=== PATIENT | male | born 1990 | race Caucasian/White ===

== ENCOUNTER → 2017-09-25 09:17 | Outpatient (CLI) | payer OTHER, SELFPAY ==
[2017-09-25 10:00] LABS: Absolute Lymphocyte Count 1.89 X10^3/ul (0.83-4.51); Absolute Neutrophil Count 6.2 X10^3/uL (2.0-7.7); Basophil# 0.03 X10^3/uL; Basophil% 0.3 % (0-1); Eosinophil# 0.09 X10^3/uL; Hematocrit 48.7 % (40-54); Hemoglobin 16.5 g/dl (13.0-16.5); Lymphocyte # 1.89 X10^3/ul (4.0); Lymphocyte % 20.8 % (19-41); Mean Corp Hgb Conc 33.9 g/gl (32-36); Mean Corpuscular Hgb 30.2 pg (27.0-32.0); Mean Corpuscular Volume 89.2 fL (80-94); Mean Platelet Vol. 10.7 fl (6.2-12.0); Monocyte# 0.81 X10^3/uL; Monocyte% 8.9 % (0-10); Neutrophil # 6.24 X10^3/uL (2.7-7.7); Neutrophil % 68.7 % (47-70); POSITIVE COUNT NO; POSITIVE DIFFERENTIAL NO; POSITIVE MORPHOLOGY NO; Platelet Count 277 K/mm3 (150-450); RBC Distribution Width CV 13.6 % (11.6-14.6); RBC Distribution Width SD 44.1 fl (35.1-43.9); Red Blood Count 5.46 M/mm3 (4.6-6.2); White Blood Count 9.1 K/mm3 (4.4-11.0)
[2017-09-25 10:28] LABS: PSA,Total- Diagnostic 1.64 ng/mL (0.0-4.0)
== END ==
PROVIDERS: Family Provider Nurse Practitioner; PCP Nurse Practitioner; Visit Provider Nurse Practitioner
DX: E29.1 Testicular hypofunction (principal)
CPT/HCPCS: 36415; 84153; 84403; 85025

== ENCOUNTER 2017-10-23 08:35 | Outpatient (RCR) | payer OTHER, SELFPAY ==
[2017-10-23 09:22] LABS: Absolute Lymphocyte Count 2.08 X10^3/ul (0.83-4.51); Basophil# 0.04 X10^3/uL; Basophil% 0.5 % (0-1); Eosinophil# 0.12 X10^3/uL; Eosinophils% 1.5 % (0-5); Hemoglobin 16.3 g/dl (13.0-16.5); Lymphocyte # 2.08 X10^3/ul (4.0); Lymphocyte % 25.4 % (19-41); Mean Corpuscular Hgb 30.3 pg (27.0-32.0); Mean Corpuscular Volume 89.2 fL (80-94); Mean Platelet Vol. 10.7 fl (6.2-12.0); Monocyte# 0.88 X10^3/uL; Monocyte% 10.7 % (0-10); Neutrophil # 5.03 X10^3/uL (2.7-7.7); Neutrophil % 61.3 % (47-70); Platelet Count 314 K/mm3 (150-450); RBC Distribution Width CV 13.3 % (11.6-14.6); Red Blood Count 5.38 M/mm3 (4.6-6.2); White Blood Count 8.2 K/mm3 (4.4-11.0)
[2017-10-23 09:23] LABS: POSITIVE COUNT NO; POSITIVE DIFFERENTIAL NO; POSITIVE MORPHOLOGY NO
[2017-10-23 09:55] LABS: PSA,Total- Diagnostic 1.69 ng/mL (0.0-4.0)
== END 2017-10-23 09:00 | disposition home or self-care (01) ==
LOC: LAB 08:35
PROVIDERS: Family Provider Nurse Practitioner; PCP Nurse Practitioner; Visit Provider Nurse Practitioner
DX: E29.1 Testicular hypofunction (principal)
CPT/HCPCS: 36415; 84153; 84403; 85025

== ENCOUNTER 2019-03-26 11:33 | Emergency (ER) | payer OTHER, SELFPAY ==
[2019-03-26 11:34] VITALS: BP 144/81; PULSE 98; RESP 24; TEMP 36.9; O2SAT 97; BMI 31.7
--- NOTE | 2019-03-26 11:36 | NURSING ---
NO OLD EKGS
[2019-03-26 11:40] VITALS: BP 144/81; PULSE 93; RESP 17; O2SAT 97
--- NOTE | 2019-03-26 11:41 | RAD_ITS ---
STUDY: X-RAY CHEST REASON FOR EXAM: Male, 28 years old. Chest pain for several days TECHNIQUE: Single view of the chest was obtained COMPARISON: None. FINDINGS: No lung consolidation, pleural effusion or pneumothorax. Cardiac size is within normal limits. Osseous structures demonstrate no acute abnormalities. Small calcified granuloma in the left upper lobe IMPRESSION: No acute cardiopulmonary pathology seen. Electronically Signed: Jasen Forrest, at 12:23 EDT Tel , Service support , RAD/Chest 1 View (Portable)
--- NOTE | 2019-03-26 11:41 | EKG12_ITS ---
Test Reason : CHEST PAIN Blood Pressure : / mmHG Vent. Rate : 097 BPM Atrial Rate : 097 BPM P-R Int : 138 ms QRS Dur : 080 ms QT Int : 334 ms P-R-T Axes : 054 037 024 degrees QTc Int : 424 ms Normal sinus rhythm Normal ECG Confirmed by NARESH RAMOS, VINCENT ([id number]), publications editor JERRY LEVINE ([id number]) on 03/29/2019 10:15:53 AM Referred By: Confirmed By:VINCENT INFANTE MD
--- NOTE | 2019-03-26 11:44 | ED.DCSUM_ITS ---
History of Present Illness Informant: Patient Narrative: Patient seen with Dr. Villeda. 28-year-old male with past medical history of hypertension presents with concern for chest pain. Patient states he has had intermittent chest pain for the past 1 year. States he follows with a [facility] and had a negative stress test 8 months ago for this issue. States that today he was at the gym and did a full weight-based workout when he got on the treadmill he can only last 1 minute before he became short of breath and had chest pain. Describes it as left-sided sharp and radiating into his left arm. States is currently present but has lessened since its onset. Denies any history of DVT or pulmonary embolism. Does admit to a recent long trip 1 week ago he drove to [place]. This is by car. Patient also admits to family history of heart disease. Father had ME at 39. Denies any smoking, drugs, alcohol. <Jorge Baker - Last Filed: 03/26/19 12:46> <Nicholas Villeda - Last Filed: 03/26/19 13:09> Chief Complaint: Chest Pain Past Medical History Past Medical History: - - Hypertension Smoking Status: Never smoker <Jorge Baker - Last Filed: 03/26/19 12:46> <Nicholas Villeda - Last Filed: 03/26/19 13:09> - Allergies and Home Meds Allergies/Adverse Reactions: Allergies No Known Allergies Allergy (Verified 03/26/19 12:49) Primary Care Physician: Anny Rodriguez, LANG-C [Nurse Practitioner] - Review of Systems General: Denies: Chills, Fever, Sweats Eyes: Denies: Visual changes - bilaterally, Diplopia ENT: Denies: Rhinorrhea, Sore throat Cardiovascular: Reports: Chest pain. Denies: Palpitations Respiratory: Reports: Dyspnea. Denies: Cough, Dyspnea on exertion Gastrointestinal: Denies: Abdominal pain, Nausea, Vomiting, Diarrhea, Melena, Hematochezia Genitourinary: Denies: Dysuria, Hematuria, Frequency Musculoskeletal: Denies: Back pain, Extremity Pain Skin: Denies: Rash, Wounds Neurological: Denies: Headache, Weakness, Numbness <Jorge Baker - Last Filed: 03/26/19 12:46> Physical Exam Vital Signs/Narrative: Vital Signs Temp Pulse Resp BP Pulse Ox 03/26/19 11:40 93 17 144/81 H 97 03/26/19 11:34 98.4 F 98 24 H 144/81 H 97 General: Well nourished, Well developed, No Acute Distress Head: Normocephalic, Atraumatic Eyes: Perrl, EOMI ENT: Moist mucous membranes, No rhinorrhea Neck: Supple, Nontender Cardiovascular: Regular rate, Regular rhythm, No murmurs Respiratory: No distress, CTA bilaterally, Chest nontender Abdomen: Soft, Nontender, Nondistended, Normal bowel sounds Back: Nontender, Normal Inspection Extremities: Nontender, No edema Skin: Normal color, No rash Neurological: Alert, Oriented x3, Cranial nerves II-XII grossly intact, Normal Strength, Normal Sensation Psychological: Normal affect, Normal Mood <Jorge Baker - Last Filed: 03/26/19 12:46> Vital Signs/Narrative: Vital Signs Temp Pulse Resp BP Pulse Ox 03/26/19 11:40 93 17 144/81 H 97 03/26/19 11:34 98.4 F 98 24 H 144/81 H 97 <Nicholas Villeda - Last Filed: 03/26/19 13:09> Diagnostic/Tx/Re-eval Chest X-Ray - ED: 1 View, Normal - Rhythm Strip Rhythm Strip: Sinus Rhythm Rate: 97 Ectopy: None - EKG Initial EKG Interpretation: Sinus Rhythm, - - Normal sinus rhythm at 97 bpm. MS interval 138 ms. QTc 424 ms. No evidence of ST elevation or depression. - Medical Decision Making Patient appears well nontoxic. Vital signs within normal limits. EKG appears nonischemic. Negative troponin and d-dimer. Patient's symptoms are somewhat concerning given they are worse on exertion. That along with family history of cardiac disease. Offered admission with further cardiac observation which she declined at this time. Stated that he would follow-up with his primary care physician and keep his appointment with the [facility] for further cardiac testing. Advised to take a baby aspirin a day. Asked to return for any new or worsening symptoms. Patient is agreeable to this plan was discharged home in stable condition. Stable Home. Impression: Chest pain <Jorge Baker - Last Filed: 03/26/19 12:46> - Medical Decision Making The patient was seen with Dr. Bergeron agree with history and physical as above patient complains of this non-specific chest pain to the left chest that he has had before scheduled to have nuclear stress test by [facility] his lungs clear heart tones normal abdomen soft nontender awake alert moving all 4 discussed management with him discussed inpatient versus outpatient management h e prefers discharge to outpatient management return for change in symptoms <Nicholas Villeda - Last Filed: 03/26/19 13:09> ED Disposition <Jorge Baker - Last Filed: 03/26/19 12:46> <Nicholas Villeda - Last Filed: 03/26/19 13:09> - Plan for ED Patient: Disposition: Home or Assisted Living Diagnosis: Chest pain Instructions: CHEST PAIN, Uncertain Cause Referrals: Anny Rodriguez NP-C [Nurse Practitioner] -
[2019-03-26 11:49] LABS: Absolute Neutrophil Count 4.7 X10^3/uL (2.0-7.7); Basophil# 0.04 X10^3/uL; Basophil% 0.5 % (0-1); Eosinophils% 1.3 % (0-5); Hematocrit 43.3 % (40-54); Hemoglobin 15.2 g/dL (13.0-16.5); Lymphocyte % 28.8 % (19-41); Mean Corp Hgb Conc 35.1 g/dL (32-36); Mean Corpuscular Hgb 30.9 pg (27.0-32.0); Mean Platelet Vol. 10.6 fl (6.2-12.0); NRBC Flagged by Analyzer 0 % (0-5); Neutrophil # 4.69 X10^3/uL (2.7-7.7); Neutrophil % 58.8 % (47-70); Platelet Count 263 K/mm3 (150-450); RBC Distribution Width SD 38.7 fl (35.1-43.9); Red Blood Count 4.92 M/mm3 (4.6-6.2)
[2019-03-26] MEDS: Aspirin 81 MG TAB.CHEW 324 MG PO (11:49)
[2019-03-26 12:05] LABS: D-Dimer Quantitative (DVT/PE) < 0.27 FEU/ug/m (0.27-0.49)
[2019-03-26 12:06] LABS: Anion Gap 5 (5-15); BUN 19 mg/dL (7-18); BUN/Creat Ratio 15.8 RATIO (10-20); Chloride 106 mmol/L (98-107); EST Glomerular Filtration Rate 75 mL/min (>60); Est Glom Filt Rate - Afr Amer 91 mL/min (>60); Estimated Creatinine Clearance 90.01 ml/min; Glucose 94 mg/dL (74-106); Potassium 4.1 mmol/L (3.5-5.1); Sodium Level 138 mmol/L (136-145)
[2019-03-26 14:03] VITALS: BP 123/73; PULSE 66; RESP 17; O2SAT 98
== END 2019-03-26 14:04 | disposition home or self-care (01) ==
PROVIDERS: Emergency Medicine; Emergency Provider Emergency Medicine; Family Provider Family Medicine; PCP Family Medicine
DX: R07.9 Chest pain, unspecified (principal); R06.00 Dyspnea, unspecified; I10 Essential (primary) hypertension; Z82.49 Family history of ischemic heart disease and other diseases of the circulatory system; Z79.899 Other long term (current) drug therapy
CPT/HCPCS: 71045; 80048; 84484; 85025; 85379; 93005; 99284; A4216

== ENCOUNTER → 2019-04-14 | Outpatient (CLI) | payer OTHER, SELFPAY ==
[2019-03-26 11:34] VITALS: BMI 31.7
--- NOTE | 2019-04-14 08:56 | STRESSREP ---
Stress Test Report Exercise myocardial perfusion stress test. 28-year-old male with a history of chest pain. Stress protocol: Resting EKG demonstrates normal sinus rhythm with a rate of 74 bpm normal intervals are noted resting blood pressure 736 over 90 mmHg. The patient exercised according to regular Rene protocol for total duration of 11 minutes completing 2 minutes into stage IV of the Rene protocol the maximum heart rate attained was 171 bpm which was 90% of maximum predicted heart rate and maximum workload was 13.4 metabolic equivalents. At rest there were no ST or T wave changes noted suggest ischemia at peak exercise upsloping ST changes only were noted with no meet the criteria for ischemia. No clinical angina was noted. Test was terminated due to leg fatigue. The resting blood pressure was noted to be 136/90 minute meters of mercury with a peak blood pressure of 200/68 mmHg. Myocardial perfusion protocol. 11.8 mCi of technetium 99m sestamibi was injected at rest. The patient exercised according to regular Rene protocol at peak exercise 33.1 mCi of technetium 99m sestamibi was injected stress images were obtained stress and rest images were reconstructed and compared in the short axis vertical long horizontal long axis. Gated images were also obtained Perfusion SPECT analysis: Review of the stress images demonstrate normal uptake of tracer noted in all areas of myocardium. The resting images similarly demonstrate normal uptake of tracer noted in all areas of the myocardium. No areas of reversibility are noted suggest ischemia. Gated SPECT analysis: The gated ejection fraction is noted to be 59%. Conclusion: Normal exercise myocardial perfusion stress test with no evidence of ischemia at a high workload. Excellent functional capacity. Preserved ejection fraction.
== END | disposition home or self-care (01) ==
LOC: CVS 06:34
PROVIDERS: Family Provider Family Medicine; PCP Family Medicine; Referring Provider Family Medicine; Visit Provider Family Medicine
DX: R07.89 Other chest pain (principal); Z82.49 Family history of ischemic heart disease and other diseases of the circulatory system
CPT/HCPCS: 78452; 93017; A9500; A4216

== ENCOUNTER 2023-05-31 10:33 | Emergency (ER) | payer BC, SELFPAY ==
[2023-05-31 10:34] VITALS: BP 148/103; PULSE 100; RESP 16; TEMP 37.3; O2SAT 98; BMI 34.2
--- NOTE | 2023-05-31 11:14 | ED.RN ---
Assumed care of patient
--- NOTE | 2023-05-31 11:16 | EDS_ITS ---
HPI HPI - GI History of Present Illness Chief Complaint: Abd Pain Informant: patient Narrative Narrative: Patient has history of chronic abdominal pain for the last year. He states it seems to move around, but today the pain is worse than usual upon waking up today, and radiating straight through to his back. Occasionally has red wine last time he had some was 2 or 3 days ago. He states he has pain every day. This is similar to some of it, but way worse in severity. He states ordinarily he would not have gone to work because of how much pain he has been in, but he did anyway because he does not have any more days to take off. He left work to come here when his hands and feet started tingling and feeling cold. He has been vomiting. No hematemesis or coffee-ground emesis. He states he chronically has diarrhea for the past year and is being worked up for Crohn's. He has small amount of blood and mucus every day, when he eats he has more diarrhea, and when he does not eat it is better but at best he has 5-10 bowel movements per day and basically over the last year has lost 25 pounds because of all of this. He saw GI at [facility], he also had a colonoscopy all of this was last year but then the GI doctor left and he is stuck trying to follow-up with a new GI specialist, he has an appointment with them coming up in [place]. [facility] Medical History no medical history Home Medications levothyroxine 88 mcg tablet 50 mcg PO DAILY 04/17/15 [History Last Taken Unknown] metoprolol tartrate 50 mg tablet 50 mg PO DAILY 04/17/15 [History Last Taken Unknown] omeprazole 20 mg capsule,delayed release 20 mg PO DAILY 04/17/15 [History Last Taken Unknown] hydrocodone-acetaminophen 5-325mg 5mg-325mg 1 tab PO Q6H PRN PRN Pain 3 days #10 TABLETS 05/31/23 [Rx Last Taken Unknown] ondansetron 4 mg disintegrating tablet 8 mg (2 x 4 mg) PO Q8H PRN PRN Nausea #20 tabs 05/31/23 [Rx Last Taken Unknown] prednisone 20 mg tablet 40 mg (2 x 20 mg) PO DAILY #10 TABLETS 05/31/23 [Rx Last Taken Unknown] Allergy/AdvReac Type Severity Reaction Status Date / Time No Known Allergies Allergy Verified 05/31/23 10:33 Social History Smoking Status: Never smoker ROS ROS ED Constitutional Constitutional ED: Denies chills or fever(s) Eyes Eyes: Denies change in vision or diplopia ENT ENT ED: Denies rhinorrhea or sore throat Cardiovascular Cardiovascular: Denies chest pain or palpitations Respiratory/Chest Respiratory/Chest: Denies cough or dyspnea Gastrointestinal Gastrointestinal: Reports as per HPI, abdominal pain, diarrhea, hematochezia, nausea and vomiting; Denies hematemesis or melena Genitourinary Genitourinary ED: Denies dysuria or hematuria Musculoskeletal Musculoskeletal: Reports back pain; Denies neck pain Integumentary Denies abscess or rash Neurologic Neurologic: Reports paresthesias RUE, RLE, LUE and LLE; Denies headache(s) or weakness Psychiatric Psychiatric: Denies anxiety or suicidal thoughts EXAM Physical Exam Const Vital Signs: 05/31/23 10:34 Temperature 99.1 F Temperature Source Temporal Pulse Rate 100 Respiratory Rate 16 Blood Pressure 148/103 H Blood Pressure Mean 118 Pulse Ox 98 Oxygen Delivery Method Room Air Positive well nourished and well developed General Appearance ED: well developed and NAD HEENT Reports moist mucous membranes normocephalic and atraumatic Eyes PERRL and EOMs intact bilaterally Neck full ROM and supple Resp normal respiratory effort and clear to auscultation bilaterally Cardio regular rate, regular rhythm and no murmurs Cardio Narrative: Intact distal pulses x4 GI non-distended GI Narrative: Diffuse abdominal tenderness worse in the epigastrium, no guarding or rebound Auscultation: hyperactive bowel sounds Palpation: soft Back/Spine no CVA tenderness General Back: other FROM Extremity normal to inspection General Extremety ED: Negative for edema, pulses abnormal or tenderness General Extremity: Negative for edema or pulses abnormal Neuro oriented x3, CN's II-XII intact bilaterally and no sensory deficits noted Sensorium / Orientation: awake and alert Motor Exam: strength 5/5 throughout Psych thought process normal Mood & Affect: tearful Skin no rashes or lesions noted and no wounds MDM MDM MDM Narrative Medical decision making narrative: Differential is wide here including an exacerbation of inflammatory bowel disease, and complications of Crohn's. He is on no maintenance medications since he has not been officially diagnosed according to him. Differential also includes pancreatitis, gallbladder-related etiologies. While being worked up he was given IV fluids, Zofran, morphine. He felt much better on reevaluation. Has a significant leukocytosis, CT with IV contrast was obtained, I reviewed the images and the results which I agree with, basically negative for any acute including intra-abdominal abscess, small bowel obstruction, obvious signs of colitis. Patient's lipase was within normal limits ruling out acute pancreatitis as etiology for this pain. Differential does include exacerbation of inflammatory bowel disease in addition to other intraluminal etiologies such as but not exclusively celiac, leaky gut syndrome, peptic ulcer disease. Patient has an appointment with GI within the next week. Patient is already on a daily PPI. I am going to treat him with short course of steroids to see if that helps in addition to prescriptions for Zofran and analgesics to use as needed he is comfortable with that plan and is tolerating ice chips and oral fluids here, and is comfortable going home at this time. His vital signs are normal, he appears hydrated, and I do not think he needs to be admitted at this time. We discussed reasons to return. We did order diarrhea to be sent for C. difficile on the patient was here, however he was not able to provide specimen for us and preferred to leave without the test. Lab Data Attestation: I reviewed the patient's lab results. Labs: Laboratory Results - last 24 hr 05/31/23 10:40 WBC 18.7 H RBC 5.08 Hgb 15.0 Hct 46.0 MCV 90.6 MCH 29.5 MCHC 32.6 RDW Std Deviation 41.9 RDW Coeff of Kj 12.7 Plt Count 307 MPV 11.1 Immature Gran % (Auto) 0.500 Neut % (Auto) 84.3 H Lymph % (Auto) 7.3 L Ing[place] % (Auto) 7.5 Eos % (Auto) 0.1 Baso % (Auto) 0.3 Absolute Neuts (auto) 15.7 H Absolute Lymphs (auto) 1.37 Nucleated RBC % 0 Sodium 134 L Potassium 4.3 Chloride 100 Carbon Dioxide 27.0 Anion Gap 7 BUN 12 Creatinine 1.19 Estim Creat Clear Calc 87.47 Est GFR (MDRD) Af Amer 90 Est GFR (MDRD) Non-Af 74 BUN/Creatinine Ratio 10.1 Glucose 98 Calcium 9.1 Total Bilirubin 0.50 AST 11 L ALT 25 Alkaline Phosphatase 33 L Total Protein 7.8 Albumin 4.1 Globulin 3.7 Albumin/Globulin Ratio 1.1 Lipase 31 Radiography Diagnostic Testing: Clinical Impression(s) from Imaging Studies Abdomen/Pelvis CT 05/31/23 13:14 IMPRESSION: No acute abnormality identified. Electronically Signed: Zoila Knapp MD at 14:21 EDT Reading Location ID and State: [facility] / [place] Tel , Service support , Discharge Plan Triage Chief Complaint: Abd Pain ED Provider: Ulisses Rodríguez Dx/Rx/DC Orders Clinical Impression: Diffuse abdominal pain, Leukocytosis, Chronic abdominal pain Instructions: Crohns Disease Dc Prescriptions: New hydrocodone-acetaminophen [hydrocodone-acetaminophen] 5-325 mg tablet 1 tab PO Q6H PRN PRN (Reason: Pain) 3 Days Qty: 10 0RF prednisone 20 mg tablet 40 mg PO DAILY Qty: 10 0RF ondansetron [ondansetron] 4 mg tablet,disintegrating 8 mg PO Q8H PRN PRN (Reason: Nausea) Qty: 20 0RF No Action levothyroxine 88 MCG tablet 50 mcg PO DAILY metoprolol tartrate 50 MG tablet 50 mg PO DAILY omeprazole 20 MG capsule 20 mg PO DAILY Primary Care Provider: Vern Stewart Referrals: Vern Stewart MD [Primary Care Provider] - Keep [place] appointment (and/or GI doctor) Activity Restrictions/Additional Instructions: Your ER work-up today does not rule in or rule out Crohn's disease. It is in the realm of possibility, and we are treating you as if you have a Crohn's exacerbation to try to help your symptoms and make you more likely to absorb which you eat and drink. Disposition Disposition: Home, Self Care
[2023-05-31] MEDS: Ondansetron 4 MG/2 ML Vial IV (11:28)
[2023-05-31] MEDS: Morphine 4 MG/ML Syringe IV (11:28)
[2023-05-31] MEDS: 0.9% Normal Saline (1000mL) 1,000 ML 1000 ML IV (11:28)
[2023-05-31 11:33] LABS: Absolute Lymphocyte Count 1.37 X10^3/uL (0.83-4.51); Absolute Neutrophil Count 15.7 X10^3/uL (2.0-7.7); Basophil# 0.06 X10^3/uL; Basophil% 0.3 % (0-1); Eosinophil# 0.01 X10^3/uL; Eosinophils% 0.1 % (0-5); Lymphocyte # 1.37 X10^3/ul (0.83-4.51); Lymphocyte % 7.3 % (19-41); Mean Corp Hgb Conc 32.6 g/dL (32-36); Mean Corpuscular Hgb 29.5 pg (27.0-32.0); Mean Corpuscular Volume 90.6 fL (80-94); Mean Platelet Vol. 11.1 fl (6.2-12.0); Monocyte% 7.5 % (0-10); NRBC Flagged by Analyzer 0 % (0-5); Neutrophil # 15.73 X10^3/uL (2.7-7.7); Neutrophil % 84.3 % (47-70); Platelet Count 307 K/mm3 (150-450); RBC Distribution Width CV 12.7 % (11.6-14.6); RBC Distribution Width SD 41.9 fl (35.1-43.9); Red Blood Count 5.08 M/mm3 (4.6-6.2); White Blood Count 18.7 K/mm3 (4.4-11.0)
[2023-05-31 12:00] LABS: ALB/GLOB Ratio 1.1 RATIO (0.9-2.4); AST(SGOT) 11 U/L (15-37); Alanine Aminotransfer ALT/SGPT 25 U/L (16-61); Albumin, Serum 4.1 g/dL (3.2-5.0); Alkaline Phosphatase 33 U/L (45-117); Anion Gap 7 (5-15); BUN 12 mg/dL (7-18); BUN/Creat Ratio 10.1 RATIO (10-20); Calcium,Total 9.1 mg/dL (8.5-10.1); Chloride 100 mmol/L (98-107); Creatinine, Serum 1.19 mg/dL (0.70-1.30); EST Glomerular Filtration Rate 74 mL/min (>60); Est Glom Filt Rate - Afr Amer 90 mL/min (>60); Estimated Creatinine Clearance 87.47 ml/min; Globulin 3.7 g/dL (2.2-4.2); Glucose 98 mg/dL (74-106); Lipase 31 U/L (13-75); Potassium 4.3 mmol/L (3.5-5.1); Protein, Total 7.8 g/dL (6.4-8.2); Sodium Level 134 mmol/L (136-145)
--- NOTE | 2023-05-31 13:14 | CT_ITS ---
HISTORY: Diffuse abdominal pain. TECHNIQUE: Helically acquired images were obtained of the abdomen and pelvis after the intravenous administration of 100mL Isovue-300. A radiation dose optimization technique was used for this scan. 421 images. COMPARISON: 12/07/2016. FINDINGS: LOWER CHEST: Lung bases clear. BOWEL: Bowel including appendix nondilated. No focal inflammatory change observed. PERITONEUM: No significant ascites. LIVER: No enhancing mass. GALLBLADDER/BILIARY TREE: Gallbladder present. SPLEEN/PANCREAS: Homogeneous and nonenlarged. KIDNEYS/ADRENAL GLANDS: Unremarkable. VESSELS: Normal caliber and contour of the abdominal aorta. PELVIC ORGANS: Unremarkable. BONES: Intact. CT/Abdomen/Pelvis W IV Cont ONLY IMPRESSION: No acute abnormality identified. Electronically Signed: Zoila Knapp MD at 14:21 EDT ,
[2023-05-31 14:49] VITALS: BP 143/90; PULSE 78; RESP 16; O2SAT 98
[2023-05-31] MEDS: MethylPREDNISolone 125 MG/2 ML Vial IV (14:55)
== END 2023-05-31 15:03 | disposition home or self-care (01) ==
PROVIDERS: Emergency Provider Emergency Medicine; PCP Family Medicine; Visit Provider Emergency Medicine
DX: R10.84 Generalized abdominal pain (principal); D72.829 Elevated white blood cell count, unspecified
CPT/HCPCS: 74177; 80053; 83690; 85025; 96361; 96374; 96375; 99282; J7030; Q9967; A4216; J2405

== ENCOUNTER 2025-02-01 21:37 | Emergency (ER) | payer BC, SELFPAY ==
[2025-02-01 21:38] VITALS: BP 155/108; PULSE 85; RESP 18; TEMP 35.9; O2SAT 98
[2025-02-01 21:41] VITALS: BMI 37.9
--- NOTE | 2025-02-01 21:41 | RAD_ITS ---
PROCEDURE: ANKLE MIN 3 VIEWS 02/01/2025 REASON FOR EXAM: PAIN, UNABLE TO BEAR WEIGHT TECHNIQUE: 3 views of the left ankle COMPARISON: None. FINDINGS: No evidence of acute fracture or dislocation. Ankle joint effusion is present. Soft tissue swelling overlying the lateral malleolus. RAD/Ankle min 3 Views IMPRESSION: No acute osseous abnormalities. Ankle swelling. Ankle joint effusion. Reading Location: [place] [id number]
--- NOTE | 2025-02-01 21:55 | EX.ED.DYSGE1 ---
HPI History of Present Illness Chief Complaint: Lower Extremity Injury Detail of Chief Complaint: Injury to left ankle, plantar inversion mechanism injury Informant: patient Onset/Context/Timing Onset: Hours Context: Sudden Onset Timing: Continuous Quality: Pain Location: Lateral side of left ankle Current Severity: Mild Maximum Severity: Severe Worsened by: Weightbearing and palpation Relieved by: Nothing Associated Symptoms Associated Symptoms: None Narrative Narrative: Patient is a 34-year-old male. He was playing with his daughter. His foot went into a hole. He twisted his ankle. He denies prior injury. He has history of colitis. He has been told that he should not take NSAIDs. He denies paresthesia, anesthesia or motor weakness. He denies knee pain, toe pain or foot pain. Prior similar symptoms: No Recent Illness/Hospitalization: No PFSH PFSH Medical History no medical history Home Medications ?Medication ?Instructions ?Recorded ?Last Taken ?Type levothyroxine 88 mcg tablet 50 mcg PO DAILY 04/17/15 Unknown History metoprolol tartrate 50 mg tablet 50 mg PO DAILY 04/17/15 Unknown History omeprazole 20 mg capsule,delayed 20 mg PO DAILY 04/17/15 Unknown History release hydrocodone-acetaminophen 5-325mg 1 tab PO Q6H PRN PRN Pain 3 days 05/31/23 Unknown Rx 5mg-325mg #10 TABLETS ondansetron 4 mg disintegrating 8 mg (2 x 4 mg) PO Q8H PRN PRN 05/31/23 Unknown Rx tablet Nausea #20 tabs prednisone 20 mg tablet 40 mg (2 x 20 mg) PO DAILY #10 05/31/23 Unknown Rx TABLETS hydrocodone-acetaminophen 5-325mg 1 tab PO Q6H PRN PRN Pain 3 days 02/01/25 Unknown Rx 5mg-325mg #10 TABLETS Allergy/AdvReac Type Severity Reaction Status Date / Time No Known Allergies Allergy Verified 02/01/25 21:38 Social History (Updated 02/01/25 @ 22:[address] Jed Edwards MD) household members: spouse and children Smoking Status: Never smoker ROS ROS ED Musculoskeletal Musculoskeletal: Reports other Details: Ankle swelling and pain due to trauma ; Denies arthralgias, back pain, myalgias or neck pain Integumentary Denies Abrasions or rash Neurologic Neurologic: Denies paresthesias EXAM Physical Exam Const Vital Signs: 02/01/25 21:38 Temperature 96.7 F L Temperature Source Temporal Pulse Rate 85 Respiratory Rate 18 Blood Pressure 155/108 H Blood Pressure Mean 123 Pulse Ox 98 Oxygen Delivery Method Room Air Positive well nourished and well developed Constitutional Narrative: BMI is 37.9. Blood pressure slightly elevated. This is probably due to the fact that he has pain. General Appearance ED: well developed; Negative for pallor HEENT Reports moist mucous membranes HEENT Narrative: Head is atraumatic normocephalic. Teeth are normal. Ears are normal. Eyes PERRL and EOMs intact bilaterally General Eye ED: Yes scleral icterus Resp normal respiratory effort Cardio regular rate and regular rhythm Extremity Negative for normal to inspection Extremity Narrative: There is significant swelling over the lateral malleolus. There is pain palpation over the anterior talofibular and calcaneofibular ligament on the left. There is pain palpation posteriorly as well. There is no pain palpation over the medial malleolus or deltoid ligament. There is no laxity with drawer testing. There is no pain to palpation base of the fifth metatarsal. DP pulses palpable. Neuro oriented x3, CN's II-XII intact bilaterally and no sensory deficits noted Sensorium / Orientation: alert Psych mental status grossly normal Skin no rashes or lesions noted, no wounds and skin turgor normal General Skin Exam: elasticity normal; Negative for jaundice or pallor MDM MDM MDM Narrative Medical decision making narrative: Based on the [place] ankle rule patient will need imaging. Three-view x-ray was ordered per nurse protocol. X-ray was reviewed by me. Radiography Chest X-Ray - ED: Read by ED Physician (Three-view x-ray of the ankle was obtained. There is no fracture, subluxation dislocation. There is no widening of the mortise. There is no evidence of fracture at the base of the fifth metatarsal. There is soft tissue swelling noted laterally. This is entirely reviewed interpreted by me at 215) Discharge Plan Triage Chief Complaint: Lower Extremity Injury ED Provider: Jed Edwards Dx/Rx/DC Orders Clinical Impression: Sprain of anterior talofibular ligament of left ankle, Sprain of calcaneofibular ligament of left ankle, Elevated blood-pressure reading without diagnosis of hypertension, Adult BMI 37.0-37.9 kg/sq m Instructions: ED Ankle Sprain (Adult) Prescriptions: New hydrocodone-acetaminophen 5-325 mg tablet 1 tab PO Q6H PRN PRN (Reason: Pain) 3 Days Qty: 10 0RF No Action levothyroxine 88 MCG tablet 50 mcg PO DAILY metoprolol tartrate 50 MG tablet 50 mg PO DAILY omeprazole 20 MG capsule 20 mg PO DAILY hydrocodone-acetaminophen [hydrocodone-acetaminophen] 5-325 mg tablet 1 tab PO Q6H PRN PRN (Reason: Pain) 3 Days Qty: 10 0RF prednisone 20 mg tablet 40 mg PO DAILY Qty: 10 0RF ondansetron [ondansetron] 4 mg tablet,disintegrating 8 mg PO Q8H PRN PRN (Reason: Nausea) Qty: 20 0RF Primary Care Provider: Vern Stewart Referrals: Vern Stewart MD [Primary Care Provider] - Print Language: Chinese Disposition Disposition: Home, Self Care
--- OUTSIDE RECORDS SUMMARY | 2025-02-01 22:12 | XMS RPT_ITS | CCD ---
Author Organization [facility] Care Team Providers Care Outreach Team Member Name Role Phone Vern Rodarte MD Primary Care Provider [phone] Vern Rodarte MD Primary Care Provider Clara MANAGER FINE DINING.Rohit FAYE Unavailable Lise Lundberg PA-C Unavailable VERN RODARTE Primary Care Unavailable KIZZY FIGUEROA Referring Unavailable VERN RODARTE Primary Care Unavailable KIZZY FIGUEROA Referring Unavailable VERN RODARTE Primary Care Unavailable ROHIT JAY Attending Unavailable VERN RODARTE Primary Care Unavailable VERN RODARTE Referring Unavailable VERN RODARTE Primary Care Unavailable VERN RODARTE Attending Unavailable VERN RODARTE Primary Care Unavailable KIZZY FIGUEROA Attending Unavailable VERN RODARTE Primary Care Unavailable ROHIT JAY Referring Unavailable Clara MANAGER FINE DINING.Rohit FAYE Unavailable Lise Lundberg PA-C Unavailable Medications Current Medications Medication Drug Class(es) Dates Sig (Normalized) Sig (Original) amoxicillin 875 mg oral tablet (1 source) Penicillin-class Antibacterial Start: 08-10-2022 End: 08-20-2022 take 1 tablet by mouth twice daily amoxicillin (AMOXIL) 875 mg tablet Take 1 tablet by mouth twice daily for 10 days. 20 tablet 0 08/10/2022 08/20/2022 Active Comment on above: Take 1 tablet by benson twice daily for 10 days. budesonide 3 mg delayed release oral capsule (2 sources) Corticosteroid Start: 04-08-2022 End: 07-07-2022 take 3 capsules by mouth once daily, then take 2 capsules by mouth once daily, then take 1 capsule by mouth once daily budesonide, enteric coated (ENTOCORT EC) 3 mg 24 hr capsule Take 3 capsules by mouth once daily for 30 days, THEN 2 capsules once daily for 30 days, THEN 1 capsule once daily. 180 capsule 0 04/08/2022 07/07/2022 Active Comment on above: Take 3 capsules by m outh once daily for 30 days, THEN 2 capsules once daily for 30 days, THEN 1 capsule once daily. enteric contrast (will be provided with radiology test) (2 sources) Start: 08-29-2024 End: 08-30-2024 enteric contrast (will be provided with radiology test) Indications: Generalized abdominal pain , Diarrhea, unspecified type , Elevated fecal calprotectin For CT ENTEROGRAPHY W IVCON order Administer, As Directed One Time Only, via Oral, Rectal, both Oral and Rectal, Enteric Tube, Stoma or Indwelling Catheter, Enteric Contrast as designated per enteric contrast guidelines. 1 Each 08/29/2024 08/30/2024 Active Start: 04-08-2022 End: 04-09-2022 enteric contrast (will be pr ovided with radiology test) For MRI ENTEROGRAPHY WO/W Administer, As Directed One Time Only, via Oral, Rectal, both Oral and Rectal, Enteric Tube, Stoma or Indwelling Catheter, Enteric Contrast as designated per enteric contrast guidelines 1 Each 0 04/08/2022 04/09/2022 Comment on above: For MRI ENTEROGRAPHY WO/W Administer, As Directed One Time Only, via Oral, Rectal, both Oral and Rectal, Enteric Tube, Stoma or Indwelling Catheter, Enteric Contrast as designated per enteric contrast guidelines hyoscyamine sulfate 0.125 mg sublingual tablet (6 sources) Start: 08-29-19 take 1 tablet under the tongue every four hours as needed hyoscyamine sublingual (LEVSIN/SL) 0.125 mg Indications: Generalized abdominal pain , Diarrhea, unspecified type , Elevated fecal calprotectin Dissolve 1 tablet under the tongue every 4 hours as needed. 90 tablet 1 08/29/2024 Active iv contrast (will be provided with radiology test) (2 sources) Start: 08-29-19 End: 08-30-19 iv contrast (will be provided with radiology test) Indications: Generalized abdominal pain , Diarrhea, unspecified type , Elevated fecal calprotectin CT Enterography W Inject, intravenously, once for 1 dose.No IV access, insert saline lock prior to the beginning of sedation, infusion, injection of imaging exam. Discontinue saline lock post exam. If Pt. has a central line or IVAD, may access for administration according to line specific nursing protocol. Once exam is complete flush line and de-access according to line specific nursing protocol in the CT contrast administration guidelines link. 1 Each 08/29/2024 08/30/2024 Active Start: 04-08-2022 End: 04-09-2022 iv contrast (will be provide d with radiology test) MRI Enterography Inject, intravenously, once for 1 dose. No IV access, insert saline lock prior to the beginning of sedation, infusion, injection of imaging exam. Discontinue saline lock post exam. If Pt. has a central line or IVAD, may access for administration according to line specific nursing protocol. Once exam is complete flush line and de-access according to line specific nursing protocol in the MR contrast administration guidelines link. 1 Each 0 04/08/2022 04/09/2022 Comment on above: MRI Enterography Inj ect, intravenously, once for 1 dose. No IV access, insert saline lock prior to the beginning of sedation, infusion, injection of imaging exam. Discontinue saline lock post exam. If Pt. has a central line or IVAD, may access for administration according to line specific nursing protocol. Once exam is complete flush line and de-access according to line specific nursing protocol in the MR contrast administration guidelines link. levothyroxine sodium 0.05 mg oral tablet (20 sources) l-Thyroxine Start: 023 End: 025 take 1 tablet by mouth once daily before breakfast levothyroxine (SYNTHROID) 50 mcg tablet Indications: Hypothyroidism, acquired Take 1 tablet by mouth daily before breakfast. 90 tablet 2 01/02/2025 Active Start: 12-22-2021 End: 09-14-2022 take 1 tablet by mouth once daily before breakfast levothyroxine (SYNTHROID) 50 mcg tablet Indications: Hypothyroidism, acquired Take 1 tablet by mouth daily before breakfast. 90 tablet 0 09/14/2022 Active Start: 07-07-2021 take 1 tablet by benson once daily before breakfast levothyroxine (SYNTHROID) 50 mcg tablet Indications: Hypothyroidism, acquired Take 1 tablet by mouth daily before breakfast. 90 tablet 1 07/07/2021 Active Comment on above: Take 1 tablet by benson th daily before breakfast. lisinopril 10 mg oral tablet (20 sources) Angiotensin Converting Enzyme Inhibitor Start: 09-28-2024 take 1 tablet by mouth once daily lisinopril (ZESTRIL) 10 mg tablet Indications: Hypertension, essential Take 1 tablet by mouth once daily. 90 tablet 1 09/28/2024 Active Start: 12-15-2022 End: 09-28-2024 take 1 tablet by mouth once daily lisinopril (ZESTRIL) 5 mg tablet Indications: Hypertension, essential Take 1 tablet by mouth once daily. 90 tablet 06/29/2024 09/28/2024 Discontinued Start: 12-22-2021 End: 09-14-2022 take 1 tablet by mouth once daily lisinopril (ZESTRIL, PRINIVIL) 5 mg tablet Indications: Hypertension, essential Take 1 tablet by mouth once daily. 90 tablet 0 09/14/2022 Active Start: 10-02-2021 take 1 tablet by benson th once daily lisinopril (ZESTRIL, PRINIVIL) 5 mg tablet Indications: Hypertension, essential Take 1 tablet by mouth once daily. 90 tablet 0 10/02/2021 Active Comment on above: Take 1 tablet by benson th once daily. omeprazole 40 mg delayed release oral capsule (20 sources) Proton Pump Inhibitor Start: 01-24-2025 take 1 capsule by mouth once daily omeprazole (PRILOSEC) 40 mg capsule Take 1 capsule by mouth once daily. On empty stomach at least 30 minutes before eating. 90 capsule 1 01/24/2025 Active Start: 09-09-2023 End: 01-24-2025 omeprazole (PRILOSEC) 20 mg capsule TAKE 2 CAPSULES ONCE DAILY 180 capsule 1 09/09/2023 01/24/2025 Discontinued Start: 11-13-2022 End: 04-08-2023 omeprazole (PRILOSEC) 20 mg capsule TAKE 2 CAPSULES ONCE DAILY 180 capsule 1 04/08/2023 Active Start: 03-09-2022 take 2 capsules by m outh once daily omeprazole (PRILOSEC) 20 mg capsule Take 2 capsules by mouth once daily. 180 capsule 2 03/09/2022 Active Start: 03-02-2022 End: 03-06-2022 take 2 capsules by mouth once daily omeprazole (PRILOSEC) 20 mg capsule Take 2 capsules by mouth once daily. 90 capsule 2 03/02/2022 03/06/2022 Discontinued Start: 12-22-2021 End: 03-02-2022 take 1 capsule by mouth once daily omeprazole (PRILOSEC) 20 mg capsule Take 1 capsule by mouth once daily. 90 capsule 1 12/22/2021 03/02/2022 Discontinued Start: 09-09-2021 End: 11-21-2021 take 1 capsule by mouth once daily omeprazole (PRILOSEC) 20 mg capsule Take 1 capsule by mouth once daily. 90 capsule 0 11/21/2021 Active Comment on above: Take 1 capsule by mo uth once daily. Take 2 capsules by m outh once daily. TAKE 2 CAPSULES ONCE DAILY Completed/Discontinued Medications Medication Drug Class(es) Dates Sig (Normalized) Sig (Original) [id number] 200 actuat albuterol 0.09 mg/actuat metered dose inhaler (10 sources) beta2-Adrenergic Agonist Start: 08-12-2023 End: 08-29-2024 take 2 puff(s) by inhalation every four hours as needed for wheezing albuterol HFA (PROVENTIL HFA) 90 mcg/actuation inhaler Indications: Acute rhinosinusitis Inhale 2 Puffs as instructed every 4 hours as needed for wheezing/shortness of breath. 8 g 08/12/2023 08/29/2024 Discontinued benzonatate 100 mg oral capsule (15 sources) Non-narcotic Antitussive Start: 08-12-2023 End: 08-29-2024 take 1-2 capsules by mouth three times daily as needed benzonatate (TESSALON PERLES) 100 mg capsule Indications: Acute rhinosinusitis Take 1-2 capsules by mouth three times a day as needed. 40 capsule 08/12/2023 08/29/2024 Discontinued Start: 11-11-2022 End: 06-09-2023 take 1-2 capsules by mouth three times daily as needed for cough benzonatate (TESSALON PERLES) 100 mg capsule Indications: Viral URI with cough Take 1-2 capsules by mouth three times daily as needed for cough. 30 capsule 0 11/11/2022 06/09/2023 Discontinued (Discontinued by Patient) Comment on above: Take 1-2 capsules by mouth three times daily as needed for cough. 5 ml bupivacaine hydrochloride 5 mg/ml injection (1 source) Amide Local Anesthetic Start: 08-26-19 End: 08-26-19 bupivacaine (PF) 0.5 % (5 mg/mL) 2.5 mg injection cyclobenzaprine hydrochloride 10 mg oral tablet (20 sources) Muscle Relaxant Start: 09-21-19 End: 08-29-19 take 1 tablet by mouth every eight hours as needed cyclobenzaprine (FLEXERIL) 10 mg tablet Take 1 tablet by mouth three times daily as needed for muscle spasm. 30 tablet 04/05/2023 08/29/2024 Discontinued Start: 04-18-2021 End: 09-19-2022 take 1 tablet by mouth every eight hours as needed cyclobenzaprine (FLEXERIL) 10 mg tablet Take 1 tablet by mouth three times daily as needed for muscle spasm. 30 tablet 2 04/18/2021 09/19/2022 Discontinued Comment on above: Take 1 tablet by benson three times daily as needed for muscle spasm. 1 ml dexamethasone phosphate 4 mg/ml injection (1 source) Corticosteroid Start: 2022 End: 2022 dexAMETHasone sodium phosphate 2 mg injection (DECADRON) dicyclomine hydrochloride 10 mg oral capsule (15 sources) Anticholinergic Start: 2022 End: 2024 take 1 capsule by mouth three times daily as needed for pain dicyclomine (BENTYL) 10 mg capsule Indications: Focal active colitis Take 1 capsule by mouth three times a day as needed (for abdominal pain/loose stools). 60 capsule 2 06/09/2023 08/29/2024 Discontinued Comment on above: Take 1 capsule by mo [facility] three times a day as needed (for abdominal pain/loose stools). glucagon (rdna) 1 mg injection (12 sources) Antihypoglycemic Agent Start: 2021 End: 2022 inject 1 mg intravenously once glucagon (GLUCAGEN) 1 mg/mL injection Inject 1 mg intravenously one time only for 1 dose. For MRI Enterography, Inject 1 mg intravenously, as directed. Slow push at the appropriate time during MRI Scan 1 Each 0 04/08/2022 06/09/2023 Discontinued (Auto ) Comment on above: Inject 1 mg intraven ously one time only for 1 dose. For MRI Enterography, Inject 1 mg intravenously, as directed. Slow push at the appropriate time during MRI Scan ipratropium bromide 0.042 mg/actuat metered dose nasal spray (7 sources) Anticholinergic Start: 2022 End: 2022 ipratropium bromide (ATROVENT) 42 mcg (0.06 %) nasal spray Indications: Viral URI with cough Use 2 Sprays in the nose three times daily. 15 mL 0 11/11/2022 07/05/2023 Discontinued (Other) Comment on above: Use 2 Sprays in the nose three times daily. meloxicam 15 mg oral tablet (4 sources) Nonsteroidal Anti-inflammatory Drug Start: 2022 End: 2022 take 1 tablet by mouth once daily meloxicam (MOBIC) 15 mg tablet Take 1 tablet by mouth once daily. 30 tablet 1 08/26/2022 09/25/2022 Comment on above: Take 1 tablet by [facility] once daily. ondansetron 8 mg disintegrating oral tablet (14 sources) Serotonin-3 Receptor Antagonist Start: 2022 End: 2024 ondansetron orally disintegrating (ZOFRAN ODT) 8 mg disintegrating tablet 05/31/2023 08/29/2024 Discontinued polyethylene glycol 3350 181274 mg / potassium chloride 2970 mg / sodium bicarbonate 6740 mg / sodium chloride 5860 mg / sodium sulfate 27413 mg powder for oral solution (17 sources) Osmotic Laxative Start: 2021 End: 2022 peg 3350-Electrolytes (GOLYTELY) 236-22.74-6.74 -5.86 gram suspension Refer to printed prep instructions from your provider. 4000 mL 0 03/13/2022 06/09/2023 Discontinued (Course of therapy completed) Comment on above: Refer to printed pre p instructions from your provider. triamcinolone acetonide 10 mg/ml injectable suspension (1 source) Corticosteroid Start: 2022 End: 2022 triamcinolone acetonide 5 mg injection (KeNALog 10) Problems Active Problems Problem Classification Problem Date Documented Da te Episodic/Chronic Abdominal hernia (1 source) Gastroesophageal reflux disease with hiatal hernia; Translations: [Diaphragmatic hernia without obstruction or gangrene] 06-09-2023 Episodic Abdominal pain (3 sources) Generalized abdominal pain; Translations: [Generalized abdominal pain] Onset: 5 Episodic Diseases of white blood cells (1 source) Leukocytosis; Translations: [Elevated white blood cell count, unspecified] 10-09-2024 Chronic Disorders of lipid metabolism (1 source) Mixed hyperlipidemia; Translations: [Mixed hyperlipidemia] 07-05-2023 Chronic Esophageal disorders (20 sources) Gastroesophageal reflux disease without esophagitis; Translations: [Gastro-esophageal reflux disease without esophagitis] Onset: 8 12-15-2017 Chronic Essential hypertension (20 sources) Essential hypertension; Translations: [Essential (primary) hypertension] Onset: 8 12-15-2017 Chronic Nausea and vomiting (2 sources) Nausea and vomiting; Translations: [Nausea with vomiting, unspecified] Episodic Noninfectious gastroenteritis (4 sources) Chronic diarrhea; Translations: [Noninfective gastroenteritis and colitis, unspecified] Episodic Other aftercare (1 source) 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 control representative (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) drug therapy; Translations: [Medication management] Onset: 5 Episodic Other connective tissue disease (2 sources) Bilateral heel pain; Translations: [Pain in right foot] Episodic Other gastrointestinal disorders (3 sources) Heartburn; Translations: [Heartburn] Episodic Other gastrointestinal disorders (3 sources) Diarrhea; Translations: [Diarrhea, unspecified] Episodic Other gastrointestinal disorders (11 sources) Stool finding; Translations: [Other fecal abnormalities] Onset: 4 09-03-2023 Episodic Other gastrointestinal disorders (1 source) Diarrhea, unspecified; Translations: [Diarrhea, unspecified type] Onset: 5 Episodic Other injuries and conditions due to external causes (2 sources) Injury of right shoulder; Translations: [Unspecified injury of right shoulder and upper arm, initial encounter] 03-20-2024 Episodic Other upper respiratory infections (1 source) Viral upper respiratory tract infection; Translations: [Acute upper respiratory infection, unspecified] Episodic Otitis media and related conditions (1 source) Otitis media; Translations: [Unspecified nonsuppurative otitis media, bilateral] Episodic Thyroid disorders (20 sources) Acquired hypothyroidism; Translations: [Hypothyroidism, unspecified] Onset: 12-15-2017 Chronic Past or Other Problems Problem Classification Problem Date Documented Da te Episodic/Chronic Other and unspecified benign neoplasm (20 sources) Lipoma (clinical); Translations: [Benign lipomatous neoplasm, unspecified] Onset: 03-02-2014 12-15-2017 Episodic Other connective tissue disease (20 sources) Pain in left foot; Translations: [Pain in left foot] Onset: 06-15-2018 06-15-2018 Episodic Other connective tissue disease (20 sources) Plantar fasciitis of left foot; Translations: [Plantar fascial fibromatosis] Onset: 09-09-2022 Episodic Other connective tissue disease (20 sources) Disorder of Achilles tendon; Translations: [Other specified disorders of synovium and tendon, other site] Onset: 09-09-2022 Episodic Other gastrointestinal disorders (1 source) Other fecal abnormalities; Translations: [Elevated fecal calprotectin] Onset: 09-03-2023 Episodic Other injuries and conditions due to external causes (1 source) Unspecified injury of right shoulder and upper arm, initial encounter; Translations: [Injury of right shoulder, initial encounter] Onset: 03-20-2024 Episodic Other non-traumatic joint disorders (3 sources) Pain in right shoulder; Translations: [Pain in joint, shoulder region] Onset: 03-20-2024 03-20-2024 Episodic Other screening for suspected conditions (not mental disorders or infectious disease) (20 sources) Patient encounter status; Translations: [Encounter for screening for diabetes mellitus] Onset: 12-15-2017 12-15-2017 Episodic Other skin disorders (20 sources) Epidermoid cyst; Translations: [Epidermal cyst] Onset: 01-12-2018 01-12-2018 Episodic Residual codes; unclassified (20 sources) FH: premature coronary heart disease; Translations: [Family history of ischemic heart disease and other diseases of the circulatory system] Onset: 06-15-2018 06-15-2018 Episodic Residual codes; unclassified (20 sources) FH: Myocardial infarction; Translations: [Family history of ischemic heart disease and other diseases of the circulatory system] Onset: 06-15-2018 06-15-2018 Episodic Results Test Name Value Interpretation Reference Range Facility CBC W Auto Differential pane l (Bld)on 09-28-2024 Basophils (Bld) [#/Vol] 0.07 10*3/uL [facility] Basophils/100 WBC (Bld) 0.6 % [facility] Differential cell count method Nom (Bld) Auto [facility] Eosinophils (Bld) [#/Vol] 0.16 10*3/uL [facility] Eosinophils/100 WBC (Bld) 1.4 % [facility] Erythrocyte distribution width (RBC) [Ratio] 13.1 % 11.5 - 15.0 % [facility] Hematocrit (Bld) [Volume fraction] 47.2 % 39.0 - 51.0 % [facility] Hemoglobin (Bld) [Mass/Vol] 15.8 g/dL 13.0 - 17.0 g/dL [facility] Immature granulocytes (Bld) [#/Vol] 0.04 10*3/uL [facility] Immature granulocytes/100 WBC (Bld) 0.3 % [facility] Interpretation and review of laboratory results Abnormal [facility] Lymphocytes (Bld) [#/Vol] 3.78 10*3/uL [facility] Lymphocytes/100 WBC (Bld) 32.7 % [facility] MCH (RBC) [Entitic mass] 28.9 pg 26.0 - 34.0 pg [facility] MCHC (RBC) [Mass/Vol] 33.5 g/dL 30.5 - 36.0 g/dL [facility] MCV (RBC) [Entitic vol] 86.4 fL 80.0 - 100.0 fL [facility] Monocytes (Bld) [#/Vol] 1.08 10*3/uL High [facility] Monocytes/100 WBC (Bld) 9.4 % [facility] Neutrophils (Bld) [#/Vol] 6.42 10*3/uL [facility] Neutrophils/100 WBC (Bld) 55.6 % [facility] Nucleated RBC (Bld) [#/Vol] [facility] Nucleated RBC/100 WBC (Bld) [Ratio] 0.0 % /100 WBC [facility] Platelet mean volume (Bld) [Entitic vol] 11.6 fL 9.0 - 12.7 fL [facility] Platelets (Bld) [#/Vol] 278 10*3/uL [facility] RBC (Bld) [#/Vol] 5.46 10*6/uL 4.20 - 6.0 0 m/uL [facility] WBC (Bld) [#/Vol] 11.55 10*3/uL High [facility] Basophils (Bld) [#/Vol] 0.07 10*3/uL Normal <0.11 [facility] Comment on above: Order Comment: Speci men Type: BLOOD SPECIMEN Ordering Facility: [facility] Address: [address] [place] [address] Performed By: #### 3 016-3, 91749-8, LIPNF, #### [facility] CLIA [id number] [address] [place] [address] [place] Basophils/100 WBC (Bld) 0.6 % Normal [facility] Comment on above: Order Comment: Speci men Type: BLOOD SPECIMEN Ordering Facility: [facility] Address: [address] [place] [address] Performed By: #### 3 016-3, 54237-7, LIPNF, #### [facility] CLIA [id number] [address] [place] [address] [place] Differential cell count method Nom (Bld) Auto Normal [facility] Comment on above: Order Comment: Speci men Type: BLOOD SPECIMEN Ordering Facility: [facility] Address: [address] [place] [address] Performed By: #### 3 016-3, 52792-6, LIPNF, 10136-0 #### [facility] CLIA [id number] [address] [place] [address] [place] Eosinophils (Bld) [#/Vol] 0.16 10*3/uL Normal <0.46 [facility] Comment on above: Order Comment: Speci men Type: BLOOD SPECIMEN Ordering Facility: [facility] Address: [address] [place] [address] Performed By: #### 3 016-3, 88769-9, LIPNF, 62644-2 #### [facility] CLIA [id number] [address] [place] [address] [place] Eosinophils/100 WBC (Bld) 1.4 % Normal [facility] Comment on above: Order Comment: Speci men Type: BLOOD SPECIMEN Ordering Facility: [facility] Address: [address] [place] [address] Performed By: #### 3 016-3, 71243-6, LIPNF, 28158-8 #### [facility] CLIA [id number] [address] [place] [address] [place] Erythrocyte distribution width (RBC) [Ratio] 13.1 % Normal 11.5-15.0 [facility] Comment on above: Order Comment: Speci men Type: BLOOD SPECIMEN Ordering Facility: [facility] Address: [address] [place] [address] Performed By: #### 3 016-3, 54468-3, LIPNF, 75690-8 #### [facility] CLIA [id number] [address] [place] [address] [place] Hematocrit (Bld) [Volume fraction] 47.2 % Normal 39.0-51.0 [facility] Comment on above: Order Comment: Speci men Type: BLOOD SPECIMEN Ordering Facility: [facility] Address: [address] [place] [address] Performed By: #### 3 016-3, 15033-7, LIPNF, 68037-2 #### [facility] CLIA [id number] [address] [place] [address] [place] Hemoglobin (Bld) [Mass/Vol] 15.8 g/dL Normal 13.0-17.0 [facility] Comment on above: Order Comment: Speci men Type: BLOOD SPECIMEN Ordering Facility: [facility] Address: [address] [place] [address] Performed By: #### 3 016-3, 08814-1, LIPNF, 94721-8 #### [facility] CLIA [id number] [address] [place] [address] [place] Immature granulocytes (Bld) [#/Vol] 0.04 10*3/uL Normal <0.10 [facility] Comment on above: Order Comment: Speci men Type: BLOOD SPECIMEN Ordering Facility: [facility] Address: [address] [place] [address] Performed By: #### 3 016-3, 64533-0, LIPNF, 68341-4 #### [facility] CLIA [id number] [address] [place] [address] [place] Immature granulocytes/100 WBC (Bld) 0.3 % Normal [facility] Comment on above: Order Comment: Speci men Type: BLOOD SPECIMEN Ordering Facility: [facility] Address: [address] [place] [address] Performed By: #### 3 016-3, 48640-0, LIPNF, 99287-4 #### [facility] CLIA [id number] [address] [place] [address] [place] [place] Lymphocytes (Bld) [#/Vol] 3.78 10*3/uL Normal 1.00-4.00 [facility] Comment on above: Order Comment: Speci men Type: BLOOD SPECIMEN Ordering Facility: [facility] Address: [address] [place] [address] Performed By: #### 3 016-3, , LIPNF, 58387-8 #### [facility] CLIA [id number] [address] [place] [address] [place] Lymphocytes/100 WBC (Bld) 32.7 % Normal [facility] Comment on above: Order Comment: Speci men Type: BLOOD SPECIMEN Ordering Facility: [facility] Address: [address] [place] [address] Performed By: #### 3 016-3, 85751-5, LIPNF, 62008-9 #### [facility] CLIA [id number] [address] [place] [address] [place] MCH (RBC) [Entitic mass] 28.9 pg Normal 26.0-34.0 [facility] Comment on above: Order Comment: Speci men Type: BLOOD SPECIMEN Ordering Facility: [facility] Address: [address] [place] [address] Performed By: #### 3 016-3, 77522-4, LIPNF, 99361-6 #### [facility] CLIA [id number] [address] [place] [address] [place] MCHC (RBC) [Mass/Vol] 33.5 g/dL Normal 30.5-36.0 [facility] Comment on above: Order Comment: Speci men Type: BLOOD SPECIMEN Ordering Facility: [facility] Address: [address] [place] [address] Performed By: #### 3 016-3, 85654-7, LIPNF, 41606-0 #### [facility] CLIA [id number] [address] [place] [address] [place] MCV (RBC) [Entitic vol] 86.4 fL Normal 80.0-100.0 [facility] Comment on above: Order Comment: Speci men Type: BLOOD SPECIMEN Ordering Facility: [facility] Address: [address] [place] [address] Performed By: #### 3 016-3, 78422-6, LIPNF, 52959-8 #### [facility] CLIA [id number] [address] [place] [address] [place] Monocytes (Bld) [#/Vol] 1.08 10*3/uL High <0.87 [facility] Comment on above: Order Comment: Speci men Type: BLOOD SPECIMEN Ordering Facility: [facility] Address: [address] [place] [address] Performed By: #### 3 016-3, 33779-0, LIPNF, 94930-3 #### [facility] CLIA [id number] [address] [place] [address] [place] Monocytes/100 WBC (Bld) 9.4 % Normal [facility] Comment on above: Order Comment: Speci men Type: BLOOD SPECIMEN Ordering Facility: [facility] Address: [address] [place] [address] Performed By: #### 3 016-3, 19683-1, LIPNF, 51525-0 #### [facility] CLIA [id number] [address] [place] [address] [place] Neutrophils (Bld) [#/Vol] 6.42 10*3/uL Normal 1.45-7.50 [facility] Comment on above: Order Comment: Speci men Type: BLOOD SPECIMEN Ordering Facility: [facility] Address: [address] [place] [address] Performed By: #### 3 016-3, 46687-5, LIPNF, 36743-9 #### [facility] CLIA [id number] [address] [place] [address] [place] Neutrophils/100 WBC (Bld) 55.6 % Normal [facility] Comment on above: Order Comment: Speci men Type: BLOOD SPECIMEN Ordering Facility: [facility] Address: [address] [place] [address] Performed By: #### 3 016-3, 90412-7, LIPNF, 86658-6 #### [facility] CLIA [id number] [address] [place] [address] [place] Nucleated RBC (Bld) [#/Vol] 10*3/uL Normal <0.01 [facility] Comment on above: Order Comment: Speci men Type: BLOOD SPECIMEN Ordering Facility: [facility] Address: [address] [place] [address] Performed By: #### 3 016-3, 18164-6, LIPNF, 80143-1 #### [facility] CLIA [id number] [address] [place] [address] [place] Nucleated RBC/100 WBC (Bld) [Ratio] 0.0 /100 WBC Normal [facility] Comment on above: Order Comment: Speci men Type: BLOOD SPECIMEN Ordering Facility: [facility] Address: [address] [place] [address] Performed By: #### 3 016-3, 32487-4, LIPNF, #### [facility] CLIA [id number] [address] [place] [address] [place] Platelet mean volume (Bld) [Entitic vol] 11.6 fL Normal 9.0-12.7 [facility] Comment on above: Order Comment: Speci men Type: BLOOD SPECIMEN Ordering Facility: [facility] Address: [address] [place] [address] Performed By: #### 3 016-3, , LIPNF, #### [facility] CLIA [id number] [address] [place] [address] [place] Platelets (Bld) [#/Vol] 278 10*3/uL Normal 150-400 [facility] Comment on above: Order Comment: Speci men Type: BLOOD SPECIMEN Ordering Facility: [facility] Address: [address] [place] [address] Performed By: #### 3 016-3, 90983-6, LIPNF, #### [facility] CLIA [id number] [address] [place] [address] [place] RBC (Bld) [#/Vol] 5.46 10*6/uL Normal 4.20-6.00 [facility] Comment on above: Order Comment: Speci men Type: BLOOD SPECIMEN Ordering Facility: [facility] Address: [address] [place] [address] Performed By: #### 3 016-3, 20471-8, LIPNF, 55851-9 #### [facility] CLIA [id number] [address] [place] [address] [place] WBC (Bld) [#/Vol] 11.55 10*3/uL High 3.70-11.00 [facility] Comment on above: Order Comment: Speci men Type: BLOOD SPECIMEN Ordering Facility: [facility] Address: [address] [place] [address] Performed By: #### 3 016-3, 67383-0, LIPNF, 12004-2 #### [facility] CLIA [id number] [address] [place] [address] [place] CNOVon 09-28-2024 CNOV Office Visit (FAMPWS ) JESUSLENORE Pricilla ([id number]) 1990 M Date Time Provider Department 09/28/24 4:00 PM VERN RODARTEMALLORY During your visit today, we recorded the following information about you: Pulse Blood pressure Weight Height 70/minute 134/82 107.5 kg 1.753 m Vern Rodarte MD 09/28/2024 8:07 PM Signed Chief Complaint Patient presents with: Physical HPI Lenore A Jesus is a 34 year old male who presents here today for Above Complaints. and Chronic Medical Conditions.. Patient with hx of HTN, hyperlipidemia, GERD and those as reviewed below. Patient has been doing ok. Seeing gastro for some stomach issues. They suspect possible IBS. Has been placed on levsin. Past medical history, appointments, medications, allergies reviewed. Previous Medical History PAST MEDICAL HISTORY Diagnosis Date Epidermal inclusion cyst 01/12/2018 Right neck below ear lobe, removed 12/2017 Family history of MN (myocardial infarction) 06/15/2018 GERD without esophagitis 12/15/2017 Hypertension, essential 12/15/2017 Hypothyroidism, acquired 12/15/2017 Lipoma of unspecified site 03/02/2014 Previous Surgical History PAST SURGICAL HISTORY Procedure Laterality Date COLONOSCOPY 03/27/2022 COLONOSCOPY 09/03/2023 EGD W/O BRSH SPEC VARICIES INJ 03/27/2022 LEXISCAN STRESS TEST 04/14/2019 negative MYRINGOTOMY HX TONSILLECTOMY HX Family History FAMILY HISTORY Problem Relation Age of Onset Hypertension Mother other (migraine) Mother other (migraine) Brother other (migraine) Brother Stroke Maternal Grandmother Breast Cancer Maternal Grandmother Cancer Maternal Grandmother lung Coronary Artery Disease Father is 50 yo and had 8 MN's prior to this Patient Allergies ALLERGIES No Known Allergies Current Medications Current Outpatient Medications on File Prior to Visit Medication Sig hyoscyamine sublingual (LEVSIN/SL) 0.125 mg Dissolve 1 tablet under the tongue every 4 hours as needed. levothyroxine (SYNTHROID) 50 mcg tablet Take 1 tablet by mouth daily before breakfast. lisinopril (ZESTRIL) 5 mg tablet Take 1 tablet by mouth once daily. omeprazole (PRILOSEC) 20 mg capsule TAKE 2 CAPSULES ONCE DAILY No current facility-administered medications on file prior to visit. Social History Social History Tobacco Use Smoking status: Never Smokeless tobacco: Never Vaping Use Vaping status: Never Used Substance Use Topics Alcohol use: Yes Alcohol/week: 1.0 standard drink of alcohol Types: 1 Standard drinks or equivalent per week Comment: 1x per week one drink Drug use: No Review of Symptoms REVIEW OF SYSTEMS GENERAL: No unintentional weight loss, malaise or fevers HEENT: Negative for frequent or significant headaches, No changes in hearing or vision, no nose bleeds or other nasal problems NECK: Negative for lumps, goiter, pain and significant neck swelling RESPIRATORY: Negative for cough, hemoptysis, wheezing, COPD, dyspnea or shortness of breath CARDIOVASCULAR: Negative for chest pain, leg swelling, hypertension, CHF or palpitations GI: No nausea, vomiting, and No heartburn or reflux symptoms. Still with the diarrhea issues he is seeing gastro for. : No history of dysuria, frequency or incontinence MUSCULOSKELETAL: Negative for joint pain or swelling, back pain or muscle pain SKIN: Negative for lesions, rash, and itching PSYCH: Negative for sleep disturbance, mood disorder and recent psychosocial stressors HEMATOLOGY/LYMPHOLOGY: Negative for prolonged bleeding, bruising easily or swollen nodes ENDOCRINE: Negative for cold or heat intolerance, polyuria, polydipsia and goiter NEURO: No history of headaches, syncope, paralysis, seizures or tremors EXAM: BP 136/82 Pulse 70 Ht 175.3 cm (5' 9) Wt 107.5 kg (237 lb) SpO2 98% BMI 35.00 kg/m? BP 134/82 Pulse 70 Ht 175.3 cm (5' 9) Wt 107.5 kg (237 lb) SpO2 98% BMI 35.00 kg/m? Last 6 Encounter Wt Readings: Date: Wt: 09/28/2024 107.5 kg (237 lb) 08/29/2024 111.9 kg (246 lb 9.6 oz) 03/20/2024 116.1 kg (256 lb) 09/03/2023 111.1 kg (244 lb 14.9 oz) 07/05/2023 111.1 kg (245 lb) 06/09/2023 108.9 kg (240 lb) General Appearance: Well appearing, alert, in no acute distress, well-hydrated, well nourished. and Obese. Skin: Skin color, texture, turgor normal, no suspicious rashes or lesions. Head: Normocephalic, no masses, lesions, tenderness or abnormalities. Eyes: Anicteric sclera. Pupils are equally round and reactive to light. Extraocular movements are intact. . Ears: External ears normal, canals clear. Nose/Sinuses: Nares normal, septum midline, mucosa normal, no drainage or sinus tenderness. Oropharynx: Lips, mucosa, and tongue normal, teeth and gums normal, oropharynx normal. Lungs: Lungs clear to auscultation. No wheezing, rhonchi, rales.. Heart: RRR without murmur, gall (more content not included)... Normal [facility] Comprehensive metabolic 2000 panelon 09-28-2024 Albumin [Mass/Vol] 4.6 g/dL Normal 3.9-4.9 [facility] Comment on above: Order Comment: Speci men Type: BLOOD SPECIMEN Ordering Facility: [facility] Address: [address] [place] [address] Performed By: #### 3 016-3, 52141-4, LIPNF, #### [facility] CLIA [id number] [address] [place] [address] [place] ALP [Catalytic activity/Vol] 25 U/L Low 38-113 [facility] Comment on above: Order Comment: Speci men Type: BLOOD SPECIMEN Ordering Facility: [facility] Address: [address] [place] [address] Performed By: #### 3 016-3, 05617-3, LIPNF, #### [facility] CLIA [id number] [address] [place] [address] [place] ALT [Catalytic activity/Vol] 23 U/L Normal 10-54 [facility] Comment on above: Order Comment: Speci men Type: BLOOD SPECIMEN Ordering Facility: [facility] Address: [address] [place] [address] Performed By: #### 3 016-3, , LIPNF, #### [facility] CLIA [id number] [address] [place] [address] [place] Anion gap [Moles/Vol] 11 mmol/L Normal 8-15 [facility] Comment on above: Order Comment: Speci men Type: BLOOD SPECIMEN Ordering Facility: [facility] Address: [address] [place] [address] Performed By: #### 3 016-3, 39341-6, LIPNF, #### [facility] CLIA [id number] [address] [place] [address] [place] AST [Catalytic activity/Vol] 20 U/L Normal 14-40 [facility] Comment on above: Order Comment: Speci men Type: BLOOD SPECIMEN Ordering Facility: [facility] Address: [address] [place] [address] Performed By: #### 3 016-3, 29943-6, LIPNF, #### [facility] CLIA [id number] [address] [place] [address] [place] Bilirubin [Mass/Vol] 0.2 mg/dL Normal 0.2-1.3 [facility] Comment on above: Order Comment: Speci men Type: BLOOD SPECIMEN Ordering Facility: [facility] Address: [address] [place] [address] Performed By: #### 3 016-3, 07406-2, LIPNF, 65746-7 #### [facility] CLIA [id number] [address] [place] [address] [place] Calcium [Mass/Vol] 9.5 mg/dL Normal 8.5-10.2 [facility] Comment on above: Order Comment: Speci men Type: BLOOD SPECIMEN Ordering Facility: [facility] Address: [address] [place] [address] Performed By: #### 3 016-3, 83087-2, LIPNF, 34475-8 #### [facility] CLIA [id number] [address] [place] [address] [place] Chloride [Moles/Vol] 100 mmol/L Normal 98-107 [facility] Comment on above: Order Comment: Speci men Type: BLOOD SPECIMEN Ordering Facility: [facility] Address: [address] [place] [address] Performed By: #### 3 016-3, 78935-8, LIPNF, 04671-3 #### [facility] CLIA [id number] [address] [place] [address] [place] CO2 [Moles/Vol] 26 mmol/L Normal 22-30 [facility] Comment on above: Order Comment: Speci men Type: BLOOD SPECIMEN Ordering Facility: [facility] Address: [address] [place] [address] Performed By: #### 3 016-3, 95073-4, LIPNF, 51566-4 #### [facility] CLIA [id number] [address] [place] [address] [place] Creatinine [Mass/Vol] 1.16 mg/dL Normal 0.73-1.22 [facility] Comment on above: Order Comment: Srinath rojas Type: BLOOD SPECIMEN Ordering Facility: [facility] Address: [address] [place] [address] Performed By: #### 3 016-3, 50340-5, KARYN, #### [facility] CLIA [id number] [address] [place] [address] [place] Creatinine and Glomerular filtration rate.predicted panel (S/P/Bld) 84 mL/min/1.73m??? Normal >=60 [facility] Comment on above: Order Comment: Srinath rojas Type: BLOOD SPECIMEN Ordering Facility: [facility] Address: [address] [place] [address] Result Comment: Yvette mated Glomerular Filtration Rate (eGFR) is calculated using the 2020 CKD-EPI creatinine equation. This equation utilizes serum creatinine, sex, and age as parameters. The creatinine assay has traceable calibration to isotope dilution-mass spectrometry. Refer to KDIGO guidelines for clinical interpretation. In patients with unstable renal function, e.g. those with acute kidney injury, the eGFR may not accurately reflect actual GFR. Performed By: #### 3 016-3, 35084-3, KARYN, 33935-5 #### [facility] CLIA [id number] [address] [place] [address] [place] Glucose [Mass/Vol] 87 mg/dL Normal 74-99 [facility] Comment on above: Order Comment: Srinath rojas Type: BLOOD SPECIMEN Ordering Facility: [facility] Address: [address] [place] [address] Result Comment: The [place] Diabetes Association (ADA) provides guidance for cutoff values for fasting glucose and random glucose. The ADA defines fasting as no caloric intake for at least 8 hours. Fasting plasma glucose results between 100 to 125 mg/dL indicate increased risk for diabetes (prediabetes). Fasting plasma glucose results greater than or equal to 126 mg/dL meet the criteria for diagnosis of diabetes. In the absence of unequivocal hyperglycemia, results should be confirmed by repeat testing. In a patient with classic symptoms of hyperglycemia or hyperglycemic crisis, random plasma glucose results greater than or equal to 200 mg/dL meet the criteria for diagnosis of diabetes. Reference: Standards of Medical Care in Diabetes 2016, [place] Diabetes Association. Diabetes Care. 2016.39(Suppl 1). Performed By: #### 3 016-3, 64008-0, LIPNF, #### [facility] CLIA [id number] [address] [place] [address] [place] Potassium [Moles/Vol] 4.3 mmol/L Normal 3.7-5.1 [facility] Comment on above: Order Comment: Speci men Type: BLOOD SPECIMEN Ordering Facility: [facility] Address: [address] [place] [address] Performed By: #### 3 016-3, 22526-1, LIPNF, #### [facility] CLIA [id number] [address] [place] [address] [place] Protein [Mass/Vol] 7.3 g/dL Normal 6.3-8.0 [facility] Comment on above: Order Comment: Violettai crystal Type: BLOOD SPECIMEN Ordering Facility: [facility] Address: [address] [place] [address] Performed By: #### 3 016-3, 17946-3, LIPNF, #### [facility] CLIA [id number] [address] [place] [address] [place] Sodium [Moles/Vol] 137 mmol/L Normal 136-144 [facility] Comment on above: Order Comment: Speci men Type: BLOOD SPECIMEN Ordering Facility: [facility] Address: [address] [place] [address] Performed By: #### 3 016-3, 58773-4, LIPNF, 67198-3 #### [facility] CLIA [id number] [address] [place] [address] [place] Urea nitrogen [Mass/Vol] 14 mg/dL Normal 9-24 [facility] Comment on above: Order Comment: Srinath rojas Type: BLOOD SPECIMEN Ordering Facility: [facility] Address: [address] [place] [address] Performed By: #### 3 016-3, 88343-8, LIPNF, 32918-0 #### [facility] CLIA [id number] [address] [place] [address] [place] HbA1c (Bld)on 09-28-2024 Average glucose Estimated from glycated hemoglobin (Bld) [Mass/Vol] 111 mg/dL Normal [facility] Comment on above: Order Comment: Srinath rojas Type: BLOOD SPECIMEN Ordering Facility: [facility] Address: [address] [place] [address] Result Comment: eAG: (Estimated average glucose) is a calculated value from HgbA1c and is cash application representative of the average blood glucose level in the last 2-3 month period. Performed By: #### 5 5454-3 #### [facility] CLIA [id number] [address] [place] [address] [place] HbA1c (Bld) [Mass fraction] 5.5 % Normal 4.3-5.6 [facility] Comment on above: Order Comment: Srinath rojas Type: BLOOD SPECIMEN Ordering Facility: [facility] Address: [address] [place] [address] Result Comment: [place] Diabetes Association guidelines indicate that patients with HgbA1c in the range 5.7-6.4% are at increased risk for development of diabetes, and intervention by lifestyle modification may be beneficial. HgbA1c greater or equal to 6.5% is considered diagnostic of diabetes. Performed By: #### 5 5454-3 #### [facility] CLIA [id number] [address] [place] [address] [place] LIPID PANEL, NONFASTINGon Cholesterol [Mass/Vol] 150 mg/dL Normal <200 [facility] Comment on above: Order Comment: Speci men Type: BLOOD SPECIMEN Ordering Facility: [facility] Address: [address] [place] [address] Result Comment: <200 mg/dL, Desirable 200-239 mg/dL, Borderline high >239 mg/dL, High Performed By: #### 3 016-3, 76509-8, LIPNF, 51142-4 #### [facility] CLIA [id number] [address] [place] [address] [place] HDL CHOLESTEROL, NF 34 mg/dL Low >39 [facility] Comment on above: Order Comment: Speci men Type: BLOOD SPECIMEN Ordering Facility: [facility] Address: [address] [place] [address] Result Comment: 40-5 9 mg/dL, Acceptable >59 mg/dL, High: Negative risk factor for coronary heart disease <40 mg/dL, Low: Positive risk factor for coronary heart disease Performed By: #### 3 016-3, 05127-4, LIPNF, 42730-9 #### [facility] CLIA [id number] [address] [place] [address] [place] LDL CHOLESTEROL, NF 97 mg/dL Normal <100 [facility] Comment on above: Order Comment: Speci men Type: BLOOD SPECIMEN Ordering Facility: [facility] Address: [address] [place] [address] Result Comment: <100 mg/dL, Optimal 100-129 mg/dL, Near optimal/above optimal 130-159 mg/dL, Borderline high 160-189 mg/dL, High >189 mg/dL, Very high Secondary prevention optimal LDL Cholesterol levels are recommended to be < 70 mg/dL Performed By: #### 3 016-3, 22179-4, LIPNF, 79504-2 #### [facility] CLIA [id number] [address] [place] [address] [place] LDL/HDL RATIO, NF 2.85 mg/dL High <2.54 [facility] Comment on above: Order Comment: Speci men Type: BLOOD SPECIMEN Ordering Facility: [facility] Address: [address] [place] [address] Result Comment: Dirk blair: 1. National Cholesterol Education Program ATP III Guideline At-A-Glance Quick Desk Reference: National Heart, Lung, and Blood [place]. National Institutes of Health. 2001: NIH Publication No. 01-3305. 2. An International Atherosclerosis Society position paper: global recommendations for the management of dyslipidemia: executive summary, Atherosclerosis. 2014: 232(2):410-413. Performed By: #### 3 016-3, 84805-5, LIPNF, #### [facility] CLIA [id number] [address] [place] [address] [place] NON HDL CHOL, NF 116 mg/dL Normal <130 [facility] Comment on above: Order Comment: Speci men Type: BLOOD SPECIMEN Ordering Facility: [facility] Address: [address] [place] [address] Result Comment: <130 mg/dL, Optimal 130-159 mg/dL, Near optimal/above optimal 160-189 mg/dL, Borderline high 190-219 mg/dL, High >219 mg/dL, Very high Secondary prevention optimal non HDL Cholesterol levels are recommended to be <100 mg/dL Performed By: #### 3 016-3, 70555-5, LIPNF, #### [facility] CLIA [id number] [address] [place] [address] [place] T CHOL/HDL RATIO NF 4.41 mg/dL Normal <5.10 [facility] Comment on above: Order Comment: Speci men Type: BLOOD SPECIMEN Ordering Facility: [facility] Address: [address] [place] [address] Performed By: #### 3 016-3, 84449-9, LIPNF, #### [facility] CLIA [id number] [address] [place] [address] [place] TRIGLYCERIDES, NF 96 mg/dL Normal <150 [facility] Comment on above: Order Comment: Speci men Type: BLOOD SPECIMEN [facility] [facility] Address: [address] [place] [address] Result Comment: <150 mg/dL, Normal 150-199 mg/dL, Borderline high 200-499 mg/dL, High >499 mg/dL, Very high Performed By: #### 3 016-3, , LIPNF, #### [facility] CLIA [id number] [address] [place] [address] [place] VLDL CHOLESTEROL, NF 19 mg/dL Normal <30 [facility] Comment on above: Order Comment: Speci men Type: BLOOD SPECIMEN Ordering Facility: [facility] Address: [address] [place] [address] Performed By: #### 3 016-3, , LIPNF, #### [facility] CLIA [id number] [address] [place] [address] [place] Magnesium SerPl-mCncon 09-28 Magnesium [Mass/Vol] 2.1 mg/dL Normal 1.7-2.3 [facility] Comment on above: Order Comment: Speci men Type: BLOOD SPECIMEN Ordering Facility: [facility] Address: [address] [place] [address] Performed By: #### 3 016-3, , LIPNF, #### [facility] CLIA [id number] [address] [place] [address] [place] TSH SerPl-aCncon 09-28-2024 TSH Qn 1.370 m[IU]/L Normal 0.270-4.200 [facility] Comment on above: Order Comment: Speci men Type: BLOOD SPECIMEN Ordering Facility: [facility] Address: [address] [place] [address] Performed By: #### 3 016-3, , LIPNF, #### [facility] CLIA [id number] [address] [id number] [address] [place] Urinalysis complete panel (U )on 09-28-2024 Bacteria LM.HPF (Urine sed) [#/Area] Negative Negative /HPF [facility] Bilirubin Ql (U) Negative Negative [facility] Clarity (Unsp spec) Clear Clear [facility] Color (U) Yellow Yellow [facility] Epithelial cells LM.HPF (Urine sed) [#/Area] None Seen /HPF [facility] Glucose Test strip (U) [Mass/Vol] Negative Negative [facility] Hemoglobin Ql (U) Negative Negative [facility] Hyaline casts (Urine sed) [#/Area] 0 /[LPF] 0 /LPF [facility] Interpretation and review of laboratory results Abnormal [facility] Ketones Ql (U) Trace Abnormal Negative [facility] Leukocyte esterase Test strip Ql (U) Negative Negative [facility] Nitrite Ql (U) Negative Negative [facility] pH (U) 6.0 [pH] NINF - 8.5 [facility] Protein (U) [Mass/Vol] Negative Negative [facility] RBC LM.HPF (Urine sed) [#/Area] 0-2 /HPF 0-2 /HPF [facility] Specific gravity (U) [Rel density] 1.027 1.005 - 1.030 [facility] Urobilinogen Ql (U) 0.2 EU/dL 0.2-1.0 EU/dL [facility] WBC LM.HPF (Urine sed) [#/Area] 0-5 /HPF 0-5 /HPF [facility] This test was developed and its performance characteristics determined by [facility]'s [facility] [place] ([facility]). It has not been cleared or approved by the FDA. -[facility] is regulated under CLIA as qualified to perform high-complexity testing. This test is used for clinical purposes. It should not be regarded as investigational or for research. [facility] Bacteria LM.HPF (Urine sed) [#/Area] Negative Normal Negative [facility] Comment on above: Order Comment: Speci men Type: BLOOD SPECIMEN Ordering Facility: [facility] Address: [facility] [place] [address] Performed By: #### 3 016-3, 15249-9, WALLACE, 73055-5 #### [facility] CLIA [id number] [address] [place] [address] [place] Bilirubin Ql (U) Negative Normal Negative [facility] Comment on above: Order Comment: Speci men Type: BLOOD SPECIMEN Ordering Facility: [facility] Address: [address] [place] [address] Performed By: #### 3 016-3, , LIPNF, #### [facility] CLIA [id number] [address] [place] [address] [place] Clarity (Unsp spec) Clear Normal Clear [facility] Comment on above: Order Comment: Speci men Type: BLOOD SPECIMEN Ordering Facility: [facility] Address: [address] [place] [address] Performed By: #### 3 016-3, , LIPNF, #### [facility] CLIA [id number] [address] [place] [address] [place] Color (U) Yellow Normal Yellow [facility] Comment on above: Order Comment: Speci men Type: BLOOD SPECIMEN Ordering Facility: [facility] Address: [address] [place] [address] Performed By: #### 3 016-3, , LIPNF, #### [facility] CLIA [id number] [address] [place] [address] [place] Epithelial cells LM.HPF (Urine sed) [#/Area] None Seen Normal [facility] Comment on above: Order Comment: Speci men Type: BLOOD SPECIMEN Ordering Facility: [facility] Address: [address] [place] [address] Performed By: #### 3 016-3, 11630-9, LIPNF, 59171-5 #### [facility] CLIA [id number] [address] [place] [address] [place] Glucose Test strip (U) [Mass/Vol] Negative Normal Negative [facility] Comment on above: Order Comment: Speci men Type: BLOOD SPECIMEN Order[facility]: [facility] Address: [address] [place] [address] Performed By: #### 3 016-3, , LIPNF, #### [facility] CLIA [id number] [address] [place] [address] [place] Hemoglobin Ql (U) Negative Normal Negative [facility] Comment on above: Order Comment: Speci men Type: BLOOD SPECIMEN Ordering Facility: [facility] Address: [address] [place] [address] Performed By: #### 3 016-3, , LIPNF, #### [facility] CLIA [id number] [address] [place] [address] [place] Hyaline casts (Urine sed) [#/Area] 0 /[LPF] Normal 0 /LPF [facility] Comment on above: Order Comment: Speci men Type: BLOOD SPECIMEN Ordering [facility] Address: [address] [place] [address] Performed By: #### 3 016-3, , LIPNF, #### [facility] CLIA [id number] [address] [place] [address] [place] Ketones Ql (U) Trace Abnormal Negative [facility] Comment on above: Order Comment: Speci men Type: BLOOD SPECIMEN Ordering [facility] Address: [address] [place] [address] Performed By: #### 3 016-3, , LIPNF, #### [facility] CLIA [id number] [address] [place] [address] [place] Leukocyte esterase Test strip Ql (U) Negative Normal Negative [facility] Comment on above: Order Comment: Speci men Type: BLOOD SPECIMEN Order[facility] Address: [address] [place] [address] Performed By: #### 3 016-3, 94725-9, LIPNF, #### [facility] CLIA [id number] [address] [place] [address] [place] Nitrite Ql (U) Negative Normal Negative [facility] Comment on above: Order Comment: Speci men Type: BLOOD SPECIMEN Ordering [facility] Address: [address] [place] [address] Performed By: #### 3 016-3, 59410-3, LIPNF, #### [facility] CLIA [id number] [address] [place] [address] [place] pH (U) 6.0 [pH] Normal <8.5 [facility] Comment on above: Order Comment: Speci men Type: BLOOD SPECIMEN Order[facility] Address: [address] [place] [address] Performed By: #### 3 016-3, 01229-6, LIPNF, #### [facility] CLIA [id number] [address] [place] [address] [place] Protein (U) [Mass/Vol] Negative Normal Negative [facility] Comment on above: Order Comment: Speci men Type: BLOOD SPECIMEN Order[facility] Address: [address] [place] [address] Performed By: #### 3 016-3, 60109-6, LIPNF, 40258-3 #### [facility] CLIA [id number] [address] [place] [address] [place] RBC LM.HPF (Urine sed) [#/Area] 0-2 /HPF Normal 0-2 /HPF [facility] Comment on above: Order Comment: Speci men Type: BLOOD SPECIMEN Order[facility] Address: [address] [place] [address] Performed By: #### 3 016-3, 64591-2, LIPNF, 97191-7 #### [facility] CLIA [id number] [address] [place] [address] [place] Specific gravity (U) [Rel density] 1.027 Normal 1.005-1.030 [facility] Comment on above: Order Comment: Speci men Type: BLOOD SPECIMEN Ordering [facility]: [facility] Address: [address] [place] [address] Performed By: #### 3 016-3, 66455-5, LIPNF, 96259-7 #### [facility] CLIA [id number] [address] [place] [address] [place] Urobilinogen Ql (U) 0.2 EU/dL Normal 0.2-1.0 EU/dL [facility] Comment on above: Order Comment: Speci men Type: BLOOD SPECIMEN Order[facility] Address: [address] [place] [address] Performed By: #### 3 016-3, 48228-2, LIPNF, 35004-7 #### [facility] CLIA [id number] [address] [place] [address] [place] WBC LM.HPF (Urine sed) [#/Area] 0-5 /HPF Normal 0-5 /HPF [facility] Comment on above: Order Comment: Speci men Type: BLOOD SPECIMEN Order[facility] Address: [address] [place] [address] Performed By: #### 3 016-3, 86154-8, LIPNF, 95197-1 #### [facility] CLIA [id number] [address] [place] [address] [place] Vit B12 SerPl-mCncon 025 Cobalamin (Vitamin B12) [Mass/Vol] 494 pg/mL Normal 232-1245 [facility] Comment on above: Order Comment: Speci men Type: BLOOD SPECIMEN Order[facility] Address: [address] [place] [address] Performed By: #### 3 016-3, 14240-7, LIPSRIDEVI, 49528-8 #### [facility] CLIA [id number] [address] [place] [address] [place] Calprotectin (Stl) [Mass/Mas s]on 09-27-2024 CALPROTECTIN, FECAL QUANTITATIVE 91.5 ug/g High <50 [facility] Comment on above: Order Comment: Speci men Type: BLOOD SPECIMEN Order[facility] Address: [address] [place] [address] Performed By: #### 3 016-3, 18636-3, LIPSRIDEVI, 56274-6 #### [facility] CLIA [id number] [address] [place] [address] [place] [address] ENTEROGRAPHY W IVCONon CT ENTEROGRAPHY W IVCON * * *Final Report* * * DATE OF EXAM: Sep 15 2024 4:23PM [facility] - CT ENTEROGRAPHY W IVCON / PROCEDURE REASON: multiple diagnoses * * * * Physician Interpretation * * * * EXAMINATION: CT ABDOMEN AND PELVIS WITH INTRAVENOUS CONTRAST AND NEUTRAL ORAL CONTRAST(CT ENTEROGRAPHY) HISTORY: Generalized abdominal pain. Diarrhea. History of focal active colitis. TECHNIQUE: CT of the abdomen and pelvis using single phase Enterography technique CONTRAST: IV: 100 ml of Omnipaque 350 Oral: [address] Radiation dose: Integrated dose-length product (DLP) for this visit = 312 mGy*cm. CT Dose Reduction Employed: Automated exposure control(AEC) and iterative recon COMPARISON: None RESULT: ... GI Tract: Small bowel: No mural hyperenhancement or wall thickening. Colon and Rectum: No mural hyperenhancement or wall thickening. Strictures: None Fistulae/Sinus tracts: None Abscess: None Abdomen: Liver: No mass. Biliary: No bile duct dilation. Gallbladder is unremarkable. Spleen: No mass. No splenomegaly. Pancreas: No mass or duct dilation. Adrenals: No mass. Kidneys: No mass, calculus or hydronephrosis. Lymph nodes: No abdominal or pelvic lymphadenopathy. Mesentery/Peritoneum: No ascites or mass. Vasculature: The celiac axis and SMA are patent. The portal vein and branches, splenic vein, SMV, and hepatic veins are patent. No aortic or iliac artery aneurysm. Pelvis: No mass, ascites or fluid collection. Bones/Soft Tissues: Thick linear calcification associated with the right rectus femoris musculotendinous junction, likely from remote trauma. Osseous structures are unremarkable. No acute abnormality. Lung Bases: Unremarkable. IMPRESSION: No acute abnormality. No evidence for inflammatory bowel disease Coding Assistant: PSCB Transcribe Date/Time: Sep 18 2024 7:41A Dictated by : ANJALI DELUCA MD This examination was interpreted and the report reviewed and electronically signed by: ANJALI DELUCA MD on Sep 18 2024 7:49AM EST [id number] [facility] NURSING PROGon 09-15-2024 NURSING PROG HNO ID: [id number] Author: BISHNU SANCHEZ RN Service: Nursing Author Type: Registered Nurse Type: Nursing Progress Note Filed: 09/15/2024 15:56 Note Text: Radiology Service Progress Note DATE OF SERVICE: September 15, 2024 TIME: 3:56 PM PATIENT WEIGHT: 246 LBS PATIENT IDENTITY VERIFICATION COMPLETED USING TWO (2) STANDARD IDENTIFIERS: Name and Date of confirmed by patient verbally. FALL SCREENING: Has the patient had 2 falls in the last year or 1 fall with injury or currently using an Ambulatory Assistive Device (Walker, Cane, Wheelchair, Crutches, etc.)? No PATIENT GENDER DATA: Assigned male at ALLERGIES: Reviewed and unchanged CONTRAST ALLERGY: No EXAM: CT -CONTRAST INDUCED NEPHROPATHY RISK FACTORS: Not applicable CREATININE: Creatinine Date Value Ref Range Status 07/31/2023 1.09 0.73 - 1.22 mg/dL Final 07/22/2022 1.10 0.73 - 1.22 mg/dL Final 12/23/2021 1.04 0.73 - 1.22 mg/dL Final Estimated Glomerular Filtration Rate Date Value Ref Range Status 07/31/2023 91 >=60 mL/min/1.73m? Final Comment: Estimated Glomerular Filtration Rate (eGFR) is calculated using the 2020 CKD-EPI creatinine equation. This equation utilizes serum creatinine, sex, and age as parameters. The creatinine assay has traceable calibration to isotope dilution-mass spectrometry. Refer to KDIGO guidelines for clinical interpretation. In patients with unstable renal function, e.g. those with acute kidney injury, the eGFR may not accurately reflect actual GFR. eGFR- Date Value Ref Range Status 01/27/2021 >60 Final P.O.C.T. RESULTS: POC done: Yes, See Lab Tab September 15, 2024 TREATMENT: N/A IV SITE: Ambulatory: A peripheral IV was started in the Right antecubital site with a Angio cath: 22 gauge. IV SITE APPEARANCE: Clean,Dry and Intact SIGNATURE: BEATRIZ Faith PATIENT NAME: Lenore Lee DATE: September 15, 2024 TIME: 3:56 PM [facility] 08-29-2024 [facility] Office Visit (GSTNOR ) LENORE LEE Pricilla ([id number]) 1990 M Date Time Provider Department 08/29/24 1:00 PM KIZZY FIGUEROA During your visit today, we recorded the following information about you: Pulse Blood pressure Weight Height 66/minute 182/112 111.9 kg 1.765 m Kizzy Figueroa PA-C 08/29/2024 1:20 PM Signed CHIEF COMPLAINT: Patient presents with: Recheck: Colitis flare up- wants to know what he can eat and asking if he can get FMLA HPI Lenore Lee is a 34 year old male here today for Recheck (Colitis flare up- wants to know what he can eat and asking if he can get FMLA ) Patient tells me that he is dealing with a flare in his symptoms in the last three days. Having generalized abdominal pains and in his back. Notes that he had a piece of pizza that triggered symptoms. Feels a twisting in his epigastric region then will have diarrhea and then will vomit. Feels better when he vomits. Notes that he is moving his bowels about 8x per day. Loose/diarrhea. Rarely has form to his stool. Will occasionally see blood in the stool but thinks it his hemorrhoids. Last OV with me 06/09/2023: Assessment/Plan (K52.9) Focal active colitis (primary encounter diagnosis) (R93.3) Abnormal endoscopy of upper gastrointestinal tract (K44.9, K21.00) Hiatal hernia with GERD and esophagitis Focal active colitis - CALPROTECTIN,FECAL - C. DIFFICILE PCR - STOOL GASTROINTESTINAL PANEL - dicyclomine (BENTYL) 10 mg capsule; Take 1 capsule by mouth three times a day as needed (for abdominal pain/loose stools). Dispense: 30 capsule; Refill: 2 - H/O focal active colitis on last colon 2021. Will recheck stool studies to r/o ID - Start Bentyl PRN - Pt notes fiber worsens sx - EGD showed findings suggestive of possible Celiac, will order comprehensive panel to further assess - May need repeat colon if calprotectin persistently elevated, and Celiac negative 2. Abnormal endoscopy of upper gastrointestinal tract - CELIAC COMPREHENSIVE PANEL; Future 3. Hiatal hernia with GERD and esophagitis - Taking Prilosec 20 mg BID with relief in reflux - Follow anti-reflux precautions - Continue to avoid NSAIDs Current Outpatient Medications Medication Sig levothyroxine (SYNTHROID) 50 mcg tablet Take 1 tablet by mouth daily before breakfast. lisinopril (ZESTRIL) 5 mg tablet Take 1 tablet by mouth once daily. omeprazole (PRILOSEC) 20 mg capsule TAKE 2 CAPSULES ONCE DAILY albuterol HFA (PROVENTIL HFA) 90 mcg/actuation inhaler Inhale 2 Puffs as instructed every 4 hours as needed for wheezing/shortness of breath. (Patient not taking: Reported on 08/29/2024) ondansetron orally disintegrating (ZOFRAN ODT) 8 mg disintegrating tablet (Patient not taking: Reported on 08/29/2024) dicyclomine (BENTYL) 10 mg capsule Take 1 capsule by mouth three times a day as needed (for abdominal pain/loose stools). (Patient not taking: Reported on 08/29/2024) cyclobenzaprine (FLEXERIL) 10 mg tablet Take 1 tablet by mouth three times daily as needed for muscle spasm. (Patient not taking: Reported on 08/29/2024) No current facility-administered medications for this visit. ALLERGIES No Known Allergies Social History Tobacco Use Smoking status: Never Smokeless tobacco: Never Vaping Use Vaping status: Never Used Substance Use Topics Alcohol use: Yes Alcohol/week: 1.0 standard drink of alcohol Types: 1 Standard drinks or equivalent per week Comment: 1x per week one drink Drug use: No PAST MEDICAL HISTORY Diagnosis Date Epidermal inclusion cyst 01/12/2018 Right neck below ear lobe, removed 12/2017 Family history of MN (myocardial infarction) 06/15/2018 GERD without esophagitis 12/15/2017 Hypertension, essential 12/15/2017 Hypothyroidism, acquired 12/15/2017 Lipoma of unspecified site 03/02/2014 PAST SURGICAL HISTORY Procedure Laterality Date COLONOSCOPY 03/27/2022 COLONOSCOPY 09/03/2023 EGD W/O BRSH SPEC VARICIES INJ 03/27/2022 LEXISCAN STRESS TEST 04/14/2019 negative MYRINGOTOMY HX TONSILLECTOMY HX FAMILY HISTORY Problem Relation Age of Onset Hypertension Mother other (migraine) Mother other (migraine) Brother other (migraine) Brother Stroke Maternal Grandmother Breast Cancer Maternal Grandmother Cancer Maternal Grandmother lung Coronary Artery Disease Father is 50 yo and had 8 MN's prior to this REVIEW OF SYSTEMS Review of Systems Constitutional: Positive for appetite change and chills. Gastrointestinal: Positive for diarrhea and nausea. Change in Bowel Habits, Heartburn All other systems reviewed and are negative. PHYSICAL EXAM BP 182/112 Pulse 66 Ht 5' 9.5 (1.77m) Wt 246 lb 9.6 oz (111.9kg) BMI 35.91 kg/(m2). Physical Exam Constitutional: Appearance: Normal appearance. He is obese. HENT: Head: Normocephalic and atraumatic. Eyes: General: No scleral icter (more content not included)... Normal [facility] 08-09-2024 [facility] Telephone (FAMPWS) JESUSLENORE Hernandez ([id number]) 1990 M Date Time Provider Department 08/09/24 KACIE CHO During your visit today, we recorded the following information about you: Ricardo Bowers LPN 08/09/2024 3:15 PM Signed Pt self scheduled [facility] appt with Rajeev Cho for medication follow up. Pt has not been seen by PCP (Dr. Rodarte) since 2018. Please assist pt with scheduling appt with PCP. CECIL Mueller Sherrie 08/14/2024 2:59 PM Signed Waiting review by leadership. Allergies As of Date: 08/09/2024 (No Known Allergies) Date Reviewed: 09/03/2023 Reviewed by: Briseida Win RN - Fully Assessed Reason for Visit: Appointment [186] Prescriptions as of 08/14/2024 - levothyroxine (SYNTHROID) 50 mcg tablet Take 1 tablet by mouth daily before breakfast. - lisinopril (ZESTRIL) 5 mg tablet Take 1 tablet by mouth once daily. - omeprazole (PRILOSEC) 20 mg capsule TAKE 2 CAPSULES ONCE DAILY - benzonatate (TESSALON PERLES) 100 mg capsule Take 1-2 capsules by mouth three times a day as needed. - albuterol HFA (PROVENTIL HFA) 90 mcg/actuation inhaler Inhale 2 Puffs as instructed every 4 hours as needed for wheezing/shortness of breath. - ondansetron orally disintegrating (ZOFRAN ODT) 8 mg disintegrating tablet - dicyclomine (BENTYL) 10 mg capsule Take 1 capsule by mouth three times a day as needed (for abdominal pain/loose stools). - cyclobenzaprine (FLEXERIL) 10 mg tablet Take 1 tablet by mouth three times daily as needed for muscle spasm. Problem List As Of Date 08/09/2024 Noted Resolved Lipoma of unspecified site [D17.9] 03/02/2014 GERD without esophagitis [K21.9] 12/15/2017 Hypothyroidism, acquired [E03.9] 12/15/2017 Hypertension, essential [I10] 12/15/2017 Encounter for screening for diabetes mellitus [*12/15/2017 Epidermal inclusion cyst [L72.0] 01/12/2018 Family history of early CAD [Z82.49] 06/15/2018 Family history of MN (myocardial infarction) [Z*06/15/2018 Well adult exam [Z00.00] 06/15/2018 Foot pain, left [M79.672] 06/15/2018 Plantar fasciitis of left foot [M72.2] 09/09/2022 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] 09/09/2022 Elevated fecal calprotectin [R19.5] 09/03/2023 Encounter Status:Closed by YOLANDA PURVIS on 08/14/24 [facility] 07-13-2024 CNPN Telephone (FAMWS) LENORE LEE ([id number]) 1990 M Date Time Provider Department 07/13/24 [facility] During your visit today, we recorded the following information about you: Chris Shabazz RN 07/13/2024 9:38 AM Signed Patient reports he never received the Rx's for lisinopril or levothyroxine from [facility] and has been out of medication for 1 week, and is starting not to feel well: tense, and BP is elevated. Reports [facility], shipped the order to his old address, which is not near his current address, and not in the same city (although they have his current address), and is lost in the mail. This nurse spoke to [facility], who was able to get this corrected. States [facility] states they will release the order today, it will ship tomorrow, and patient will receive it no later than Wednesday- patient will have no charge for this. [facility] recommends pcp send a 5 day supply of each medication to local [facility] pharmacy- patient may have a co-pay fee for this one, or may have to pay out of pocket for the 5 day supply. Spoke with patient and informed him of this. Pt states he does not want a short supply at this time, he will just wait for the Rx's to come on Wednesday. Pt states if he changes his mind, will call back to pcp office. Vern Rodarte MD 07/13/2024 9:42 AM Signed Noted. Allergies As of Date: 07/13/2024 (No Known Allergies) Date Reviewed: 09/03/2023 Reviewed by: Briseida Win, BEATRIZ - Fully Assessed Prescriptions as of 07/13/2024 - levothyroxine (SYNTHROID) 50 mcg tablet Take 1 tablet by mouth daily before breakfast. - lisinopril (ZESTRIL) 5 mg tablet Take 1 tablet by mouth once daily. - omeprazole (PRILOSEC) 20 mg capsule TAKE 2 CAPSULES ONCE DAILY - benzonatate (TESSALON PERLES) 100 mg capsule Take 1-2 capsules by mouth three times a day as needed. - albuterol HFA (PROVENTIL HFA) 90 mcg/actuation inhaler Inhale 2 Puffs as instructed every 4 hours as needed for wheezing/shortness of breath. - ondansetron orally disintegrating (ZOFRAN ODT) 8 mg disintegrating tablet - dicyclomine (BENTYL) 10 mg capsule Take 1 capsule by mouth three times a day as needed (for abdominal pain/loose stools). - cyclobenzaprine (FLEXERIL) 10 mg tablet Take 1 tablet by mouth three times daily as needed for muscle spasm. Problem List As Of Date 07/13/2024 Noted Resolved Lipoma of unspecified site [D17.9] 03/02/2014 GERD without esophagitis [K21.9] 12/15/2017 Hypothyroidism, acquired [E03.9] 12/15/2017 Hypertension, essential [I10] 12/15/2017 Encounter for screening for diabetes mellitus [*12/15/2017 Epidermal inclusion cyst [L72.0] 01/12/2018 Family history of early CAD [Z82.49] 06/15/2018 Family history of MN (myocardial infarction) [Z*06/15/2018 Well adult exam [Z00.00] 06/15/2018 Foot pain, left [M79.672] 06/15/2018 Plantar fasciitis of left foot [M72.2] 09/09/2022 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] 09/09/2022 Elevated fecal calprotectin [R19.5] 09/03/2023 Encounter Status:Closed by Chris SHABAZZ on 07[facility]13/24 [facility] LENORE LEE ([id number]) 1990 M Date Time Provider Department [facility] your visit today, we recorded the following information about you: Rohit Jay APRN.[employer] 03/23/2024 8:18 AM Signed Please let patient know his shoulder xray shows mild degeneration but is otherwise negative. Does he have follow up with [facility]? Joanne Narvaez MA 03/23/2024 8:22 AM Signed Left message for return call. SWAPNA Hdz Lori, LPN 03/23/2024 8:36 AM Signed Pt was notified of results, pt states he does not have a FU with [facility] but will call to schedule one. CECIL Kong Danielle, APRN.[facility] 03/23/2024 9:30 AM Signed Noted. Allergies As of Date: 03/23/2024 (No Known Allergies) Date Reviewed: 09/03/2023 Reviewed by: Briseida Win, BEATRIZ - Fully Assessed Reason for Visit: Results [95] Prescriptions as of 03/23/2024 - omeprazole (PRILOSEC) 20 mg capsule TAKE 2 CAPSULES ONCE DAILY - benzonatate (TESSALON PERLES) 100 mg capsule Take 1-2 capsules by mouth three times a day as needed. - albuterol HFA (PROVENTIL HFA) 90 mcg/actuation inhaler Inhale 2 Puffs as instructed every 4 hours as needed for wheezing/shortness of breath. - levothyroxine (SYNTHROID) 50 mcg tablet Take 1 tablet by mouth daily before breakfast. - lisinopril (ZESTRIL) 5 mg tablet Take 1 tablet by mouth once daily. - ondansetron orally disintegrating (ZOFRAN ODT) 8 mg disintegrating tablet - dicyclomine (BENTYL) 10 mg capsule Take 1 capsule by mouth three times a day as needed (for abdominal pain/loose stools). - cyclobenzaprine (FLEXERIL) 10 mg tablet Take 1 tablet by mouth three times daily as needed for muscle spasm. Problem List As Of Date 03/23/2024 Noted Resolved Lipoma of unspecified site [D17.9] 03/02/2014 GERD without esophagitis [K21.9] 12/15/2017 Hypothyroidism, acquired [E03.9] 12/15/2017 Hypertension, essential [I10] 12/15/2017 Encounter for screening for diabetes mellitus [*12/15/2017 Epidermal inclusion cyst [L72.0] 01/12/2018 Family history of early CAD [Z82.49] 06/15/2018 Family history of MN (myocardial infarction) [Z*06/15/2018 Well adult exam [Z00.00] 06/15/2018 Foot pain, left [M79.672] 06/15/2018 Plantar fasciitis of left foot [M72.2] 09/09/2022 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] 09/09/2022 Elevated fecal calprotectin [R19.5] 09/03/2023 Encounter Status:Closed by ROHIT JAY on 03/23/24 Normal [facility] XR Shoulder - right 3 Viewso n 03-22-2024 IMPRESSION: No acute osseous abnormality. Mild degenerative change. Coding Assistant: PSCB Transcribe Date/Time: Mar 22 2024 9:46P Dictated by : RUI LOO DO This examination was interpreted and the report reviewed and electronically signed by: RUI LOO DO on Mar 22 2024 9:48PM [facility] DIVISION OF RADIOLOGY * * *Final Report* * * DATE OF EXAM: Mar 20 2024 4:56PM WOX [id number] - XR SHLDR >/=3V AP/ALIZA AP/OTHR RT / PROCEDURE REASON: multiple diagnoses * * * * Physician Interpretation * * * * EXAMINATION: XR SHLDR >/=3V AP/ALIZA AP/OTHR RT PATIENT/TECHNOLOGIST PROVIDED HISTORY: lifting weights Wednesday and heard a pop in right shoulder, pain anterior and under the arm CLINICAL INFORMATION: 33 years old Male with Acute pain of right shoulder. Injury of right shoulder, initial encounter tarthTECHNIQUE: XR SHLDR >/=3V AP/ALIZA AP/OTHR RT Laterality: RIGHT Number of different views (projections): 3 COMPARISON: None RESULT: No fracture. Mild degenerative change glenohumeral and acromioclavicular joints. Acromiohumeral interval is maintained. DIVISION OF RADIOLOGY Provider, [facility] - 03/22/2024 * * *Final Report* * * DATE OF EXAM: Mar 20 2024 4:56PM WOX 5253 - XR SHLDR >/=3V AP/ALIZA AP/OTHR RT / PROCEDURE REASON: multiple diagnoses * * * * Physician Interpretation * * * * EXAMINATION: XR SHLDR >/=3V AP/ALIZA AP/OTHR RT PATIENT/TECHNOLOGIST PROVIDED HISTORY: lifting weights Wednesday and heard a pop in right shoulder, pain anterior and under the arm CLINICAL INFORMATION: 33 years old Male with Acute pain of right shoulder. Injury of right shoulder, initial encounter tarthTECHNIQUE: XR SHLDR >/=3V AP/ALIZA AP/OTHR RT Laterality: RIGHT Number of different views (projections): 3 COMPARISON: None RESULT: No fracture. Mild degenerative change glenohumeral and acromioclavicular joints. Acromiohumeral interval is maintained. IMPRESSION IMPRESSION: No acute osseous abnormality. Mild degenerative change. Coding Assistant: KHALIDA Transcribe Date/Time: Mar 22 2024 9:46P Dictated by : RUI LOO DO This examination was interpreted and the report reviewed and electronically signed by: RUI LOO DO on Mar 22 2024 9:48PM [facility] XR Shoulder - right 3 ViewsO rdered By: [facility]cf Provider on 03-22-2024 [facility] CNOVon 03-20-2024 CNOV Office Visit (FAMPWS ) LENORE LEE ([id number]) 1990 M Date Time Provider Department 03/20/24 4:20 PM ROHIT JAY During your visit today, we recorded the following information about you: Pulse Respiration Blood pressure Weight 78/minute 14/minute 145/79 116.1 kg Rohit Jay APRN.[facility] 03/20/2024 4:41 PM Signed Chief Complaint Patient presents with: Shoulder Injury: X 3 days HPI Lenore Lee is a 33 year old male who presents here today for Above Complaints.. Patient presents for right pec/shoulder pain. Patient was bench pressing 285 pounds and was at the top of his lift when her felt something pop in his right pec/shoulder. Patient reports he is unable to raise his right arm without pain. Patient reports he is unable to lie on right side or lift anything with right arm. Past medical history, appointments, medications, allergies reviewed. Previous Medical History PAST MEDICAL HISTORY Diagnosis Date Epidermal inclusion cyst 01/12/2018 Right neck below ear lobe, removed 12/2017 Family history of MN (myocardial infarction) 06/15/2018 GERD without esophagitis 12/15/2017 Hypertension, essential 12/15/2017 Hypothyroidism, acquired 12/15/2017 Lipoma of unspecified site 03/02/2014 Previous Surgical History PAST SURGICAL HISTORY Procedure Laterality Date COLONOSCOPY 03/27/2022 EGD W/O BRSH SPEC VARICIES INJ 03/27/2022 LEXISCAN STRESS TEST 04/14/2019 negative MYRINGOTOMY HX TONSILLECTOMY HX Family History FAMILY HISTORY Problem Relation Age of Onset Hypertension Mother other (migraine) Mother other (migraine) Brother other (migraine) Brother Stroke Maternal Grandmother Breast Cancer Maternal Grandmother Cancer Maternal Grandmother lung Coronary Artery Disease Father is 50 yo and had 8 MN's prior to this Patient Allergies ALLERGIES No Known Allergies Current Medications Current Outpatient Medications on File Prior to Visit Medication Sig omeprazole (PRILOSEC) 20 mg capsule TAKE 2 CAPSULES ONCE DAILY benzonatate (TESSALON PERLES) 100 mg capsule Take 1-2 capsules by mouth three times a day as needed. albuterol HFA (PROVENTIL HFA) 90 mcg/actuation inhaler Inhale 2 Puffs as instructed every 4 hours as needed for wheezing/shortness of breath. levothyroxine (SYNTHROID) 50 mcg tablet Take 1 tablet by mouth daily before breakfast. lisinopril (ZESTRIL) 5 mg tablet Take 1 tablet by mouth once daily. ondansetron orally disintegrating (ZOFRAN ODT) 8 mg disintegrating tablet dicyclomine (BENTYL) 10 mg capsule Take 1 capsule by mouth three times a day as needed (for abdominal pain/loose stools). cyclobenzaprine (FLEXERIL) 10 mg tablet Take 1 tablet by mouth three times daily as needed for muscle spasm. No current facility-administered medications on file prior to visit. Social History Social History Tobacco Use Smoking status: Never Smokeless tobacco: Never Vaping Use Vaping Use: Never used Substance Use Topics Alcohol use: Yes Alcohol/week: 1.0 standard drink of alcohol Types: 1 Standard drinks or equivalent per week Comment: 2x -3x per week one drink Drug use: No Review of Symptoms REVIEW OF SYSTEMS SEE HPI EXAM: BP 145/79 Pulse 78 Resp 14 Wt 116.1 kg (256 lb) BMI 37.28 kg/m? General Appearance: Well appearing, alert, in no acute distress, well-hydrated, well nourished.. Chest: Positive findings: Swelling and pain with palpation to right lateral chest wall extending into the axilla. Extremities: Positive findings: joint location: on right shoulder pain, swelling, painful movement, loss of ROM, and injury. Patient able to front raise arm but reports pain and pulling. Limited ROM laterally less than 90degrees. Unable to extend posteriorly without increased pain. Health Maintenance List Depression Screening Never done Anxiety Screening Never done Hepatitis C Screening Never done HIV Screening Never done BP Controlled (<130/80) Never done Covid-19 Vaccine(2022- season) due on 07/05/2024 Influenza Vaccine(1) due on 04/23/2024 Annual PCP Team Chronic Disease Visit due on 07/05/2024 Lipid Screening due on 07/31/2028 DTaP,Tdap,Td Vaccine(2 - Td or Tdap) due on 04/18/2031 HPV Vaccine Aged Out Hepatitis B Vaccine Discontinued ASSESSMENT/PLAN: 1. Acute pain of right shoulder - ICD9: 719.41, ICD10: M25.511 (primary diagnosis) - XR SHOULDER GENERAL 3V OR MORE AP/TRUE AP/OTHER RIGHT - CONSULT TO ORTHOPAEDICS 2. Injury of right shoulder, initial encounter - ICD9: 959.2, ICD10: S49.91XA - XR SHOULDER GENERAL 3V OR MORE AP/TRUE AP/OTHER RIGHT - CONSULT TO ORTHOPAEDICS Patient requesting to see orthopedics prior to CT/MRI due to cost. Referred to [facility]. Rohit Jay APRN.[employer] Allergies As of Date: 03/20/2024 (No Known Allergies) Date Reviewed: 09/03/2023 Reviewed by: Shahzad Win (more content not included)... Normal [facility] XR SHLDR >/=3V AP/ALIZA AP/OTH R RTon 03-20-2024 XR SHLDR >/=3V AP/ALIZA AP/OTHR RT * * *Final Report* * * DATE OF EXAM: Mar 20 2024 4:56PM WOX 5253 - XR SHLDR >/=3V AP/ALIZA AP/OTHR RT / PROCEDURE REASON: multiple diagnoses * * * * Physician Interpretation * * * * EXAMINATION: XR SHLDR >/=3V AP/ALIZA AP/OTHR RT PATIENT/TECHNOLOGIST PROVIDED HISTORY: lifting weights Wednesday and heard a pop in right shoulder, pain anterior and under the arm CLINICAL INFORMATION: 33 years old Male with Acute pain of right shoulder. Injury of right shoulder, initial encounter tarthTECHNIQUE: XR SHLDR >/=3V AP/ALIZA AP/OTHR RT Laterality: RIGHT Number of different views (projections): 3 COMPARISON: None RESULT: No fracture. Mild degenerative change glenohumeral and acromioclavicular joints. Acromiohumeral interval is maintained. IMPRESSION: No acute osseous abnormality. Mild degenerative change. Coding Assistant: KHALIDA Transcribe Date/Time: Mar 22 2024 9:46P Dictated by : RUI LOO DO This examination was interpreted and the report reviewed and electronically signed by: RUI LOO DO on Mar 22 2024 9:48PM EST [id number] Normal [facility] XR Shoulder - right 3 Viewso n 03-20-2024 Radiology Study observation (narrative) [facility] XR FOOT GENERAL 3V AP/LAT/OB L BILATERALon 07-22-2022 [facility] XR Foot - bilateral AP and L ateral and obliqueon 07-22-2022 IMPRESSION: NO ACUTE FRACTURE Coding Assistant: KHALIDA Transcribe Date/Time: Jul 22 2022 3:45P Dictated by : CHARITY WASSERMAN MD This examination was interpreted and the report reviewed and electronically signed by: CHARITY WASSERMAN MD on Jul 22 2022 3:49PM EST DIVISION OF RADIOLOGY * * *Final Report* * * DATE OF EXAM: Jul 22 2022 1:14PM WOX [id number] - XR FOOT 3V AP/LAT/OBL EUGENIO / PROCEDURE REASON: multiple diagnoses * * * * Physician Interpretation * * * * Examination: XR FOOT 3V AP/LAT/OBL EUGENIO History: Heel pain, bilateral Heel pain, bilateral Technique: XR FOOT 3V AP/LAT/OBL EUGENIO Comparison: Left foot of 03/17/2018 RESULT: 3 views of each foot reveal normal mineralization and alignment. No fracture or focal bony abnormality. Joint spaces are maintained. Small plantar calcaneal enthesophyte on both sides. Possible tiny focus of plantar fascial calcification on the left DIVISION OF RADIOLOGY [facility] * * *Final Report* * * DATE OF EXAM: Jul 22 2022 1:14PM WOX 5555 - XR FOOT 3V AP/LAT/OBL EUGENIO / PROCEDURE REASON: multiple diagnoses * * * * Physician Interpretation * * * * Examination: XR FOOT 3V AP/LAT/OBL EUGENIO History: Heel pain, bilateral Heel pain, bilateral Technique: XR FOOT 3V AP/LAT/OBL EUGENIO Comparison: Left foot of 03/17/2018 RESULT: 3 views of each foot reveal normal mineralization and alignment. No fracture or focal bony abnormality. Joint spaces are maintained. Small plantar calcaneal enthesophyte on both sides. Possible tiny focus of plantar fascial calcification on the left IMPRESSION IMPRESSION: NO ACUTE FRACTURE Coding Assistant: KHALIDA Transcribe Date/Time: Jul 22 2022 3:45P Dictated by : CHARITY WASSERMAN MD This examination was interpreted and the report reviewed and electronically signed by: CHARITY WASSERMAN MD on Jul 22 2022 3:49PM EST [facility] Radiology Study observation (narrative) [facility] XR Foot - bilateral AP and L ateral and obliqueOrdered By: Ccf Provider on 07-22-2022 [facility] COLONOSCOPY DIAGNOSTICon [facility] EGD DIAGNOSTICon 03-27-2022 [facility] CALPROTECTIN,FECALon 022 Calprotectin (Stl) [Mass/Mass] 170.1 mg/kg High 0 - 50 mg/kg [facility] FECAL LACTOFERRIN/LEUKOCYTES on 03-10-2022 Lactoferrin IA Ql (Stl) Positive for lactoferrin, which may indicate presence of fecal white blood cells Abnormal Negative [facility] FECAL OCCULT BLOOD TESTon Lower GI hemoglobin IA Ql (Stl) Positive Abnormal Negative [facility] Gastrointestinal pathogens i dentified GHADA+probe Nom (Stl)on 03-10-2022 Campylobacter sp DNA GHADA+probe Nom (Unsp spec) Not detected Not Detected [facility] Salmonella sp DNA GHADA+probe Ql (Unsp spec) Not detected Not Detected [facility] Shiga toxin stx gene GHADA+probe Nom (Unsp spec) Not detected Not Detected [facility] Shigella sp DNA GHADA+probe Ql (Unsp spec) Not detected Not Detected [facility] Vital Signs Date Time Vital Sign Value Performing Clinician Faci lity 09-28-2024 15:54-0500 Diastolic blood pressure 82 mm[Hg] Vern Rodarte MD Work Phone: [facility] 09-28-2024 15:54-0500 Systolic blood pressure 134 mm[Hg] Vern Rodarte MD Work Phone: [facility] 09-28-2024 15:37-0500 Body height 175.3 cm Vern Rodarte MD Work Phone: [facility] 09-28-2024 15:37-0500 Body mass index (BMI) [Ratio] 35 kg/m2 Vern Rodarte MD Work Phone: [facility] 09-28-2024 15:37-0500 Body weight 107.5 kg Vern Rodarte MD Work Phone: [facility] 09-28-2024 15:37-0500 Heart rate 70 /min Vern Rodarte MD Work Phone: [facility] 09-28-2024 15:37-0500 SaO2% (BldA) [Mass fraction] 98 % Vern Rodarte MD Work Phone: [facility] 08-29-2024 12:50-0500 Body height 176.5 cm Kizzy Figueroa PA-C Work Phone: [facility] 08-29-2024 12:50-0500 Body mass index (BMI) [Ratio] 35.89 kg/m2 Kizzy Figueroa PA-C Work Phone: [facility] 08-29-2024 12:50-0500 Body weight 111.86 kg Kizzy Figueroa PA-C Work Phone: [facility] 08-29-2024 12:50-0500 Diastolic blood pressure 112 mm[Hg] Kizzy Figueroa PA-C Work Phone: [facility] 08-29-2024 12:50-0500 Heart rate 66 /min Kizzy Figueroa PA-C Work Phone: [facility] 08-29-2024 12:50-0500 Systolic blood pressure 182 mm[Hg] Kizzy Figueroa PA-C Work Phone: [facility] 03-20-2024 16:02-0400 Body mass index (BMI) [Ratio] 37.28 kg/m2 Rohit Jay APRN.[employer] Work Phone: [facility] 03-20-2024 16:02-0400 Body weight 116.12 kg Rohit Jay APRN.[employer] Work Phone: [facility] 03-20-2024 16:02-0400 Diastolic blood pressure 79 mm[Hg] Rohit Jay MANAGER FINE DINING.[employer] Work Phone: [facility] 03-20-2024 16:02-0400 Heart rate 78 /min Rohit aJy MANAGER [employer]ING.[employer] Work Phone: [facility] 03-20-2024 16:02-0400 Respiratory rate 14 /min Rohit Jay MANAGER [employer]ING.[employer] Work Phone: [facility] 03-20-2024 16:02-0400 Systolic blood pressure 145 mm[Hg] Rohit Jay MANAGER F[employer] D[employer]ING.[employer] Work Phone: [facility] 07-05-2023 16:07-0500 Body height 176.5 cm Kacie Cho MANAGER F[employer] D[employer]ING.[employer] Work Phone: [facility] 07-05-2023 16:07-0500 Body weight 111.13 kg Kacie Cho MANAGER F[employer]ING.[employer] Work Phone: [facility] 07-05-2023 16:07-0500 Diastolic blood pressure 90 mm[Hg] Kacie Cho MANAGER F[employer] D[employer]ING.[employer] Work Phone: [facility] 07-05-2023 16:07-0500 Heart rate 76 /min Kacie Cho MANAGER F[employer] D[employer]ING.[employer] Work Phone: [facility] 07-05-2023 16:07-0500 Respiratory rate 16 /min Kacie Cho MANAGER [employer] D[employer]ING.[employer] Work Phone: [facility] 07-05-2023 16:07-0500 SaO2% (BldA) [Mass fraction] 98 % Kacie Cho MANAGER [employer] D[employer]ING.[employer] Work Phone: [facility] 07-05-2023 16:07-0500 Systolic blood pressure 130 mm[Hg] Kacie Cho MANAGER F[employer] D[employer]ING.[employer] Work Phone: [facility] 06-09-2023 09:51-0400 Body height 175.3 cm Farhana Freitas PA-C Work Phone: [facility] 06-09-2023 09:51-0400 Body weight 108.86 kg Farhana Kalka PA-C Work Phone: [facility] 06-09-2023 09:51-0400 Diastolic blood pressure 86 mm[Hg] Farhana Kalka PA-C Work Phone: [facility] 06-09-2023 09:51-0400 Heart rate 70 /min Farhana Kalka PA-C Work Phone: [facility] 06-09-2023 09:51-0400 Systolic blood pressure 138 mm[Hg] Farhana Kalka PA-C Work Phone: [facility] 07-22-2022 12:49-0500 Diastolic blood pressure 86 mm[Hg] Lise Lundberg PA-C Work Phone: [facility] 07-22-2022 12:49-0500 Heart rate 74 /min Lise Lundberg PA-C Work Phone: [facility] 07-22-2022 12:49-0500 Systolic blood pressure 126 mm[Hg] Lise Lundberg PA-C Work Phone: [facility] 07-22-2022 12:00-0500 Body height 175.5 cm Lise Lnudberg PA-C Work Phone: [facility] 07-22-2022 12:00-0500 Body temperature 97.9 [degF] Lise Lundberg PA-C Work Phone: [facility] 07-22-2022 12:00-0500 Body weight 114.31 kg Lise Lundberg PA-C Work Phone: [facility] 07-22-2022 12:00-0500 Respiratory rate 18 /min Lise Lundberg PA-C Work Phone: [facility] 03-27-2022 13:15-0400 Diastolic blood pressure 79 mm[Hg] Laura Ledezma MD Work Phone: [facility] 03-27-2022 13:15-0400 Heart rate 76 /min Laura Ledezma MD Work Phone: [facility] 03-27-2022 13:15-0400 Respiratory rate 16 /min Laura Ledezma MD Work Phone: [facility] 03-27-2022 13:15-0400 SaO2% (BldA) [Mass fraction] 97 % Laura Ledezma MD Work Phone: [facility] 03-27-2022 13:15-0400 Systolic blood pressure 125 mm[Hg] Laura Ledezma MD Work Phone: [facility] 03-27-2022 12:00-0400 Body temperature 98.6 [degF] Laura Ledezma MD Work Phone: [facility] 03-02-2022 11:05-0400 Body height 176 cm Serena Cannon MANAGER FINE DINING.[employer] Work Phone: [facility] 03-02-2022 11:05-0400 Body weight 112.04 kg Serena Cannon MANAGER F[employer] D[employer]ING.[employer] Work Phone: [facility] 03-02-2022 11:05-0400 Diastolic blood pressure 72 mm[Hg] Serena Cannon MANAGER F[employer] DINING.[employer] Work Phone: [facility] 03-02-2022 11:05-0400 Heart rate 98 /min Serena Cannon MANAGER F[employer] D[employer]ING.[employer] Work Phone: [facility] 03-02-2022 11:05-0400 SaO2% (BldA) [Mass fraction] 98 % Serena Cannon MANAGER F[employer] DINING.[employer] Work Phone: [facility] 03-02-2022 11:05-0400 Systolic blood pressure 140 mm[Hg] Serena Cannon MANAGER F[employer] DINING.[employer] Work Phone: [facility] Encounters Encounter Date Encounter Type Care Provider Facility Start: 01-24-2025 End: 01-24-2025 Refill Farhana Freitas PA-C Work Phone: [facility] Comment on above: Refill Request Start: 01-01-2025 End: 01-02-2025 Refill Vern Rodarte MD Work Phone: [facility] Comment on above: Refill Request Start: 10-09-2024 End: 10-09-2024 Follow-up encounter Vern Rodarte MD Work Phone: [facility] Comment on above: Leukocytosis, unspec ified type (Primary Dx) Start: 10-02-2024 End: 12-02-2024 Follow-up encounter Kizzy Figueroa PA-C Work Phone: [facility] Start: 09-28-2024 End: 09-28-2024 ambulatory VERN RODARTE Facility:[facility] Start: 09-28-2024 End: 09-28-2024 Patient encounter procedure Vern Rodarte MD Work Phone: [facility] Comment on above: Well adult exam ([facility] domi Dx); Hypertension, essential; Hypothyroidism, acquired; GERD without esophagitis; Encounter for screening for diabetes mellitus; Medication management; Screening for depression; Encounter for screening examination for other mental health and behavioral disorders Start: 09-28-2024 Encounter for genera l adult medical examination without abnormal findings VERN RODARTE [facility] Start: 09-28-2024 End: 09-28-2024 Patient encounter status Vern Rodarte MD Work Phone: [facility] Work Phone: Start: 09-15-2024 ambulatory VERN RODARTE [facility] ty:[facility] [facility] Start: 08-29-2024 End: 08-29-2024 ambulatory VERN RODARTE Facility:[facility] Start: 08-29-2024 End: 08-29-2024 Patient encounter procedure Kizzy Figueroa PA-C Work Phone: [facility] Comment on above: Generalized abdomina l pain (Primary Dx); Diarrhea, unspecified type; Elevated fecal calprotectin Start: 08-09-2024 End: 08-14-2024 Telephone encounter Kacie Cho APRN.CNP Work Phone: [facility] [place] Comment on above: Appointment Start: 08-08-2024 End: 08-08-2024 ambulatory [facility]ana Freitas [facility]-C [facility] Comment on above: FMLA Start: 07-13-2024 End: 07-13-2024 Telephone encounter Vern Rodarte MD Work Phone: [facility] [place] Start: 06-29-2024 End: 06-29-2024 Refill Kacie Cho APRN.[employer] Work Phone: [facility] [place] Comment on above: Refill Request Start: 03-30-2024 ambulatory Vern schwarz MD Work Phone: [facility] [place] Comment on above: Ozempic Start: 03-23-2024 Telephone encounter Rohit pelayo APRN.[employer] Work Phone: [facility] [place] Comment on above: Results Start: 03-20-2024 End: 03-20-2024 Subsequent hospital visit by physician Xr Count Includes [facility] [place] Work Phone: Radiology Comment on above: Acute pain of right shoulder [M25.511] Start: 03-20-2024 End: 03-20-2024 Patient encounter procedure Rohit Jay APRN.[employer] Work Phone: [facility] [place] Comment on above: Acute pain of right shoulder (Primary Dx); Injury of right shoulder, initial encounter Start: 03-20-2024 End: 03-20-2024 ambulatory VERN RODARTE Facility:[facility] Start: 03-08-2024 Refill Kacie Cho APRN.[employer] Work Phone: [facility] [place] Comment on above: Refill Request Start: 07-28-2023 ambulatory Farhana Freitas PA-C [facility] Comment on above: FMLA Start: 07-05-2023 End: 07-05-2023 Patient encounter procedure Kacie Cho APRN.[employer] Work Phone: [facility] [place] Comment on above: Well adult exam ([facility] Dx); Hypertension, essential; Hypothyroidism, acquired; Hyperlipidemia, mixed Start: 07-05-2023 End: 07-05-2023 Patient encounter status Kacie Cho MANAGER FINE DINING.[employer] Work Phone: [facility] Work Phone: Start: 06-29-2023 Refill Lisedebbie Solaresins on PA-C Work Phone: [facility] [place] Comment on above: Refill Request Start: 06-09-2023 End: 06-09-2023 Patient encounter procedure Farhana Freitas PA-C Work Phone: [facility] [place] Comment on above: Focal active colitis (Primary Dx); Abnormal endoscopy of upper gastrointestinal tract; Hiatal hernia with GERD and esophagitis Start: 04-07-2023 Refill Farhana Freitas PA-C Work Phone: Gastroenterology Comment on above: Refill Request Start: 04-05-2023 Refill Rohit lawton APRN.[employer] Work Phone: [facility] [place] Comment on above: Refill Request Start: 11-11-2022 ambulatory Rose Hernandez MANAGER FINE DINING.[employer] Work Phone: Telemedicine Comment on above: Viral URI with cough (Primary Dx) Start: 09-14-2022 Refill Vern schwarz MD Work Phone: [facility] [place] Comment on above: Refill Request Start: 09-09-2022 End: 09-09-2022 ambulatory Freida Taylor [facility] Physical Therapy Comment on above: Achilles tendonosis (Primary Dx); Plantar fasciitis of left foot Start: 09-07-2022 ambulatory Lisedebbie Solaresins on PA-C Work Phone: [facility] [place] Comment on above: Meloxicam Start: 08-26-2022 End: 08-26-2022 Patient encounter procedure David Motley Work Phone: Podiatry Comment on above: Plantar fasciitis of left foot (Primary Dx); Achilles tendonosis Start: 08-08-2022 ambulatory Lise Kim on PA-C Work Phone: [facility] [place] Comment on above: Antibiotics Start: 07-23-2022 Telephone encounter Lise WEBBERC [facility] Comment on above: Results Start: 07-22-2022 End: 07-22-2022 Subsequent hospital visit by physician Marian Count Includes [facility] [place] Work Phone: Radiology Comment on above: Heel pain, bilateral [M79.671, M79.672] Start: 07-22-2022 End: 07-22-2022 Patient encounter procedure Lise Lundberg PA-C [facility] Comment on above: Well adult exam (Ana domi Dx); Hypertension, essential; Heel pain, bilateral; Hypothyroidism, acquired; Encounter for screening for diabetes mellitus; Encounter for lipid screening for cardiovascular disease; OME (otitis media with effusion), bilateral Start: 07-22-2022 End: 07-22-2022 Patient encounter status Lise Lundberg PA-C Work Phone: [facility] [place] Start: 06-16-2022 Refill Lise Kim on PA-C [facility] Comment on above: Refill Request Start: 04-08-2022 End: 04-08-2022 ambulatory Serena Cannon APRN.CNP Work Phone: [facility] Comment on above: Chronic diarrhea (Pr imary Dx); Heartburn; GERD without esophagitis; Generalized abdominal pain; Focal active colitis Start: 04-08-2022 End: 04-08-2022 Telemedicine consultation with patient Serena Cannonkip CHAWLA.YUNIER Work Phone: [facility] Start: 03-27-2022 End: 03-27-2022 Subsequent hospital visit by physician Laura Ledezma MD Work Phone: Ambulatory Surgery Comment on above: Heartburn [R12] Start: 03-20-2022 ambulatory Serena Cannon APRN.CNP Work Phone: [facility] Comment on above: Colonoscopy Start: 03-13-2022 Telephone encounter Serena Cannon APRN.CNP Work Phone: [facility] Comment on above: Results Start: 03-08-2022 ambulatory Lise Kim on PA-C Work Phone: [facility] [place] Comment on above: Medication Start: 03-05-2022 ambulatory Serena Cannon MANAGER FINE DINING.[employer] Work Phone: Gastroenterology Comment on above: Prescription Start: 03-02-2022 Telephone encounter Serena Cannon MANAGER FINE DINING.[employer] Work Phone: Gastroenterology Comment on above: Procedure (EGD) Start: 03-02-2022 End: 03-02-2022 Patient encounter procedure Serena Cannon MANAGER FINE DINING.[employer] Work Phone: Gastroenterology Comment on above: Heartburn (Primary D x); Chronic diarrhea; Nausea and vomiting, unspecified vomiting type Start: 01-27-2022 ambulatory Lise Kim on PA-C Work Phone: [facility] [place] Comment on above: Bowel Movements Start: 01-26-2022 ambulatory Lise Kim on PA-C Work Phone: [facility] [place] Comment on above: Fish oil Start: 12-24-2021 Telephone encounter Lise Victoria donnahoracio PA-C Work Phone: [facility] [place] Comment on above: Results Start: 11-21-2021 Refill Lise Kim on PA-C Work Phone: [facility] [place] Comment on above: Refill Request Start: 02-22-2019 Patient encounter status Lorene vlaidmir Lundberg PA-C Work Phone: [facility] Work Phone: Procedures Date Procedure Procedure Detail Performing Clinician Start: 09-28-2024 Adult depression screening assessment Vern Rodarte MD Work Phone: Start: 09-28-2024 Lipid 1996 panel - Serum or Plasma Sebastián Rodarte MD Work Phone: Start: 03-20-2024 Radex shoulder complete minimum 2 views Rohit Jay MANAGER FINE DINING.[employer] Work Phone: Start: 07-31-2023 Lipid 1996 panel - Serum or Plasma Corey Cho MANAGER FINE DINING.[employer] Work Phone: Start: 07-22-2022 Radex foot complete minimum 3 views Tosha Lundberg PA-C Work Phone: Start: 03-27-2022 Esophagogastroduodenoscopy transoral diagnostic Serena Cannon MANAGER F[employer] D[employer]ING.YUNIER Work Phone: Start: 03-27-2022 Colonoscopy flx dx w/collj spec when pfrmd Serena Mckeonos MANAGER FINE DINING.[employer] Work Phone: Start: 03-08-2022 Lactoferrin fecal qualitative Serena Cannon MANAGER FINE DINING.[employer] Work Phone: Start: 03-08-2022 Nfct agent dna/rna gastrointestinal pathogen Serena Mckeonos MANAGER FINE DINING.[employer] Work Phone: Start: 04-18-2021 Adult depression screening assessment Lise Lundberg PA-C Work Phone: Plan of Treatment Date Care Activity Detail Author Start: 04-18-2031 Urine microalbumin profile [facility] Start: 09-28-2029 Lipid panel Lipid Screening [facility] Start: 07-31-2028 Lipid panel Lipid Screening [facility] Start: 10-10-2025 End: 10-10-2025 Patient encounter procedure [facility] [place] Comment on above: Physical Start: 09-28-2025 Annual PCP Team Chronic Disease Visit Annual PCP Team Chronic Disease Visit [facility] Start: 09-28-2025 Anxiety Screening Anxiety Screening [facility] Start: 09-28-2025 Depression Screening Depression Screening [facility] Start: 03-20-2025 Annual PCP Team Chronic Disease Visit Annual PCP Team Chronic Disease Visit [facility] Start: 12-07-2024 End: 12-07-2024 Patient encounter procedure 12/07/2024 2:40 PM EDT Office Visit [facility] [place] [address] [address] Farhana Freitas PA-C [address] [place], [place] [id number] 3 month follow up office visit with Farhana Freitas, generalized abdominal pain,diarrhea,elevated fecal calpprotectin [facility] [place] Comment on above: 3 month follow up office visit with Renan Freitas, generalized abdominal pain,diarrhea,elevated fecal calpprotectin Start: 11-06-2024 End: 02-05-2025 CBC W Auto Differential panel - Blood COMPLETE BLOOD COUNT AND DIFFERENTIAL Lab Routine Leukocytosis, unspecified type Expected: 11/06/2024, Expires: 02/05/2025 [facility] Work Phone: Comment on above: Expected: 11/06/2024, Expires: Start: 09-28-2024 End: 09-28-2024 Patient encounter procedure 09/28/2024 4:00 PM EST Office Visit [facility] [place] [address] [place], [place] [id number] Vern Rodarte MD [address] [place], [place] [id number] Physical and normal appointment [facility] [place] Comment on above: Physical and normal appointment Start: 09-28-2024 End: 12-28-2024 Cobalamin (Vitamin B12) [Mass/volume] in Serum or Plasma [facility] Work Phone: Comment on above: Expected: 09/28/2024, Expires: Start: 09-28-2024 End: 12-28-2024 Comprehensive metabolic 2000 panel - Serum or Plasma [facility] Comment on above: Expected: 09/28/2024, Expires: Start: 09-28-2024 End: 12-28-2024 Hemoglobin A1c in Blood [facility] Comment on above: Expected: 09/28/2024, Expires: Start: 09-28-2024 End: 12-28-2024 LIPID PANEL, NONFASTING [facility] Comment on above: Expected: 09/28/2024, Expires: Start: 09-28-2024 End: 12-28-2024 Magnesium [Mass/volume] in Serum or Plasma [facility] Comment on above: Expected: 09/28/2024, Expires: Start: 09-28-2024 End: 12-28-2024 Thyrotropin [Units/volume] in Serum or Plasma [facility] Comment on above: Expected: 09/28/2024, Expires: Start: 09-15-2024 End: 09-15-2024 Patient encounter procedure Radiology Comment on above: Generalized abdominal pain [R10.84] Start: 08-21-2024 End: 08-21-2024 Patient encounter procedure 08/21/2024 6:00 PM EST Office Visit [facility] [place] [address] [place], [place] [address] Kacie Cho, MANAGER FINE DINING.[employer] [address] [place], [place] [id number] Follow up for medicine and regular visit. [facility] [place] Comment on above: Follow up for medicine and regular visit . Start: 07-05-2024 Annual PCP Team Chronic Disease Visit Annual PCP Team Chronic Disease Visit [facility] Start: 07-05-2024 Covid-19 Vaccine ( season) Covid-19 Vaccine ( season) [facility] Comment on above: Postponed from 04/23/2023 (Declined at t his time) Start: 04-23-2024 Covid-19 Vaccine ( season) Covid-19 Vaccine ( season) [facility] Start: 04-23-2024 Covid-19 Vaccine ( season) Covid-19 Vaccine ( season) [facility] Start: 04-23-2024 Influenza vaccination Influenza Vaccine (#1) [facility] Start: 02-20-2024 Influenza vaccination Influenza Vaccine (#1) [facility] Comment on above: Postponed from 04/23/2023 (Declined at t his time) Start: 07-22-2023 ANNUAL PCP TEAM CHRONIC DISEASE VISIT ANNUAL PCP TEAM CHRONIC DISEASE VISIT [facility] Start: 07-22-2023 COVID-19 VACCINE (3 - Booster for Pfizer series) COVID-19 VACCINE (3 - Booster for Pfizer series) [facility] Comment on above: Postponed from 07/04/2021 (Declined at t his time) Start: 07-22-2023 COVID-19 VACCINE (3 - Pfizer series) COVID-19 VACCINE (3 - Pfizer series) [facility] Comment on above: Postponed from 07/04/2021 (Declined at t his time) Start: 07-22-2023 HEPATITIS C SCREENING HEPATITIS C SCREENING [facility] Comment on above: Postponed from 2006 (Declined at t his time) Start: 07-22-2023 HIV SCREENING HIV SCREENING [facility] Comment on above: Postponed from 2006 (Declined at t his time) Start: 07-05-2023 End: 10-04-2023 CBC W Auto Differential panel - Blood CBC + DIFF Lab Routine Well adult exam Expected: 07/05/2023, Expires: 10/04/2023 [facility] Work Phone: Comment on above: Expected: 07/05/2023, Expires: 4 Start: 07-05-2023 End: 10-04-2023 Comprehensive metabolic 2000 panel - Serum or Plasma COMP METABOLIC PANEL Lab Routine Hypertension, essential Hyperlipidemia, mixed Expected: 07/05/2023, Expires: 10/04/2023 [facility] Work Phone: Comment on above: Expected: 07/05/2023, Expires: 4 Start: 07-05-2023 End: 10-04-2023 LIPID PANEL, NONFASTING LIPID PANEL, NONFASTING Lab Routine Hyperlipidemia, mixed Expected: 07/05/2023, Expires: 10/04/2023 [facility] Work Phone: Comment on above: Expected: 07/05/2023, Expires: 4 Start: 07-05-2023 End: 10-04-2023 THYROID PEROXIDASE ANTIBODY BLOOD THYROID PEROXIDASE ANTIBODY BLOOD Lab Routine Hypothyroidism, acquired Expected: 07/05/2023, Expires: 10/04/2023 [facility] Work Phone: Comment on above: Expected: 07/05/2023, Expires: 4 Start: 07-05-2023 End: 10-04-2023 Thyrotropin [Units/volume] in Serum or Plasma TSH BLD Lab Routine Hypothyroidism, acquired Expected: 07/05/2023, Expires: 10/04/2023 [facility] Work Phone: Comment on above: Expected: 07/05/2023, Expires: 4 Start: 06-09-2023 End: 09-08-2023 CELIAC COMPREHENSIVE PANEL CELIAC COMPREHENSIVE PANEL Lab Routine Abnormal endoscopy of upper gastrointestinal tract Expected: 06/09/2023, Expires: 09/08/2023 [facility] Work Phone: Comment on above: Expected: 06/09/2023, Expires: 4 Start: 04-23-2023 Covid-19 Vaccine () Covid-19 Vaccine () [facility] Start: 04-23-2023 Influenza vaccination [facility] Start: 02-19-2023 Influenza vaccination INFLUENZA (#1) [facility] Comment on above: Postponed from 04/23/2022 (Declined at t his time) Start: 12-22-2022 ANNUAL PCP TEAM CHRONIC DISEASE VISIT ANNUAL PCP TEAM CHRONIC DISEASE VISIT [facility] Start: 08-23-2022 DEPRESSION ASSESSMENT DEPRESSION ASSESSMENT [facility] Start: 07-22-2022 End: 09-21-2022 Comprehensive metabolic 2000 panel - Serum or Plasma [facility] Work Phone: Comment on above: Expected: 07/22/2022, Expires: 3 Start: 07-22-2022 End: 09-21-2022 Hemoglobin A1c in Blood [facility] Work Phone: Comment on above: Expected: 07/22/2022, Expires: 3 Start: 07-22-2022 End: 09-21-2022 LIPID PANEL, NONFASTING [facility] Work Phone: Comment on above: Expected: 07/22/2022, Expires: 3 Start: 07-22-2022 End: 09-21-2022 Thyrotropin [Units/volume] in Serum or Plasma [facility] Work Phone: Comment on above: Expected: 07/22/2022, Expires: 3 Start: 04-23-2022 Influenza vaccination [facility] Start: 04-18-2022 Adult depression screening assessment DEPRESSION SCREENING [facility] Start: 04-18-2022 ANNUAL PCP TEAM CHRONIC DISEASE VISIT ANNUAL PCP TEAM CHRONIC DISEASE VISIT [facility] Start: 04-18-2022 BP CONTROLLED (<130/80) BP CONTROLLED (<130/80) [facility] Start: 04-08-2022 End: 06-08-2022 CELIAC SCREEN WITH REFLEX CELIAC SCREEN WITH REFLEX Lab Routine Focal active colitis Expected: 04/08/2022, Expires: 06/08/2022 [facility] Work Phone: Comment on above: Expected: 04/08/2022, Expires: 2 Start: 10-09-2021 COVID-19 VACCINE (3 - Booster for Pfizer series) COVID-19 VACCINE (3 - Booster for Pfizer series) [facility] Start: 08-23-2021 DEPRESSION ASSESSMENT DEPRESSION ASSESSMENT [facility] Start: 07-04-2021 COVID-19 VACCINE (3 - Booster for Pfizer series) COVID-19 VACCINE (3 - Booster for Pfizer series) [facility] Start: 2006 Anxiety Screening Anxiety Screening [facility] Start: 2006 BP CONTROLLED (<130/80) BP CONTROLLED (<130/80) [facility] Start: 2006 Depression Screening Depression Screening [facility] Start: 2006 HEPATITIS C SCREENING HEPATITIS C SCREENING [facility] Start: 2006 Hepatitis C screening Hepatitis C Screening [facility] Start: 2006 HIV SCREENING HIV SCREENING [facility] Start: 2006 HIV screening HIV Screening [facility] Start: 1988 HEPATITIS B (1 of 3 - 3-dose series) HEPATITIS B (1 of 3 - 3-dose series) [facility] Calprotectin [Mass/m ass] in Stool CALPROTECTIN,FECAL Lab Routine Focal active colitis Ordered: 06/09/2023 [facility] Work Phone: Comment on above: Ordered: 06/09/2023 Calprotectin [Mass/m ass] in Stool CALPROTECTIN,FECAL Lab Routine Generalized abdominal pain Diarrhea, unspecified type Elevated fecal calprotectin Ordered: 08/29/2024 [facility] Work Phone: Comment on above: Ordered: 08/29/2024 Clostridioides diffi cile toxin genes [Presence] in Stool by GHADA with probe detection C. DIFFICILE PCR Lab Routine Focal active colitis Ordered: 06/09/2023 [facility] Work Phone: Comment on above: Ordered: 06/09/2023 End: 03-13-2023 COLONOSCOPY DIAGNOSTIC COLONOSCOPY DIAGNOSTIC Endoscopy Routine Diarrhea, unspecified type 1 Occurrences starting 03/13/2022 until 03/13/2023 [facility] Work Phone: Comment on above: 1 Occurrences starting 03/13/2022 until 03/13/2023 End: 09-28-2025 CT Small bowel W contrast PO and W contrast IV CT ENTEROGRAPHY W IVCON Radiology Routine Generalized abdominal pain Diarrhea, unspecified type Elevated fecal calprotectin 1 Occurrences starting 08/29/2024 until 09/28/2025 [facility] Comment on above: 1 Occurrences starting 08/29/2024 until 09/28/2025 End: 03-02-2023 EGD DIAGNOSTIC EGD DIAGNOSTIC Endoscopy Routine Heartburn Nausea and vomiting, unspecified vomiting type 1 Occurrences starting 03/02/2022 until 03/02/2023 [facility] Work Phone: Comment on above: 1 Occurrences starting 03/02/2022 until 03/02/2023 Gastrointestinal pathogens panel - Stool by GHADA with probe detection STOOL GASTROINTESTINAL PANEL Lab Routine Focal active colitis Ordered: 06/09/2023 [facility] Work Phone: Comment on above: Ordered: 06/09/2023 End: 05-08-2023 MRI ABD ENTEROG WO/W IVCON MRI ABD ENTEROG WO/W IVCON Radiology Routine Chronic diarrhea Generalized abdominal pain Focal active colitis 1 Occurrences starting 04/08/2022 until 05/08/2023 [facility] Work Phone: Comment on above: 1 Occurrences starting 04/08/2022 until 05/08/2023 End: 05-08-2023 Mri pelvis w/o & w/contrast material MRI PEL ENTEROG WO/W IVCON Radiology Routine Generalized abdominal pain 1 Occurrences starting 04/08/2022 until 05/08/2023 [facility] Work Phone: Comment on above: 1 Occurrences starting 04/08/2022 until 05/08/2023 PANC ELASTASE, FECAL PANC ELASTA SE, FECAL Lab Routine Chronic diarrhea 03/08/2022 12:55 PM EDT [facility] Work Phone: PT PLAN OF CARE CERTIFICATION PT PLAN OF CARE CERTIFICATION Procedures Routine Plantar fasciitis of left foot Achilles tendonosis Ordered: 09/09/2022 [facility] Comment on above: Ordered: 09/09/2022 SURGICAL PATHOLOGY [facility] Work Phone: Comment on above: Release Upon Ordering for 1 Occurrences starting 03/27/2022, 1 completed End: 04-19-2025 XR Shoulder - right 3 Views XR SHOULDER GENERAL 3V OR MORE AP/TRUE AP/OTHER RIGHT Radiology Routine Acute pain of right shoulder Injury of right shoulder, initial encounter 1 Occurrences starting 03/20/2024 until 04/19/2025 [facility] Work Phone: Comment on above: 1 Occurrences starting 03/20/2024 until 04/19/2025 XR Shoulder - right 3 Views XR SHOULDER GENERAL 3V OR MORE AP/TRUE AP/OTHER RIGHT Radiology Routine Acute pain of right shoulder Injury of right shoulder, initial encounter 03/20/2024 4:56 PM EDT [facility] Immunizations Immunization Date Immunization Notes Care Provider Fa cility 05-09-2021 COVID-19 vaccine, ag e 12+ yr (PFIZER-BIONTECH - PURPLE TOP) Lise Lundberg PA-C Work Phone: [facility] Work Phone: 04-18-2021 COVID-19 vaccine, ag e 12+ yr (PFIZER-BIONTECH - PURPLE TOP) Lise Lundberg PA-C Work Phone: [facility] 04-18-2021 tetanus toxoid, redu ivon diphtheria toxoid, and acellular pertussis vaccine, adsorbed Lise Lundberg PA-C Work Phone: [facility] 06-15-2018 influenza virus vaccine, unspecified formulation Farhana Freitas PA-C Work Phone: [facility] Payers Date Payer Category Payer Blue Cross Blue [facility] BLUE ACCE PPO [id number] 2021 Unknown [employer] ACCE PPO [id number] 2021-Present [phone] [address] [place] [address] [facility] [id number] 2021 Unknown [id number] 2021 Unknown [id number] 2020 Private Health Insurance BECCA Osorio XAVI OAP [id number] 2020-Present [phone] [address] [place] [id number] Open Access [id number] Social History Date Type Detail Facility Start: 05-06-2012 End: 07-22-2022 Tobacco smoking status NHIS Never smoked tobacco [facility] Start: 05-06-2012 End: 07-22-2022 Tobacco use and exposure Smokeless tobacco non-user [facility] Start: 04-18-2021 End: 03-02-2022 Alcohol intake Current non-drinker of alcohol (finding) [facility] Start: 04-18-2021 End: 07-22-2022 History SDOH Alcohol Frequency 3 [facility] Start: 04-18-2021 End: 07-22-2022 History SDOH Alcohol Std Drinks 1 [facility] Start: 04-18-2021 End: 07-22-2022 History SDOH Social Connections Phone 2 [facility] Start: 04-18-2021 End: 07-22-2022 History SDOH Physical Activity DPW 5 [facility] Start: 04-18-2021 End: 07-22-2022 History SDOH Physical Activity MPS 4 [facility] Start: 03-16-2020 Education 12 [facility] Start: 1990 Sex Assigned At Not on file [facility] Start: 12-12-2021 End: 07-22-2022 Exposure to SARS-CoV-2 (event) Not sure [facility] Start: 03-27-2022 End: 09-28-2024 Alcohol intake Current drinker of alcohol (finding) [facility] Start: 03-27-2022 History SDOH Alcohol Comment occasional [facility] Start: 07-22-2022 End: 09-15-2024 History of Social function [facility] Start: 07-22-2022 End: 09-15-2024 Social connection and isolation panel [facility] Do you belong to any clubs or organizations such as restorationism groups, unions, fraternal or athletic groups, or school groups? No [facility] Are you now , , , , never or living with a partner? [facility] How often to you hav e a drink containing alcohol? 2-4 times a month [facility] How many standard dr inks containing alcohol do you have on a typical day? 1 or 2 [facility] How often do you hav e 6 or more drinks on 1 occasion? Never [facility] How hard is it for y ou to pay for the very basics like food, housing, medical care, and heating Not hard at all [facility] Do you feel stress - tense, restless, nervous, or anxious, or unable to sleep at night because your mind is troubled all the time - these days [OSQ] To some extent [facility] (I/We) worried wheth er (my/our) food would run out before (I/we) got money to buy more. Never true [facility] Start: 09-03-2023 Alcohol Comment 2x -3x per wee k one drink [facility] How hard is it for y ou to pay for the very basics like food, housing, medical care, and heating Not very hard [facility] Do you feel stress - tense, restless, nervous, or anxious, or unable to sleep at night because your mind is troubled all the time - these days [OSQ] Only a little [facility] Start: 08-29-2024 Alcohol Comment 1x per week one yony hernandez [facility] Functional Status Date Assessment Result Facility 03-12-2014 Are you deaf, or do you have serious difficulty hearing No 03/12/2014 8:49 AM Alison Moreira RN No [facility] 03-12-2014 Are you blind, or do you have serious difficulty seeing, even when wearing glasses No 03/12/2014 8:49 AM Alison Moreira RN No [facility] 03-12-2014 Do you have serious difficulty walking or climbing stairs No 03/12/2014 8:49 AM Alison Moreira RN No [facility] 03-12-2014 Do you have difficul ty dressing or bathing No 03/12/2014 8:49 AM Alison Moreira RN No [facility] 03-12-2014 Because of a physica l, mental, or emotional condition, do you have difficulty doing errands alone such as visiting a physician's office or shopping No 03/12/2014 8:49 AM Alison Moreira RN No [facility] Mental Status Date Assessment Result Facility 03-12-2014 Because of a physica l, mental, or emotional condition, do you have serious difficulty concentrating, remembering, or making decisions No 03/12/2014 8:49 AM Alison Moreira RN No [facility] Clinical Notes 11-21-2021 to 01-24-2025 Telephone Encounter - Kristina Lundberg RN - 01/24/2025 8:02 AM EDTTelephone Encounter - Kristina Lundberg RN - 01/24/2025 8:02 AM EDTPatient Vern Kee MD - 09/28/2024 3:40 PM EST Note Date & Type Note Facility 01-24-[address] [facility] 08/29/24 Patient phones requesting refills as follows: Requested Prescriptions Pending Prescriptions Disp Refills omeprazole (PRILOSEC) 20 mg capsule 180 capsule 1 Sig: TAKE 2 CAPSULES ONCE DAILY Last sent 09/09/23 Please review and advise. Kristina Lundberg RN [facility] 01-24-[address] [facility] 08/29/24 Patient phones requesting refills as follows: Requested Prescriptions Pending Prescriptions Disp Refills omeprazole (PRILOSEC) 20 mg capsule 180 capsule 1 Sig: TAKE 2 CAPSULES ONCE DAILY Last sent 09/09/23 Please review and advise. Kristina Lundberg RN documented in this encounter [facility] 01-01-2025 Telephone encounter Note The patient has been identified by name and date of : Yes Caregiver verified no other encounters exist for this prescription request: Yes Caregiver confirmed with patient/requestor that no other refills are due, in the near future, with this provider at this time: Yes The last office visit in the department: 09/28/2024 Does the patient have a future office visit with this provider/department: Yes 10/10/2025 Requested Prescriptions Pending Prescriptions Disp Refills levothyroxine (SYNTHROID) 50 mcg tablet 90 tablet 0 Sig: Take 1 tablet by mouth daily before breakfast. Abeba Yarbrough RN January 01, 2025 6:57 PM [facility] 01-01-2025 Miscellaneous Notes The patient has been identified by name and date of : Yes Caregiver verified no other encounters exist for this prescription request: Yes Caregiver confirmed with patient/requestor that no other refills are due, in the near future, with this provider at this time: Yes The last office visit in the department: 09/28/2024 Does the patient have a future office visit with this provider/department: Yes 10/10/2025 Requested Prescriptions Pending Prescriptions Disp Refills levothyroxine (SYNTHROID) 50 mcg tablet 90 tablet 0 Sig: Take 1 tablet by mouth daily before breakfast. Abeba Yarbrough RN January 01, 2025 6:57 PM documented in this encounter [facility] 10-09-2024 Telephone encounter Note Pt called and is notified of providers results and instructions. Pt voices understanding. He states he wasn't sick when he had labs drawn. He said his WCB runs high in blood and stools too. Pt states he sees Gastro and they think he has IBS or Crohn's. Abeba Yarbrough RN [facility] 10-09-2024 Miscellaneous Notes Pt called and is notified of providers results and instructions. Pt voices understanding. He states he wasn't sick when he had labs drawn. He said his WCB runs high in blood and stools too. Pt states he sees Gastro and they think he has IBS or Crohn's. Abeba Yarbrough RN Left a message for pt to call the office and ask to speak to a nurse. Carla Tesfaye LPN Let patient know his CBC showed a slight increase in the White blood cells. This could be do to a cold if he was having one at the time. Placed order to recheck in a month. Lipid panel was ok accept the good Chol (HDL is low at 34 (goal>40 and was 30). Increased exercise will increase this. All the other labs and UA were ok. documented in this encounter [facility] 10-09-2024 Telephone encounter Note Left a message for pt to call the office and ask to speak to a nurse. Carla Tesfaye LPN [facility] 10-09-2024 Telephone encounter Note Let patient know his CBC showed a slight increase in the White blood cells. This could be do to a cold if he was having one at the time. Placed order to recheck in a month. Lipid panel was ok accept the good Chol (HDL is low at 34 (goal>40 and was 30). Increased exercise will increase this. All the other labs and UA were ok. [facility] 09-28-2024 Instructions Vern Rodarte MD - 09/28/2024 4:08 PM EST After you have been taking the increased dose of lisinopril of 10 mg a day for 3 weeks start checking your blood pressure at [facility] once a day but alternate between AM, afternoon and PM and then send in a my chart message to dr. Rodarte with the readings. documented in this encounter [facility] 09-28-2024 Note HNO ID: [id number] Author: VERN RODARTE MD Service: ? Author Type: Physician Type: Progress Notes Filed: 09/28/2024 20:07 Note Text: Chief Complaint Patient presents with: Physical HPI Lenore Lee is a 34 year old male who presents here today for Above Complaints. and Chronic Medical Conditions.. Patient with hx of HTN, hyperlipidemia, GERD and those as reviewed below. Patient has been doing ok. Seeing gastro for some stomach issues. They suspect possible IBS. Has been placed on levsin. Past medical history, appointments, medications, allergies reviewed. Previous Medical History PAST MEDICAL HISTORY Diagnosis Date Epidermal inclusion cyst 01/12/2018 Right neck below ear lobe, removed 12/2017 Family history of MN (myocardial infarction) 06/15/2018 GERD without esophagitis 12/15/2017 Hypertension, essential 12/15/2017 Hypothyroidism, acquired 12/15/2017 Lipoma of unspecified site 03/02/2014 Previous Surgical History PAST SURGICAL HISTORY Procedure Laterality Date COLONOSCOPY 03/27/2022 COLONOSCOPY 09/03/2023 EGD W/O BRSH SPEC VARICIES INJ 03/27/2022 LEXISCAN STRESS TEST 04/14/2019 negative MYRINGOTOMY HX TONSILLECTOMY HX Family History FAMILY HISTORY Problem Relation Age of Onset Hypertension Mother other (migraine) Mother other (migraine) Brother other (migraine) Brother Stroke Maternal Grandmother Breast Cancer Maternal Grandmother Cancer Maternal Grandmother lung Coronary Artery Disease Father is 50 yo and had 8 MN's prior to this Patient Allergies ALLERGIES No Known Allergies Current Medications Current Outpatient Medications on File Prior to Visit Medication Sig hyoscyamine sublingual (LEVSIN/SL) 0.125 mg Dissolve 1 tablet under the tongue every 4 hours as needed. levothyroxine (SYNTHROID) 50 mcg tablet Take 1 tablet by mouth daily before breakfast. lisinopril (ZESTRIL) 5 mg tablet Take 1 tablet by mouth once daily. omeprazole (PRILOSEC) 20 mg capsule TAKE 2 CAPSULES ONCE DAILY No current facility-administered medications on file prior to visit. Social History Social History Tobacco Use Smoking status: Never Smokeless tobacco: Never Vaping Use Vaping status: Never Used Substance Use Topics Alcohol use: Yes Alcohol/week: 1.0 standard drink of alcohol Types: 1 Standard drinks or equivalent per week Comment: 1x per week one drink Drug use: No Review of Symptoms REVIEW OF SYSTEMS GENERAL: No unintentional weight loss, malaise or fevers HEENT: Negative for frequent or significant headaches, No changes in hearing or vision, no nose bleeds or other nasal problems NECK: Negative for lumps, goiter, pain and significant neck swelling RESPIRATORY: Negative for cough, hemoptysis, wheezing, COPD, dyspnea or shortness of breath CARDIOVASCULAR: Negative for chest pain, leg swelling, hypertension, CHF or palpitations GI: No nausea, vomiting, and No heartburn or reflux symptoms. Still with the diarrhea issues he is seeing gastro for. : No history of dysuria, frequency or incontinence MUSCULOSKELETAL: Negative for joint pain or swelling, back pain or muscle pain SKIN: Negative for lesions, rash, and itching PSYCH: Negative for sleep disturbance, mood disorder and recent psychosocial stressors HEMATOLOGY/LYMPHOLOGY: Negative for prolonged bleeding, bruising easily or swollen nodes ENDOCRINE: Negative for cold or heat intolerance, polyuria, polydipsia and goiter NEURO: No history of headaches, syncope, paralysis, seizures or tremors EXAM: BP 136/82 Pulse 70 Ht 175.3 cm (5' 9) Wt 107.5 kg (237 lb) SpO2 98% BMI 35.00 kg/m? BP 134/82 Pulse 70 Ht 175.3 cm (5' 9) Wt 107.5 kg (237 lb) SpO2 98% BMI 35.00 kg/m? Last 6 Encounter Wt Readings: Date: Wt: 09/28/2024 107.5 kg (237 lb) 08/29/2024 111.9 kg (246 lb 9.6 oz) 03/20/2024 116.1 kg (256 lb) 09/03/2023 111.1 kg (244 lb 14.9 oz) 07/05/2023 111.1 kg (245 lb) 06/09/2023 108.9 kg (240 lb) General Appearance: Well appearing, alert, in no acute distress, well-hydrated, well nourished. and Obese. Skin: Skin color, texture, turgor normal, no suspicious rashes or lesions. Head: Normocephalic, no masses, lesions, tenderness or abnormalities. Eyes: Anicteric sclera. Pupils are equally round and reactive to light. Extraocular movements are intact. . Ears: External ears normal, canals clear. Nose/Sinuses: Nares normal, septum midline, mucosa normal, no drainage or sinus tenderness. Oropharynx: Lips, mucosa, and tongue normal, teeth and gums normal, oropharynx normal. Lungs: Lungs clear to auscultation. No wheezing, rhonchi, rales.. Heart: RRR without murmur, gallop, or rubs. No ectopy. Abdomen: Normal abdominal exam, Abdomen soft, non-tender. Bowel sounds normal. No masses, organomegaly. Extremities: No deformities, edema, skin discoloration, clubbing or cyanosis. Good capillary refill. . Musculoskeletal: Muscular s (more content not included)... [facility] 09-28-2024 History of Presen t illness Narrative Chief Complaint Patient presents with: Physical HPI Lenore Lee is a 34 year old male who presents here today for Above Complaints. and Chronic Medical Conditions.. Patient with hx of HTN, hyperlipidemia, GERD and those as reviewed below. Patient has been doing ok. Seeing gastro for some stomach issues. They suspect possible IBS. Has been placed on levsin. Past medical history, appointments, medications, allergies reviewed. Previous Medical History PAST MEDICAL HISTORY Diagnosis Date Epidermal inclusion cyst 01/12/2018 Right neck below ear lobe, removed 12/2017 Family history of MN (myocardial infarction) 06/15/2018 GERD without esophagitis 12/15/2017 Hypertension, essential 12/15/2017 Hypothyroidism, acquired 12/15/2017 Lipoma of unspecified site 03/02/2014 Previous Surgical History PAST SURGICAL HISTORY Procedure Laterality Date COLONOSCOPY 03/27/2022 COLONOSCOPY 09/03/2023 EGD W/O BRSH SPEC VARICIES INJ 03/27/2022 LEXISCAN STRESS TEST 04/14/2019 negative MYRINGOTOMY HX TONSILLECTOMY HX Family History FAMILY HISTORY Problem Relation Age of Onset Hypertension Mother other (migraine) Mother other (migraine) Brother other (migraine) Brother Stroke Maternal Grandmother Breast Cancer Maternal Grandmother Cancer Maternal Grandmother lung Coronary Artery Disease Father is 50 yo and had 8 MN's prior to this Patient Allergies ALLERGIES No Known Allergies Current Medications Current Outpatient Medications on File Prior to Visit Medication Sig hyoscyamine sublingual (LEVSIN/SL) 0.125 mg Dissolve 1 tablet under the tongue every 4 hours as needed. levothyroxine (SYNTHROID) 50 mcg tablet Take 1 tablet by mouth daily before breakfast. lisinopril (ZESTRIL) 5 mg tablet Take 1 tablet by mouth once daily. omeprazole (PRILOSEC) 20 mg capsule TAKE 2 CAPSULES ONCE DAILY No current facility-administered medications on file prior to visit. Social History Social History Tobacco Use Smoking status: Never Smokeless tobacco: Never Vaping Use Vaping status: Never Used Substance Use Topics Alcohol use: Yes Alcohol/week: 1.0 standard drink of alcohol Types: 1 Standard drinks or equivalent per week Comment: 1x per week one drink Drug use: No Review of Symptoms REVIEW OF SYSTEMS GENERAL: No unintentional weight loss, malaise or fevers HEENT: Negative for frequent or significant headaches, No changes in hearing or vision, no nose bleeds or other nasal problems NECK: Negative for lumps, goiter, pain and significant neck swelling RESPIRATORY: Negative for cough, hemoptysis, wheezing, COPD, dyspnea or shortness of breath CARDIOVASCULAR: Negative for chest pain, leg swelling, hypertension, CHF or palpitations GI: No nausea, vomiting, and No heartburn or reflux symptoms. Still with the diarrhea issues he is seeing gastro for. : No history of dysuria, frequency or incontinence MUSCULOSKELETAL: Negative for joint pain or swelling, back pain or muscle pain SKIN: Negative for lesions, rash, and itching PSYCH: Negative for sleep disturbance, mood disorder and recent psychosocial stressors HEMATOLOGY/LYMPHOLOGY: Negative for prolonged bleeding, bruising easily or swollen nodes ENDOCRINE: Negative for cold or heat intolerance, polyuria, polydipsia and goiter NEURO: No history of headaches, syncope, paralysis, seizures or tremors EXAM: BP 136/82 Pulse 70 Ht 175.3 cm (5' 9) Wt 107.5 kg (237 lb) SpO2 98% BMI 35.00 kg/m BP 134/82 Pulse 70 Ht 175.3 cm (5' 9) Wt 107.5 kg (237 lb) SpO2 98% BMI 35.00 kg/m Last 6 Encounter Wt Readings: Date: Wt: 09/28/2024 107.5 kg (237 lb) 08/29/2024 111.9 kg (246 lb 9.6 oz) 03/20/2024 116.1 kg (256 lb) 09/03/2023 111.1 kg (244 lb 14.9 oz) 07/05/2023 111.1 kg (245 lb) 06/09/2023 108.9 kg (240 lb) General Appearance: Well appearing, alert, in no acute distress, well-hydrated, well nourished. and Obese. Skin: Skin color, texture, turgor normal, no suspicious rashes or lesions. Head: Normocephalic, no masses, lesions, tenderness or abnormalities. Eyes: Anicteric sclera. Pupils are equally round and reactive to light. Extraocular movements are intact. . Ears: External ears normal, canals clear. Nose/Sinuses: Nares normal, septum midline, mucosa normal, no drainage or sinus tenderness. Oropharynx: Lips, mucosa, and tongue normal, teeth and gums normal, oropharynx normal. Lungs: Lungs clear to auscultation. No wheezing, rhonchi, rales.. Heart: RRR without murmur, gallop, or rubs. No ectopy. Abdomen: Normal abdominal exam, Abdomen soft, non-tender. Bowel sounds normal. No masses, organomegaly. Extremities: No deformities, edema, skin discoloration, clubbing or cyanosis. Good capillary refill. . Musculoskeletal: Muscular strength intact, No joint swelling, deformity, or tenderness. Peripheral Pulses: Normal. Neurologic: Gait normal. Reflexes normal and symmetric. Sensation to light touch and crainal nerves 2-12 intact.. Genitalia: Normal, Penis normal. No urethral discharge. Scrotum normal to palpation. No hernia.. Health Maintenance List Depression Screening Never done Anxiety Screening Never done Hepatitis C Screening Never done HIV Screening Never done BP Controlled (<130/80) Never done Influenza Vaccine(1) due on 04/23/2024 Covid-19 Vaccine(3 - 2023- season) due on 04/23/2024 Annual PCP Team Chronic Disease Visit due on 09/28/2025 Lipid Screening due on 07/31/2028 DTaP,Tdap,Td Vaccine(2 - Td or Tdap) due on 04/18/2031 HPV Vaccine Aged Out Hepatitis B Vaccine Discontinued Data reviewed Reviewed Gastro office note from 08/29/2024 A/P ASSESSMENT/PLAN: 1. Well adult exam - ICD9: V70.0, ICD10: Z00.00 (primary diagnosis) - Counseled on healthy diet and regular exercise - Discussed need for and benefit of weight loss. BMI 35.00 kg/(m^2) - Follow up for annual exam in one year - HEMOGLOBIN A1C 2. Hypertension, essential - ICD9: 401.9, ICD10: I10 - Uncontrolled - Continue current medications - Increase lisinopril to 10 mg a day. - Recommend home blood pressure monitoring, to bring results to next visit - Encouraged sodium restriction, DASH or Mediterranean diet - Recommend continues regular aerobic exercise Check - COMPREHENSIVE METABOLIC PANEL - URINALYSIS, WITH MICROSCOPIC - LIPID PANEL, NONFASTING 3. Hypothyroidism, acquired - ICD9: 244.9, ICD10: E03.9 - Instructed patient on importance of taking on an empty stomach either first thing in the morning or at bedtime. - continue current dose of Synthroid Check - THYROID STIMULATING HORMONE - COMPLETE BLOOD COUNT AND DIFFERENTIAL 4. GERD without esophagitis - ICD9: 530.81, ICD10: K21.9 - Continue treatment with Prilosec 40 mg every day Check - VITAMIN B12 - MAGNESIUM 5. Encounter for screening for diabetes mellitus - ICD9: V77.1, ICD10: Z13.1 Check - HEMOGLOBIN A1C 6. Medication management - ICD9: V58.69, ICD10: Z79.899 Check - VITAMIN B12 - MAGNESIUM - COMPLETE BLOOD COUNT AND DIFFERENTIAL 7. Screening for depression - ICD9: V79.0, ICD10: Z13.31 - DEPRESSION SCREENING 8. Encounter for screening examination for other mental health and behavioral disorders - ICD9: V79.8, ICD10: Z13.39 - ANXIETY SCREENING Requested Prescriptions Signed Prescriptions Disp Refills lisinopril (ZESTRIL) 10 mg tablet 90 tablet 1 Sig: Take 1 tablet by mouth once daily. Patient to my chart me in 4 weeks with a weeks worth of home BP readings. F/u in a year or sooner if issues. Vern Rodarte MD documented in this encounter [facility] 09-27-2024 Note Borderline elevated. Re-evaluation in 4-6 weeks is recommended if clinically indicated. [facility] Comment on above: Order Comment: Speci men Type: BLOOD SPECIMEN Ordering Facility: [facility] Address: [address] [place] [address] Result Comment: Inte rpretation: <50.0 ug/g: Normal 50.0 ug/g - 120.0 ug/g: Borderline elevated. Re-evaluation in 4-6 weeks is recommended if clinically indicated. >120.0 ug/g: Elevated Performed By: #### 3 [id number], [id number], LIPNF, [id number] #### [facility] CLIA [id number] [address] [place] [address] [facility] 09-15-2024 Note HNO ID: [id number] Author: WILLIAM MCFARLAND RT(R) Service: Radiology Author Type: Technologist Type: Progress Notes Filed: 09/15/2024 16:21 Note Text: Radiology Service Progress Note PATIENT NAME: Lenore Lee DATE OF SERVICE: September 15, 2024 TIME: 4:12 PM PATIENT IDENTITY VERIFICATION COMPLETED USING TWO (2) IDENTIFIERS: Name and Date of confirmed by patient verbally and Name and Date of confirmed by identification band. FALL SCREENING: Has the patient had 2 falls in the last year or 1 fall with injury or currently using an Ambulatory Assistive Device (Walker, Cane, Wheelchair, Crutches, etc.)? No PATIENT GENDER DATA: Assigned male at PATIENT RELEVANT IMPLANT DATA REVIEWED: Yes PATIENT PRESENTS WITH AN IMPLANTABLE OR ATTACHED YOUTH NUTRITIONAL MONITOR: No RADIOLOGY DEPARTMENT: CT; Exam(s) Completed: Abdomen/Pelvis PERIPHERAL IV DATA: Site assessment: Clean,Dry and Intact, Site disposition Discontinued SIGNED BY: RT Angel(R) September 15, 2024 4:12 PM [facility] 08-29-2024 Note HNO ID: [id number] Author: KIZZY FIGUEROA PA-C Service: ? Author Type: Physician Bun Icer Type: Progress Notes Filed: 08/29/2024 13:20 Note Text: CHIEF COMPLAINT: Patient presents with: Recheck: Colitis flare up- wants to know what he can eat and asking if he can get FMLA HPI Lenore Lee is a 34 year old male here today for Recheck (Colitis flare up- wants to know what he can eat and asking if he can get FMLA ) Patient tells me that he is dealing with a flare in his symptoms in the last three days. Having generalized abdominal pains and in his back. Notes that he had a piece of pizza that triggered symptoms. Feels a twisting in his epigastric region then will have diarrhea and then will vomit. Feels better when he vomits. Notes that he is moving his bowels about 8x per day. Loose/diarrhea. Rarely has form to his stool. Will occasionally see blood in the stool but thinks it his hemorrhoids. Last OV with me 06/09/2023: Assessment/Plan (K52.9) Focal active colitis (primary encounter diagnosis) (R93.3) Abnormal endoscopy of upper gastrointestinal tract (K44.9, K21.00) Hiatal hernia with GERD and esophagitis Focal active colitis - CALPROTECTIN,FECAL - C. DIFFICILE PCR - STOOL GASTROINTESTINAL PANEL - dicyclomine (BENTYL) 10 mg capsule; Take 1 capsule by mouth three times a day as needed (for abdominal pain/loose stools). Dispense: 30 capsule; Refill: 2 - H/O focal active colitis on last colon 2021. Will recheck stool studies to r/o ID - Start Bentyl PRN - Pt notes fiber worsens sx - EGD showed findings suggestive of possible Celiac, will order comprehensive panel to further assess - May need repeat colon if calprotectin persistently elevated, and Celiac negative 2. Abnormal endoscopy of upper gastrointestinal tract - CELIAC COMPREHENSIVE PANEL; Future 3. Hiatal hernia with GERD and esophagitis - Taking Prilosec 20 mg BID with relief in reflux - Follow anti-reflux precautions - Continue to avoid NSAIDs Current Outpatient Medications Medication Sig levothyroxine (SYNTHROID) 50 mcg tablet Take 1 tablet by mouth daily before breakfast. lisinopril (ZESTRIL) 5 mg tablet Take 1 tablet by mouth once daily. omeprazole (PRILOSEC) 20 mg capsule TAKE 2 CAPSULES ONCE DAILY albuterol HFA (PROVENTIL HFA) 90 mcg/actuation inhaler Inhale 2 Puffs as instructed every 4 hours as needed for wheezing/shortness of breath. (Patient not taking: Reported on 08/29/2024) ondansetron orally disintegrating (ZOFRAN ODT) 8 mg disintegrating tablet (Patient not taking: Reported on 08/29/2024) dicyclomine (BENTYL) 10 mg capsule Take 1 capsule by mouth three times a day as needed (for abdominal pain/loose stools). (Patient not taking: Reported on 08/29/2024) cyclobenzaprine (FLEXERIL) 10 mg tablet Take 1 tablet by mouth three times daily as needed for muscle spasm. (Patient not taking: Reported on 08/29/2024) No current facility-administered medications for this visit. ALLERGIES No Known Allergies Social History Tobacco Use Smoking status: Never Smokeless tobacco: Never Vaping Use Vaping status: Never Used Substance Use Topics Alcohol use: Yes Alcohol/week: 1.0 standard drink of alcohol Types: 1 Standard drinks or equivalent per week Comment: 1x per week one drink Drug use: No PAST MEDICAL HISTORY Diagnosis Date Epidermal inclusion cyst 01/12/2018 Right neck below ear lobe, removed 12/2017 Family history of MN (myocardial infarction) 06/15/2018 GERD without esophagitis 12/15/2017 Hypertension, essential 12/15/2017 Hypothyroidism, acquired 12/15/2017 Lipoma of unspecified site 03/02/2014 PAST SURGICAL HISTORY Procedure Laterality Date COLONOSCOPY 03/27/2022 COLONOSCOPY 09/03/2023 EGD W/O BRSH SPEC VARICIES INJ 03/27/2022 LEXISCAN STRESS TEST 04/14/2019 negative MYRINGOTOMY HX TONSILLECTOMY HX FAMILY HISTORY Problem Relation Age of Onset Hypertension Mother other (migraine) Mother other (migraine) Brother other (migraine) Brother Stroke Maternal Grandmother Breast Cancer Maternal Grandmother Cancer Maternal Grandmother lung Coronary Artery Disease Father is 50 yo and had 8 MN's prior to this REVIEW OF SYSTEMS Review of Systems Constitutional: Positive for appetite change and chills. Gastrointestinal: Positive for diarrhea and nausea. Change in Bowel Habits, Heartburn All other systems reviewed and are negative. PHYSICAL EXAM BP 182/112 Pulse 66 Ht 5' 9.5 (1.77m) Wt 246 lb 9.6 oz (111.9kg) BMI 35.91 kg/(m2). Physical Exam Constitutional: Appearance: Normal appearance. He is obese. HENT: Head: Normocephalic and atraumatic. Eyes: General: No scleral icterus. Extraocular Movements: Extraocular movements intact. Conjunctiva/sclera: Conjunctivae normal. Pupils: Pupils are equal, round, and reactive to light. Cardiovascular: Rate and Rhythm: Normal rate and regular rhythm. Pulses: Normal pulses. Hea (more content not included)... [facility] 08-29-2024 History of Presen t illness Narrative CHIEF COMPLAINT: Patient presents with: Recheck: Colitis flare up- wants to know what he can eat and asking if he can get FMLA HPI Lenore Lee is a 34 year old male here today for Recheck (Colitis flare up- wants to know what he can eat and asking if he can get FMLA ) Patient tells me that he is dealing with a flare in his symptoms in the last three days. Having generalized abdominal pains and in his back. Notes that he had a piece of pizza that triggered symptoms. Feels a twisting in his epigastric region then will have diarrhea and then will vomit. Feels better when he vomits. Notes that he is moving his bowels about 8x per day. Loose/diarrhea. Rarely has form to his stool. Will occasionally see blood in the stool but thinks it his hemorrhoids. Last OV with me 06/09/2023: Assessment/Plan (K52.9) Focal active colitis (primary encounter diagnosis) (R93.3) Abnormal endoscopy of upper gastrointestinal tract (K44.9, K21.00) Hiatal hernia with GERD and esophagitis Focal active colitis - CALPROTECTIN,FECAL - C. DIFFICILE PCR - STOOL GASTROINTESTINAL PANEL - dicyclomine (BENTYL) 10 mg capsule; Take 1 capsule by mouth three times a day as needed (for abdominal pain/loose stools). Dispense: 30 capsule; Refill: 2 - H/O focal active colitis on last colon 2021. Will recheck stool studies to r/o ID - Start Bentyl PRN - Pt notes fiber worsens sx - EGD showed findings suggestive of possible Celiac, will order comprehensive panel to further assess - May need repeat colon if calprotectin persistently elevated, and Celiac negative 2. Abnormal endoscopy of upper gastrointestinal tract - CELIAC COMPREHENSIVE PANEL; Future 3. Hiatal hernia with GERD and esophagitis - Taking Prilosec 20 mg BID with relief in reflux - Follow anti-reflux precautions - Continue to avoid NSAIDs Current Outpatient Medications Medication Sig levothyroxine (SYNTHROID) 50 mcg tablet Take 1 tablet by mouth daily before breakfast. lisinopril (ZESTRIL) 5 mg tablet Take 1 tablet by mouth once daily. omeprazole (PRILOSEC) 20 mg capsule TAKE 2 CAPSULES ONCE DAILY albuterol HFA (PROVENTIL HFA) 90 mcg/actuation inhaler Inhale 2 Puffs as instructed every 4 hours as needed for wheezing/shortness of breath. (Patient not taking: Reported on 08/29/2024) ondansetron orally disintegrating (ZOFRAN ODT) 8 mg disintegrating tablet (Patient not taking: Reported on 08/29/2024) dicyclomine (BENTYL) 10 mg capsule Take 1 capsule by mouth three times a day as needed (for abdominal pain/loose stools). (Patient not taking: Reported on 08/29/2024) cyclobenzaprine (FLEXERIL) 10 mg tablet Take 1 tablet by mouth three times daily as needed for muscle spasm. (Patient not taking: Reported on 08/29/2024) No current facility-administered medications for this visit. ALLERGIES No Known Allergies Social History Tobacco Use Smoking status: Never Smokeless tobacco: Never Vaping Use Vaping status: Never Used Substance Use Topics Alcohol use: Yes Alcohol/week: 1.0 standard drink of alcohol Types: 1 Standard drinks or equivalent per week Comment: 1x per week one drink Drug use: No PAST MEDICAL HISTORY Diagnosis Date Epidermal inclusion cyst 01/12/2018 Right neck below ear lobe, removed 12/2017 Family history of MN (myocardial infarction) 06/15/2018 GERD without esophagitis 12/15/2017 Hypertension, essential 12/15/2017 Hypothyroidism, acquired 12/15/2017 Lipoma of unspecified site 03/02/2014 PAST SURGICAL HISTORY Procedure Laterality Date COLONOSCOPY 03/27/2022 COLONOSCOPY 09/03/2023 EGD W/O BRSH SPEC VARICIES INJ 03/27/2022 LEXISCAN STRESS TEST 04/14/2019 negative MYRINGOTOMY HX TONSILLECTOMY HX FAMILY HISTORY Problem Relation Age of Onset Hypertension Mother other (migraine) Mother other (migraine) Brother other (migraine) Brother Stroke Maternal Grandmother Breast Cancer Maternal Grandmother Cancer Maternal Grandmother lung Coronary Artery Disease Father is 50 yo and had 8 MN's prior to this REVIEW OF SYSTEMS Review of Systems Constitutional: Positive for appetite change and chills. Gastrointestinal: Positive for diarrhea and nausea. Change in Bowel Habits, Heartburn All other systems reviewed and are negative. PHYSICAL EXAM BP 182/112 Pulse 66 Ht 5' 9.5 (1.77m) Wt 246 lb 9.6 oz (111.9kg) BMI 35.91 kg/(m^2). Physical Exam Constitutional: Appearance: Normal appearance. He is obese. HENT: Head: Normocephalic and atraumatic. Eyes: General: No scleral icterus. Extraocular Movements: Extraocular movements intact. Conjunctiva/sclera: Conjunctivae normal. Pupils: Pupils are equal, round, and reactive to light. Cardiovascular: Rate and Rhythm: Normal rate and regular rhythm. Pulses: Normal pulses. Heart sounds: Normal heart sounds. Pulmonary: Effort: Pulmonary effort is normal. Breath sounds: Normal breath sounds. Abdominal: General: Abdomen is flat. Bowel sounds are normal. Palpations: Abdomen is soft. Tenderness: There is no abdominal tenderness. Musculoskeletal: General: Normal range of motion. Cervical back: Normal range of motion and neck supple. Skin: General: Skin is warm and dry. Coloration: Skin is not jaundiced. Neurological: General: No focal deficit present. Mental Status: He is alert and oriented to person, place, and time. Psychiatric: Mood and Affect: Mood normal. Behavior: Behavior normal. Thought Content: Thought content normal. Judgment: Judgment normal. Assessment/Plan (R10.84) Generalized abdominal pain (primary encounter diagnosis) (R19.7) Diarrhea, unspecified type (R19.5) Elevated fecal calprotectin 1. Generalized abdominal pain -- Patient with generalized abdominal pain and diarrhea, worsened in the last three days. Symptoms flares after eating a slice of pizza. -- Will try Levsin PRN q4H for abdominal pain and diarrhea. He will reach out if this causes fatigue like the Bentyl -- Will get updated calprotectin -- CT enterography for further evaluation -- Recommend low FODMAP diet, handout given -- Patient asking for FMLA, did discuss that without a diagnosis we are not able to give FMLA - CALPROTECTIN,FECAL - CT ENTEROGRAPHY W IVCON; Future - iv contrast (will be provided with radiology test); CT Enterography W Inject, intravenously, once for 1 dose.No IV access, insert saline lock prior to the beginning of sedation, infusion, injection of imaging exam. Discontinue saline lock post exam. If Pt. has a central line or IVAD, may access for administration according to line specific nursing protocol. Once exam is complete flush line and de-access according to line specific nursing protocol in the CT contrast administration guidelines link. Dispense: 1 Each; Refill: 0 - enteric contrast (will be provided with radiology test); For CT ENTEROGRAPHY W IVCON order Administer, As Directed One Time Only, via Oral, Rectal, both Oral and Rectal, Enteric Tube, Stoma or Indwelling Catheter, Enteric Contrast as designated per enteric contrast guidelines. Dispense: 1 Each; Refill: 0 - hyoscyamine sublingual (LEVSIN/SL) 0.125 mg; Dissolve 1 tablet under the tongue every 4 hours as needed. Dispense: 90 tablet; Refill: 1 2. Diarrhea, unspecified type -- Patient with generalized abdominal pain and diarrhea, worsened in the last three days. Symptoms flares after eating a slice of pizza. -- Will try Levsin PRN q4H for abdominal pain and diarrhea. He will reach out if this causes fatigue like the Bentyl -- Will get updated calprotectin -- CT enterography for further evaluation -- Recommend low FODMAP diet, handout given -- Patient asking for FMLA, did discuss that without a diagnosis we are not able to give FMLA - CALPROTECTIN,FECAL - CT ENTEROGRAPHY W IVCON; Future - iv contrast (will be provided with radiology test); CT Enterography W Inject, intravenously, once for 1 dose.No IV access, insert saline lock prior to the beginning of sedation, infusion, injection of imaging exam. Discontinue saline lock post exam. If Pt. has a central line or IVAD, may access for administration according to line specific nursing protocol. Once exam is complete flush line and de-access according to line specific nursing protocol in the CT contrast administration guidelines link. Dispense: 1 Each; Refill: 0 - enteric contrast (will be provided with radiology test); For CT ENTEROGRAPHY W IVCON order Administer, As Directed One Time Only, via Oral, Rectal, both Oral and Rectal, Enteric Tube, Stoma or Indwelling Catheter, Enteric Contrast as designated per enteric contrast guidelines. Dispense: 1 Each; Refill: 0 - hyoscyamine sublingual (LEVSIN/SL) 0.125 mg; Dissolve 1 tablet under the tongue every 4 hours as needed. Dispense: 90 tablet; Refill: 1 3. Elevated fecal calprotectin -- Patient with generalized abdominal pain and diarrhea, worsened in the last three days. Symptoms flares after eating a slice of pizza. -- Will try Levsin PRN q4H for abdominal pain and diarrhea. He will reach out if this causes fatigue like the Bentyl -- Will get updated calprotectin -- CT enterography for further evaluation -- Recommend low FODMAP diet, handout given -- Patient asking for FMLA, did discuss that without a diagnosis we are not able to give FMLA - CALPROTECTIN,FECAL - CT ENTEROGRAPHY W IVCON; Future - iv contrast (will be provided with radiology test); CT Enterography W Inject, intravenously, once for 1 dose.No IV access, insert saline lock prior to the beginning of sedation, infusion, injection of imaging exam. Discontinue saline lock post exam. If Pt. has a central line or IVAD, may access for administration according to line specific nursing protocol. Once exam is complete flush line and de-access according to line specific nursing protocol in the CT contrast administration guidelines link. Dispense: 1 Each; Refill: 0 - enteric contrast (will be provided with radiology test); For CT ENTEROGRAPHY W IVCON order Administer, As Directed One Time Only, via Oral, Rectal, both Oral and Rectal, Enteric Tube, Stoma or Indwelling Catheter, Enteric Contrast as designated per enteric contrast guidelines. Dispense: 1 Each; Refill: 0 - hyoscyamine sublingual (LEVSIN/SL) 0.125 mg; Dissolve 1 tablet under the tongue every 4 hours as needed. Dispense: 90 tablet; Refill: 1 Follow up in office 3 months/PRN. Recommended to please call office/go to ER if fever, chills, chest pain, SOB, diarrhea, nausea, emesis, worsening abdominal pain, dehydration occurs I spent a total of 20 minutes on the date of the service which included preparing to see the patient, [id number] patient care, completing clinical documentation, obtaining and/or reviewing separately obtained history, performing a medically appropriate examination, counseling and educating the patient/family/caregiver, and ordering medications, tests, or procedures. Kizzy Figueroa PA-C August 29, 2024 1:16 PM documented in this encounter [facility] 08-14-2024 Telephone encounter Note Waiting review by leadership. [facility] 08-14-2024 Miscellaneous Notes Waiting review by leadership. Pt self scheduled [facility] appt with Rajeev Cho for medication follow up. Pt has not been seen by PCP (Dr. Rodarte) since 2019. Please assist pt with scheduling appt with PCP. Ricardo Bowers LPN documented in this encounter [facility] 08-09-2024 Telephone encounter Note Pt self scheduled [facility] appt with Rajeev Cho for medication follow up. Pt has not been seen by PCP (Dr. Rodarte) since 2019. Please assist pt with scheduling appt with PCP. Ricardo Bowers LPN [facility] 07-13-2024 Telephone encounter Note Noted. [facility] 07-13-2024 Miscellaneous Notes Noted. Patient reports he never received the Rx's for lisinopril or levothyroxine from [facility], and has been out of medication for 1 week, and is starting not to feel well: tense, and BP is elevated. Reports [facility], shipped the order to his old address, which is not near his current address, and not in the same city (although they have his current address), and is lost in the mail. This nurse spoke to [facility], who was able to get this corrected. States [facility] states they will release the order today, it will ship tomorrow, and patient will receive it no later than Wednesday- patient will have no charge for this. [facility] recommends pcp send a 5 day supply of each medication to local [facility] pharmacy- patient may have a co-pay fee for this one, or may have to pay out of pocket for the 5 day supply. Spoke with patient and informed him of this. Pt states he does not want a short supply at this time, he will just wait for the Rx's to come on Wednesday. Pt states if he changes his mind, will call back to pcp office. documented in this encounter [facility] 07-13-2024 Telephone encounter Note Patient reports he never received the Rx's for lisinopril or levothyroxine from [facility] and has been out of medication for 1 week, and is starting not to feel well: tense, and BP is elevated. Reports [facility] shipped the order to his old address, which is not near his current address, and not in the same city (although they have his current address), and is lost in the mail. This nurse spoke to [facility], who was able to get this corrected. States [facility] states they will release the order today, it will ship tomorrow, and patient will receive it no later than Wednesday- patient will have no charge for this. [facility] recommends pcp send a 5 day supply of each medication to local [facility] pharmacy- patient may have a co-pay fee for this one, or may have to pay out of pocket for the 5 day supply. Spoke with patient and informed him of this. Pt states he does not want a short supply at this time, he will just wait for the Rx's to come on Wednesday. Pt states if he changes his mind, will call back to pcp office. [facility] 06-29-2024 Telephone encounter Note Only a 90 day script was sent. If not seen in the next three months will need seen for refills. The following approved medication requests have been transmitted electronically. Requested Prescriptions Signed Prescriptions Disp Refills levothyroxine (SYNTHROID) 50 mcg tablet 90 tablet 0 Sig: Take 1 tablet by mouth daily before breakfast. Authorizing Provider: VERN RODARTE lisinopril (ZESTRIL) 5 mg tablet 90 tablet 0 Sig: Take 1 tablet by mouth once daily. Authorizing Provider: VERN RODARTE MD [facility] 06-29-2024 Miscellaneous Notes Only a 90 day script was sent. If not seen in the next three months will need seen for refills. The following approved medication requests have been transmitted electronically. Requested Prescriptions Signed Prescriptions Disp Refills levothyroxine (SYNTHROID) 50 mcg tablet 90 tablet 0 Sig: Take 1 tablet by mouth daily before breakfast. Authorizing Provider: VERN RODARTE lisinopril (ZESTRIL) 5 mg tablet 90 tablet 0 Sig: Take 1 tablet by mouth once daily. Authorizing Provider: VERN RODARTE MD Left message for pt to call and schedule his yearly physical Prescription Refill Information The patient has been identified by name and date of : Yes Caregiver verified no other encounters exist for this prescription request: Yes Caregiver confirmed with patient/requestor that no other refills are due, in the near future, with this provider at this time: Yes The last office visit in the department: 03/20/24 Does the patient have a future office visit with this provider/department: No Requested Prescriptions Pending Prescriptions Disp Refills levothyroxine (SYNTHROID) 50 mcg tablet 90 tablet 3 Sig: Take 1 tablet by mouth daily before breakfast. lisinopril (ZESTRIL) 5 mg tablet 90 tablet 3 Sig: Take 1 tablet by mouth once daily. Nany Dumont LPN June 29, 2024 3:03 PM documented in this encounter [facility] 06-29-2024 Telephone encounter Note Left message for pt to call and schedule his yearly physical Prescription Refill Information The patient has been identified by name and date of : Yes Caregiver verified no other encounters exist for this prescription request: Yes Caregiver confirmed with patient/requestor that no other refills are due, in the near future, with this provider at this time: Yes The last office visit in the department: 03/20/24 Does the patient have a future office visit with this provider/department: No Requested Prescriptions Pending Prescriptions Disp Refills levothyroxine (SYNTHROID) 50 mcg tablet 90 tablet 3 Sig: Take 1 tablet by mouth daily before breakfast. lisinopril (ZESTRIL) 5 mg tablet 90 tablet 3 Sig: Take 1 tablet by mouth once daily. Nany Dumont LPN June 29, 2024 3:03 PM [facility] 03-23-2024 Telephone encounter Note Noted. [facility] Work Phone: 03-23-2024 Miscellaneous Notes Noted. Pt was notified of results, pt states he does not have a FU with [facility] but will call to schedule one. Laury Carl LPN Left message for return call. Joanne Narvaez MA Please let patient know his shoulder xray shows mild degeneration but is otherwise negative. Does he have follow up with [facility]? documented in this encounter [facility] 03-23-2024 Telephone encounter Note Pt was notified of results, pt states he does not have a FU with [facility] but will call to schedule one. Laury Carl LPN [facility] 03-23-2024 Telephone encounter Note Left message for return call. Joanne Narvaez MA [facility] 03-23-2024 Telephone encounter Note Please let patient know his shoulder xray shows mild degeneration but is otherwise negative. Does he have follow up with [facility]? [facility] 03-20-2024 History of Presen t illness Narrative Radiology Service Progress Note PATIENT NAME: Lenore Lee DATE OF SERVICE: March 20, 2024 TIME: 4:51 PM PATIENT IDENTITY VERIFICATION COMPLETED USING TWO (2) IDENTIFIERS: Name and Date of confirmed by patient verbally. FALL SCREENING: Has the patient had 2 falls in the last year or 1 fall with injury or currently using an Ambulatory Assistive Device (Walker, Cane, Wheelchair, Crutches, etc.)? No PATIENT GENDER DATA: Male PATIENT RELEVANT IMPLANT DATA REVIEWED: Not Applicable PATIENT PRESENTS WITH AN IMPLANTABLE OR ATTACHED YOUTH NUTRITIONAL MONITOR: No RADIOLOGY DEPARTMENT: General X-ray: Exam(s) Completed: Upper Extremity X-Ray(s): Shoulder, AP / TRUE AP / SUPRA OUTLET right PERIPHERAL IV DATA: Not applicable SIGNED BY: RT Shun(R) March 20, 2024 4:51 PM documented in this encounter [facility] 03-20-2024 Note HNO ID: [id number] Author: KRISSY MIGUEL RT(Lisa) Service: Radiology Author Type: Technologist Type: Progress Notes Filed: 03/20/2024 16:57 Note Text: Radiology Service Progress Note PATIENT NAME: Lenore Lee DATE OF SERVICE: March 20, 2024 TIME: 4:51 PM PATIENT IDENTITY VERIFICATION COMPLETED USING TWO (2) IDENTIFIERS: Name and Date of confirmed by patient verbally. FALL SCREENING: Has the patient had 2 falls in the last year or 1 fall with injury or currently using an Ambulatory Assistive Device (Walker, Cane, Wheelchair, Crutches, etc.)? No PATIENT GENDER DATA: Male PATIENT RELEVANT IMPLANT DATA REVIEWED: Not Applicable PATIENT PRESENTS WITH AN IMPLANTABLE OR ATTACHED YOUTH NUTRITIONAL MONITOR: No RADIOLOGY DEPARTMENT: General X-ray: Exam(s) Completed: Upper Extremity X-Ray(s): Shoulder, AP / TRUE AP / SUPRA OUTLET right PERIPHERAL IV DATA: Not applicable SIGNED BY: RT Shun(R) March 20, 2024 4:51 PM [facility] 03-20-2024 Note HNO ID: [id number] Author: ROHIT JAY APRN.CHILI POWDER [employer]ER Service: ? Author Type: Nurse Practitioner Type: Progress Notes Filed: 03/20/2024 16:41 Note Text: Chief Complaint Patient presents with: Shoulder Injury: X 3 days HPI Lenore Lee is a 33 year old male who presents here today for Above Complaints.. Patient presents for right pec/shoulder pain. Patient was bench pressing 285 pounds and was at the top of his lift when her felt something pop in his right pec/shoulder. Patient reports he is unable to raise his right arm without pain. Patient reports he is unable to lie on right side or lift anything with right arm. Past medical history, appointments, medications, allergies reviewed. Previous Medical History PAST MEDICAL HISTORY Diagnosis Date Epidermal inclusion cyst 01/12/2018 Right neck below ear lobe, removed 12/2017 Family history of MN (myocardial infarction) 06/15/2018 GERD without esophagitis 12/15/2017 Hypertension, essential 12/15/2017 Hypothyroidism, acquired 12/15/2017 Lipoma of unspecified site 03/02/2014 Previous Surgical History PAST SURGICAL HISTORY Procedure Laterality Date COLONOSCOPY 03/27/2022 EGD W/O BRSH SPEC VARICIES INJ 03/27/2022 LEXISCAN STRESS TEST 04/14/2019 negative MYRINGOTOMY HX TONSILLECTOMY HX Family History FAMILY HISTORY Problem Relation Age of Onset Hypertension Mother other (migraine) Mother other (migraine) Brother other (migraine) Brother Stroke Maternal Grandmother Breast Cancer Maternal Grandmother Cancer Maternal Grandmother lung Coronary Artery Disease Father is 50 yo and had 8 MN's prior to this Patient Allergies ALLERGIES No Known Allergies Current Medications Current Outpatient Medications on File Prior to Visit Medication Sig omeprazole (PRILOSEC) 20 mg capsule TAKE 2 CAPSULES ONCE DAILY benzonatate (TESSALON PERLES) 100 mg capsule Take 1-2 capsules by mouth three times a day as needed. albuterol HFA (PROVENTIL HFA) 90 mcg/actuation inhaler Inhale 2 Puffs as instructed every 4 hours as needed for wheezing/shortness of breath. levothyroxine (SYNTHROID) 50 mcg tablet Take 1 tablet by mouth daily before breakfast. lisinopril (ZESTRIL) 5 mg tablet Take 1 tablet by mouth once daily. ondansetron orally disintegrating (ZOFRAN ODT) 8 mg disintegrating tablet dicyclomine (BENTYL) 10 mg capsule Take 1 capsule by mouth three times a day as needed (for abdominal pain/loose stools). cyclobenzaprine (FLEXERIL) 10 mg tablet Take 1 tablet by mouth three times daily as needed for muscle spasm. No current facility-administered medications on file prior to visit. Social History Social History Tobacco Use Smoking status: Never Smokeless tobacco: Never Vaping Use Vaping Use: Never used Substance Use Topics Alcohol use: Yes Alcohol/week: 1.0 standard drink of alcohol Types: 1 Standard drinks or equivalent per week Comment: 2x -3x per week one drink Drug use: No Review of Symptoms REVIEW OF SYSTEMS SEE HPI EXAM: BP 145/79 Pulse 78 Resp 14 Wt 116.1 kg (256 lb) BMI 37.28 kg/m? General Appearance: Well appearing, alert, in no acute distress, well-hydrated, well nourished.. Chest: Positive findings: Swelling and pain with palpation to right lateral chest wall extending into the axilla. Extremities: Positive findings: joint location: on right shoulder pain, swelling, painful movement, loss of ROM, and injury. Patient able to front raise arm but reports pain and pulling. Limited ROM laterally less than 90degrees. Unable to extend posteriorly without increased pain. Health Maintenance List Depression Screening Never done Anxiety Screening Never done Hepatitis C Screening Never done HIV Screening Never done BP Controlled (<130/80) Never done Covid-19 Vaccine(2022- season) due on 07/05/2024 Influenza Vaccine(1) due on 04/23/2024 Annual PCP Team Chronic Disease Visit due on 07/05/2024 Lipid Screening due on 07/31/2028 DTaP,Tdap,Td Vaccine(2 - Td or Tdap) due on 04/18/2031 HPV Vaccine Aged Out Hepatitis B Vaccine Discontinued ASSESSMENT/PLAN: 1. Acute pain of right shoulder - ICD9: 719.41, ICD10: M25.511 (primary diagnosis) - XR SHOULDER GENERAL 3V OR MORE AP/TRUE AP/OTHER RIGHT - CONSULT TO ORTHOPAEDICS 2. Injury of right shoulder, initial encounter - ICD9: 959.2, ICD10: S49.91XA - XR SHOULDER GENERAL 3V OR MORE AP/TRUE AP/OTHER RIGHT - CONSULT TO ORTHOPAEDICS Patient requesting to see orthopedics prior to CT/MRI due to cost. Referred to Wesly Zuniga. Rohit Jay APRN.[facility] 03-20-2024 History of Presen t illness Narrative Chief Complaint Patient presents with: Shoulder Injury: X 3 days HPI Lenore Lee is a 33 year old male who presents here today for Above Complaints.. Patient presents for right pec/shoulder pain. Patient was bench pressing 285 pounds and was at the top of his lift when her felt something pop in his right pec/shoulder. Patient reports he is unable to raise his right arm without pain. Patient reports he is unable to lie on right side or lift anything with right arm. Past medical history, appointments, medications, allergies reviewed. Previous Medical History PAST MEDICAL HISTORY Diagnosis Date Epidermal inclusion cyst 01/12/2018 Right neck below ear lobe, removed 12/2017 Family history of MN (myocardial infarction) 06/15/2018 GERD without esophagitis 12/15/2017 Hypertension, essential 12/15/2017 Hypothyroidism, acquired 12/15/2017 Lipoma of unspecified site 03/02/2014 Previous Surgical History PAST SURGICAL HISTORY Procedure Laterality Date COLONOSCOPY 03/27/2022 EGD W/O BRSH SPEC VARICIES INJ 03/27/2022 LEXISCAN STRESS TEST 04/14/2019 negative MYRINGOTOMY HX TONSILLECTOMY HX Family History FAMILY HISTORY Problem Relation Age of Onset Hypertension Mother other (migraine) Mother other (migraine) Brother other (migraine) Brother Stroke Maternal Grandmother Breast Cancer Maternal Grandmother Cancer Maternal Grandmother lung Coronary Artery Disease Father is 50 yo and had 8 MN's prior to this Patient Allergies ALLERGIES No Known Allergies Current Medications Current Outpatient Medications on File Prior to Visit Medication Sig omeprazole (PRILOSEC) 20 mg capsule TAKE 2 CAPSULES ONCE DAILY benzonatate (TESSALON PERLES) 100 mg capsule Take 1-2 capsules by mouth three times a day as needed. albuterol HFA (PROVENTIL HFA) 90 mcg/actuation inhaler Inhale 2 Puffs as instructed every 4 hours as needed for wheezing/shortness of breath. levothyroxine (SYNTHROID) 50 mcg tablet Take 1 tablet by mouth daily before breakfast. lisinopril (ZESTRIL) 5 mg tablet Take 1 tablet by mouth once daily. ondansetron orally disintegrating (ZOFRAN ODT) 8 mg disintegrating tablet dicyclomine (BENTYL) 10 mg capsule Take 1 capsule by mouth three times a day as needed (for abdominal pain/loose stools). cyclobenzaprine (FLEXERIL) 10 mg tablet Take 1 tablet by mouth three times daily as needed for muscle spasm. No current facility-administered medications on file prior to visit. Social History Social History Tobacco Use Smoking status: Never Smokeless tobacco: Never Vaping Use Vaping Use: Never used Substance Use Topics Alcohol use: Yes Alcohol/week: 1.0 standard drink of alcohol Types: 1 Standard drinks or equivalent per week Comment: 2x -3x per week one drink Drug use: No Review of Symptoms REVIEW OF SYSTEMS SEE HPI EXAM: BP 145/79 Pulse 78 Resp 14 Wt 116.1 kg (256 lb) BMI 37.28 kg/m General Appearance: Well appearing, alert, in no acute distress, well-hydrated, well nourished.. Chest: Positive findings: Swelling and pain with palpation to right lateral chest wall extending into the axilla. Extremities: Positive findings: joint location: on right shoulder pain, swelling, painful movement, loss of ROM, and injury. Patient able to front raise arm but reports pain and pulling. Limited ROM laterally less than 90degrees. Unable to extend posteriorly without increased pain. Health Maintenance List Depression Screening Never done Anxiety Screening Never done Hepatitis C Screening Never done HIV Screening Never done BP Controlled (<130/80) Never done Covid-19 Vaccine(3 - season) due on 07/05/2024 Influenza Vaccine(1) due on 04/23/2024 Annual PCP Team Chronic Disease Visit due on 07/05/2024 Lipid Screening due on 07/31/2028 DTaP,Tdap,Td Vaccine(2 - Td or Tdap) due on 04/18/2031 HPV Vaccine Aged Out Hepatitis B Vaccine Discontinued ASSESSMENT/PLAN: 1. Acute pain of right shoulder - ICD9: 719.41, ICD10: M25.511 (primary diagnosis) - XR SHOULDER GENERAL 3V OR MORE AP/TRUE AP/OTHER RIGHT - CONSULT TO ORTHOPAEDICS 2. Injury of right shoulder, initial encounter - ICD9: 959.2, ICD10: S49.91XA - XR SHOULDER GENERAL 3V OR MORE AP/TRUE AP/OTHER RIGHT - CONSULT TO ORTHOPAEDICS Patient requesting to see orthopedics prior to CT/MRI due to cost. Referred to Wesly Zuniga. Rohit Jay APRN.[employer] documented in this encounter [facility] 03-08-2024 Telephone encounter Note Rx's were refilled 07/05/23 Qty: 90 with 3 refills. Should have refills left. Pt notified via . Nany Dumont LPN [facility] 03-08-2024 Miscellaneous Notes Rx's were refilled 07/05/23 Qty: 90 with 3 refills. Should have refills left. Pt notified via . Nany Dumont LPN documented in this encounter [facility] 07-05-2023 Instructions Kacie Cho APRN.[employer] - 07/05/2023 4:44 PM EST Continue the same medication. Return for fasting labwork. Health Promotion: - Eat healthy -- go to [employer]gov to get started - Have a yearly physical - Get at least 30 minutes of physical activity daily - Get at least 7 to 8 hours of sleep each night - Reach and maintain a healthy weight - Get help to quit or don't start smoking - Limit alcohol use to one drink or less - Do not use illegal drugs or misuse prescription drugs - Wear a helmet when riding a bike and wear protective gear for sports - Wear a seatbelt in cars and not text and drive - Wear sunscreen documented in this encounter [facility] 07-05-2023 History of Presen t illness Narrative This is a 32 year old male who presents today with: Patient presents with: Physical HISTORY OF PRESENT ILLNESS: Lenore Lee is a 32 year old male. Patient presents with: Physical Pt presents today for physical. No problems/concerns. REVIEW OF SYSTEMS GENERAL: No weight loss, malaise or fevers/chills HEENT: Negative for frequent or significant headaches, No changes in hearing or vision. NECK: Negative for lumps, goiter, pain and significant neck swelling RESPIRATORY: Negative for cough, hemoptysis, wheezing, dyspnea or shortness of breath CARDIOVASCULAR: Negative for chest pain, leg swelling, orthopnea, or palpitations GI: No nausea, vomiting, or constipation. PPI keeping heartburn control. Usually doesn't have some solid stools. Hx of hematochezia/melena -- currently being worked up for GI for possible crohn's. : No history of dysuria, frequency or incontinence MUSCULOSKELETAL: Negative for joint pain or swelling. SKIN: Negative for lesions, rash, and itching ENDOCRINE: Negative for cold or heat intolerance, polyuria, polydipsia and goiter NEURO: No history of headaches, syncope, paralysis, seizures or tremors HTN: Patient is compliant with meds Yes Monitors bp at home: Yes. 132/72 at home. Denies side effects: No. Chest pain: No. Dyspnea: No. Edema: No. Palpitations: No. Syncope: No. Headache: No. Dizziness: No. HYPOTHYROID: Patient is compliant with medications: Yes Patient has changes in energy: No Patient has changes in hair or skin: No Patient has temperature intolerance: No Patient has weight changes: No GERD: Controlled w/ PPI. PAST MEDICAL HISTORY: PAST MEDICAL HISTORY Diagnosis Date Epidermal inclusion cyst 01/12/2018 Right neck below ear lobe, removed 12/2017 Family history of MN (myocardial infarction) 06/15/2018 GERD without esophagitis 12/15/2017 Hypertension, essential 12/15/2017 Hypothyroidism, acquired 12/15/2017 Lipoma of unspecified site 03/02/2014 PAST SURGICAL HISTORY Procedure Laterality Date COLONOSCOPY 03/27/2022 EGD W/O BRSH SPEC VARICIES INJ 03/27/2022 LEXISCAN STRESS TEST 04/14/2019 negative MYRINGOTOMY HX TONSILLECTOMY HX ALLERGIES Patient has no known allergies. MEDICATIONS Current Outpatient Medications Medication Sig lisinopril (ZESTRIL) 5 mg tablet Take 1 tablet by mouth once daily. levothyroxine (SYNTHROID) 50 mcg tablet Take 1 tablet by mouth daily before breakfast. ondansetron orally disintegrating (ZOFRAN ODT) 8 mg disintegrating tablet dicyclomine (BENTYL) 10 mg capsule Take 1 capsule by mouth three times a day as needed (for abdominal pain/loose stools). omeprazole (PRILOSEC) 20 mg capsule TAKE 2 CAPSULES ONCE DAILY cyclobenzaprine (FLEXERIL) 10 mg tablet Take 1 tablet by mouth three times daily as needed for muscle spasm. ipratropium bromide (ATROVENT) 42 mcg (0.06 %) nasal spray Use 2 Sprays in the nose three times daily. (Patient not taking: Reported on 07/05/2023) No current facility-administered medications for this visit. FAMILY HISTORY Problem Relation Age of Onset Hypertension Mother other (migraine) Mother other (migraine) Brother other (migraine) Brother Stroke Maternal Grandmother Breast Cancer Maternal Grandmother Cancer Maternal Grandmother lung Coronary Artery Disease Father is 50 yo and had 8 MN's prior to this Social History Tobacco Use Smoking status: Never Smokeless tobacco: Never Vaping Use Vaping Use: Never used Substance Use Topics Alcohol use: Yes Comment: occasional Drug use: No EXAM: BP 130/90 Pulse 76 Resp 16 Ht 176.5 cm (5' 9.49) Wt 111.1 kg (245 lb) SpO2 98% BMI 35.67 kg/m PHYSICAL EXAM: General Appearance: Well appearing, alert, in no acute distress, well-hydrated, well nourished.. Skin: Skin color, texture, turgor normal, no suspicious rashes or lesions. Head: Normocephalic, no masses, lesions, tenderness or abnormalities. Eyes: Anicteric sclera. Pupils are equally round and reactive to light. Extraocular movements are intact. . Ears: External ears normal, canals clear, Normal TMs bilaterally. Oropharynx: Lips, mucosa, and tongue normal, teeth and gums normal, oropharynx normal. Neck: Supple, no adenopathy; thyroid symmetric, normal size, no bruits. Lungs: Lungs clear to auscultation. No wheezing, rhonchi, rales.. Heart: RRR without murmur, gallop, or rubs. No ectopy. Abdomen: Normal abdominal exam, Abdomen soft, non-tender. Bowel sounds normal. No masses, organomegaly. Extremities: No deformities, edema, skin discoloration, clubbing or cyanosis. Good capillary refill. . Neurologic: Gait normal. ASSESSMENT/PLAN: 1. Well adult exam - ICD9: V70.0, ICD10: Z00.00 (primary diagnosis) - Counseled on healthy diet and regular exercise - Follow up for annual exam in one year - CBC + DIFF Health Promotion: - Eat healthy -- go to [employer]gov to get started - Have a yearly physical - Get at least 30 minutes of physical activity daily - Get at least 7 to 8 hours of sleep each night - Reach and maintain a healthy weight - Get help to quit or don't start smoking - Limit alcohol use to one drink or less - Do not use illegal drugs or misuse prescription drugs - Wear a helmet when riding a bike and wear protective gear for sports - Wear a seatbelt in cars and not text and drive - Wear sunscreen 2. Hypertension, essential - ICD9: 401.9, ICD10: I10 - Controlled - Continue current medications - Recommend home blood pressure monitoring, to bring results to next visit - Encouraged sodium restriction, DASH or Mediterranean diet - Recommend regular aerobic exercise - COMP METABOLIC PANEL - LISINOPRIL 5 MG TABLET 3. Hypothyroidism, acquired - ICD9: 244.9, ICD10: E03.9 Due for labs. - THYROID PEROXIDASE ANTIBODY BLOOD - TSH BLD - LEVOTHYROXINE 50 MCG TABLET 4. Hyperlipidemia, mixed - ICD9: 272.2, ICD10: E78.2 - Control undetermined, due for labs - Counseled on healthy diet and regular exercise - COMP METABOLIC PANEL - LIPID PANEL, NONFASTING Discussed treatment plan and patient voices understanding. Patient's questions answered appropriately. Medications and potential side effects were discussed and patient voices understanding. Return to the office as scheduled or as needed for worsening/no improvement. Kacie Cho APRN.YUNIER documented in this encounter [facility] 06-29-2023 Miscellaneous Notes Patient has been identified by name and date of : Yes Requested Prescriptions Pending Prescriptions Disp Refills lisinopril (ZESTRIL) 5 mg tablet 90 tablet 0 Sig: Take 1 tablet by mouth once daily. levothyroxine (SYNTHROID) 50 mcg tablet 90 tablet 0 Sig: Take 1 tablet by mouth daily before breakfast. RX INSTRUCTIONS: Patient aware RX will be sent to pharmacy. No need to notify patient. Patient last office visit: 07/22/22 Patient next office visit: 07/05/23 Thais Nguyen MA documented in this encounter [facility] 06-09-2023 History of Presen t illness Narrative CHIEF COMPLAINT: Patient presents with: Crohns: CT in scanning HPI Lenore Lee is a 32 year old male here today for Crohns (CT in scanning). Seen last by Serena Cannon CNP for h/o chronic diarrhea for the past year 03/2022. Pt did not follow up for GI visit after scopes, struggling with persistent GI complaints/diarrhea for the past 2 years. On Prilosec 40 mg daily for GERD with relief. Went to [place] ER 05/2023 due to abd pain. Labs unremarkable, CT showed no acute process. Bms are worse after eating, multiple per day, loose/rarely formed, no blood currently. Lower abd pain, improves somewhat with BM. Has had 2-3 episodes of incontinence in the past year. Trying to identify dietary triggers, limits fiber on his own. Denies weight loss, regular NSAIDs, N/V. Unknown family hx CT abd 05/2023 No acute abnormality EGD/Colon 2021 Impression: - Non-bleeding internal hemorrhoids. - Biopsies were taken with a cold forceps from the entire colon for evaluation of microscopic colitis. Impression: - Normal first portion of the duodenum and second portion of the duodenum. Biopsied. - Normal stomach. Biopsied. - Z-line irregular. Biopsied. - Small hiatal hernia. FINAL DIAGNOSIS A. Duodenum, biopsy: - Small bowel mucosa with intact villous architecture and mildly increased intraepithelial lymphocytes. - See comment. B. Stomach, biopsy: - Antral and fundic mucosa with no diagnostic alteration. - No evidence of H. pylori. C. Esophagogastric junction, biopsy: - Reactive squamous mucosa and inflamed cardiac mucosa. - No evidence of intestinal metaplasia or dysplasia. D. Random colon, biopsy: - Focal active colitis. - Negative for dysplasia or granulomas. Current Outpatient Medications Medication Sig ondansetron orally disintegrating (ZOFRAN ODT) 8 mg disintegrating tablet omeprazole (PRILOSEC) 20 mg capsule TAKE 2 CAPSULES ONCE DAILY lisinopril (ZESTRIL) 5 mg tablet Take 1 tablet by mouth once daily. levothyroxine (SYNTHROID) 50 mcg tablet Take 1 tablet by mouth daily before breakfast. cyclobenzaprine (FLEXERIL) 10 mg tablet Take 1 tablet by mouth three times daily as needed for muscle spasm. ipratropium bromide (ATROVENT) 42 mcg (0.06 %) nasal spray Use 2 Sprays in the nose three times daily. benzonatate (TESSALON PERLES) 100 mg capsule Take 1-2 capsules by mouth three times daily as needed for cough. glucagon (GLUCAGEN) 1 mg/mL injection Inject 1 mg intravenously one time only for 1 dose. For MRI Enterography, Inject 1 mg intravenously, as directed. Slow push at the appropriate time during MRI Scan peg 3350-Electrolytes (GOLYTELY) 236-22.74-6.74 -5.86 gram suspension Refer to printed prep instructions from your provider. (Patient not taking: Reported on 07/22/2022) No current facility-administered medications for this visit. ALLERGIES No Known Allergies Social History Tobacco Use Smoking status: Never Smokeless tobacco: Never Vaping Use Vaping Use: Never used Substance Use Topics Alcohol use: Yes Comment: occasional Drug use: No PAST MEDICAL HISTORY Diagnosis Date Epidermal inclusion cyst 01/12/2018 Right neck below ear lobe, removed 12/2017 Family history of MN (myocardial infarction) 06/15/2018 GERD without esophagitis 12/15/2017 Hypertension, essential 12/15/2017 Hypothyroidism, acquired 12/15/2017 Lipoma of unspecified site 03/02/2014 PAST SURGICAL HISTORY Procedure Laterality Date COLONOSCOPY 03/27/2022 EGD W/O BRSH SPEC VARICIES INJ 03/27/2022 LEXISCAN STRESS TEST 04/14/2019 negative MYRINGOTOMY HX TONSILLECTOMY HX FAMILY HISTORY Problem Relation Age of Onset Hypertension Mother other (migraine) Mother other (migraine) Brother other (migraine) Brother Stroke Maternal Grandmother Breast Cancer Maternal Grandmother Cancer Maternal Grandmother lung Coronary Artery Disease Father is 50 yo and had 8 MN's prior to this REVIEW OF SYSTEMS Review of Systems Constitutional: Positive for appetite change and chills. HENT: Positive for trouble swallowing. Gastrointestinal: Positive for abdominal pain, blood in stool, constipation, diarrhea, nausea and vomiting. Change in bowel habits, Gas, Heartburn All other systems reviewed and are negative. PHYSICAL EXAM BP 138/86 Pulse 70 Ht 175.3 cm (5' 9) Wt 108.9 kg (240 lb) BMI 35.44 kg/m Physical Exam Constitutional: General: He is not in acute distress. Appearance: Normal appearance. He is normal weight. He is not ill-appearing, toxic-appearing or diaphoretic. HENT: Head: Normocephalic and atraumatic. Nose: Nose normal. Eyes: General: No scleral icterus. Right eye: No discharge. Left eye: No discharge. Extraocular Movements: Extraocular movements intact. Conjunctiva/sclera: Conjunctivae normal. Pupils: Pupils are equal, round, and reactive to light. Cardiovascular: Rate and Rhythm: Normal rate and regular rhythm. Pulses: Normal pulses. Heart sounds: Normal heart sounds. No murmur heard. No friction rub. No gallop. Pulmonary: Effort: No respiratory distress. Breath sounds: Normal breath sounds. No stridor. No wheezing, rhonchi or rales. Chest: Chest wall: No tenderness. Abdominal: General: Abdomen is flat. Bowel sounds are normal. There is no distension. Palpations: Abdomen is soft. There is no mass. Tenderness: There is no abdominal tenderness. There is no right CVA tenderness, left CVA tenderness, guarding or rebound. Hernia: No hernia is present. Musculoskeletal: General: Normal range of motion. Cervical back: Normal range of motion and neck supple. Skin: General: Skin is warm and dry. Neurological: General: No focal deficit present. Mental Status: He is alert and oriented to person, place, and time. Psychiatric: Mood and Affect: Mood normal. Behavior: Behavior normal. Assessment/Plan (K52.9) Focal active colitis (primary encounter diagnosis) (R93.3) Abnormal endoscopy of upper gastrointestinal tract (K44.9, K21.00) Hiatal hernia with GERD and esophagitis Focal active colitis - CALPROTECTIN,FECAL - C. DIFFICILE PCR - STOOL GASTROINTESTINAL PANEL - dicyclomine (BENTYL) 10 mg capsule; Take 1 capsule by mouth three times a day as needed (for abdominal pain/loose stools). Dispense: 30 capsule; Refill: 2 - H/O focal active colitis on last colon 2021. Will recheck stool studies to r/o ID - Start Bentyl PRN - Pt notes fiber worsens sx - EGD showed findings suggestive of possible Celiac, will order comprehensive panel to further assess - May need repeat colon if calprotectin persistently elevated, and Celiac negative 2. Abnormal endoscopy of upper gastrointestinal tract - CELIAC COMPREHENSIVE PANEL; Future 3. Hiatal hernia with GERD and esophagitis - Taking Prilosec 20 mg BID with relief in reflux - Follow anti-reflux precautions - Continue to avoid NSAIDs I spent a total of 20 minutes on the date of the service which included preparing to see the patient, [id number] patient care, completing clinical documentation, obtaining and/or reviewing separately obtained history, performing a medically appropriate examination, counseling and educating the patient/family/caregiver, ordering medications, tests, or procedures, communicating with other HCPs (not separately reported), independently interpreting results (not separately reported), communicating results to the patient/family/caregiver, and care coordination (not separately reported). Farhana Freitas PA-C June 09, 2023 10:26 AM documented in this encounter [facility] 04-08-2023 Miscellaneous Notes Patient phones requesting refills as follows: Appt 06/09/23 Requested Prescriptions Pending Prescriptions Disp Refills omeprazole (PRILOSEC) 20 mg capsule [Pharmacy Med Name: OMEPRAZOL RX CAP 20MG] 180 capsule 1 Sig: TAKE 2 CAPSULES ONCE DAILY Please review and advise. Robert Slade MA documented in this encounter [facility] 04-05-2023 Miscellaneous Notes Notified via [employer] Please advise patient to set up his PE after 07/22/2023. Patient phones requesting refills as follows: Requested Prescriptions Pending Prescriptions Disp Refills lisinopril (ZESTRIL) 5 mg tablet 90 tablet 0 Sig: Take 1 tablet by mouth once daily. levothyroxine (SYNTHROID) 50 mcg tablet 90 tablet 0 Sig: Take 1 tablet by mouth daily before breakfast. JANUSZ 07/22/22 NOV no upcoming appt Please review and advise. Ricardo Bowers LPN documented in this encounter [facility] 04-05-2023 Miscellaneous Notes Patient phones requesting refills as follows: Requested Prescriptions Pending Prescriptions Disp Refills cyclobenzaprine (FLEXERIL) 10 mg tablet 30 tablet 0 Sig: Take 1 tablet by mouth three times daily as needed for muscle spasm. JANUSZ 07/22/22 NOV no upcoming appt Please review and advise. Ricardo Bowers LPN documented in this encounter [facility] 11-11-2022 History of Presen t illness Narrative This is an [facility] eVisit note for Lenore A Jesus eVisit/Questionnaire reviewed The chief complaint for the visit - Patient presents with: Sinus Problem Recommendations/Treatment plan - Rx as below plus self care. See My Chart Message to patient. Recommendation for follow up - PRN The following approved medication requests have been transmitted electronically. Requested Prescriptions Signed Prescriptions Disp Refills ipratropium bromide (ATROVENT) 42 mcg (0.06 %) nasal spray 15 mL 0 Sig: Use 2 Sprays in the nose three times daily. benzonatate (TESSALON PERLES) 100 mg capsule 30 capsule 0 Sig: Take 1-2 capsules by mouth three times daily as needed for cough. Rose Hernandez APRN.CNP Total time spent on evisit: 5 to 10 minutes documented in this encounter [facility] 09-14-2022 Miscellaneous Notes Pt requesting refills. JANUSZ: 07/22/22 NOV: None scheduled Last Refill: 06.16.22 #90 0 refills Laury Carl LPN documented in this encounter [facility] 09-09-2022 History of Presen t illness Narrative Episode Visit Count: 1 Therapist That Will Accept/Oversee The Plan Of Care: Freida Andres Start of Care Date: 09/09/22 Onset Date: 01/07/22 Plan of Care Certification Date: 09/09/22 Next Certification Due Date: 10/14/22 Patient Identified by Name and Date of : Yes REHABILITATION AND SPORTS THERAPY PHYSICAL THERAPY EVALUATION PLAN OF CARE: Assessment: Lenore Lee presents with diagnosis of plantar fasciitis of left foot and achilles tendinosis that interferes with standing;walking;walking in the community . He presents with impairments in ADL's, balance, flexibility, gait, independence in exercise, joint mobility, overall function, patient reported outcome measures, range of motion, strength , symptom management, and tissue tenderness. . Prognosis for therapy is Good due to: good support system/ coping skills;Prognosis may be limited due to limited tolerance to activity;chronic nature of impairments . He will benefit from skilled therapy services to meet the goals established for this plan of care as noted below. Goals for Episode of Care: created on 09/09/22 through 10/21/22 [place] in home exercise program. Patient will increase active ROM of R ankle DF to 20 degrees and L ankle eversion to 18 degrees or greater to allow pt to to improve performance of ADLs and to improve gait mechanics / gait pattern . Perform prolonged standing and walking (8 hour work day) with decreased report of symptoms/pain in 6 weeks. Perform walking on inclines and uneven terrain without pain. Increased strength of BLE heel raises to 25 reps without increased symptoms and to LLE and RLE single leg heel raises to 15 reps or greater without increased pain. Normal gait. Reciprocal stair negotiation. Patient will increase balance to 30 seconds for single limb stance on RLE and 30 seconds for single limb stance on LLE. Patient Goals: reduce pain with prolonged standing and ambulation Planned Interventions, Frequency, and Duration: Current Frequency: 2x/week Duration: 6 weeks Total Number of Visits Planned: 12 Planned Treatment Interventions: Neuromuscular re-education (77207);Manual therapy (31717);Therapeutic activities (66580);Self-assisted management (05687);Gait Training (24656);Patient/Family/Caregiver Education;Therapeutic exercise (30426) PLAN FOR NEXT VISIT: Pt. to see custom orthotics specialist to determine if pt. is a candidate. Continue stretching and strengthening to improve R ankle DF AROM and L ankle eversion AROM. Intrinsic foot muscle strengthening. Progress to functional strengthening while weight bearing as tolerated. Patient demonstrates good understanding of plan of care and treatment. The above goals and plan of care were discussed and agreed upon by patient/family. SUBJECTIVE: Lenore Lee is a 32 year old male seen today for for pain of the left foot medial arch as well as right foot heel pain that onset 8 months ago without injury. Pt. attributes the L arch pain due to compensation gait pattern due to R heel pain that onset prior. Symptoms become worse with prolonged standing, running, and pushing off the R foot. Pt. was see by Dr. Motley and was advised to wear tennis shoes at all times. Power step inserts were given to the patient and he has them in [employer] tennis shoes today. 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: [employer] / Current Exercise: barbell squatting - increases pain in the arch of the left foot Intake Information: Prescription present Previous Treatment: (avoids NSAIDs) Falls Interview: No positive findings with falls interview Pain: Pain Pain Level: 3 Pain Location: Heel - Right Description: Aching;Throbbing Additional Pain Information : Location 2 Pain Level 2: 6 Pain Location 2: Foot - Left Description 2: Sharp Frequency 2: Walking;Standing Post Treatment Pain Post Treatment Pain Level: Worse Post Treatment Pain Location: Foot - Left Post Treatment Pain Score 2: No Change Post Treatment Pain Location 2: Heel - Right PROMIS Scales Higher is Better 12/21/2021 07/22/2022 09/09/2022 Phys Func - Score - - 50 (within normal limits) Phys Func - Percentile - - 50 % GH Physical - Score 44.9 (Good) 47.7 (Good) - GH Physical - Percentile 31 % 41 % - GH Mental - Score 45.8 (Good) 48.3 (Very Good) - GH Mental - Percentile 34 % 43 % - Self-Eff Symptom - Score - - 48 (Average) Self-Eff Symptom - Percentile - - 42 % T-scores: mean of general population = 50. 5 points is clinically meaningfully difference Percentiles provide an indication of how the patient's score ranks in relation to the general population. Higher percentile rankings indicate better function/quality of life. 50th percentile is the average of the general population and indicates half of respondents had a worse score. T-scores: mean of general population = 50. 5 points is clinically meaningfully difference Percentiles provide an indication of how the patient's score ranks in relation to the general population. Higher percentile rankings indicate better function/quality of life. 50th percentile is the average of the general population and indicates half of respondents had a worse score. OBJECTIVE MEASURES WITH LEVEL OF FUNCTION: Posture / Alignment R LE Anatomical Alignment Weight-Bearing: R Low arch height L LE Anatomical Alignment Weight-Bearing: L Low arch height Ankle Observations R Ankle Presents with: Comments (bulbous R achilles inflammation) R Ankle Palpation Tenderness: Achilles tendon L Ankle Palpation Tenderness: Plantar fascia Ankle Brace/Support: (Lynn with power step inserts given by DPM) Sensation - Lower Extremity LE Light Touch Sensation: Grossly Intact LE AROM R Ankle Dorsiflexion: 15 Degrees R Ankle Plantar Flexion: 57 Degrees R Ankle Inversion: 42 R Ankle Eversion: 20 L Ankle Dorsiflexion: 23 Degrees L Ankle Plantar Flexion: 54 Degrees L Ankle Inversion: 44 L Ankle Eversion: 16 LE Flexibility Flexibility: Gastrocnemius Flexibility R Gastrocnemius Flexibility: WNL L Gastrocnemius Flexibility: limited LE Strength R Ankle Plantarflexion Functional Strength (S1): 10 L Ankle Plantarflexion Functional Strength (S1): 6 Functional Strength Functional Strength: L Single Leg Heel Raise;R Single Leg Heel Raise;Bilateral Heel Raise R Single Leg Heel Raise: 10 L Single Leg Heel Raise: 6 Bilateral Heel Raise : 18 Gait Gait: Independent Gait Distance (feet): 50 Gait Device: None Gait Deviations: Right Lower Extremity;Left Lower Extremity Gait Deviations Right Lower Extremity: Heel strike during initial stance decreased;Push off during terminal stance decreased;Step length decreased;Lacks hip extension beyond mid-stance Gait Deviations Left Lower Extremity: Heel strike during initial stance decreased;Push off during terminal stance decreased;Step length decreased;Stance time decreased;Lacks hip extension beyond mid-stance Brace/Orthotics: power steps given by DPM Education: Education Learning Preferences: Demonstration;Explanation;Perfor fady;Printed Materials Barriers: None Learning/educational needs: Home exercise program;Gait Training;Plan of Care Education Provided: Yes, see treatment interventions for education provided Education Provided To: Patient Education Mode/Type: Demonstration;Explanation/Discus wendy;Literature/Printed Materials;Performance Response to Education/Teach Back: States/Identifies;Return Demonstration TREATMENT: PT Treatment Interventions: Therapeutic Exercise;Self-Snf Management Evaluation Therapeutic Exercise: 1: *seated arch raises 2x12 each foot 2: *seated gastroc stretch with strap or towel -- seated position to avoid pain through weight bearing 3x30 sec R ankle only 3: *seated heel and toe raises 2x25 each -- to reduce weight bearing and improve AROM RLE DF/LLE PF Skilled Intervention: Patient was educated in proper exercise technique and purpose for exercises. Skilled judgment was provided in selection of appropriate interventions. Provided written instruction for home exercise program to facilitate proper performance and compliance. Correct performance of therapeutic exercises was facilitated with verbal, visual, and tactile cuing. Educated patient on rationale for performing exercises in regards to including balance, increase ease of ADL, and ROM and function . Patient education as noted. Self-Snf Management: 1: *discussed continued use of inserts and wearing shoes at all times per DPM instruction. 2: *discussed applying ice to reduce symptoms and taking seated rest at work during breaks 3: *discussed purpose of HEP exercises in the seated position to improve AROM of the BLE ankle/foot while avoiding increased symptom intensity 4: *pt. agrees to see custom orthotics specialist PT for next treatment to discuss if pt. is candidate for custom orthotics. Skilled Intervention: Skilled judgment in the selection of proper modification for activity of daily living/home management based on clinical presentation, deficits, and needs. Educated the patient regarding recommendations and provided written instruction to facilitate compliance. Provided written instruction for activities of daily living techniques to facilitate proper performance and compliance. Reviewed patient specific diagnosis in relation to activities of daily living/home management. Activity progression based on professional judgement. Reviewed and educated patient on additions/changes for home program as noted above with an (*). Provided written instruction for home program to facilitate proper performance and compliance. Correct performance of home program was facilitated with verbal, visual, and tactile cueing. Billing * Evaluation Low Complexity: 1 Unit Therapeutic Exercise Treatment Minutes: 15 Self-Care/Home Management Treatment Minutes: 10 Total Treatment Time Minutes (timed/untimed): 45 Freida Andres PT documented in this encounter [facility] 09-07-2022 Miscellaneous Notes Pt advised to speak with foot doctor about medication issue to see if there is another alternative for him to use. documented in this encounter [facility] 08-26-2022 History of Presen t illness Narrative Per Dr. Motley, Lenore was provided with a pair of full length original Power Step inserts, size 11, and instructed/educated in its application, wear, and care. All questions were answered, and patient was able to demonstrate competence with the necessary skills to utilize the above equipment. Guera Short RN Images from the original note were not included. Consultation requested by Dr. Lezama for an opinion regarding b/l heel and foot pain. My final recommendations will be communicated back to the requesting physician by way of shared Medical record or letter to requesting physician via US mail. Initial Podiatric Office Visit: Chief Complaint: This 32 year old male who presents with chief complaint:right posterior ankle pain (achilles) and left arch pain HPI Patient presents to clinic for evaluation of b/l foot. He complains of pain to the posterior right ankle/achilles tendon. This has been present for 8 months. Patient denies any injury. He states the pain is present with prolonged standing and walking. He is not currently doing anything for the pain. Patient complains of left arch pain. He thinks the pain in the left arch is compensation. PAIN EVALUATION 08/26/2022 0811 Pain Level: 6 6-8/10 Pain Location: Other: See Comment B/L heels Description: Sharp;Aching Duration Amount of Time: 8 Duration Units: Months Frequency: Intermittent Intervention/Comfort measure: Reposition;Relaxation;Medication Tylenol Hemoglobin A1C (%) Date Value 07/22/2022 5.1 01/27/2021 5.3 05/18/2018 5.0 PCP: Vern Rodarte MD PAST MEDICAL HISTORY Diagnosis Date Epidermal inclusion cyst 01/12/2018 Right neck below ear lobe, removed 12/2017 Family history of MN (myocardial infarction) 06/15/2018 GERD without esophagitis 12/15/2017 Hypertension, essential 12/15/2017 Hypothyroidism, acquired 12/15/2017 Lipoma of unspecified site 03/02/2014 Current Outpatient Medications Medication Sig lisinopril (ZESTRIL, PRINIVIL) 5 mg tablet Take 1 tablet by mouth once daily. levothyroxine (SYNTHROID) 50 mcg tablet Take 1 tablet by mouth daily before breakfast. omeprazole (PRILOSEC) 20 mg capsule Take 2 capsules by mouth once daily. cyclobenzaprine (FLEXERIL) 10 mg tablet Take 1 tablet by mouth three times daily as needed for muscle spasm. glucagon (GLUCAGEN) 1 mg/mL injection Inject 1 mg intravenously one time only for 1 dose. For MRI Enterography, Inject 1 mg intravenously, as directed. Slow push at the appropriate time during MRI Scan peg 3350-Electrolytes (GOLYTELY) 236-22.74-6.74 -5.86 gram suspension Refer to printed prep instructions from your provider. (Patient not taking: Reported on 07/22/2022) No current facility-administered medications for this visit. ALLERGIES No Known Allergies PAST SURGICAL HISTORY Procedure Laterality Date COLONOSCOPY 03/27/2022 EGD W/O BRSH SPEC VARICIES INJ 03/27/2022 LEXISCAN STRESS TEST 04/14/2019 negative MYRINGOTOMY HX TONSILLECTOMY HX FAMILY HISTORY Problem Relation Age of Onset Hypertension Mother other (migraine) Mother other (migraine) Brother other (migraine) Brother Stroke Maternal Grandmother Breast Cancer Maternal Grandmother Cancer Maternal Grandmother lung Coronary Artery Disease Father is 50 yo and had 8 MN's prior to this Social History Tobacco Use Smoking status: Never Smokeless tobacco: Never Vaping Use Vaping Use: Never used Substance Use Topics Alcohol use: Yes Comment: occasional Drug use: No REVIEW OF SYSTEMS GENERAL: Negative for Malaise, significant weight loss, fever RESPIRATORY: Negative for cough, wheezing and shortness of breath CARDIOVASCULAR: Negative for chest pain, leg swelling and palpitations GI: Negative for abdominal discomfort, blood in stools or black stools and change in bowel habits : Negative for dysuria, frequency and incontinence MUSCULOSKELETAL: Negative for joint pain or swelling, back pain, and muscle pain. SKIN: Negative for lesions, rash, and itching. HEMATOLOGY/LYMPHOLOGY Negative for prolonged bleeding, bruising easily, and swollen nodes. ENDOCRINE: Negative for cold or heat intolerance, polyuria, polydipsia and goiter. NEURO: negative Physical Exam: Constitutional: Pt is a well developed 32 year old male who is alert, oriented and cooperative Eyes: Following during examination. No redness or drainage. Respiratory: RR normal and nonlabored. Even breathing. No evidence of distress or shortness of breath. Psychology: Patient is engaged during conversation. Normal affect and mood. Does not appear depressed or anxious during encounter. Vascular: Dorsalis pedis and posterior tibial pulses palpable as b/l Capillary Fill time < 5 seconds to digits 1-5 b/l Skin temperature warm to warm proximal to distal b/l Hair growth present to digits Neurological: intact light touch/epicritic sensation - tinel b/l intact protective sensation no significant neurological deficits Dermatological: Nails 1-5 b/l appear normal. Webspaces clean and dry 1-4 b/l. Skin appears well hydrated and supple. good color, texture, turgor. No open lesions present. No callosities present. Musculoskeletal/Orthopaedic: Patient has pain to palpation of right posterior ankle/achilles tendon. The achilles tendon is bulbous however no tear is idenitifed. There is pain to palpation of left plantar medial calcaneal tubercle Foot type is neutral structurally AJ ROM is decreased with knee extended and flexed 1st MPJ is full when loaded and no pain or crepitus are noted with ROM. MTJ, STJ are full and free of pain and crepitus. +5/5 muscle strength dorsiflexion, plantarflexion, inversion, eversion b/l Limon test produces plantarflexion b/l Radiographs: 3 views b/l foot ordered August 26, 2022: I have personally reviewed and interpreted these XR myself: plantar heel spur. 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 Initial Office Visit - A thorough review of the patient's PMH and Podiatric physical exam was completed. 2. Patient advised to perform stretching excercises, icing, and to make appropriate shoe gear changes to include wearing athletic-type shoes with supportive insoles. No barefoot walking. Patient also given written instructions on how to correctly perform the stretching of the achilles tendon/calf stretches, and the heel spur/plantar fasciitis regimen. 3. Patient advised to seek wide, deep toe box, accomodative, comfortable, lace-up, athletic/walking type footwear that includes motion control characteristics for support and cushion that need to be worn at all times when weight-bearing. Shoes should be tested for torsional stability as well as proper bending at the toebox rather than at the midfoot. Good quality shoes such as, but not limited to, New Balance or Asics are examples of more proper foot gear. 4. Patient recommended to get powerstep insoles for proper support of the arch in order to alleviate the tension and stress on the plantar fascia associated with normal daily walking. Patient advised that these modalities used in conjunction with stretching and icing are able to alleviate most symptoms from this condition. 5. Will make referral to therapy. 6. Discussed injection. Patient elected to receive. Patient elected to proceed with an injection to the heel today. The risks, benefits, potential complications, personnel present, and alternatives to this were discsussed. Pt elected to proceed. all questions were answered. no guarantees were given. A timeout was performed. patient properly identified. procedure site marked. Under aseptic technique an injection was performed to the heel using a mixture of cc of 0.5 % Marcaine plain, of kenalog and cc of dexamethazone 7. Discussed pain in right achilles tendon. The right achilles tendon is bulbous however no rupture is idenfitied. Will treat with inserts and referral to therapy. If pain fails to improve, could consider surgical debridement. Patient informed of risk of rupture. JANES Fuentes DPM Podiatry [address] [facility] [address] Dept: [phone] Dept AMB ROOMING INTAKE FLOWSHEET DATA Risk Screening Do you have concerns about personal safety or safety in the home?: No Pain Pain Level: 6 (6-8/10) Pain Location: Other: See Comment (B/L heels) Description: Sharp, Aching Duration Amount of Time: 8 Duration Units: Months Frequency: Intermittent Intervention/Comfort measure: Reposition, Relaxation, Medication (Tylenol) Patient presents with: Left Foot - New Patient, Pain Right Foot - New Patient, Pain Patient c/o b/l heel pain. Started in R heel near achilles tendon about 8 months ago. No injury. Patient developed pain in L heel from compensating. He has had XR completed. Hasn't done much for pain, takes Tylenol PRN. documented in this encounter [facility] 08-26-2022 Instructions David Motley - 08/26/2022 8:36 AM EST Images from the original note were not included. Powerstep Original Full length. Can purchase at [employer] here in [place], [employer] in [place] or [place]. Also can find in [place] in [facility]. Powersteps can also be purchased online, starting around $25.00 If you have a metatarsal or dancer pad for your feet apply the pad directly to the insole so you can interchange between your shoes. Find a shoe with a removable insole and take this out and replace with your powerstep insole. Always bring powersteps with you when shopping for shoes so that you can make sure that everything fits well together What is Plantar Fasciitis? Plantar fasciitis is the most common cause of heel pain. The pain is caused by inflammation of the plantar fascia. If you strain your plantar fascia, it becomes weak, swollen and irritated (inflamed). The resulting pain may be isolated in the heel or may appear at different points on the bottom of the foot, from time to time; it may occur in one foot or both. Some think that plantar fasciitis pain is caused by irritation of nerves from tissue swelling or inflammation, but it is debatable. Plantar fasciitis is common in middle-aged people; it also occurs in younger people who are on their feet a lot, such as athletes or soldiers. The plantar fascia is a strong band of connective tissue that extends from the base of the toes, along the bottom of the foot, to the bottom of the heel (calcaneous bone); it acts like a bowstring to maintain the arch of the foot. What are heel spurs? The inflammatory reaction of the heel bone may produce spike-like projections of new bone, called heel spurs. The spurs sometimes show on X-rays. They neither cause the initial pain nor do they cause the initial problem. However, later, having to walk on spurs may cause sharp pain. What causes plantar fasciitis? Plantar fasciitis is caused by straining the ligament that supports your arch. Repeated strain can cause tiny tears in the ligament. These lead to pain and swelling. During walking, the plantar fascia experiences tension up to twice the body weight with each step. While this is normal, those who spend much time on their feet, such as nurses, pipe cleaning machine operator/waiters, and mail carriers, often experience plantar fasciitis. Athletes involved in tennis or other racquet sports, race walking, jogging or running also show a higher incidence of plantar fasciitis than do those participating in other activities. Thus, it's clear that plantar fasciitis is predominantly an overuse injury. In fact, any activity that results in prolonged tension and stress on the plantar fascia may cause plantar fasciitis. It is possible that changes in footwear may play a role in causing plantar fasciitis, no matter what activity is occurring. Those who are overweight are prone to plantar fasciitis. This is true even for sedentary people who get little physical activity. Abnormalities of the foot and ankle joints may predispose some individuals to development of plantar fasciitis (specifically, over pronation of the subtalar joint). Contributing Factors * Flat feet * Toe running, hill running * Sudden weight increase * High-arched, rigid feet * Soft terrain, e.g. running on sand * Obesity * Pronated feet (rolled inward) * Sudden increase in activity * Family tendency * Poor shoe support * Worn out or poorly fitted shoes * Increasing age * Walking, standing or running for long periods of time, especially on hard surfaces. How is the Injury Treated? Rest Your Feet: Limit, or if possible, stop activities that are causing your heel pain. Try to avoid running or walking on hard surfaces, such as concrete. Use pain as your guide. If your foot is too painful, rest it. Ice: Ice the sore area for 30 to 60 minutes, several times a day, to reduce inflammation and relieve pain. Apply a plastic bag of crushed ice (or a bag of frozen peas) over a towel. Ice the sore area for 15 minutes after activity/exercise. Application of heat is not generally recommended, as heat expands the bone and connective tissue, perhaps exerting greater pressure on nerves and thereby increasing pain. If heat is used, follow it with ice. Medication: If your condition developed recently, anti-inflammatory/analgesic medication, combined with heel pads (see below) may be all that is necessary to relieve pain and to reduce inflammation. If no pain relief has occurred after 2-3 weeks, however, your doctor may inject either cortisone or local anesthetic directly into the tender area. Exercises: Do simple exercises, such as calf stretches and towel stretches (see below) several times a day, especially when you first get up in the morning. These can help your ligament become more flexible and strengthen the muscles that support your arch. Shoes: Poorly fitting shoes can cause plantar fasciitis. The best type of shoe to wear is a good walking or running shoe with good shock absorption and excellent arch support. You should choose the one that fits the best. [place] with your athletic shoes to find a pair that is comfortable and causes fewer symptoms. Put your shoes on as soon as you get out of bed; going barefoot or wearing slippers may make your pain worse. Good brands include (but are not limited to): New Balance, Asics, Saucony, SAS and Merrel s. Taping: Your doctor may tape your foot to maintain the arch. This takes some of the tension off the plantar fascia. Weight Loss: If your weight is putting extra stress on your feet, your doctor may encourage you to try a weight-loss program. Orthotics: An orthotic insole is a molded piece of rubber, plastic, or other material that you insert into your shoe. It corrects the alignment of your foot and cushions your foot from excessive pounding. These may be prescription or non-prescription. Prescription orthotics are custom-fitted and may fit better and control pain better, but are very expensive. Night Splints: A night splint holds the foot with the toes pointed up and the ankle at a 90-degree angle. This position applies a constant, gentle stretch to the plantar fascia. Corticosteroid Shots: Steroids may be injected into the tender area to reduce inflammation. REHAB Exercises to stretch the plantar fascia, the calf muscles, and the Achilles tendon. Tightness of the muscles of the calves may contribute to plantar fasciitis, so stretching the calf muscles is important to rehabilitation, as is stretching of the plantar fascia itself. Plantar fascial stretches Assisted Dorsiflexion/Plantar Fascia Stretch: Sit on the floor or ground, barefoot, with both legs outstretched. Use a towel or elastic band and wrap it around the ball (and not the toes) of the affected foot. Use the towel or elastic band to provide resistance to upward movement of the forefoot. Pull foot upward (toward your body) with the help of the elastic band or towel, and then return to the starting position. Ten repetitions are recommended. Perform the sequence at least three times a day. Alternate Plantar Fascia Stretch: Sit upright in a chair, barefoot. Place the ankle of the affected foot on your opposite knee. Using the same hand as the affected foot, reach across and grab the toes. Flex the ankle toward and pull the toes toward the dunn. To test the stretch, place the thumb of your hand on the bottom of the foot. You should be able to feel the cord-like plantar fascia, running the length of the foot. Hold the stretch for a count of 10, then relax. Repeat 10 times. Do the sequence at least three times a day. Achilles/Calf Stretches Strengthening the muscles of the calves may contribute to successful rehabilitation of plantar fasciitis, as well as prevent reoccurrence. The exercises below will help strengthen the calf muscles. Calf and Achilles Tendon Stretch (Gastrocnemius Stretch): Face a wall, standing an arm's length away. Place one foot back. Place both hands on the wall. Bend the elbows and knee of your forward leg, keeping the heel of the backward foot on the floor and keeping your body straight (aligned), until your forehead nearly touches the wall, or until significant stretch is felt in the muscles of the calf of the backward leg. Hold this position for 10 to 15 seconds. Extend elbows (straighten your arms and stand upright again) and maintain this position for 10 seconds. Repeat this cycle 15 to 20 times. Switch legs and repeat the exercise. STEROID INJECTION You have been injected with a corticosteroid and local anesthesia today. This should provide relief of symptoms for the next 8 hours or so. After this time frame you will likely experience an increase in pain symptoms again until the effects of the steroid start to work, which should occur within 24-48 hours. Approximately 2% of individuals may experience a post injection flare or severe worsening of symptoms following injection. If this occurs ice the area and take Tylenol or Aleve for pain. In some very rare instances skin depigmentation and joint infection may occur. Joint infection is a concern if you experience any of the following: pain for more than 48 hours after the injection pain develops more than 2 days after the injection the area becomes red, hot or swollen you develop a fever following the injection Corticosteroid injections can also rarely interfere with the healing process and weaken tendons, sometimes causing tendons to rupture. Repeated injections of steroids can also damage joint cartilage. For these reasons, there are limits to how many times and how frequently corticosteroid injections can be used in the same area. If anything seems unusual or out of the ordinary please contact our office as soon as possible for further instruction. documented in this encounter [facility] 08-10-2022 Miscellaneous Notes Please see pt's message. Nany Dumont LPN documented in this encounter [facility] 07-23-2022 Miscellaneous Notes Patient notified of results and provider's instructions. Patient verbalizes understanding. Kizzy Han RN Left message for pt to contact office. Nany Dumont LPN Let patient know that his cholesterol is up compared to last year. Likely related to his weight gain and decreased activity. Watch diet. Rest of labs are all normal. Xray shows the heel spurs,but no acute changes. Continue with seeing podiatry. documented in this encounter [facility] 07-22-2022 History of Presen t illness Narrative Chief Complaint Patient presents with: Yearly Exam HPI Lenore Lee is a 31 year old male who presents here today for physical. Patient with hx of HTN, Hypothyroid, GERD, and those as below. Is currently seeing gastro and being worked up to rule out crohn's dz. Patient has had some bilateral foot pain. More on the back of his R foot and then plantar surface of left foot. Pain worse first thing in the morning and if he stands too long. Last 3 Encounter BP Readings: Date: BP: 07/22/2022 150/100 03/27/2022 125/79 03/02/2022 140/72 Past medical history, appointments, medications, allergies reviewed. Previous Medical History PAST MEDICAL HISTORY Diagnosis Date Epidermal inclusion cyst 01/12/2018 Right neck below ear lobe, removed 12/2017 Family history of MN (myocardial infarction) 06/15/2018 GERD without esophagitis 12/15/2017 Hypertension, essential 12/15/2017 Hypothyroidism, acquired 12/15/2017 Lipoma of unspecified site 03/02/2014 Previous Surgical History PAST SURGICAL HISTORY Procedure Laterality Date COLONOSCOPY 03/27/2022 EGD W/O BRSH SPEC VARICIES INJ 03/27/2022 LEXISCAN STRESS TEST 04/14/2019 negative MYRINGOTOMY HX TONSILLECTOMY HX Family History FAMILY HISTORY Problem Relation Age of Onset Hypertension Mother other (migraine) Mother other (migraine) Brother other (migraine) Brother Stroke Maternal Grandmother Breast Cancer Maternal Grandmother Cancer Maternal Grandmother lung Coronary Artery Disease Father is 50 yo and had 8 MN's prior to this Patient Allergies ALLERGIES No Known Allergies Current Medications Current Outpatient Medications on File Prior to Visit Medication Sig lisinopril (ZESTRIL, PRINIVIL) 5 mg tablet Take 1 tablet by mouth once daily. levothyroxine (SYNTHROID) 50 mcg tablet Take 1 tablet by mouth daily before breakfast. omeprazole (PRILOSEC) 20 mg capsule Take 2 capsules by mouth once daily. cyclobenzaprine (FLEXERIL) 10 mg tablet Take 1 tablet by mouth three times daily as needed for muscle spasm. glucagon (GLUCAGEN) 1 mg/mL injection Inject 1 mg intravenously one time only for 1 dose. For MRI Enterography, Inject 1 mg intravenously, as directed. Slow push at the appropriate time during MRI Scan peg 3350-Electrolytes (GOLYTELY) 236-22.74-6.74 -5.86 gram suspension Refer to printed prep instructions from your provider. (Patient not taking: Reported on 07/22/2022) No current facility-administered medications on file prior to visit. Social History Social History Tobacco Use Smoking status: Never Smokeless tobacco: Never Vaping Use Vaping Use: Never used Substance Use Topics Alcohol use: Yes Comment: occasional Drug use: No Review of Symptoms REVIEW OF SYSTEMS GENERAL: No weight loss, malaise or fevers HEENT: No changes in hearing or vision, no nose bleeds or other nasal problems NECK: Negative for lumps, goiter, pain and significant neck swelling RESPIRATORY: Negative for cough, hemoptysis, wheezing, COPD, dyspnea or shortness of breath CARDIOVASCULAR: Negative for chest pain, leg swelling, CHF or palpitations GI: overall improving. See hpi. Seeing gastro : No history of dysuria, frequency or incontinence MUSCULOSKELETAL: see hpi. SKIN: Negative for lesions, rash, and itching PSYCH: Negative for sleep disturbance, mood disorder and recent psychosocial stressors HEMATOLOGY/LYMPHOLOGY: Negative for prolonged bleeding, bruising easily or swollen nodes ENDOCRINE: Negative for cold or heat intolerance, polyuria, polydipsia and goiter NEURO: No history of headaches, syncope, paralysis, seizures or tremors EXAM: BP 150/100 (BP Site: Left Arm, BP Position: Sitting, BP Cuff Size: Large Adult) Pulse 76 Temp 36.6 C (97.9 F) Resp 18 Ht 175.5 cm (5' 9.09) Wt 114.3 kg (252 lb) BMI 37.11 kg/m BP 126/86 (BP Site: Left Arm, BP Position: Sitting, BP Cuff Size: Extra Large Adult) Pulse 74 Temp 36.6 C (97.9 F) Resp 18 Ht 175.5 cm (5' 9.09) Wt 114.3 kg (252 lb) BMI 37.11 kg/m Last 3 Encounter Wt Readings: Date: Wt: 07/22/2022 114.3 kg (252 lb) 03/02/2022 112 kg (247 lb) 12/22/2021 111.4 kg (245 lb 8 oz) General Appearance: Well appearing, alert, in no acute distress, well-hydrated, well nourished.. Skin: Skin color, texture, turgor normal, no suspicious rashes or lesions. Head: Normocephalic, no masses, lesions, tenderness or abnormalities. Eyes: Anicteric sclera. Pupils are equally round and reactive to light. Extraocular movements are intact. . Ears: TMs pink, bulging and fluid noted, External ears normal, canals clear. Nose/Sinuses: Nares normal, septum midline, mucosa normal, no drainage or sinus tenderness. Neck: Supple, no adenopathy; thyroid symmetric, normal size, no bruits. Lungs: Lungs clear to auscultation. No wheezing, rhonchi, rales.. Heart: RRR without murmur, gallop, or rubs. No ectopy. Abdomen: Normal abdominal exam, Abdomen soft, non-tender. Bowel sounds normal. No masses, organomegaly. Extremities: No deformities, edema, skin discoloration, clubbing or cyanosis. Good capillary refill. . Musculoskeletal: +pain to palp of posterior Right heel and plantar arch of left foot. Peripheral Pulses: Normal. Neurologic: Gait normal. Reflexes normal and symmetric. Sensation grossly intact.. Health Maintenance List HEPATITIS B(1 of 3 - 3-dose series) Never done HEPATITIS C SCREENING Never done HIV SCREENING Never done BP CONTROLLED (<130/80) Never done COVID-19 VACCINE(3 - Booster for Pfizer series) due on 07/04/2021 DEPRESSION ASSESSMENT Never done INFLUENZA(1) due on 04/23/2022 ANNUAL PCP TEAM CHRONIC DISEASE VISIT due on 12/22/2022 DTAP,TDAP,TD(2 - Td or Tdap) due on 04/18/2031 Data reviewed N/a ASSESSMENT/PLAN: 1. Well adult exam - ICD9: V70.0, ICD10: Z00.00 (primary diagnosis) - Counseled on healthy diet and regular exercise - Discussed need for and benefit of weight loss. BMI 37.11 kg/(m^2) 2. Hypertension, essential - ICD9: 401.9, ICD10: I10 - good control - Continue current medication(s) - Recommended regular aerobic exercise. - Recommend home blood pressure monitoring, to bring results in on next visit - Goal of BP <130/80 - COMP METABOLIC PANEL 3. Heel pain, bilateral - ICD9: 729.5, ICD10: M79.671, M79.672 Patient has been trying conservative therapies already Will set up with podiatry and get xrays. - CONSULT TO PODIATRY - XR FOOT GENERAL 3V AP/LAT/OBL BILATERAL 4. Hypothyroidism, acquired - ICD9: 244.9, ICD10: E03.9 - Instructed patient on importance of taking on an empty stomach either first thing in the morning or at bedtime. - check TSH today - TSH BLD 5. Encounter for screening for diabetes mellitus - ICD9: V77.1, ICD10: Z13.1 - HGB A1C 6. Encounter for lipid screening for cardiovascular disease - ICD9: V77.91, V81.2, ICD10: Z13.220, Z13.6 - LIPID PANEL, NONFASTING 7. OME (otitis media with effusion), bilateral - ICD9: 381.4, ICD10: H65.93 - discussed antibiotic, however patient does not want to take atb unless symptoms worsen. So will have him try flonase and to update me in 1-2 weeks or sooner if symptoms are worsening. Follow up routine in 6 months. Lise Lundberg PA-C documented in this encounter [facility] 06-16-2022 Miscellaneous Notes Appt scheduled for 07/22. Pt needed a Weds appt. First available with 40 min. Dulce Maria Dumont LPN Left a message for pt to call the office and ask to speak to a nurse. Carla Tesfaye LPN Advise patient he needs to set up a complete PE in the next 3 months. Per last office note in 12/2021 he was to set one up in June but appears he did not. The following approved medication requests have been transmitted electronically. Requested Prescriptions Signed Prescriptions Disp Refills lisinopril (ZESTRIL, PRINIVIL) 5 mg tablet 90 tablet 0 Sig: Take 1 tablet by mouth once daily. Authorizing Provider: VERN RODARTE levothyroxine (SYNTHROID) 50 mcg tablet 90 tablet 0 Sig: Take 1 tablet by mouth daily before breakfast. Authorizing Provider: VERN RODARTE MD Last office visit: 12/22/21 F/u scheduled: none Bárbara Cobos Ma documented in this encounter [facility] 04-08-2022 History of Presen t illness Narrative VIRTUAL VISIT FOLLOW UP I had a virtual visit with Mr. Lee today for follow up of chronic diarrhea.(EGD and Colonoscopy 03/27/2022) UPDATED HISTORY: The patient was seen by on 03/27/2022 for upper endoscopy for symptoms of diarrhea. The procedure report has been reviewed and findings as follows: Impression: - Normal first portion of the duodenum and second portion of the duodenum. Biopsied. - Normal stomach. Biopsied. - Z-line irregular. Biopsied. - Small hiatal hernia. Impression: - Non-bleeding internal hemorrhoids. - Biopsies were taken with a cold forceps from the entire colon for evaluation of microscopic colitis. FINAL DIAGNOSIS A. Duodenum, biopsy: - Small bowel mucosa with intact villous architecture and mildly increased intraepithelial lymphocytes. - See comment. B. Stomach, biopsy: - Antral and fundic mucosa with no diagnostic alteration. - No evidence of H. pylori. C. Esophagogastric junction, biopsy: - Reactive squamous mucosa and inflamed cardiac mucosa. - No evidence of intestinal metaplasia or dysplasia. D. Random colon, biopsy: - Focal active colitis. - Negative for dysplasia or granulomas. Patient reports having 3-4 soft BM daily - denies seeing black or blood in the stools. He reports taking imodium twice daily to management symptoms. Still having lower abdominal pain PAST MEDICAL HISTORY Diagnosis Date Epidermal inclusion cyst 01/12/2018 Right neck below ear lobe, removed 12/2017 Family history of MN (myocardial infarction) 06/15/2018 GERD without esophagitis 12/15/2017 Hypertension, essential 12/15/2017 Hypothyroidism, acquired 12/15/2017 Lipoma of unspecified site 03/02/2014 PAST SURGICAL HISTORY Procedure Laterality Date COLONOSCOPY 03/27/2022 EGD W/O BRSH SPEC VARICIES INJ 03/27/2022 LEXISCAN STRESS TEST 04/14/2019 negative MYRINGOTOMY HX TONSILLECTOMY HX FAMILY HISTORY Problem Relation Age of Onset Hypertension Mother other (migraine) Mother other (migraine) Brother other (migraine) Brother Stroke Maternal Grandmother Breast Cancer Maternal Grandmother Cancer Maternal Grandmother lung Coronary Artery Disease Father is 50 yo and had 8 MN's prior to this Social History Tobacco Use Smoking status: Never Smokeless tobacco: Never Vaping Use Vaping Use: Never used Substance Use Topics Alcohol use: Yes Comment: occasional Drug use: No Current Outpatient Medications Medication Sig Dispense Refill budesonide, enteric coated (ENTOCORT EC) 3 mg 24 hr capsule Take 3 capsules by mouth once daily for 30 days, THEN 2 capsules once daily for 30 days, THEN 1 capsule once daily. 180 capsule 0 glucagon (GLUCAGEN) 1 mg/mL injection Inject 1 mg intravenously one time only for 1 dose. For MRI Enterography, Inject 1 mg intravenously, as directed. Slow push at the appropriate time during MRI Scan 1 Each 0 peg 3350-Electrolytes (GOLYTELY) 236-22.74-6.74 -5.86 gram suspension Refer to printed prep instructions from your provider. 4000 mL 0 omeprazole (PRILOSEC) 20 mg capsule Take 2 capsules by mouth once daily. 180 capsule 2 lisinopril (ZESTRIL, PRINIVIL) 5 mg tablet Take 1 tablet by mouth once daily. 90 tablet 1 levothyroxine (SYNTHROID) 50 mcg tablet Take 1 tablet by mouth daily before breakfast. 90 tablet 1 cyclobenzaprine (FLEXERIL) 10 mg tablet Take 1 tablet by mouth three times daily as needed for muscle spasm. 30 tablet 2 No current facility-administered medications for this visit. ALLERGIES No Known Allergies PHYSICAL FINDINGS OF NOTE: General - Normal, healthy, cooperative, in no acute distress Able to interact verbally by video conference Psych - ORIENTATION: normal to time place, person and situation Mood/Affect: AFFECT AND MOOD: Normal Head/Neuro - Normal size and shape Facial appearance normal Pulmonary - respiratory effort normal Abdominal - Not performed Skin - abnormal lesions not visualized Motor - patient seen sitting with Normal appearing strength and coordination IMPRESSION (K52.9) Chronic diarrhea (primary encounter diagnosis) (R12) Heartburn (K21.9) GERD without esophagitis (R10.84) Generalized abdominal pain (K52.9) Focal active colitis RECOMMENDATION: Assessment/Plan (K52.9) Chronic diarrhea (primary encounter diagnosis) (R12) Heartburn (K21.9) GERD without esophagitis (R10.84) Generalized abdominal pain (K52.9) Focal active colitis 1. Chronic diarrhea I have reviewed the procedure and pathology reports, as well as the images, with the patient. Pathology showed focal active colitis - recent calprotectin 170.1 - due to increasing calprotectin will order MRI to r/o possible Crohn's - will start entocort taper - MRI ABD ENTEROG WO/W IVCON; Future 2. Heartburn - continue PPI treatment - recent EGD I have reviewed the procedure and pathology reports, as well as the images, with the patient. - increased intraepithelial lymphocytes - will r/o celiac disease 3. GERD without esophagitis 4. Generalized abdominal pain - MRI ABD ENTEROG WO/W IVCON; Future - MRI PEL ENTEROG WO/W IVCON; Future 5. Focal active colitis - MRI ABD ENTEROG WO/W IVCON; Future - CELIAC SCREEN WITH REFLEX; Future Follow up in office 3 months/PRN. Recommended to please call office/go to ER if fever, chills, chest pain, SOB, diarrhea, nausea, emesis, worsening abdominal pain, dehydration occurs I spent a total of 30 minutes on the date of the service which included preparing to see the patient, [id number] patient care, completing clinical documentation, obtaining and/or reviewing separately obtained history, performing a medically appropriate examination, counseling and educating the patient/family/caregiver, ordering medications, tests, or procedures, communicating with other HCPs (not separately reported), independently interpreting results (not separately reported), communicating results to the patient/family/caregiver, and care coordination (not separately reported). Serena Cannon APRN.CNP documented in this encounter [facility] 03-27-2022 Nurse Note Pt received in PACU. Pt extremely drowsy, but arouses fairly easily. Appears comfortable. Abd soft and non distended. Fiona Bryan RN documented in this encounter [facility] 03-27-2022 History and physical note UPDATED PROCEDURAL SEDATION HISTORY AND PHYSICAL EXAMINATION SERVICE DATE: 03/27/2022 SERVICE TIME: 12:12 PHYSICAL EXAM MUST BE COMPLETED ON ADMISSION PROCEDURE: EGD and colonoscopy, possible biopsies Procedure Indications: heartburn and dairrhea The History and Physical (completed in the past 30 days) has been reviewed and the patient has been examined. The contents accurately reflect the patient's condition with the following additions or revisions since the H&P was completed. ASA Class: ASA Class:: Patient with mild systemic disease Examination indicates no changes. AIRWAY: Airway Visualization of Uvula: Yes Mouth opening greater than 2 fingerbreadths: Yes Neck Full Range of Motion: Yes LUNGS: Lungs clear to auscultation CARDIAC: Regular rhythm,Regular rate Provisional Diagnosis/Treatment Plan: EGD and colonoscopy, possible biopsies SEDATION GOAL: Moderate This H&P can be found in the Electronic Medical Record . SIGNATURE: Laura Ledezma MD PATIENT NAME: Lenore Lee DATE: March 27, 2022 TIME: 12:13 PM Source Note - Laura Ledezma MD - 03/27/2022 12:45 PM EDT CHIEF COMPLAINT: Patient presents with: Abdominal Pain: all the time describes it pressure/achy/sharp GERD: treats with omeprazole with heartburn and vomits about 1 time weekly Diarrhea: watery but with clumps with an average of about 5 episodes a day. Treats with imodium when it is really bad Nausea: with vomiting Lenore Lee is a 31 year old male who presents for Abdominal Pain (all the time describes it pressure/achy/sharp), GERD (treats with omeprazole with heartburn and vomits about 1 time weekly), Diarrhea (watery but with clumps with an average of about 5 episodes a day. Treats with imodium when it is really bad), and Nausea (with vomiting). HPI: The patient reports change in bowel habits for the last 8 months worsening, denies black stool, rectal bleeding. PAtient reports having lower abdominal pain LLQ and RLQ And sometimes in his back. Having a bowel movement 5-8 times a day PAtient reports taking imodium and this helped Patient reports of hemorrhoids denies any problems pain or bleeding Patient reports if he has a empty stomach he worsening abdominal pain and nausea and vomiting. He reports his insides feel like they are twisted or huge knot. Vomiting is what helps reduce the pain. Over the last 6 months he has noticed more symptoms of heartburn and certain foods causing symptoms. Patient reports bloating, Patient reports he is always hungry. Epigastric pain Reports gained weight and feels like he needs to eat to make sure he does not feel worse Record Review: [facility] / Outside records reviewed. PAST MEDICAL HISTORY PAST MEDICAL HISTORY Diagnosis Date Epidermal inclusion cyst 01/12/2018 Right neck below ear lobe, removed 12/2017 Family history of MN (myocardial infarction) 06/15/2018 GERD without esophagitis 12/15/2017 Hypertension, essential 12/15/2017 Hypothyroidism, acquired 12/15/2017 Lipoma of unspecified site 03/02/2014 PAST SURGICAL HISTORY PAST SURGICAL HISTORY Procedure Laterality Date LEXISCAN STRESS TEST 04/14/2019 negative MYRINGOTOMY HX Allergies: ALLERGIES ALLERGIES No Known Allergies Medications: CURRENT MEDICATIONS lisinopril (ZESTRIL, PRINIVIL) 5 mg tablet Take 1 tablet by mouth once daily. levothyroxine (SYNTHROID) 50 mcg tablet Take 1 tablet by mouth daily before breakfast. cyclobenzaprine (FLEXERIL) 10 mg tablet Take 1 tablet by mouth three times daily as needed for muscle spasm. omeprazole (PRILOSEC) 20 mg capsule Take 2 capsules by mouth once daily. 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 HENT: Positive for trouble swallowing. Gastrointestinal: Positive for abdominal distention, abdominal pain, diarrhea, nausea and vomiting. All other systems reviewed and are negative. Are you taking any blood thinners? No Physical Examination: BP 140/72 Pulse 98 Ht 5' 9.291 (1.76m) Wt 247 lb (112.0kg) SpO2 98% BMI 36.17 kg/(m^2). Physical Exam Constitutional: Appearance: Normal appearance. He is normal weight. HENT: Head: Normocephalic and atraumatic. Eyes: Extraocular Movements: Extraocular movements intact. Pupils: Pupils are equal, round, and reactive to light. Cardiovascular: Rate and Rhythm: Normal rate and regular rhythm. Pulses: Normal pulses. Heart sounds: Normal heart sounds. Pulmonary: Effort: Pulmonary effort is normal. Breath sounds: Normal breath sounds. Abdominal: General: Abdomen is flat. Bowel sounds are normal. Palpations: Abdomen is soft. Tenderness: There is generalized abdominal tenderness and tenderness in the epigastric area. Musculoskeletal: General: Normal range of motion. Cervical back: Normal range of motion and neck supple. Skin: General: Skin is warm and dry. Neurological: General: No focal deficit present. Mental Status: He is alert and oriented to person, place, and time. Psychiatric: Mood and Affect: Mood normal. Behavior: Behavior normal. ASSESSMENT: Chronic diarrhea Heartburn (primary encounter diagnosis) Nausea and vomiting, unspecified vomiting type Discussion/Plan/Recommendations: I have discussed the above with the patient. I have offered colonoscopy and EGD, possible biopsies I have explained the procedure to the patient. I have counseled the patient as to the risks of the procedure, including but not limited to: infection, bleeding, injury to any intrabdominal organs such as liver/spleen, perforation of the GI tract, inability to complete the procedure, complications of anesthesia, etc. - the patient understands. The patient wishes to proceed. I have answered all questions to the patient s satisfaction and the patient has no further questions. CHIEF COMPLAINT: Patient presents with: Abdominal Pain: all the time describes it pressure/achy/sharp GERD: treats with omeprazole with heartburn and vomits about 1 time weekly Diarrhea: watery but with clumps with an average of about 5 episodes a day. Treats with imodium when it is really bad Nausea: with vomiting Lenore Lee is a 31 year old male who presents for Abdominal Pain (all the time describes it pressure/achy/sharp), GERD (treats with omeprazole with heartburn and vomits about 1 time weekly), Diarrhea (watery but with clumps with an average of about 5 episodes a day. Treats with imodium when it is really bad), and Nausea (with vomiting). HPI: The patient reports change in bowel habits for the last 8 months worsening, denies black stool, rectal bleeding. PAtient reports having lower abdominal pain LLQ and RLQ And sometimes in his back. Having a bowel movement 5-8 times a day PAtient reports taking imodium and this helped Patient reports of hemorrhoids denies any problems pain or bleeding Patient reports if he has a empty stomach he worsening abdominal pain and nausea and vomiting. He reports his insides feel like they are twisted or huge knot. Vomiting is what helps reduce the pain. Over the last 6 months he has noticed more symptoms of heartburn and certain foods causing symptoms. Patient reports bloating, Patient reports he is always hungry. Epigastric pain Reports gained weight and feels like he needs to eat to make sure he does not feel worse Record Review: [facility] / Outside records reviewed. PAST MEDICAL HISTORY PAST MEDICAL HISTORY Diagnosis Date Epidermal inclusion cyst 01/12/2018 Right neck below ear lobe, removed 12/2017 Family history of MN (myocardial infarction) 06/15/2018 GERD without esophagitis 12/15/2017 Hypertension, essential 12/15/2017 Hypothyroidism, acquired 12/15/2017 Lipoma of unspecified site 03/02/2014 PAST SURGICAL HISTORY PAST SURGICAL HISTORY Procedure Laterality Date LEXISCAN STRESS TEST 04/14/2019 negative MYRINGOTOMY HX Allergies: ALLERGIES ALLERGIES No Known Allergies Medications: CURRENT MEDICATIONS lisinopril (ZESTRIL, PRINIVIL) 5 mg tablet Take 1 tablet by mouth once daily. levothyroxine (SYNTHROID) 50 mcg tablet Take 1 tablet by mouth daily before breakfast. cyclobenzaprine (FLEXERIL) 10 mg tablet Take 1 tablet by mouth three times daily as needed for muscle spasm. omeprazole (PRILOSEC) 20 mg capsule Take 2 capsules by mouth once daily. 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 HENT: Positive for trouble swallowing. Gastrointestinal: Positive for abdominal distention, abdominal pain, diarrhea, nausea and vomiting. All other systems reviewed and are negative. Are you taking any blood thinners? No Physical Examination: BP 140/72 Pulse 98 Ht 5' 9.291 (1.76m) Wt 247 lb (112.0kg) SpO2 98% BMI 36.17 kg/(m^2). Physical Exam Constitutional: Appearance: Normal appearance. He is normal weight. HENT: Head: Normocephalic and atraumatic. Eyes: Extraocular Movements: Extraocular movements intact. Pupils: Pupils are equal, round, and reactive to light. Cardiovascular: Rate and Rhythm: Normal rate and regular rhythm. Pulses: Normal pulses. Heart sounds: Normal heart sounds. Pulmonary: Effort: Pulmonary effort is normal. Breath sounds: Normal breath sounds. Abdominal: General: Abdomen is flat. Bowel sounds are normal. Palpations: Abdomen is soft. Tenderness: There is generalized abdominal tenderness and tenderness in the epigastric area. Musculoskeletal: General: Normal range of motion. Cervical back: Normal range of motion and neck supple. Skin: General: Skin is warm and dry. Neurological: General: No focal deficit present. Mental Status: He is alert and oriented to person, place, and time. Psychiatric: Mood and Affect: Mood normal. Behavior: Behavior normal. ASSESSMENT: Chronic diarrhea Heartburn (primary encounter diagnosis) Nausea and vomiting, unspecified vomiting type Discussion/Plan/Recommendations: I have discussed the above with the patient. I have offered colonoscopy and EGD, possible biopsies I have explained the procedure to the patient. I have counseled the patient as to the risks of the procedure, including but not limited to: infection, bleeding, injury to any intrabdominal organs such as liver/spleen, perforation of the GI tract, inability to complete the procedure, complications of anesthesia, etc. - the patient understands. The patient wishes to proceed. I have answered all questions to the patient s satisfaction and the patient has no further questions. documented in this encounter [facility] 03-19-2022 Miscellaneous Notes PLEASE SEE TE 03/02/22. Bishnu Fam MA Please call patient inform him positive occult and positive inflammatory markers - I have placed a order to add a colonoscopy with [facility]. Please review instructions with patient and get him scheduled for a colonoscopy at [facility] Thank Serena Cannon APRN.YUNIER documented in this encounter [facility] 03-13-2022 Instructions Serena Cannon APRN.CNP - 03/13/2022 4:29 PM EDT Images from the original note were not included. Bowel Preparation Instructions for: Golytely, Nulytely, Trilyte or Colyte (polyethylene glycol 3350 and electrolytes) IF YOU DO NOT FOLLOW THESE DIRECTIONS, YOUR COLONOSCOPY WILL BE CANCELLED. Constantino Instructions: Your bowel must be empty so that your doctor can clearly view your colon. Follow all of the instructions in this handout EXACTLY as they are written. Do NOT eat any solid food the ENTIRE day before your colonoscopy. Drink only clear liquids. Buy your bowel preparation at least 5 days before your colonoscopy. TRANSPORTATION on the Day of Your Exam A responsible person MUST be present with you at Check In prior to your colonoscopy and REMAIN in the endoscopy area until you are discharged. You are NOT ALLOWED to drive, take a taxi or bus, or leave the Endoscopy Center ALONE. If you do not have a responsible team cdl driver (family member or friend) with you to take you home, your exam cannot be done with sedation and will be cancelled. Please bring a list of all of your current medications, including any Over-the Counter medications with you. Medications If you take insulin, diabetic medications or blood thinners such as Coumadin (warfarin), Plavix (clopidogrel), Ticlid (ticlopidine hydrochloride), Agrylin (anagrelide), Xarelto (Rivaroxaban), Pradaxa (Dabigatran), Eliquis (Apixaban), and Effient (Prasugrel). You MUST call the doctors who orders those medicines for instructions on altering the dosage before your colonoscopy. All other medications should be taken the day of the exam with a sip of water including ASPIRIN. Five (5) Days Before Your Colonoscopy Do NOT take medicines that stop diarrhea - such as Imodium, Kaopectate, or Pepto Bismol. Do NOT take fiber supplements - such as Metamucil, Citrucel, or Perdiem. Do NOT take products that contain iron - such as multi-vitamins (the label lists what is in the products). Do NOT take Vitamin E. Buy the prescription bowel preparation solution at your local pharmacy or drugstore pharmacy. 1 07/2019 Bowel Preparation Instructions for: Golytely, Nulytely, Trilyte or Colyte (polyethylene glycol 3350 and electrolytes) Three (3) Days Before Your Colonoscopy Do NOT eat high-fiber foods - such as popcorn, beans, seeds (flax, sunflower, quinoa), multigrain bread, nuts, salad/vegetables, or fresh and dried fruit. One (1) Day Before Your Colonoscopy Only drink clear liquids the ENTIRE DAY before your colonoscopy. Do NOT eat any solid foods. Drink at least 8 ounces of clear liquids every hour after waking up. The clear liquids you can drink include: Clear Liquid (NO RED LIQUIDS) DO NOT DRINK Gatorade, Pedialyte or Powerade Clear broth or bouillon Coffee or tea (no milk or non-dairy creamer) Carbonated and non-carbonated soft drinks Ari-Aid or other fruit flavored drinks Strained fruit juices (no pulp) Jell-O, popsicles, hard candy Water Alcohol Milk or non-dairy creamers Noodles or vegetables in soup Juice with pulp Liquid you cannot see through The bowel preparation solution will be consumed in two parts. Mix the solution the evening before your colonoscopy and refrigerate before drinking. You may add the flavor pack that came with the bowel preparation. Do NOT add ice, sugar or any other flavorings to the solution. Part 1 At 6:00 PM - Evening before your colonoscopy Drink an 8-oz glass of bowel preparation every 10 minutes for a total of 8 glasses. You may continue to drink clear liquids until midnight. Part 2 On the day of your colonoscopy you may drink clear liquids up to (three) 3 hours before your procedure. 4 1/2 hours before your colonoscopy Drink an 8-oz glass of bowel preparation every 10 minutes for a total of 8 glasses. Fifteen (15) minutes later, drink an 8-oz glass of clear liquids every 15 minutes for a total of 2 glasses. You may continue to drink clear liquids up to (three) 3 hours before your exam. 2 07/2019 documented in this encounter [facility] 03-09-2022 Miscellaneous Notes Addressed in [facility] message dated 03/05/2022 documented in this encounter [facility] 03-06-2022 Miscellaneous Notes Patient would like this sent to [facility] instead of local Health system. documented in this encounter [facility] 03-02-2022 Miscellaneous Notes Patient is scheduled at [facility] on 03/27/[address] Ledezma for EGD. DX: Heartburn [R12 (ICD-10-CM)]; Nausea and vomiting, unspecified vomiting type [R11.2 (ICD-10-CM)] Verbal and written instructions given. documented in this encounter [facility] 03-02-2022 Instructions Serena Cannon APRN.CNP - 03/02/2022 11:57 AM EDT Stool studies Schedule EGD Please call the graduate teacher education, at [phone], to schedule your procedure. The endoscopy staff will call you the day before the procedure with specific on arrival time. (Wednesday for Wednesday procedures). Follow up after EGD this can be VV Start omeprazole 40mg daily on empty stomach and wait 30 min before eating Avoid NSAIDs (such as Advil, Ibuprofen, Excedrin, Mobic), tobacco, alcohol, carbonated beverages, caffeine, chocolate, tomato based sauces, spicy/fatty foods, and peppermint Avoid eating large meals. Avoid eating less than 3 hours before bed. Weight loss. Elevate the head of the bed 6 inches, or at least invest in a wedge pillow. documented in this encounter [facility] 03-02-2022 History of Presen t illness Narrative CHIEF COMPLAINT: Patient presents with: Abdominal Pain: all the time describes it pressure/achy/sharp GERD: treats with omeprazole with heartburn and vomits about 1 time weekly Diarrhea: watery but with clumps with an average of about 5 episodes a day. Treats with imodium when it is really bad Nausea: with vomiting This consult was requested by Lise Lundberg PA-C for an opinion regarding GERD symptoms and diarrhea . My final recommendations will be communicated to the requesting health care provider by way of the shared medical record for internal providers or letter via the [employer] for external providers. Lenore Lee is a 31 year old male who presents for Abdominal Pain (all the time describes it pressure/achy/sharp), GERD (treats with omeprazole with heartburn and vomits about 1 time weekly), Diarrhea (watery but with clumps with an average of about 5 episodes a day. Treats with imodium when it is really bad), and Nausea (with vomiting). HPI: The patient reports change in bowel habits for the last 8 months worsening, denies black stool, rectal bleeding. PAtient reports having lower abdominal pain LLQ and RLQ And sometimes in his back. Having a bowel movement 5-8 times a day PAtient reports taking imodium and this helped Patient reports of hemorrhoids denies any problems pain or bleeding Patient reports if he has a empty stomach he worsening abdominal pain and nausea and vomiting. He reports his insides feel like they are twisted or huge knot. Vomiting is what helps reduce the pain. Over the last 6 months he has noticed more symptoms of heartburn and certain foods causing symptoms. Patient reports bloating, Patient reports he is always hungry. Epigastric pain Reports gained weight and feels like he needs to eat to make sure he does not feel worse Record Review: [facility] / Outside records reviewed. PAST MEDICAL HISTORY Diagnosis Date Epidermal inclusion cyst 01/12/2018 Right neck below ear lobe, removed 12/2017 Family history of MN (myocardial infarction) 06/15/2018 GERD without esophagitis 12/15/2017 Hypertension, essential 12/15/2017 Hypothyroidism, acquired 12/15/2017 Lipoma of unspecified site 03/02/2014 PAST SURGICAL HISTORY Procedure Laterality Date LEXISCAN STRESS TEST 04/14/2019 negative MYRINGOTOMY HX Allergies: ALLERGIES No Known Allergies Medications: lisinopril (ZESTRIL, PRINIVIL) 5 mg tablet Take 1 tablet by mouth once daily. levothyroxine (SYNTHROID) 50 mcg tablet Take 1 tablet by mouth daily before breakfast. cyclobenzaprine (FLEXERIL) 10 mg tablet Take 1 tablet by mouth three times daily as needed for muscle spasm. omeprazole (PRILOSEC) 20 mg capsule Take 2 capsules by mouth once daily. FAMILY HISTORY Problem Relation Age of Onset Hypertension Mother other (migraine) Mother other (migraine) Brother other (migraine) Brother Stroke Maternal Grandmother Breast Cancer Maternal Grandmother Cancer Maternal Grandmother lung Coronary Artery Disease Father is 50 yo and had 8 MN's prior to this Employer And Job Title: None on file Years Of Education Completed: Not specified Marital Status: Social History Tobacco Use Smoking status: Never Smoker Smokeless tobacco: Never Used Vaping Use Vaping Use: Never used Substance Use Topics Alcohol use: No Drug use: No Review of Systems: Review of Systems Constitutional: Positive for appetite change and unexpected weight change. HENT: Positive for trouble swallowing. Gastrointestinal: Positive for abdominal distention, abdominal pain, diarrhea, nausea and vomiting. All other systems reviewed and are negative. Are you taking any blood thinners? No Physical Examination: BP 140/72 Pulse 98 Ht 5' 9.291 (1.76m) Wt 247 lb (112.0kg) SpO2 98% BMI 36.17 kg/(m^2). Physical Exam Constitutional: Appearance: Normal appearance. He is normal weight. HENT: Head: Normocephalic and atraumatic. Eyes: Extraocular Movements: Extraocular movements intact. Pupils: Pupils are equal, round, and reactive to light. Cardiovascular: Rate and Rhythm: Normal rate and regular rhythm. Pulses: Normal pulses. Heart sounds: Normal heart sounds. Pulmonary: Effort: Pulmonary effort is normal. Breath sounds: Normal breath sounds. Abdominal: General: Abdomen is flat. Bowel sounds are normal. Palpations: Abdomen is soft. Tenderness: There is generalized abdominal tenderness and tenderness in the epigastric area. Musculoskeletal: General: Normal range of motion. Cervical back: Normal range of motion and neck supple. Skin: General: Skin is warm and dry. Neurological: General: No focal deficit present. Mental Status: He is alert and oriented to person, place, and time. Psychiatric: Mood and Affect: Mood normal. Behavior: Behavior normal. ASSESSMENT: Chronic diarrhea Heartburn (primary encounter diagnosis) Nausea and vomiting, unspecified vomiting type PLAN: Assessment/Plan (R12) Heartburn (primary encounter diagnosis) (K52.9) Chronic diarrhea (R11.2) Nausea and vomiting, unspecified vomiting type 1. Chronic diarrhea - CONSULT TO GASTROENTEROLOGY - FECAL LACTOFERRIN/LEUKOCYTES - FECAL OCCULT BLOOD TEST - CALPROTECTIN,FECAL - ENTERIC BACTERIAL PANEL BY PCR - PANC ELASTASE, FECAL 2. Heartburn - continue PPI - GERD lifestyle changes - EGD DIAGNOSTIC; Future 3. Nausea and vomiting, unspecified vomiting type - EGD DIAGNOSTIC; Future Follow up in office 3 months/PRN. Recommended to please call office/go to ER if fever, chills, chest pain, SOB, diarrhea, nausea, emesis, worsening abdominal pain, dehydration occurs I spent a total of 30 minutes on the date of the service which included preparing to see the patient, [id number] patient care, completing clinical documentation, obtaining and/or reviewing separately obtained history, performing a medically appropriate examination, counseling and educating the patient/family/caregiver, ordering medications, tests, or procedures, communicating with other HCPs (not separately reported), independently interpreting results (not separately reported), communicating results to the patient/family/caregiver, and care coordination (not separately reported). Serena Cannon APRN.YUNIER DATE: 03/02/22 TIME: 11:24 AM documented in this encounter [facility] 01-26-2022 Miscellaneous Notes Please see pt message and advise Radha Floyd Ma documented in this encounter [facility] 12-24-2021 Miscellaneous Notes Pt notified of same. Nany Dumont LPN ----- Message from Lise Lundberg PA-C sent at 12/24/2021 11:48 AM EDT ----- Labs are all normal. documented in this encounter [facility] 11-21-2021 Miscellaneous Notes The following approved medication requests have been transmitted electronically. Signed Prescriptions Disp Refills omeprazole (PRILOSEC) 20 mg capsule 90 capsule 0 Sig: Take 1 capsule by mouth once daily. FATOUMATA: No Authorizing Provider: VERN RODARTE MD JANUSZ 04/18/21 NOV 12/22/21 Radha Floyd Ma documented in this encounter [facility] Evaluation note Diagnosis Heartburn- Primary Chronic diarrhea Diarrhea Nausea and vomiting, unspecified vomiting type [facility] Diarrhea, unspecified type- Primary [facility] Diagnosis Heartburn Nausea and vomiting, unspecified vomiting type Diarrhea, unspecified type [facility] Chronic diarrhea- Primary Diarrhea Heartburn GERD without esophagitis Esophageal reflux Generalized abdominal pain Abdominal pain, generalized Focal active colitis [facility] Hypertension, essential Unspecified essential hypertension Hypothyroidism, acquired Unspecified hypothyroidism [facility] Diagnosis Well adult exam- Primary Routine general medical examination at a health care facility Hypertension, essential Unspecified essential hypertension Heel pain, bilateral Hypothyroidism, acquired Unspecified hypothyroidism Encounter for screening for diabetes mellitus Screening for diabetes mellitus Encounter for lipid screening for cardiovascular disease Screening for lipoid disorders OME (otitis media with effusion), bilateral [facility] Diagnosis Achilles tendonosis- Primary Plantar fasciitis of left foot Plantar fascial fibromatosis [facility] Diagnosis Hypertension, essential Unspecified essential hypertension Hypothyroidism, acquired Unspecified hypothyroidism [facility] Diagnosis Plantar fasciitis of left foot- Primary Plantar fascial fibromatosis Achilles tendonosis documented in this encounter [facility] note* Diagnosis Viral URI with cough- Primary Acute upper respiratory infections of unspecified site [facility] Diagnosis Hypertension, essential Unspecified essential hypertension Hypothyroidism, acquired Unspecified hypothyroidism documented in this encounter [facility] note* Diagnosis Focal active colitis- Primary Abnormal endoscopy of upper gastrointestinal tract Hiatal hernia with GERD and esophagitis documented in this encounter [facility] note* Diagnosis Hypertension, essential Unspecified essential hypertension Hypothyroidism, acquired Unspecified hypothyroidism [facility] Diagnosis Well adult exam- Primary Routine general medical examination at a [facility] care facility Hypertension, essential Unspecified essential hypertension Hypothyroidism, acquired Unspecified hypothyroidism Hyperlipidemia, mixed Mixed hyperlipidemia documented in this encounter [facility] note* Diagnosis Hypothyroidism, acquired Unspecified hypothyroidism Hypertension, essential Unspecified essential hypertension [facility] Diagnosis Acute pain of right shoulder- Primary Injury of right shoulder, initial encounter documented in this encounter [facility] note* Diagnosis Acute pain of right shoulder Injury of right shoulder, initial encounter [facility] Diagnosis Heel pain, bilateral [facility] Diagnosis Hypothyroidism, acquired Unspecified hypothyroidism Hypertension, essential Unspecified essential hypertension documented in this encounter [facility] note* Diagnosis Generalized abdominal pain- Primary Abdominal pain, generalized Diarrhea, unspecified type Elevated fecal calprotectin documented in this encounter [facility] note* Diagnosis Well adult exam- Primary Routine general medical examination at a health care facility Hypertension, essential Unspecified essential hypertension Hypothyroidism, acquired Unspecified hypothyroidism GERD without esophagitis Esophageal reflux Encounter for screening for diabetes mellitus Screening for diabetes mellitus Medication management Encounter for long-term (current) use of other medications Screening for depression Encounter for screening examination for other mental health and behavioral disorders documented [facility] this encounter [facility]* Diagnosis Leukocytosis, unspecified type- Primary documented in this encounter [facility] note* Diagnosis Hypothyroidism, acquired Unspecified hypothyroidism documented in this encounter [facility] for referral (narrative)* Outpatient Procedure (Routine) - Authorized Specialty Diagnoses / Procedures Referred By Contac t Referred To Contact [facility] Diagnoses Heartburn Nausea and vomiting, unspecified vomiting type Procedures EGD DIAGNOSTIC EGD DIAGNOSTIC ESOPHAGOGASTRODUODENOSC OPY TRANSORAL DIAGNOSTIC ESOPHAGOGASTRODUODENOSC OPY TRANSORAL DIAGNOSTIC Serena Cannon APRN.CNP [address] [phone] [facility] Disease [address] [address] Referral ID Status Reason Start Date Expiration Date Visits Requested Visits Authorized [id number] Authorized Auto-Generat ed Referral 03/02/2022 03/02/2023 1 1 [facility] for referral (narrative)* Outpatient Procedure (Routine) - Authorized Specialty Diagnoses / Procedures Referred By Contac t Referred To Contact [facility] [place] Diagnoses Diarrhea, unspecified type Procedures COLONOSCOPY DIAGNOSTIC COLONOSCOPY FLX DX W/COLLJ SPEC WHEN PFRMSerena Linares APRN.[employer] [address] [place] [address] [address] Referral ID Status Reason Start Date Expiration Date Visits Requested Visits Authorized [id number] Authorized Auto-Generat ed Referral 03/13/2022 03/13/2023 1 1 [facility] for referral (narrative)* Outpatient Procedure (Routine) - Closed Specialty Diagnoses / Procedures Referred By Contac t Referred To [facility] [place] Diagnoses Diarrhea, unspecified type Procedures COLONOSCOPY DIAGNOSTIC COLONOSCOPY DIAGNOSTIC COLONOSCOPY FLX DX W/COLLJ SPEC WHEN PFRMD COLONOSCOPY FLX DX W/COLLJ SPEC WHEN PFRMD Serena Cannon APRN.[employer] [address] [place] [address] [facility] Disease [address] [address] Referral ID Status Reason Start Date Expiration Date V isits Requested Visits Authorized [id number] Closed Auto-Generate d Referral 03/13/2022 03/13/2023 1 1 * Outpatient Procedure (Routine) - Closed Specialty Diagnoses / Procedures Referred By Contac t Referred To Contact [facility] Diagnoses Heartburn Nausea and vomiting, unspecified vomiting type Procedures EGD DIAGNOSTIC EGD DIAGNOSTIC ESOPHAGOGASTRODUODENOSC OPY TRANSORAL DIAGNOSTIC ESOPHAGOGASTRODUODENOSC OPY TRANSORAL DIAGNOSTIC Serena Cannon APRN.CNP [address] [place] [address] [facility] [address] [place] [address] Referral ID Status Reason Start Date Expiration Date V isits Requested Visits Authorized [id number] Closed Auto-Generate d Referral 03/02/2022 03/02/2023 1 1 [facility] for referral (narrative)* Diagnostic Procedure Only (Routine) - Closed Specialty Diagnoses / Procedures Referred By Contac t Referred To Contact [facility] Diagnoses Heel pain, bilateral Procedures XR FOOT GENERAL 3V AP/LAT/OBL BILATERAL RADEX FOOT COMPLETE MINIMUM 3 VIEWS Lise Lundberg PA-C [address] [place] [address] [facility] Referral ID Status Reason Start Date Expiration Date V isits Requested Visits Authorized [id number] Closed Auto-Generate d Referral 07/22/2022 08/21/2023 1 1 * Consult, Test, Treat (Routine) - Authorized Specialty Diagnoses / Procedures Referred By Contac t Referred To Contact Podiatry Diagnoses Heel pain, bilateral Procedures CONSULT TO PODIATRY OFFICE/OUTPATIENT NEW HIGH MDM 60-74 MINUTES Lise Lundberg PA-C [address] [place] [address] Referral ID Status Reason Start Date Expiration Date Visits Requested Visits Authorized [id number] Authorized PCP Requested Referral 11/30/202 2 07/22/2023 1 1 [facility] for referral (narrative)* Diagnostic Procedure Only (Routine) - Closed Specialty Diagnoses / Procedures Referred By Contac t Referred To Contact X[facility] IMAG[facility] Diagnoses Acute pain of right shoulder Injury of right shoulder, initial encounter Procedures XR SHOULDER GENERAL 3V OR MORE AP/TRUE AP/OTHER RIGHT RADEX SHOULDER COMPLETE MINIMUM 2 VIEWS Rohit Jay APRN.[employer] [address] [place] [address] [place] [address] Referral ID Status Reason Start Date Expiration Date V isits Requested Visits Authorized [id number] Closed Auto-Generate d Referral 03/20/2024 04/19/2025 1 1 [facility] for referral (narrative)* Diagnostic Procedure Only (Routine) - Closed Specialty Diagnoses / Procedures Referred By Contac t Referred To Contact [facility] Diagnoses Heel pain, bilateral Procedures XR FOOT GENERAL 3V AP/LAT/OBL BILATERAL RADEX FOOT COMPLETE MINIMUM 3 VIEWS Lise Lundberg PA-C [address] [place] [address] [place] [address] Referral ID Status Reason Start Date Expiration Date V isits Requested Visits Authorized [id number] Closed Auto-Generate d Referral 07/22/2022 08/21/2023 1 1 [facility] for visit Narrative* Outpatient Procedure (Routine) - Closed Specialty Diagnoses / Procedures Referred By Contac t Referred To Contact [facility] Diagnoses Heartburn Nausea and vomiting, unspecified vomiting type Procedures EGD DIAGNOSTIC EGD DIAGNOSTIC ESOPHAGOGASTRODUODENOSC OPY TRANSORAL DIAGNOSTIC ESOPHAGOGASTRODUODENOSC OPY TRANSORAL DIAGNOSTIC Serena Cannon APRN.[employer] [address] [place] [address] [facility] [address] [place] [address] Referral ID Status Reason Start Date Expiration Date V isits Requested Visits Authorized [id number] Closed Auto-Generate d Referral 03/02/2022 03/02/2023 1 1 [facility] for visit Narrative* Diagnostic Procedure Only (Routine) - Closed Specialty Diagnoses / Procedures Referred By Contac t Referred To Contact XR IMAGING Diagnoses Acute pain of right shoulder Injury of right shoulder, initial encounter Procedures XR SHOULDER GENERAL 3V OR MORE AP/TRUE AP/OTHER RIGHT RADEX SHOULDER COMPLETE MINIMUM 2 VIEWS Rohit Jay APRN.[employer] [address] [phone] [place] [address] Referral ID Status Reason Start Date Expiration Date V isits Requested Visits Authorized [id number] Closed Auto-Generate d Referral 03/20/2024 04/19/2025 1 1 [facility] for visit Narrative* Diagnostic Procedure Only (Routine) - Closed Specialty Diagnoses / Procedures Referred By Contac t Referred To Contact XR IMAGING Diagnoses Heel pain, bilateral Procedures XR FOOT GENERAL 3V AP/LAT/OBL BILATERAL RADEX FOOT COMPLETE MINIMUM 3 VIEWS Lise Lundberg PA-C [address] [phone] [place] [address] Referral ID Status Reason Start Date Expiration Date V isits Requested Visits Authorized [id number] Closed Auto-Generate d Referral 07/22/2022 08/21/2023 1 1 [facility] Concerns Infection Onset Date Last Indicated Resolved Time COVID-19 Confirmed 01/20/2022 01/20/2022 Advance Directives Documents on File Type Date Recorded Patient Change Consultant Expl anation Advance Directive(s) 03/03/2022 5:09 PM Documents on File Type Date Recorded Patient Change Consultant Expl anation Advance Directive(s) 03/03/2022 5:09 PM Medications Administered Section Inactive Administered Medications - up to 3 most recent administrations Medication Order MAR Action Action Date Dose Rate Site benzocaine 20% 1 [place] (TOPEX) 1 [place], TOPICAL, DIRECTED, Starting on Wed03/27/22 at 1230, Until Wed03/27/22 at 1629, DOSING DIRECTED BY PHYSICIAN FOR PROCEDURAL SEDATION ONLY - Pharmaceutical Waste: Aerosol -, Intraprocedure Given 03/27/2022 12:19 PM EDT 5 Sprays diphenhydrAMINE 12.5-50 mg injection (BENADRYL) 12.5-50 mg, INTRAVENOUS, DIRECTED, Starting on Wed03/27/22 at 1230, Until Wed03/27/22 at 1629, DOSING DIRECTED BY PHYSICIAN FOR PROCEDURAL SEDATION ONLY, Intraprocedure Given 03/27/2022 12:22 PM EDT 50 mg fentaNYL 50 mcg/mL 25-100 mcg injection (SUBLIMAZE) 25-100 mcg, INTRAVENOUS, DIRECTED, Starting on Wed03/27/22 at 1230, Until Wed03/27/22 at 1629, DOSING DIRECTED BY PHYSICIAN FOR PROCEDURAL SEDATION ONLY, Intraprocedure Given 03/27/2022 12:43 PM EDT 50 mcg Given 03/27/2022 12:20 PM EDT 50 mcg lactated ringers iv infusion 75 mL/hr, INTRAVENOUS, CONTINUOUS, Starting on Wed03/27/22 at 1230, Until Wed03/27/22 at 1254, Preprocedure New Bag/Syringe/Bottle 03/27/2022 12:30 PM EDT 75 mL/hr 75 mL/hr midazolam (PF) 1-5 mg injection (VERSED) 1-5 mg, INTRAVENOUS, DIRECTED, Starting on Wed03/27/22 at 1230, Until Wed03/27/22 at 1629, DOSING DIRECTED BY PHYSICIAN FOR PROCEDURAL SEDATION ONLY, Intraprocedure Given 03/27/2022 12:35 PM EDT 2 mg Given 03/27/2022 12:23 PM EDT 2 mg Given 03/27/2022 12:20 PM EDT 3 mg Reason for Referral Specialty Diagnoses / Procedures Referred By Luis M t Referred To Contact [facility] Diagnoses Generalized abdominal pain Procedures MRI PEL ENTEROG WO/W IVCON MRI PELVIS W/O & W/CONTRAST MATERIAL Serena Cannon APRN.[employer] [address] [place] [address] [facility] Referral ID Status Reason Start Date Expiration Date Visits Requested Visits Authorized [id number] Pending Review Auto-Generat ed Referral 04/08/2022 05/08/2023 1 1 Specialty Diagnoses / Procedures Referred By Luis M t Referred To Contact [facility] Diagnoses Chronic diarrhea Generalized abdominal pain Focal active colitis Procedures MRI ABD ENTEROG WO/W IVCON MRI ABDOMEN W/O & W/CONTRAST MATERIAL MRI PELVIS W/O & W/CONTRAST MATERIAL Serena Cannon APRN.[employer] [address] [place] [address] Mr Imaging Referral ID Status Reason Start Date Expiration Date Visits Requested Visits Authorized [id number] Pending Review Auto-Generat ed Referral 04/08/2022 05/08/2023 1 1 Specialty Diagnoses / Procedures Referred By Contac t Referred To Contact [facility] Diagnoses Plantar fasciitis of left foot Achilles tendonosis Procedures PT REHAB FOLLOW UP ORDER THERAPEUTIC EXERCISES RE, EA 15 MIN. Freida Andres, PT [facility] [address] [address] Referral ID Status Reason Start Date Expiration Date Visits Requested Visits Authorized [id number] Pending Review PCP Requested Referral Auto-Generate d Referral 09/09/2022 12/08/2022 1 1 Specialty Diagnoses / Procedures Referred By Contac t Referred To Contact [facility] Diagnoses Plantar fasciitis of left foot Achilles tendonosis Procedures CONSULT TO PHYSICAL THERAPY PHYSICAL THERAPY EVALUATION HIGH COMPLEX 45 MINS David Motley [address] [place] [address] [facility] [place] [address] Referral ID Status Reason Start Date Expiration Date V isits Requested Visits Authorized [id number] Closed Auto-Generate d Referral 08/26/2022 08/26/2023 1 1 Specialty Diagnoses / Procedures Referred By Contac t Referred To Contact Orthopedics Diagnoses Acute pain of right shoulder Injury of right shoulder, initial encounter Procedures CONSULT TO ORTHOPAEDICS Rohit Jay APRN.[employer] [address] [place] [address] Dillon Roth MD [facility] [phone] Referral ID Status Reason Start Date Expiration Date Visits Requested Visits Authorized [id number] Ref Not Required PCP Requested Referral 03/20/2024 03/20/2025 1 1 Specialty Diagnoses / Procedures Referred By Contac t Referred To Contact XR IMAGING Diagnoses Acute pain of right shoulder Injury of right shoulder, initial encounter Procedures XR SHOULDER GENERAL 3V OR MORE AP/TRUE AP/OTHER RIGHT RADEX SHOULDER COMPLETE MINIMUM 2 VIEWS Rohit Jay APRN.[employer] [address] [place] [address] [place] [address] Referral ID Status Reason Start Date Expiration Date V isits Requested Visits Authorized [id number] Closed Auto-Generate d Referral 03/20/2024 04/19/2025 1 1 Specialty Diagnoses / Procedures Referred By Contac t Referred To Contact CT IMAGING Diagnoses Generalized abdominal pain Diarrhea, unspecified type Elevated fecal calprotectin Procedures CT ENTEROGRAPHY W IVCON CT ABD & PELVIS W/CONTRAST Kizzy Figueroa PA-C [address] [place] [address] Ct [facility] Referral ID Status Reason Start Date Expiration Date Visits Requested Visits Authorized [id number] Authorized Auto-Generat ed Referral 08/29/2024 09/28/2025 1 1 Summary Purpose Family History No Family History Records FoundNo Family History Records Found Additional Source Comments Source Comments (unrecognize d section and content) In the event this informatio n is protected by the Federal Confidentiality of Alcohol and Drug Abuse Patient Records regulations: The Federal rules restrict any use of the information to criminally investigate or prosecute any alcohol or drug abuse patient.[facility] the event this information is protected by the Federal Confidentiality of Alcohol and Drug Abuse Patient Records regulations: The Federal rules restrict any use of the information to criminally investigate or prosecute any alcohol or drug abuse patient.[facility] Center[facility] the event this information is protected by the Federal Confidentiality of Alcohol and Drug Abuse Patient Records regulations: The Federal rules restrict any use of the information to criminally investigate or prosecute any alcohol or drug abuse patient.[facility] Center[facility] the event this information is protected by the Federal Confidentiality of Alcohol and Drug Abuse Patient Records regulations: The Federal rules restrict any use of the information to criminally investigate or prosecute any alcohol or drug abuse patient.[facility] CenterIn the event this information is protected by the Federal Confidentiality of Alcohol and Drug Abuse Patient Records regulations: The Federal rules restrict any use of the information to criminally investigate or prosecute any alcohol or drug abuse patient.[facility] Center[facility] the event this information is protected by the Federal Confidentiality of Alcohol and Drug Abuse Patient Records regulations: The Federal rules restrict any use of the information to criminally investigate or prosecute any alcohol or drug abuse patient.[facility] CenterIn the event this information is protected by the Federal Confidentiality of Alcohol and Drug Abuse Patient Records regulations: The Federal rules restrict any use of the information to criminally investigate or prosecute any alcohol or drug abuse patient.[facility] CenterIn the event this information is protected by the Federal Confidentiality of Alcohol and Drug Abuse Patient Records regulations: The Federal rules restrict any use of the information to criminally investigate or prosecute any alcohol or drug abuse patient.[facility] Center[facility] the event this information is protected by the Federal Confidentiality of Alcohol and Drug Abuse Patient Records regulations: The Federal rules restrict any use of the information to criminally investigate or prosecute any alcohol or drug abuse patient.[facility] CenterIn the event this information is protected by the Federal Confidentiality of Alcohol and Drug Abuse Patient Records regulations: The Federal rules restrict any use of the information to criminally investigate or prosecute any alcohol or drug abuse patient.[facility] CenterIn the event this information is protected by the Federal Confidentiality of Alcohol and Drug Abuse Patient Records regulations: The Federal rules restrict any use of the information to criminally investigate or prosecute any alcohol or drug abuse patient.[facility] CenterIn the event this information is protected by the Federal Confidentiality of Alcohol and Drug Abuse Patient Records regulations: The Federal rules restrict any use of the information to criminally investigate or prosecute any alcohol or drug abuse patient.[facility] CenterIn the event this information is protected by the Federal Confidentiality of Alcohol and Drug Abuse Patient Records regulations: The Federal rules restrict any use of the information to criminally investigate or prosecute any alcohol or drug abuse patient.[facility] CenterIn the event this information is protected by the Federal Confidentiality of Alcohol and Drug Abuse Patient Records regulations: The Federal rules restrict any use of the information to criminally investigate or prosecute any alcohol or drug abuse patient.[facility] CenterIn the event this information is protected by the Federal Confidentiality of Alcohol and Drug Abuse Patient Records regulations: The Federal rules restrict any use of the information to criminally investigate or prosecute any alcohol or drug abuse patient.[facility] CenterIn the event this information is protected by the Federal Confidentiality of Alcohol and Drug Abuse Patient Records regulations: The Federal rules restrict any use of the information to criminally investigate or prosecute any alcohol or drug abuse patient.[facility] CenterIn the event this information is protected by the Federal Confidentiality of Alcohol and Drug Abuse Patient Records regulations: The Federal rules restrict any use of the information to criminally investigate or prosecute any alcohol or drug abuse patient.[facility] the event this information is protected by the Federal Confidentiality of Alcohol and Drug Abuse Patient Records regulations: The Federal rules restrict any use of the information to criminally investigate or prosecute any alcohol or drug abuse patient.[facility] CenterIn the event this information is protected by the Federal Confidentiality of Alcohol and Drug Abuse Patient Records regulations: The Federal rules restrict any use of the information to criminally investigate or prosecute any alcohol or drug abuse patient.[facility] CenterIn the event this information is protected by the Federal Confidentiality of Alcohol and Drug Abuse Patient Records regulations: The Federal rules restrict any use of the information to criminally investigate or prosecute any alcohol or drug abuse patient.[facility] CenterIn the event this information is protected by the Federal Confidentiality of Alcohol and Drug Abuse Patient Records regulations: The Federal rules restrict any use of the information to criminally investigate or prosecute any alcohol or drug abuse patient.[facility] CenterIn the event this information is protected by the Federal Confidentiality of Alcohol and Drug Abuse Patient Records regulations: The Federal rules restrict any use of the information to criminally investigate or prosecute any alcohol or drug abuse patient.[facility] CenterIn the event this information is protected by the Federal Confidentiality of Alcohol and Drug Abuse Patient Records regulations: The Federal rules restrict any use of the information to criminally investigate or prosecute any alcohol or drug abuse patient.[facility] CenterIn the event this information is protected by the Federal Confidentiality of Alcohol and Drug Abuse Patient Records regulations: The Federal rules restrict any use of the information to criminally investigate or prosecute any alcohol or drug abuse patient.[facility] CenterIn the event this information is protected by the Federal Confidentiality of Alcohol and Drug Abuse Patient Records regulations: The Federal rules restrict any use of the information to criminally investigate or prosecute any alcohol or drug abuse patient.[facility] CenterIn the event this information is protected by the Federal Confidentiality of Alcohol and Drug Abuse Patient Records regulations: The Federal rules restrict any use of the information to criminally investigate or prosecute any alcohol or drug abuse patient.[facility] CenterIn the event this information is protected by the Federal Confidentiality of Alcohol and Drug Abuse Patient Records regulations: The Federal rules restrict any use of the information to criminally investigate or prosecute any alcohol or drug abuse patient.[facility] CenterIn the event this information is protected by the Federal Confidentiality of Alcohol and Drug Abuse Patient Records regulations: The Federal rules restrict any use of the information to criminally investigate or prosecute any alcohol or drug abuse patient.[facility] CenterIn the event this information is protected by the Federal Confidentiality of Alcohol and Drug Abuse Patient Records regulations: The Federal rules restrict any use of the information to criminally investigate or prosecute any alcohol or drug abuse patient.[facility] CenterIn the event this information is protected by the Federal Confidentiality of Alcohol and Drug Abuse Patient Records regulations: The Federal rules restrict any use of the information to criminally investigate or prosecute any alcohol or drug abuse patient.[facility] CenterIn the event this information is protected by the Federal Confidentiality of Alcohol and Drug Abuse Patient Records regulations: The Federal rules restrict any use of the information to criminally investigate or prosecute any alcohol or drug abuse patient.[facility] CenterIn the event this information is protected by the Federal Confidentiality of Alcohol and Drug Abuse Patient Records regulations: The Federal rules restrict any use of the information to criminally investigate or prosecute any alcohol or drug abuse patient.[facility] CenterIn the event this information is protected by the Federal Confidentiality of Alcohol and Drug Abuse Patient Records regulations: The Federal rules restrict any use of the information to criminally investigate or prosecute any alcohol or drug abuse patient.[facility] CenterIn the event this information is protected by the Federal Confidentiality of Alcohol and Drug Abuse Patient Records regulations: The Federal rules restrict any use of the information to criminally investigate or prosecute any alcohol or drug abuse patient.[facility] CenterIn the event this information is protected by the Federal Confidentiality of Alcohol and Drug Abuse Patient Records regulations: The Federal rules restrict any use of the information to criminally investigate or prosecute any alcohol or drug abuse patient.[facility] CenterIn the event this information is protected by the Federal Confidentiality of Alcohol and Drug Abuse Patient Records regulations: The Federal rules restrict any use of the information to criminally investigate or prosecute any alcohol or drug abuse patient.[facility] CenterIn the event this information is protected by the Federal Confidentiality of Alcohol and Drug Abuse Patient Records regulations: The Federal rules restrict any use of the information to criminally investigate or prosecute any alcohol or drug abuse patient.[facility] CenterIn the event this information is protected by the Federal Confidentiality of Alcohol and Drug Abuse Patient Records regulations: The Federal rules restrict any use of the information to criminally investigate or prosecute any alcohol or drug abuse patient.[facility] CenterIn the event this information is protected by the Federal Confidentiality of Alcohol and Drug Abuse Patient Records regulations: The Federal rules restrict any use of the information to criminally investigate or prosecute any alcohol or drug abuse patient.[facility] CenterIn the event this information is protected by the Federal Confidentiality of Alcohol and Drug Abuse Patient Records regulations: The Federal rules restrict any use of the information to criminally investigate or prosecute any alcohol or drug abuse patient.[facility] CenterIn the event this information is protected by the Federal Confidentiality of Alcohol and Drug Abuse Patient Records regulations: The Federal rules restrict any use of the information to criminally investigate or prosecute any alcohol or drug abuse patient.[facility] CenterIn the event this information is protected by the Federal Confidentiality of Alcohol and Drug Abuse Patient Records regulations: The Federal rules restrict any use of the information to criminally investigate or prosecute any alcohol or drug abuse patient.[facility] CenterIn the event this information is protected by the Federal Confidentiality of Alcohol and Drug Abuse Patient Records regulations: The Federal rules restrict any use of the information to criminally investigate or prosecute any alcohol or drug abuse patient.[facility] CenterIn the event this information is protected by the Federal Confidentiality of Alcohol and Drug Abuse Patient Records regulations: The Federal rules restrict any use of the information to criminally investigate or prosecute any alcohol or drug abuse patient.[facility] Reason for Visit (unrecogniz ed section and content) Reason Onset Date Comments Refill Request 11/21/2021 Reason Comments Results Reason Comments Abdominal Pain all the time descr ibes it pressure/achy/sharp GERD treats with omeprazo le with heartburn and vomits about 1 time weekly Diarrhea watery but with clum ps with an average of about 5 episodes a day. Treats with imodium when it is really bad Nausea with vomiting Specialty Diagnoses / Procedures Referred By Contac t Referred To Contact Gastroenterology Diagnoses Chronic diarrhea Procedures CONSULT TO GASTROENTEROLOGY OFFICE/OUTPATIENT [facility] MDM 60-74 MINUTES Lise Lundberg PA-C [address] [place] [address] Referral ID Status Reason Start Date Expiration Date V isits Requested Visits Authorized [id number] Closed PCP Requested Referral 12/22/2021 12/22/2022 1 1 Reason Comments Results Reason Comments Diarrhea Reason Comments Procedure EGD Reason Onset Date Comments Refill Request 06/16/2022 Reason Comments Yearly Exam Reason Comments PT Eval Specialty Diagnoses / Procedures Referred By Contac t Referred To Contact Physical Therapy / PHYSICAL THERAPY Diagnoses Plantar fasciitis of left foot [M72.2] 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] Procedures NEW [facility] PT [facility] David Stephens [address] [place] [address] Freida Andres, PT Referral ID Status Reason Start Date Expiration Date V isits Requested Visits Authorized [id number] Pending Review 09/02/2022 12/01/2022 1 1 Reason Onset Date Comments Refill Request 09/14/2022 Reason Comments New Patient Pain Specialty Diagnoses / Procedures Referred By Contac t Referred To Contact Podiatry Diagnoses Heel pain, bilateral Procedures CONSULT TO PODIATRY OFFICE/OUTPATIENT NEW [facility] MDM 60-74 MINUTES Lise Lundberg PA-C [address] [place] [address] Referral ID Status Reason Start Date Expiration Date V isits Requested Visits Authorized [id number] Closed PCP Requested Referral 07/22/2022 07/22/2023 1 1 Reason Comments Sinus Problem Reason Onset Date Comments Refill Request 04/05/2023 Reason Comments Refill Request Reason Comments Crohns CT in scanning Reason Onset Date Comments Refill Request 06/29/2023 Reason Comments Physical Reason Onset Date Comments Refill Request 03/08/2024 Reason Comments Shoulder Injury X 3 days Reason Onset Date Comments Refill Request 06/29/2024 Reason Comments Appointment Reason Comments Recheck Colitis flare up- wa nts to know what he can eat and asking if he can get FMLA Reason Onset Date Comments Results 10/09/2024 Reason Onset Date Comments Refill Request 01/01/2025 Reason Onset Date Comments Refill Request 01/24/2025 Care Teams (unrecognized sec tion and content) Outreach Team Member Relationship Specialty Start Date End Date Vern Rodarte MD [address] [place] [address] PCP - General Family Practice 12/15/17 Outreach Team Member Relationship Specialty Start Date End Date Vern Rodarte MD [address] [place] [address] PCP - General Family Practice 12/15/17 Outreach Team Member Relationship Specialty Start Date End Date Vern Rodarte MD [facility] [place] [address] PCP - General Family Practice 12/15/17 Outreach Team Member Relationship Specialty Start Date End Date Vern Rodarte MD [facility] [place] [address] PCP - General Family Practice 12/15/17 Outreach Team Member Relationship Specialty Start Date End Date Vern Rodarte MD [address] [place] [address] PCP - General Family Practice 12/15/17 Outreach Team Member Relationship Specialty Start Date End Date Vern Rodarte MD [address] [place] [address] PCP - General Family Practice 12/15/17 Outreach Team Member Relationship Specialty Start Date End Date Vern Rodarte MD [address] [facility] [place] [address] PCP - General Family Practice 12/15/17 Outreach Team Member Relationship Specialty Start Date End Date Vern Rodarte MD [address] [facility] [address] PCP - General Family Practice 12/15/17 Outreach Team Member Relationship Specialty Start Date End Date Vern Rodarte MD [facility] [address] PCP - General Family Practice 12/15/17 Outreach Team Member Relationship Specialty Start Date End Date Vern Rodarte MD [address] [place] [address], [place] [address] PCP - General Family Practice 12/15/17 Outreach Team Member Relationship Specialty Start Date End Date Vern Rodarte MD [facility] [address] PCP - General Family Practice 12/15/17 Outreach Team Member Relationship Specialty Start Date End Date Vern Rodarte MD [facility] [address] PCP - General Family Medicine 12/15/17 Outreach Team Member Relationship Specialty Start Date End Date Vern Rodarte MD [facility] [place] [address] PCP - General Family Medicine 12/15/17 Outreach Team Member Relationship Specialty Start Date End Date Vern Rodarte MD [facility] [place] [address] PCP - General Family Medicine 12/15/17 Outreach Team Member Relationship Specialty Start Date End Date Vern Rodarte MD [address] [place] [address], [place] [address] PCP - General Family Medicine 12/15/17 Outreach Team Member Relationship Specialty Start Date End Date Vern Rodarte MD [address] [place] [address] PCP - General Family Medicine 12/15/17 Outreach Team Member Relationship Specialty Start Date End Date Vern Rodarte MD [address] [place] [address] PCP - General Family Medicine 12/15/17 Outreach Team Member Relationship Specialty Start Date End Date Vern Rodarte MD [address] [place] [address] PCP - General Family Medicine 12/15/17 Outreach Team Member Relationship Specialty Start Date End Date Vern Rodarte MD [address] [place] [address] PCP - General Family Medicine 12/15/17 Outreach Team Member Relationship Specialty Start Date End Date Vern Rodarte MD [address] [place] [address] PCP - General Family Medicine 12/15/17 Outreach Team Member Relationship Specialty Start Date End Date Vern Rodarte MD [address] [place] [address] PCP - General Family Medicine 12/15/17 Outreach Team Member Relationship Specialty Start Date End Date Vern Rodarte MD [address] [place] [address] PCP - General Family Medicine 12/15/17 Outreach Team Member Relationship Specialty Start Date End Date Vern Rodarte MD [address] [place] [address] PCP - General Family Medicine 12/15/17 Outreach Team Member Relationship Specialty Start Date End Date Vern Rodarte MD [address] [place] [address] PCP - General Family Medicine 12/15/17 Outreach Team Member Relationship Specialty Start Date End Date Vern Rodarte MD [address] [place] [address] PCP - General Family Medicine 12/15/17 Outreach Team Member Relationship Specialty Start Date End Date Vern Rodarte MD [address] [place] [address] PCP - General Family Medicine 12/15/17 Outreach Team Member Relationship Specialty Start Date End Date Vern Rodarte MD [address] [place] [address] PCP - General Family Medicine 12/15/17 Outreach Team Member Relationship Specialty Start Date End Date Vern Rodarte MD [address] [place] [address] PCP - General Family Medicine 12/15/17 Outreach Team Member Relationship Specialty Start Date End Date Vern Rodarte MD [address] [place] [address] PCP - General Family Medicine 12/15/17 Outreach Team Member Relationship Specialty Start Date End Date Vern Rodarte MD [address] [place] [address] PCP - General Family Medicine 12/15/17 Outreach Team Member Relationship Specialty Start Date End Date Vern Rodarte MD [address] [place] [address] PCP - General Family Medicine 12/15/17 Outreach Team Member Relationship Specialty Start Date End Date Vern Rodarte MD [address] [place] [address] PCP - General Family Medicine 12/15/17 Outreach Team Member Relationship Specialty Start Date End Date Vern Rodarte MD [address] [place] [address] PCP - General Family Medicine 12/15/17 Outreach Team Member Relationship Specialty Start Date End Date Vern Rodarte MD [address] [place] [address] PCP - General Family Medicine 12/15/17 Rohit Jay, MANAGER F[employer] DINING.[employer] [address] [place] [address] [facility] 07/29/24 Lise Lundberg PA-C [address] [place] [address] [facility] 07/29/24 Outreach Team Member Relationship Specialty Start Date End Date Vern Rodarte MD [address] [place] [address] PCP - General Family Medicine 12/15/17 Rohit Jay, MANAGER FINE DINING.[employer] [address] [place] [address] [facility] 07/29/24 Lise Lundberg PA-C [address] [place] [address] [facility] 07/29/24 Outreach Team Member Relationship Specialty Start Date End Date Vern Rodarte MD [address] [facility] [place] [address] PCP - General Family Medicine 12/15/17 Rohit Jay, CAMMY.[employer] M[employer] [address] [place] [address] [facility] 07/29/24 Lise Lundberg PA-C [address] [facility] [place] [address] [facility] 07/29/24 Outreach Team Member Relationship Specialty Start Date End Date Vern Rodarte MD [address] [facility] [place] [address] PCP - General Family Medicine 12/15/17 Rohit Jay, MANAGER FINE DINING.[employer] [address] [place] [address] [facility] 07/29/24 Lise Lundberg PA-C [address] [facility] [place] [address] [facility] 07/29/24 Outreach Team Member Relationship Specialty Start Date End Date Vern Rodarte MD [address] [facility] [place] [address] PCP - General Family Medicine 12/15/17 Rohit Jay, MANAGER FINE DINING.[employer] [address] [place] [address] [facility] 07/29/24 Lise Lundberg PA-C [address] [facility] [place] [address] [facility] 07/29/24 Outreach Team Member Relationship Specialty Start Date End Date Vern Rodarte MD [address] [place] [address] PCP - General Family Medicine 12/15/17 Rohit Jay APRN.[employer] [address] [place] [address] [facility] 07/29/24 Lise Lundberg PA-C [address] [place] [address] [facility] 07/29/24 Outreach Team Member Relationship Specialty Start Date End Date Vern Rodarte MD [address] [place] [address] PCP - General Family Medicine 12/15/17 Rohit Jay, CAMMY.[employer] M[employer] [address] [place] [address] [facility] 07/29/24 Lise Lundberg PA-C [address] [place] [address] [facility] 07/29/24 Outreach Team Member Relationship Specialty Start Date End Date Vern Rodarte MD [address] [place] [address] PCP - General Family Medicine 12/15/17 Rohit Jay, MANAGER FINE DINING.[employer] [address] [place] [address] [facility] 01/22/25 Lise Lundberg PA-C [address] [facility] [place] [address] [facility] 01/22/25 (unrecognized sect ion and content) No Status Records FoundNo Status Records Found INFORMATION SOURCE (unrecogn ized section and content) DATE CREATED AUTHOR 09/18/2024 [facility] DATE CREATED AUTHOR AUTHOR'S ORGANIZ ATION 10/01/2024 [facility] FOR RECORDS PERTAINING TO PATIENTS WHO ARE OR HAVE BEEN ENROLLED IN A CHEMICAL DEPENDENCY/SUBSTANCEABUSE PROGRAM, SOME INFORMATION MAY BE OMITTED. This clinical summary was aggregated from multiple sources. Caution should be exercised in using it in the provision of clinical care. This summary normalizes information from multiple sources, and as a consequence, information in this document may materially change the coding, format and clinical context of patient data. In addition, data may be omitted in some cases. CLINICAL DECISIONS SHOULD BE BASED ON THE PRIMARY CLINICAL RECORDS. [email or web address] provides no warranty or guarantee of the accuracy or completeness of information in this document.
[2025-02-01] MEDS: HYDROcodone Bitartrate/Apap 5/325 Tablet PO (22:14)
== END 2025-02-01 22:19 | disposition home or self-care (01) ==
PROVIDERS: Emergency Provider Emergency Medicine; PCP Family Medicine; Referring Provider Emergency Medicine; Visit Provider Emergency Medicine
DX: S93.412A Sprain of calcaneofibular ligament of left ankle, initial encounter (principal); S93.492A Sprain of other ligament of left ankle, initial encounter; R03.0 Elevated blood-pressure reading, without diagnosis of hypertension; X58.XXXA Exposure to other specified factors, initial encounter; Y93.89 Activity, other specified
CPT/HCPCS: 73610; 99283

== ENCOUNTER 2025-04-08 20:03 | Emergency (ER) | payer BC, SELFPAY ==
[2025-04-08 20:04] VITALS: BP 163/100; PULSE 62; RESP 18; TEMP 36; O2SAT 98; BMI 37.2
--- NOTE | 2025-04-08 20:56 | CT_ITS ---
PROCEDURE: CT BRAIN/HEAD WITHOUT CONTRAST 04/08/2025 REASON FOR EXAM: PAIN TECHNIQUE: CT BRAIN/HEAD WITHOUT CONTRAST Coronal and Sagittal reconstruction series were provided. One or more dose reduction techniques were used (e.g., Automated exposure control, adjustment of the mA and/or kV according to patient size, use of iterative reconstruction technique. RADIATION DOSE SUMMARY: CTDlvol: 44.99 mGy DLP: 880.47 mGycm COMPARISON: None. FINDINGS: No acute intracranial hemorrhage, extra-axial collection, mass effect or evidence of acute infarct. Ventricles and subarachnoid spaces are normal in size. Orbital contents are unremarkable. Intact skull base and calvarium. No mastoid effusions. Trace dependent fluid in the bilateral maxillary sinuses can be seen with acute sinusitis. No significant inflammatory mucosal thickening. CT/Brain/Head without Contrast IMPRESSION: No acute intracranial abnormality. Small amount of fluid in the maxillary sinuses can be seen with acute sinusitis . Reading Location: [id number]
--- OUTSIDE RECORDS SUMMARY | 2025-04-08 21:00 | XMS RPT_ITS | CCD ---
Author Organization [facility] Care Team Providers Care Hand Marker Name Role Phone Vern Rodarte MD Primary Care Provider Vern Rodarte MD Primary Care Provider Clara CHOPPER GUN OPERATOR.Rohit FAYE Unavailable Lise Lundberg PA-C Unavailable VERN [...] Care Unavailable ROHIT JAY Referring Unavailable Clara CHOPPER GUN OPERATOR.Rohit FAYE Unavailable Lise Lundberg PA-C Unavailable Dr. Vern Rodarte MD Primary Care Provider [phone] Dr. Jed Edwards MD Referring Provider Dr. Jed Edwards MD Emergency Provider [phone] Jed Edwards Referring Unavailable Jed Edwards Attending Unavailable Vern Rodarte Primary Care Unavailable Medications Current Medications Medication Drug Class(es) Dates Sig (Normalized) Sig (Original) acetaminophen 325 mg / HYDROcodone bitartrate 5 mg oral tablet (2 sources) Opioid Agonist Start: 05-31-2023 take 1 tablet by mouth every six hours as needed for pain Hydrocodone-Aceta minophen 5-325 mg tablet Active 1 {tbl} PO EVERY 6 HOURS NEEDED as needed for Pain 10 3 February 01, 2025 amoxicillin 875 mg oral tablet (1 source) [...] on above: Take 3 capsules by m out once daily for 30 days, THEN 2 [...] tablet (20 sources) l-Thyroxine Start: 023 End: take 1 tablet by mouth once daily [...] Start: 07-07-2021 take 1 tablet by benson th once daily before breakfast levothyroxine (SYNTHROID) 50 mcg tablet Indications: Hypothyroidism, acquired Take 1 tablet by mouth daily before breakfast. 90 tablet 1 07/07/2021 Active Start: 04-17-2015 Levothyroxine 88 MCG tablet Active 50 ug PO DAILY April 17, 2015 12:00am Comment on above: Take 1 tablet by [...] 1 tablet by benson th once daily. metoprolol tartrate 50 mg oral tablet (1 source) beta-Adrenergic Cookie Start: 04-17-2015 take 1 tablet by mouth once daily Metoprolol Tartrate 50 MG tablet Active 50 mg PO DAILY April 17, 2015 12:00am omeprazole 40 mg delayed release oral capsule [...] 90 capsule 1 12/22/2021 03/02/2022 Discontinued Start: 04-17-2015 End: 11-21-2021 take 1 capsule by mouth once daily omeprazole (PRILOSEC) 20 mg capsule Take 1 capsule by mouth once daily. 90 capsule 0 11/21/2021 Active Comment on above: Take 1 capsule by mo uth once daily. Take 2 capsules by m outh once daily. TAKE 2 CAPSULES ONCE DAILY predniSONE 20 mg oral tablet (1 source) Start: 05-31-2023 take 2 tablets by mouth once daily Prednisone 20 mg tablet Active 40 mg PO DAILY May 31, 2023 12:00am Completed/Discontinued Medications Medication Drug Class(es) Dates Sig (Normalized) Sig (Original) [id number] 200 actuat albuterol 0.09 mg/actuat metered dose [...] on above: Take 1 capsule by mo [facility] three times a day as needed [...] on above: Take 1 tablet by benson once daily. ondansetron 8 mg disintegrating oral tablet (15 sources) Serotonin-3 Receptor Antagonist Start: 2022 End: 2024 ondansetron orally disintegrating (ZOFRAN ODT) 8 mg disintegrating tablet 05/31/2023 08/29/2024 Discontinued Start: 05-31-2023 take 2 tablets by mo [facility] every eight hours as needed for nausea Ondansetron 4 mg tablet,disintegrating Active 8 mg PO EVERY 8 HOURS NEEDED as needed for Nausea May 31, 2023 12:00am polyethylene glycol 3350 003841 mg / potassium chloride 2970 mg / sodium bicarbonate 6740 mg / sodium chloride 5860 mg / sodium sulfate 51181 mg powder for oral solution (17 sources) Osmotic Laxative Start: 03-13-2022 End: 06-09-2023 peg 3350-Electrolytes (GOLYTELY) 236-22.74-6.74 -5.86 gram suspension Refer to printed prep instructions from your provider. 4000 mL 0 03/13/2022 06/09/2023 Discontinued (Course of therapy completed) Comment on above: Refer to printed pre p instructions from your provider. triamcinolone acetonide 10 mg/ml injectable suspension (1 source) Corticosteroid Start: 08-26-2022 End: 08-26-2022 triamcinolone acetonide 5 mg injection (KeNALog 10) Problems Active Problems Problem Classification Problem Date Documented Da te Episodic/Chronic Abdominal hernia (1 source) Gastroesophageal reflux disease with hiatal hernia; Translations: [Diaphragmatic hernia without obstruction or gangrene] 06-09-2023 Episodic Abdominal pain (5 sources) Generalized abdominal pain; Translations: [Generalized abdominal pain] Onset: Episodic Diseases of white blood cells (2 sources) Leukocytosis; Translations: [Elevated white blood cell count, [...] Translations: [Noninfective gastroenteritis and colitis, unspecified] Episodic Nonspecific chest pain (1 source) Chest pain; Translations: [Chest pain, unspecified] 03-27-2019 Episodic Other aftercare (1 source) Other residential (current) drug therapy; Translations: [Medication management] Onset: Episodic Other circulatory disease (1 source) Elevated blood-pressure reading without diagnosis of hypertension; Translations: [Elevated blood-pressure reading, without diagnosis of hypertension] 02-01-2025 Episodic Other connective tissue disease (2 sources) [...] upper arm, initial encounter] 03-20-2024 Episodic Other nutritional; endocrine; and metabolic disorders (1 source) Body mass index 30+ - obesity; Translations: [Body mass index (BMI) 37.0-37.9, adult] 02-01-2025 Chronic Other upper respiratory infections (1 source) Viral upper respiratory tract infection; Translations: [Acute upper respiratory infection, unspecified] Episodic Otitis media and related conditions (1 source) Otitis media; Translations: [Unspecified nonsuppurative otitis media, bilateral] Episodic Sprains and strains (3 sources) Sprain of talofibular ligament of left ankle; Translations: [Sprain of other ligament of left ankle, initial encounter] Onset: 07-2402-01-2025 Episodic Thyroid disorders (20 sources) Acquired hypothyroidism; Translations: [Hypothyroidism, unspecified] Onset: 8 12-15-2017 Chronic Past or Other Problems Problem [...] Test Name Value Interpretation Reference Range Facility Ankle min 3 Viewson 02-02-20 25 Ankle min 3 Views [facility] Imaging Services [address] [place] [address] Ankle min 3 Views MR#: [id number] Acct: [id number] Name: LENORE LEE Rep #: [id number] : 1990 M 34 From: David Headley MD PCP: Dr. Vern Rodarte MD Status: [facility] ER Study: Ankle min 3 Views Date of Exam: 02/01/25 Exam# [id number] Ordering Dr: Jed Edwards MD PROCEDURE: ANKLE MIN 3 VIEWS 02/01/2025 REASON FOR EXAM: PAIN, UNABLE TO BEAR WEIGHT TECHNIQUE: 3 views of the left ankle COMPARISON: None. FINDINGS: No evidence of acute fracture or dislocation. Ankle joint effusion is present. Soft tissue swelling overlying the lateral malleolus. RAD/Ankle min 3 Views IMPRESSION: No acute osseous abnormalities. Ankle swelling. Ankle joint effusion. Reading Location: [id number] CC: Dr. Vern Rodarte MD; Dr. Jed Edwards MD Truck Guard: Signed Normal [facility] Emergency Department Summary on 02-01-2025 Emergency Department Summary [facility] Medical Records Department [address] [facility] [place] [address] Emergency Department Summary 02/01/25 MR#: [id number] Acct: [id number] Name: LENORE LEE Rep #: [id number] : 1990 34 From: Jed Edwards MD PCP: Dr. Vern Rodarte MD Status:REG ER Location: ED HPI History of Present Illness Chief Complaint: Lower Extremity Injury Detail of Chief Complaint: Injury to left ankle, plantar inversion mechanism injury Informant: patient Onset/Context/Timing Onset: Hours Context: Sudden Onset Timing: Continuous Quality: Pain Location: Lateral side of left ankle Current Severity: Mild Maximum Severity: Severe Worsened by: Weightbearing and palpation Relieved by: Nothing Associated Symptoms Associated Symptoms: None Narrative Narrative: Patient is a 34-year-old male. He was playing with his daughter. His foot went into a hole. He twisted his ankle. He denies prior injury. He has history of colitis. He has been told that he should not take NSAIDs. He denies paresthesia, anesthesia or motor weakness. He denies knee pain, toe pain or foot pain. Prior similar symptoms: No Recent Illness/Hospitalizatio n: No PFSH PFSH Medical History no medical history Home Medications ???Medication ???Instructions ???Recorded ???Last Taken ???Type levothyroxine 88 mcg tablet 50 mcg PO DAILY 04/17/15 Unknown H istory metoprolol tartrate 50 mg tablet 50 mg PO DAILY 04/17/15 Unknown Hi story omeprazole 20 mg capsule,delayed 20 mg PO DAILY 04/17/15 Unknown Hi story release hydrocodone-acetaminop hen 5-325mg 1 tab PO Q6H PRN PRN Pain 3 days 05/31/23 Unknown Rx 5mg-325mg #10 TABLETS ondansetron 4 mg disintegrating 8 mg (2 x 4 mg) PO Q8H PRN PRN 05/15 Unknown Rx tablet Nausea #20 tabs prednisone 20 mg tablet 40 mg (2 x 20 mg) PO DAILY #10 05/15 Unknown Rx TABLETS hydrocodone-acetaminop hen 5-325mg 1 tab PO Q6H PRN PRN Pain 3 days 02/01/25 Unknown Rx 5mg-325mg #10 TABLETS Allergy/AdvReac Type Severity Reaction Status Date / Time No Known Allergies Allergy Verified 02/01/25 21:38 Social History (Updated 02/01/25 @ 22:[address] Jed Edwards MD) household members: spouse and children Smoking Status: Never smoker ROS ROS ED Musculoskeletal Musculoskeletal: Reports other Details: Ankle swelling and pain due to trauma ; Denies arthralgias, back pain, myalgias or neck pain Integumentary Denies Abrasions or rash Neurologic Neurologic: Denies paresthesias EXAM Physical Exam Const Vital Signs: 02/01/25 21:38 Temperature 96.7 F L Temperature Source Temporal Pulse Rate 85 Respiratory Rate 18 Blood Pressure 155/108 H Blood Pressure Mean 123 Pulse Ox 98 Oxygen Delivery Method Room Air Positive well nourished and well developed Constitutional Narrative: BMI is 37.9. Blood pressure slightly elevated. This is probably due to the fact that he has pain. General Appearance ED: well developed; Negative for pallor HEENT Reports moist mucous membranes HEENT Narrative: Head is atraumatic normocephalic. Teeth are normal. Ears are normal. Eyes PERRL and EOMs intact bilaterally General Eye ED: Yes scleral icterus Resp normal respiratory effort Cardio regular rate and regular rhythm Extremity Negative for normal to inspection Extremity Narrative: There is significant swelling over the lateral malleolus. There is pain palpation over the anterior talofibular and calcaneofibular ligament on the left. There is pain palpation posteriorly as well. There is no pain palpation over the medial malleolus or deltoid ligament. There is no laxity with drawer testing. There is no pain to palpation base of the fifth metatarsal. DP pulses palpable. Neuro oriented x3, CN's II-XII intact bilaterally and no sensory deficits noted Sensorium / Orientation: alert Psych mental status grossly normal Skin no rashes or lesions noted, no wounds and skin turgor normal General Skin Exam: elasticity normal; Negative for jaundice or pallor MDM MDM MDM Narrative Medical decision making narrative: Based on the [place] ankle rule patient will need imaging. Three-view x-ray was ordered per nurse protocol. X-ray was reviewed by me. Radiography Chest X-Ray - ED: Read by ED Physician (Three-view x-ray of the ankle was obtained. There is no fracture, subluxation dislocation. There is no widening of the mortise. There is no evidence of fracture at the base of the fifth metatarsal. There is soft tissue swelling noted laterally. This is entirely reviewed interpreted by me at 215) Discharge Plan Triage Chief Complaint: Lower Extremity Injury ED Provider: Jed Edwards Dx/Rx/DC Orders Clinical Impression: Sprain of anterior talofibular ligament of left ankle, Sprain of calcaneofibula (more content not included)... Normal [facility] CBC W Auto Differential pane l (Bld)on 09-28-2024 Basophils (Bld) [#/Vol] 0.07 10*3/uL [facility] Basophils/100 WBC (Bld) 0.6 % [facility] Differential cell count method Nom (Bld) Auto [facility] Eosinophils (Bld) [#/Vol] 0.16 10*3/uL [facility] Eosinophils/100 WBC (Bld) 1.4 % [facility] Erythrocyte distribution width (RBC) [Ratio] 13.1 % 11.5 - 15.0 % [facility] Hematocrit (Bld) [Volume fraction] 47.2 % 39.0 - 51.0 % [facility] Hemoglobin (Bld) [Mass/Vol] 15.8 g/dL 13.0 - 17.0 g/dL [facility] Immature granulocytes (Bld) [#/Vol] 0.04 10*3/uL [facility] Immature granulocytes/100 WBC (Bld) 0.3 % [facility] Interpretation and review of laboratory results Abnormal [facility] Lymphocytes (Bld) [#/Vol] 3.78 10*3/uL [facility] Lymphocytes/100 WBC (Bld) 32.7 % [facility] MCH (RBC) [Entitic mass] 28.9 pg 26.0 - 34.0 pg [facility] MCHC (RBC) [Mass/Vol] 33.5 g/dL 30.5 - 36.0 g/dL [facility] MCV (RBC) [Entitic vol] 86.4 fL 80.0 - 100.0 fL [facility] Monocytes (Bld) [#/Vol] 1.08 10*3/uL High [facility] Monocytes/100 WBC (Bld) 9.4 % [facility] Neutrophils (Bld) [#/Vol] 6.42 10*3/uL [facility] Neutrophils/100 WBC (Bld) 55.6 % [facility] Nucleated RBC (Bld) [#/Vol] [facility] Nucleated RBC/100 WBC (Bld) [Ratio] 0.0 % /100 WBC [facility] Platelet mean volume (Bld) [Entitic vol] 11.6 fL 9.0 - 12.7 fL [facility] Platelets (Bld) [#/Vol] 278 10*3/uL [facility] RBC (Bld) [#/Vol] 5.46 10*6/uL 4.20 - 6.0 0 m/uL [facility] WBC (Bld) [#/Vol] 11.55 10*3/uL [facility] Basophils (Bld) [#/Vol] 0.07 10*3/uL Normal <0.11 [facility] Comment on above: Order Comment: Speci men Type: BLOOD SPECIMEN Ordering Facility: [facility] Address: [address] [place] [address] Performed By: #### 3 016-3, 20834-4, LIPNF, #### [facility] CLIA [id number] [address] [place] [address] [place] Basophils/100 WBC (Bld) 0.6 % Normal [facility] Comment on above: Order Comment: Speci men Type: BLOOD SPECIMEN Ordering Facility: [facility] Address: [address] [place] [address] Performed By: #### 3 016-3, 65682-2, LIPNF, #### [facility] CLIA [id number] [address] [place] [address] [place] Differential cell count method Nom (Bld) Auto Normal [facility] Comment on above: Order Comment: Speci men Type: BLOOD SPECIMEN Ordering Facility: [facility] Address: [address] [place] [address] Performed By: #### 3 0163, , LIPNF, 81520-7 #### [facility] CLIA [id number] [address] [place] [address] [place] Eosinophils (Bld) [#/Vol] 0.16 10*3/uL Normal <0.46 [facility] Comment on above: Order Comment: Speci men Type: BLOOD SPECIMEN Ordering Facility: [facility] Address: [address] [place] [address] Performed By: #### 3 016-3, , LIPNF, 98668-2 #### [facility] CLIA [id number] [address] [place] [address] [place] Eosinophils/100 WBC (Bld) 1.4 % Normal [facility] Comment on above: Order Comment: Speci men Type: BLOOD SPECIMEN Ordering Facility: [facility] Address: [address] [place] [address] Performed By: #### 3 016-3, 39153-9, LIPNF, #### [facility] CLIA [id number] [address] [place] [address] [place] Erythrocyte distribution width (RBC) [Ratio] 13.1 % Normal 11.5-15.0 [facility] Comment on above: Order Comment: Speci men Type: BLOOD SPECIMEN Ordering Facility: [facility] Address: [address] [place] [address] Performed By: #### 3 016-3, , LIPNF, #### [facility] CLIA [id number] [address] [place] [address] [place] Hematocrit (Bld) [Volume fraction] 47.2 % Normal 39.0-51.0 [facility] Comment on above: Order Comment: Speci men Type: BLOOD SPECIMEN Ordering Facility: [facility] Address: [address] [place] [address] Performed By: #### 3 016-3, , LIPNF, #### [facility] CLIA [id number] [address] [place] [address] [place] Hemoglobin (Bld) [Mass/Vol] 15.8 g/dL Normal 13.0-17.0 [facility] Comment on above: Order Comment: Speci men Type: BLOOD SPECIMEN Ordering Facility: [facility] Address: [address] [place] [address] Performed By: #### 3 016-3, , LIPNF, #### [facility] CLIA [id number] [address] [place] [address] [place] Immature granulocytes (Bld) [#/Vol] 0.04 10*3/uL Normal <0.10 [facility] Comment on above: Order Comment: Speci men Type: BLOOD SPECIMEN Ordering Facility: [facility] Address: [address] [place] [address] Performed By: #### 3 016-3, , LIPNF, #### [facility] CLIA [id number] [address] [place] [address] [place] Immature granulocytes/100 WBC (Bld) 0.3 % Normal [facility] Comment on above: Order Comment: Speci men Type: BLOOD SPECIMEN Ordering Facility: [facility] Address: [address] [place] [address] Performed By: #### 3 016-3, 29622-5, LIPNF, #### [facility] CLIA [id number] [address] [place] [address] [place] Lymphocytes (Bld) [#/Vol] 3.78 10*3/uL Normal 1.00-4.00 [facility] Comment on above: Order Comment: Speci men Type: BLOOD SPECIMEN Ordering Facility: [facility] Address: [address] [place] [address] Performed By: #### 3 016-3, , LIPNF, #### [facility] CLIA [id number] [address] [place] [address] [place] Lymphocytes/100 WBC (Bld) 32.7 % Normal [facility] Comment on above: Order Comment: Speci men Type: BLOOD SPECIMEN Ordering Facility: [facility] Address: [address] [place] [address] Performed By: #### 3 016-3, 89634-1, LIPNF, #### [facility] CLIA [id number] [address] [place] [address] [place] MCH (RBC) [Entitic mass] 28.9 pg Normal 26.0-34.0 [facility] Comment on above: Order Comment: Speci men Type: BLOOD SPECIMEN Ordering Facility: [facility] Address: [address] [place] [address] Performed By: #### 3 016-3, 65448-9, LIPNF, #### [facility] CLIA [id number] [address] [place] [address] [place] MCHC (RBC) [Mass/Vol] 33.5 g/dL Normal 30.5-36.0 [facility] Comment on above: Order Comment: Speci men Type: BLOOD SPECIMEN Ordering Facility: [facility] Address: [address] [place] [address] Performed By: #### 3 016-3, 58031-8, LIPNF, #### [facility] CLIA [id number] [address] [place] [address] [place] MCV (RBC) [Entitic vol] 86.4 fL Normal 80.0-100.0 [facility] Comment on above: Order Comment: Speci men Type: BLOOD SPECIMEN Ordering Facility: [facility] Address: [address] [place] [address] Performed By: #### 3 016-3, , LIPNF, #### [facility] CLIA [id number] [address] [place] [address] [place] Monocytes (Bld) [#/Vol] 1.08 10*3/uL High <0.87 [facility] Comment on above: Order Comment: Speci men Type: BLOOD SPECIMEN Ordering Facility: [facility] Address: [address] [place] [address] Performed By: #### 3 016-3, , LIPNF, #### [facility] CLIA [id number] [address] [place] [address] [place] Monocytes/100 WBC (Bld) 9.4 % Normal [facility] Comment on above: Order Comment: Speci men Type: BLOOD SPECIMEN Ordering Facility: [facility] Address: [address] [place] [address] Performed By: #### 3 016-3, 00720-9, LIPNF, #### [facility] CLIA [id number] [address] [place], [place] [address] [place] Neutrophils (Bld) [#/Vol] 6.42 10*3/uL Normal 1.45-7.50 [facility] Comment on above: Order Comment: Speci men Type: BLOOD SPECIMEN Ordering Facility: [facility] Address: [address] [place] [address] Performed By: #### 3 016-3, 74981-8, LIPNF, #### [facility] CLIA [id number] [address] [place] [address] [place] Neutrophils/100 WBC (Bld) 55.6 % Normal [facility] Comment on above: Order Comment: Speci men Type: BLOOD SPECIMEN Ordering Facility: [facility] Address: [address] [place] [address] Performed By: #### 3 016-3, 98954-4, LIPNF, #### [facility] CLIA [id number] [address] [place] [address] [place] Nucleated RBC (Bld) [#/Vol] 10*3/uL Normal <0.01 [facility] Comment on above: Order Comment: Speci men Type: BLOOD SPECIMEN Ordering Facility: [facility] Address: [address] [place] [address] Performed By: #### 3 016-3, , LIPNF, #### [facility] CLIA [id number] [address] [place] [address] [place] Nucleated RBC/100 WBC (Bld) [Ratio] 0.0 /100 WBC Normal [facility] Comment on above: Order Comment: Speci men Type: BLOOD SPECIMEN Ordering Facility: [facility] Address: [address] [place] [address] Performed By: #### 3 016-3, 55463-2, LIPNF, 52219-3 #### [facility] CLIA [id number] [address] [place] [address] [place] Platelet mean volume (Bld) [Entitic vol] 11.6 fL Normal 9.0-12.7 [facility] Comment on above: Order Comment: Speci men Type: BLOOD SPECIMEN Ordering Facility: [facility] Address: [address] [place] [address] Performed By: #### 3 016-3, 40781-2, LIPNF, 44692-8 #### [facility] CLIA [id number] [address] [place], [place] [id number] [place] Platelets (Bld) [#/Vol] 278 10*3/uL Normal 150-400 [facility] Comment on above: Order Comment: Speci men Type: BLOOD SPECIMEN Ordering Facility: [facility] Address: [address] [place] [address] Performed By: #### 3 016-3, 16155-0, LIPNF, 92012-9 #### [facility] CLIA [id number] [address] [place] [address] [place] RBC (Bld) [#/Vol] 5.46 10*6/uL Normal 4.20-6.00 [facility] Comment on above: Order Comment: Speci men Type: BLOOD SPECIMEN Ordering Facility: [facility] Address: [address] [place] [address] Performed By: #### 3 016-3, 79295-0, LIPNF, 41485-9 #### [facility] [facility] CLIA [id number] [address] [place] [address] [place] WBC (Bld) [#/Vol] 11.55 10*3/uL High 3.70-11.00 [facility] Comment on above: Order Comment: Speci men Type: BLOOD SPECIMEN Ordering Facility: [facility] Address: [address] [place] [address] Performed By: #### 3 016-3, 99443-6, LIPNF, 72850-7 #### [facility] CLIA [id number] [address] [place] [address] [place] CNOVon 09-28-2024 CNOV Office Visit (FAMPWS ) LENORE LEE ([id number]) 1990 M Date Time Provider Department 09/28/24 4:00 PM [facility] During your visit today, we recorded the [...] ear lobe, removed 12/2017 Family history of TX (myocardial infarction) 06/15/2018 GERD without esophagitis 12/15/2017 [...] Father is 50 yo and had 8 TX's prior to this Patient Allergies ALLERGIES No [...] murmur, gall (more content not included)... Normal [facility] Comprehensive metabolic 2000 panelon 09-28-2024 Albumin [Mass/Vol] 4.6 g/dL Normal 3.9-4.[address] [facility] Comment on above: Order Comment: Speci men Type: BLOOD SPECIMEN Ordering Facility: [facility] Address: [address] [place] [address] Performed By: #### 3 016-3, 21599-6, LIPNF, #### [facility] CLIA [id number] [address] [place], [place] [address]K [id number] [place] [address] [place] ALP [Catalytic activity/Vol] 25 U/L Low 38-113 [facility] Comment on above: Order Comment: Speci men Type: BLOOD SPECIMEN Ordering Facility: [facility] Address: [address] [place] [address] Performed By: #### 3 016-3, 93856-2, LIPNF, #### [facility] CLIA [id number] [address] [place] [address] [place] ALT [Catalytic activity/Vol] 23 U/L Normal 10-54 [facility] Comment on above: Order Comment: Speci men Type: BLOOD SPECIMEN Ordering Facility: [facility] Address: [address] [place] [address] Performed By: #### 3 016-3, 08294-9, LIPNF, 84630-3 #### [facility] CLIA [id number] [address] [place] [address] [place] Anion gap [Moles/Vol] 11 mmol/L Normal 8-15 [facility] Comment on above: Order Comment: Speci men Type: BLOOD SPECIMEN Ordering Facility: [facility] Address: [address] [place] [address] Performed By: #### 3 016-3, 71827-6, LIPNF, 65054-7 #### [facility] CLIA [id number] [address] [place] [address] [place] AST [Catalytic activity/Vol] 20 U/L Normal 14-40 [facility] Comment on above: Order Comment: Speci men Type: BLOOD SPECIMEN Ordering Facility: [facility] Address: [address] [place] [address] Performed By: #### 3 016-3, 96092-1, LIPNF, 03094-5 #### [facility] CLIA [id number] [address] [place] [address] [place] Bilirubin [Mass/Vol] 0.2 mg/dL Normal 0.2-1.3 [facility] Comment on above: Order Comment: Speci men Type: BLOOD SPECIMEN Ordering Facility: [facility] Address: [address] [place] [address] Performed By: #### 3 016-3, 24168-8, LIPNF, 44987-6 #### [facility] CLIA [id number] [address] [place] [address] [place] Calcium [Mass/Vol] 9.5 mg/dL Normal 8.5-10.[address] [facility] Comment on above: Order Comment: Speci men Type: BLOOD SPECIMEN Ordering Facility: [facility] Address: [address] [place] [address] Performed By: #### 3 016-3, 67795-1, LIPNF, 93627-2 #### [facility] CLIA [id number] [address] [place] [address] [place] Chloride [Moles/Vol] 100 mmol/L Normal 98-107 [facility] Comment on above: Order Comment: Speci men Type: BLOOD SPECIMEN Ordering Facility: [facility] Address: [address] [place] [address] Performed By: #### 3 016-3, 91905-7, LIPNF, 30183-1 #### [facility] CLIA [id number] [address] [place] [address] [place] CO2 [Moles/Vol] 26 mmol/L Normal 22-30 [facility] Comment on above: Order Comment: Speci men Type: BLOOD SPECIMEN Ordering Facility: [facility] Address: [address] [place] [address] Performed By: #### 3 016-3, 30120-7, LIPNF, 20494-1 #### [facility] CLIA [id number] [address] [place] [address] [place] Creatinine [Mass/Vol] 1.16 mg/dL Normal 0.73-1.22 [facility] Comment on above: Order Comment: Speci men Type: BLOOD SPECIMEN Ordering Facility: [facility] Address: [address] [place] [address] Performed By: #### 3 016-3, 75922-9, LIPNF, 61704-4 #### [facility] CLIA [id number] [address] [place] [address] [place] Creatinine and Glomerular filtration rate.predicted panel (S/P/Bld) 84 mL/min/1.73m??? Normal >=60 [facility] Comment on above: Order Comment: Srinath rojas Type: BLOOD SPECIMEN Ordering Facility: [facility] Address: [address] [place] [address] Result Comment: Yvette mated Glomerular Filtration Rate [...] actual GFR. Performed By: #### 3 016-3, 35239-6, KARYN, 95952-0 #### [facility] CLIA [id number] [address] [place] [address] [place] Glucose [Mass/Vol] 87 mg/dL Normal 74-[address] [facility] Comment on above: Order Comment: Srinath rojas Type: BLOOD SPECIMEN Ordering Facility: [facility] Address: [address] [place] [address] Result Comment: The [place] Diabetes Association (ADA) provides guidance for cutoff [...] Standards of Medical Care in Diabetes 2016, [place] [employer] Association. Diabetes Care. 2016.39(Suppl 1). Performed By: #### 3 016-3, 88976-8, LIPSRIDEVI, 55610-9 #### [facility] CLIA [id number] [address] [place] [id number] [address] [place] Potassium [Moles/Vol] 4.3 mmol/L Normal 3.7-5.1 [facility] Comment on above: Order Comment: Speci men Type: BLOOD SPECIMEN Ordering Facility: [facility] Address: [address] [place] [address] Performed By: #### 3 016-3, 80696-3, LIPNF, #### [facility] CLIA [id number] [address] [place] [address] [place] Protein [Mass/Vol] 7.3 g/dL Normal 6.3-8.[address] [facility] Comment on above: Order Comment: Speci men Type: BLOOD SPECIMEN Ordering Facility: [facility] Address: [address] [place] [address] Performed By: #### 3 016-3, 99588-3, LIPNF, #### [facility] CLIA [id number] [address] [place] [address] [place] Sodium [Moles/Vol] 137 mmol/L Normal 136-[address] [facility] Comment on above: Order Comment: Speci men Type: BLOOD SPECIMEN Ordering Facility: [facility] Address: [address] [place] [address] Performed By: #### 3 016-3, 13821-4, LIPNF, #### [facility] CLIA [id number] [address] [place] [address] [place] Urea nitrogen [Mass/Vol] 14 mg/dL Normal 9-24 [facility] Comment on above: Order Comment: Speci men Type: BLOOD SPECIMEN Ordering Facility: [facility] Address: [address] [place] [address] Performed By: #### 3 016-3, 39629-8, LIPNF, 18159-4 #### [facility] CLIA [id number] [address] [place] [address] [place] HbA1c (Bld)on 09-28-2024 Average glucose Estimated from glycated hemoglobin (Bld) [Mass/Vol] 111 mg/dL Normal [facility] Comment on above: Order Comment: Srinath rojas Type: BLOOD SPECIMEN Ordering Facility: [facility] Address: [address] [place] [address] Result Comment: eAG: (Estimated average glucose) is a calculated value from HgbA1c and is outreach representative of the average blood glucose level in the last 2-3 month period. Performed By: #### 5 5454-3 #### [facility] CLIA [id number] [address] [place] [address] [place] HbA1c (Bld) [Mass fraction] 5.5 % Normal 4.3-5.6 [facility] Comment on above: Order Comment: Srinath rojas Type: BLOOD SPECIMEN Ordering Facility: [facility] Address: [address] [place] [address] Result Comment: [place] Diabetes Association guidelines indicate that patients with HgbA1c in the range 5.7-6.4% are at increased risk for development of diabetes, and intervention by lifestyle modification may be beneficial. HgbA1c greater or equal to 6.5% is considered diagnostic of diabetes. Performed By: #### 5 5454-3 #### [facility] CLIA [id number] [address] [place] [address] [place] LIPID PANEL, NONFASTINGon Cholesterol [Mass/Vol] 150 mg/dL Normal <200 [facility] Comment on above: Order Comment: Srinath rojas Type: BLOOD SPECIMEN Ordering Facility: [facility] Address: [address] [place] [address] Result Comment: <200 mg/dL, Desirable 200-239 mg/dL, Borderline high >239 mg/dL, High Performed By: #### 3 016-3, 25554-9, LIPNF, 97865-5 #### [facility] CLIA [id number] [address] [place] [address] [place] HDL CHOLESTEROL, NF 34 mg/dL Low >39 [facility] Comment on above: Order Comment: Srinath rojas Type: BLOOD SPECIMEN Ordering Facility: [facility] Address: [address] [place] [address] Result Comment: 40-5 9 mg/dL, Acceptable >59 mg/dL, High: Negative risk factor for coronary heart disease <40 mg/dL, Low: Positive risk factor for coronary heart disease Performed By: #### 3 016-3, 23821-0, LIPNF, 26613-2 #### [facility] CLIA [id number] [address] [place] [address] [place] LDL CHOLESTEROL, NF 97 mg/dL Normal <100 [facility] Comment on above: Order Comment: Srinath crystal Type: BLOOD SPECIMEN Ordering Facility: [facility] Address: [address] [place] [address] Result Comment: <100 mg/dL, Optimal 100-129 mg/dL, Near optimal/above optimal 130-159 mg/dL, Borderline high 160-189 mg/dL, High >189 mg/dL, Very high Secondary prevention optimal LDL Cholesterol levels are recommended to be < 70 mg/dL Performed By: #### 3 016-3, 86324-0, LIPNF, 84713-9 #### [facility] CLIA [id number] [address] [place] [address] [place] LDL/HDL RATIO, NF 2.85 mg/dL High <2.54 [facility] Comment on above: Order Comment: Violettajadon rojas Type: BLOOD SPECIMEN Ordering Facility: [facility] Address: [address] [place] [address] Result Comment: Refe rence: 1. National Cholesterol Education Program ATP III Guideline At-A-Glance Quick Desk Reference: National Heart, Lung, and Blood [place]. National Institutes of Health. 2001: NIH Publication No. 01-3305. 2. An International Atherosclerosis Society position paper: global recommendations for the management of dyslipidemia: executive summary, Atherosclerosis. 2014: 232(2):410-413. Performed By: #### 3 016-3, 24941-7, LIPNF, 18749-6 #### [facility] CLIA [id number] [address] [place] [address] [place] NON HDL CHOL, NF 116 mg/dL Normal <130 [facility] Comment on above: Order Comment: Srinath rojas Type: BLOOD SPECIMEN Ordering Facility: [facility] Address: [address] [place] [address] Result Comment: <130 mg/dL, Optimal 130-159 mg/dL, Near optimal/above optimal 160-189 mg/dL, Borderline high 190-219 mg/dL, High >219 mg/dL, Very high Secondary prevention optimal non HDL Cholesterol levels are recommended to be <100 mg/dL Performed By: #### 3 016-3, 53423-2, LIPNF, 19093-2 #### [facility] CLIA [id number] [address] [place] [address] [place] T CHOL/HDL RATIO NF 4.41 mg/dL Normal <5.10 [facility] Comment on above: Order Comment: Violettai men Type: BLOOD SPECIMEN Ordering Facility: [facility] Address: [address] [place] [address] Performed By: #### 3 016-3, 35021-7, LIPNF, 15738-1 #### [facility] CLIA [id number] [address] [place] [address] [place] TRIGLYCERIDES, NF 96 mg/dL Normal <150 [facility] Comment on above: Order Comment: Speci men Type: BLOOD SPECIMEN Ordering Facility: [facility] Address: [address] [place] [address] Result Comment: <150 mg/dL, Normal 150-199 mg/dL, Borderline high 200-499 mg/dL, High >499 mg/dL, Very high Performed By: #### 3 016-3, 98190-4, LIPNF, 88022-8 #### [facility] CLIA [id number] [address] [place] [address] [place] VLDL CHOLESTEROL, NF 19 mg/dL Normal <30 [facility] Comment on above: Order Comment: Speci men Type: BLOOD SPECIMEN Ordering Facility: [facility] Address: [address] [place] [address] Performed By: #### 3 016-3, 06548-5, LIPNF, #### [facility] CLIA [id number] [address] [place] [address] [place] Magnesium SerPl-mCncon 09-28 Magnesium [Mass/Vol] 2.1 mg/dL Normal 1.7-2.3 [facility] Comment on above: Order Comment: Speci men Type: BLOOD SPECIMEN Ordering Facility: [facility] Address: [address] [place] [address] Performed By: #### 3 016-3, 71111-7, LIPNF, #### [facility] CLIA [id number] [address] [place] [address] [place] TSH SerPl-aCncon 09-28-2024 TSH Qn 1.370 m[IU]/L Normal 0.270-4.200 [facility] Comment on above: Order Comment: Speci men Type: BLOOD SPECIMEN Ordering Facility: [facility] Address: [address] [place] [address] Performed By: #### 3 016-3, 22266-1, LIPNF, 88548-4 #### [facility] CLIA [id number] [address] [place] [address] [place] Urinalysis complete panel (U )on 09-28-2024 Bacteria LM.HPF (Urine sed) [#/Area] Negative Negative /HPF [facility] Bilirubin Ql (U) Negative Negative [facility] Clarity (Unsp spec) Clear Clear [facility] Color (U) Yellow Yellow [facility] Epithelial cells LM.HPF (Urine sed) [#/Area] None Seen /HPF [facility] Glucose Test strip (U) [Mass/Vol] Negative Negative [facility] Hemoglobin Ql (U) Negative Negative [facility] Hyaline casts (Urine sed) [#/Area] 0 /[LPF] 0 /LPF [facility] Interpretation and review of laboratory results Abnormal [facility] Ketones Ql (U) Trace Abnormal Negative [facility] Leukocyte esterase Test strip Ql (U) Negative Negative [facility] Nitrite Ql (U) Negative Negative [facility] pH (U) 6.0 [pH] NINF - 8.5 [facility] Protein (U) [Mass/Vol] Negative Negative [facility] RBC LM.HPF (Urine sed) [#/Area] 0-2 /HPF 0-2 /HPF [facility] Specific gravity (U) [Rel density] 1.027 1.005 - 1.030 [facility] Urobilinogen Ql (U) 0.2 EU/dL 0.2-1.0 EU/dL [facility] WBC LM.HPF (Urine sed) [#/Area] 0-5 /HPF 0-5 /HPF [facility] This test was developed and its performance characteristics determined by [facility]'s [facility]ology [facility] [place] ([facility]). It has not been cleared or approved by the FDA. [facility] is regulated under CLIA as qualified to perform high-complexity testing. This test is used for clinical purposes. It should not be regarded as investigational or for research. [facility] Bacteria LM.HPF (Urine sed) [#/Area] Negative Normal Negative [facility] Comment on above: Order Comment: Speci men Type: BLOOD SPECIMEN Ordering Facility: [facility] Address: [address] [place] [address] Performed By: #### 3 016-3, 27027-6, LIPNF, 44212-8 #### [facility] CLIA [id number] [address] [place] [address] [place] Bilirubin Ql (U) Negative Normal Negative [facility] Comment on above: Order Comment: Speci men Type: BLOOD SPECIMEN Ordering Facility: [facility] Address: [address] [place] [address] Performed By: #### 3 016-3, 23222-6, LIPNF, 24328-3 #### [facility] CLIA [id number] [address] [place] [address] [place] Clarity (Unsp spec) Clear Normal Clear [facility] Comment on above: Order Comment: Speci men Type: BLOOD SPECIMEN Ordering Facility: [facility] Address: [address] [place] [address] Performed By: #### 3 016-3, , LIPNF, #### [facility] CLIA [id number] [address] [place] [address] [place] Color (U) Yellow Normal Yellow [facility] Comment on above: Order Comment: Speci men Type: BLOOD SPECIMEN Ordering Facility: [facility] Address: [address] [place] [address] Performed By: #### 3 016-3, , LIPNF, #### [facility] CLIA [id number] [address] [place] [address] [place] Epithelial cells LM.HPF (Urine sed) [#/Area] None Seen Normal [facility] Comment on above: Order Comment: Speci men Type: BLOOD SPECIMEN Ordering Facility: [facility] Address: [address] [place] [address] Performed By: #### 3 016-3, , LIPNF, #### [facility] CLIA [id number] [address] [place] [address] [place] Glucose Test strip (U) [Mass/Vol] Negative Normal Negative [facility] Comment on above: Order Comment: Speci men Type: BLOOD SPECIMEN Ordering Facility: [facility] Address: [address] [place] [address] Performed By: #### 3 016-3, , LIPNF, #### [facility] CLIA [id number] [address] [place] [address] [place] Hemoglobin Ql (U) Negative Normal Negative [facility] Comment on above: Order Comment: Speci men Type: BLOOD SPECIMEN Ordering Facility: [facility] Address: [address] [place] [address] Performed By: #### 3 016-3, , LIPNF, #### [facility] CLIA [id number] [address] [place] [address] [place] Hyaline casts (Urine sed) [#/Area] 0 /[LPF] Normal 0 /LPF [facility] Comment on above: Order Comment: Speci men Type: BLOOD SPECIMEN Ordering Facility: [facility] Address: [address] [place] [address] Performed By: #### 3 016-3, , LIPNF, #### [facility] CLIA [id number] [address] [place] [address] [place] Ketones Ql (U) Trace Abnormal Negative [facility] Comment on above: Order Comment: Speci men Type: BLOOD SPECIMEN Ordering Facility: [facility] Address: [address] [place] [address] Performed By: #### 3 016-3, , LIPNF, #### [facility] CLIA [id number] [address] [place] [address] [place] Leukocyte esterase Test strip Ql (U) Negative Normal Negative [facility] Comment on above: Order Comment: Speci men Type: BLOOD SPECIMEN Ordering Facility: [facility] Address: [address] [place] [address] Performed By: #### 3 016-3, 41283-9, LIPNF, #### [facility] CLIA [id number] [address] [place] [address] [place] Nitrite Ql (U) Negative Normal Negative [facility] Comment on above: Order Comment: Speci men Type: BLOOD SPECIMEN Ordering Facility: [facility] Address: [address] [place] [address] Performed By: #### 3 016-3, , LIPNF, #### [facility] CLIA [id number] [address] [place] [address] [place] pH (U) 6.0 [pH] Normal <8.5 [facility] Comment on above: Order Comment: Speci men Type: BLOOD SPECIMEN Ordering Facility: [facility] Address: [address] [place] [address] Performed By: #### 3 016-3, , LIPNF, #### [facility] CLIA [id number] [address] [place] [address] [place] Protein (U) [Mass/Vol] Negative Normal Negative [facility] Comment on above: Order Comment: Speci men Type: BLOOD SPECIMEN Ordering Facility: [facility] Address: [address] [place] [address] Performed By: #### 3 016-3, , LIPNF, #### [facility] CLIA [id number] [address] [place] [address] [place] RBC LM.HPF (Urine sed) [#/Area] 0-2 /HPF Normal 0-2 /HPF [facility] Comment on above: Order Comment: Speci men Type: BLOOD SPECIMEN Ordering Facility: [facility] Address: [address] [place] [address] Performed By: #### 3 016-3, , LIPNF, #### [facility] CLIA [id number] [address] [place] [address] [place] Specific gravity (U) [Rel density] 1.027 Normal 1.005-1.030 [facility] Comment on above: Order Comment: Speci men Type: BLOOD SPECIMEN Ordering Facility: [facility] Address: [address] [place] [address] Performed By: #### 3 016-3, 53386-7, LIPNF, 09133-4 #### [facility] CLIA [id number] [address] [place] [address] [place] Urobilinogen Ql (U) 0.2 EU/dL Normal 0.2-1.0 EU/dL [facility] Comment on above: Order Comment: Speci men Type: BLOOD SPECIMEN Ordering Facility: [facility] Address: [address] [place] [address] Performed By: #### 3 016-3, 80268-1, LIPNF, 87354-2 #### [facility] CLIA [id number] [address] [place] [address] [place] WBC LM.HPF (Urine sed) [#/Area] 0-5 /HPF Normal 0-5 /HPF [facility] Comment on above: Order Comment: Speci men Type: BLOOD SPECIMEN Ordering Facility: [facility] Address: [address] [place] [address] Performed By: #### 3 016-3, 30176-5, LIPNF, 40375-0 #### [facility] [facility] CLIA [id number] [address] [place] [address] [place] Vit B12 SerPl-mCncon 025 Cobalamin (Vitamin B12) [Mass/Vol] 494 pg/mL Normal 232-1245 [facility] Comment on above: Order Comment: Speci men Type: BLOOD SPECIMEN Ordering Facility: [facility] Address: [address] [place] [address] Performed By: #### 3 016-3, 40460-2, LIPNF, 34350-3 #### [facility] CLIA [id number] [address] [place] [address] [place] Calprotectin (Stl) [Mass/Mas s]on 09-27-2024 CALPROTECTIN, FECAL QUANTITATIVE 91.5 ug/g High <50 [facility] Comment on above: Order Comment: Speci men Type: BLOOD SPECIMEN Ordering Facility: [facility] Address: [address] [place] [address] Performed By: #### 3 016-3, 71032-3, KARYN, 52334-2 #### [facility] CLIA [id number] [address] [place] [address] [place] [address] [place] ENTEROGRAPHY W IVCONon CT ENTEROGRAPHY W IVCON * * *Final Report* * * DATE OF EXAM: Sep 15 2024 4:23PM [facility] 0545 - CT ENTEROGRAPHY W IVCON / [...] abnormality. No evidence for inflammatory bowel disease Truck Guard: KHALIDA Transcribe Date/Time: Sep 18 2024 7:41A Dictated by : ANJALI DELUCA MD This examination was interpreted and the report reviewed and electronically signed by: ANJALI DELUCA MD on Sep 18 2024 7:49AM EST [id number] Normal [facility] NURSING PROGon 09-15-2024 NURSING PROG HNO ID: [id number] Author: BISHNU SANCHEZ RN Service: Nursing Author [...] DATE: September 15, 2024 TIME: 3:56 PM [facility] 08-29-2024 [facility] Office Visit (GSTNOR ) LENORE LEE ([id number]) 1990 M Date Time Provider Department 08/29/24 [...] ear lobe, removed 12/2017 Family history of TX (myocardial infarction) 06/15/2018 GERD without esophagitis 12/15/2017 [...] Father is 50 yo and had 8 TX's prior to this REVIEW OF SYSTEMS Review [...] scleral icter (more content not included)... Normal [facility] 08-09-2024 [facility] LENORE LEE ([id number]) 1990 M Date Time Provider Department 08/09/24 [facility] During your visit today, we recorded the following information about you: Ricardo Bowers LPN 08/09/2024 3:15 PM Signed Pt self scheduled appt with Rajeev Cho for medication follow [...] early CAD [Z82.49] 06/15/2018 Family history of TX (myocardial infarction) [Z*06/15/2018 Well adult exam [Z00.00] 06/15/2018 Foot pain, left [M79.672] 06/15/2018 Plantar fasciitis of left foot [M72.2] 09/09/2022 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] 09/09/2022 Elevated fecal calprotectin [R19.5] 09/03/2023 Encounter Status:Closed by YOLANDA PURVIS on 08/14/24 [facility] Rubina 07-13-2024 CNPN Telephone (FAMPWS) LENORE LEE ([id number]) 1990 M Date Time Provider Department 07/13/24 [facility] During your visit today, we recorded the following information about you: Chris Shabazz RN 07/13/2024 9:38 AM Signed Patient reports he never received the Rx's for lisinopril or levothyroxine from [facility], and has been out of medication for 1 week, and is starting not to feel well: tense, and BP is elevated. Reports [facility], shipped the order to his old address, which is not near his current address, and not in the same city (although they have his current address), and is lost in the mail. This nurse spoke to [facility], who was able to get this corrected. States [facility] states they will release the order today, it will ship tomorrow, and patient will receive it no later than Wednesday- patient will have no charge for this. 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 Does he have follow up with [facility]? Joanne Narvaez MA 03/23/2024 8:22 AM Signed Left message for return call. SWAPNA Hdz Lori, LPN 03/23/2024 8:36 AM Signed Pt was notified of results, pt states he does not have a FU with [facility] but will call to schedule one. CECIL Kong Danielle, APRN.YUNIER 03/23/2024 9:30 AM Signed Noted. 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 Mild degenerative change. Truck Guard: KHALIDA Transcribe Date/Time: Mar 22 2024 9:46P Dictated by : RUI LOO DO This examination was interpreted and the report reviewed and electronically signed by: RUI LOO DO on Mar 22 2024 9:48PM [facility] DIVISION OF RADIOLOGY * * *Final Report* [...] interval is maintained. DIVISION OF RADIOLOGY Provider, Jaja Shelley - 03/22/2024 * * *Final Report* * [...] No acute osseous abnormality. Mild degenerative change. Truck Guard: KHALIDA Transcribe Date/Time: Mar 22 2024 9:46P Dictated by : RUI LOO DO This examination was interpreted and the report reviewed and electronically signed by: RUI LOO DO on Mar 22 2024 9:48PM [facility] XR Shoulder - right 3 ViewsO rdered By: Ccf Provider on 03-22-2024 [facility] CNOVon 03-20-2024 CNOV Office Visit (FAMPWS ) LENORE LEE ([id number]) 1990 M Date Time Provider Department 03/20/24 4:20 PM ROHIT JAY During your visit today, we recorded the following information about you: Pulse Respiration Blood pressure Weight 78/minute 14/minute 145/79 116.1 kg Rohit Jay APRN.CNP 03/20/2024 4:41 PM Signed Chief Complaint Patient [...] ear lobe, removed 12/2017 Family history of TX (myocardial infarction) 06/15/2018 GERD without esophagitis 12/15/2017 [...] Father is 50 yo and had 8 TX's prior to this Patient Allergies ALLERGIES No [...] done BP Controlled (<130/80) Never done Covid-19 Vaccine( season) due on 07/05/2024 Influenza Vaccine(1) due [...] CT/MRI due to cost. Referred to [facility]. 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 Normal [facility] XR SHLDR >/=3V AP/ALIZA AP/OTH R RTon [...] No acute osseous abnormality. Mild degenerative change. Truck Guard: PSCB Transcribe Date/Time: Mar 22 2024 9:46P Dictated by : RUI LOO DO This examination was interpreted and the report reviewed and electronically signed by: RUI LOO DO on Mar 22 2024 9:48PM EST [id number] Normal [facility] XR Shoulder - right 3 Viewso n 03-20-2024 Radiology Study observation (narrative) [facility] XR FOOT GENERAL 3V AP/LAT/OB L BILATERALon 07-22-2022 [facility] XR Foot - bilateral AP and L ateral and obliqueon 07-22-2022 IMPRESSION: NO ACUTE FRACTURE Truck Guard: KHALIDA Transcribe Date/Time: Jul 22 2022 3:45P Dictated by : CHARITY WASSERMAN MD This examination was interpreted and the report reviewed and electronically signed by: CHARITY WASSERMAN MD on Jul 22 2022 3:49PM [facility] DIVISION OF RADIOLOGY * * *Final Report* [...] on the left DIVISION OF RADIOLOGY Provider, [facility] - 07/22/2022 * * *Final Report* * [...] the left IMPRESSION IMPRESSION: NO ACUTE FRACTURE Truck Guard: KHALIDA Transcribe Date/Time: Jul 22 2022 3:45P Dictated by : CHARITY WASSERMAN MD This examination was interpreted and the report reviewed and electronically signed by: CHARITY WASSERMAN MD on Jul 22 2022 3:49PM EST [facility] Radiology Study observation (narrative) [facility] XR Foot - bilateral AP and L ateral and obliqueOrdered By: Ccf Provider on 07-22-2022 [facility] COLONOSCOPY DIAGNOSTICon [facility] EGD DIAGNOSTICon 03-27-2022 [facility] CALPROTECTIN,FECALon 022 Calprotectin (Stl) [Mass/Mass] 170.1 mg/kg High 0 - 50 mg/kg [facility] FECAL LACTOFERRIN/LEUKOCYTES on 03-10-2022 Lactoferrin IA Ql (Stl) Positive for lactoferrin, which may indicate presence of fecal white blood cells Abnormal Negative [facility] FECAL OCCULT BLOOD TESTon Lower GI hemoglobin IA Ql (Stl) Positive Abnormal Negative [facility] Gastrointestinal pathogens i dentified GHADA+probe Nom (Stl)on 03-10-2022 Campylobacter sp DNA GHADA+probe Nom (Unsp spec) Not detected Not Detected [facility] Salmonella sp DNA GHADA+probe Ql (Unsp spec) Not detected Not Detected [facility] Shiga toxin stx gene GHADA+probe Nom (Unsp spec) Not detected Not Detected [facility] Shigella sp DNA GHADA+probe Ql (Unsp spec) Not detected Not Detected [facility] Vital Signs Date Time Vital Sign Value Performing Clinician Faci lity 02-01-2025 21:41-0400 Body mass index (BMI) [Ratio] 37.9 kg/m2 Dr. Vern Rodarte MD Work Phone: [facility] 02-01-2025 21:41-0400 Body weight 116.[address] Vern Rodarte MD Work Phone: [facility] 02-01-2025 21:38-0400 Body height 175.[address] Vern Rodarte MD Work Phone: [facility] 02-01-2025 21:38-0400 Body temperature 96.7 [degF] Dr. Vern Rodarte MD Work Phone: [facility] 02-01-2025 21:38-0400 Diastolic blood pressure 108 mm[Hg] Dr. Vern Rodarte MD Work Phone: [facility] 02-01-2025 21:38-0400 Heart rate 85 /min Dr. Vern Rodarte MD Work Phone: [facility] 02-01-2025 21:38-0400 Respiratory rate 18 /min Dr. Vern Rodarte MD Work Phone: [facility] 02-01-2025 21:38-0400 SaO2% (BldA) [Mass fraction] 98 % Dr. Vern Rodarte MD Work Phone: [facility] 02-01-2025 21:38-0400 Systolic blood pressure 155 mm[Hg] Dr. Vern Rodarte MD Work Phone: [facility] 09-28-2024 15:54-0500 Diastolic blood pressure 82 mm[Hg] Vern Rodarte MD Work Phone: [facility] 09-28-2024 15:54-0500 Systolic blood pressure 134 mm[Hg] Vern Rodarte MD Work Phone: [facility] 09-28-2024 15:37-0500 Body height 175.3 cm Vern Rodarte MD Work Phone: [facility] 09-28-2024 15:37-0500 Body mass index (BMI) [Ratio] 35 kg/m2 Vern Rodarte MD Work Phone: [facility] 09-28-2024 15:37-0500 Body weight 107.5 kg Vern Rodarte MD Work Phone: [facility] 09-28-2024 15:37-0500 Heart rate 70 /min Vern Rodarte MD Work Phone: [facility] 09-28-2024 15:37-0500 SaO2% (BldA) [Mass fraction] 98 % Vern Rodarte MD Work Phone: [facility] 08-29-2024 12:50-0500 Body height 176.5 cm Kizzy Figueroa PA-C Work Phone: [facility] 08-29-2024 12:50-0500 Body mass index (BMI) [Ratio] 35.89 kg/m2 Kizzy Figueroa PA-C Work Phone: [facility] 08-29-2024 12:50-0500 Body weight 111.86 kg Kizzy Christensenon PA-C Work Phone: [facility] 08-29-2024 12:50-0500 Diastolic blood pressure 112 mm[Hg] Kizzy Christensenon PA-C Work Phone: [facility] 08-29-2024 12:50-0500 Heart rate 66 /min Kizzy Christensenon PA-C Work Phone: [facility] 08-29-2024 12:50-0500 Systolic blood pressure 182 mm[Hg] Kizzy Christensenon PA-C Work Phone: [facility] 03-20-2024 16:02-0400 Body mass index (BMI) [Ratio] 37.28 kg/m2 Rohit Jay CHOPPER GUN OPERATOR.FUEL CELL ASSEMBLER Work Phone: [facility] 03-20-2024 16:02-0400 Body weight 116.12 kg Rohit Jay CHOPPER GUN OPERATOR.FUEL CELL ASSEMBLER Work Phone: [facility] 03-20-2024 16:02-0400 Diastolic blood pressure 79 mm[Hg] Rohit Jay CHOPPER GUN OPERATOR.FUEL CELL ASSEMBLER Work Phone: [facility] 03-20-2024 16:02-0400 Heart rate 78 /min Rohit Jay CHOPPER GUN OPERATOR.FUEL CELL ASSEMBLER Work Phone: [facility] 03-20-2024 16:02-0400 Respiratory rate 14 /min Rohit Jay CHOPPER GUN OPERATOR.FUEL CELL ASSEMBLER Work Phone: [facility] 03-20-2024 16:02-0400 Systolic blood pressure 145 mm[Hg] Rohit Jay CHOPPER GUN OPERATOR.FUEL CELL ASSEMBLER Work Phone: [facility] 07-05-2023 16:07-0500 Body height 176.5 cm Kacie Cho CHOPPER GUN OPERATOR.FUEL CELL ASSEMBLER Work Phone: [facility] 07-05-2023 16:07-0500 Body weight 111.13 kg Kacie Cho CHOPPER GUN OPERATOR.FUEL CELL ASSEMBLER Work Phone: [facility] 07-05-2023 16:07-0500 Diastolic blood pressure 90 mm[Hg] Kacie Haagen CHOPPER GUN OPERATOR.FUEL CELL ASSEMBLER Work Phone: [facility] 07-05-2023 16:07-0500 Heart rate 76 /min Kacie Haagen CHOPPER GUN OPERATOR.FUEL CELL ASSEMBLER Work Phone: [facility] 07-05-2023 16:07-0500 Respiratory rate 16 /min Kacie Haagen CHOPPER GUN OPERATOR.FUEL CELL ASSEMBLER Work Phone: [facility] 07-05-2023 16:07-0500 SaO2% (BldA) [Mass fraction] 98 % Kacie Haagen CHOPPER GUN OPERATOR.FUEL CELL ASSEMBLER Work Phone: [facility] 07-05-2023 16:07-0500 Systolic blood pressure 130 mm[Hg] Kacie Haagen CHOPPER GUN OPERATOR.FUEL CELL ASSEMBLER Work Phone: [facility] 06-09-2023 09:51-0400 Body height 175.3 cm Farhana Kalka PA-C Work Phone: [facility] 06-09-2023 09:51-0400 Body weight 108.86 kg Farhana Kalka PA-C Work Phone: [facility] 06-09-2023 09:51-0400 Diastolic blood pressure 86 mm[Hg] Farhana Kalka PA-C Work Phone: [facility] 06-09-2023 09:51-0400 Heart rate 70 /min Farhana Kalka PA-C Work Phone: [facility] 06-09-2023 09:51-0400 Systolic blood pressure 138 mm[Hg] Farhana Kalka PA-C Work Phone: [facility] 07-22-2022 12:49-0500 Diastolic blood pressure 86 mm[Hg] Lise Lundberg PA-C Work Phone: [facility] 07-22-2022 12:49-0500 Heart rate 74 /min Lise Lundberg PA-C Work Phone: [facility] 07-22-2022 12:49-0500 Systolic blood pressure 126 mm[Hg] Lise Lundberg PA-C Work Phone: [facility] 07-22-2022 12:00-0500 Body height 175.5 cm Lisedebbie Lundberg PA-C Work Phone: [facility] 07-22-2022 12:00-0500 Body temperature 97.9 [degF] Lisedebbie Lundberg PA-C Work Phone: [facility] 07-22-2022 12:00-0500 Body weight 114.31 kg Lise Lundberg PA-C Work Phone: [facility] 07-22-2022 12:00-0500 Respiratory rate 18 /min Lisedebbie Lundberg PA-C Work Phone: [facility] 03-27-2022 13:15-0400 Diastolic blood pressure 79 mm[Hg] Laura Ledezma MD Work Phone: [facility] 03-27-2022 13:15-0400 Heart rate 76 /min Laura Ledezma MD Work Phone: [facility] 03-27-2022 13:15-0400 Respiratory rate 16 /min Laura Ledezma MD Work Phone: [facility] 03-27-2022 13:15-0400 SaO2% (BldA) [Mass fraction] 97 % Laura Ledezma MD Work Phone: [facility] 03-27-2022 13:15-0400 Systolic blood pressure 125 mm[Hg] Laura Ledezma MD Work Phone: [facility] 03-27-2022 12:00-0400 Body temperature 98.6 [degF] Laura Ledezma MD Work Phone: [facility] 03-02-2022 11:05-0400 Body height 176 cm Serena Cannon CHOPPER GUN OPERATOR.FUEL CELL ASSEMBLER Work Phone: [facility] 03-02-2022 11:05-0400 Body weight 112.04 kg Serena Cannon CHOPPER GUN OPERATOR.FUEL CELL ASSEMBLER Work Phone: [facility] 03-02-2022 11:05-0400 Diastolic blood pressure 72 mm[Hg] Serena Cannon CHOPPER GUN OPERATOR.FUEL CELL ASSEMBLER Work Phone: [facility] 03-02-2022 11:05-0400 Heart rate 98 /min Serena Cannon CHOPPER GUN OPERATOR.FUEL CELL ASSEMBLER Work Phone: [facility] 03-02-2022 11:05-0400 SaO2% (BldA) [Mass fraction] 98 % Serena Cannon CHOPPER GUN OPERATOR.FUEL CELL ASSEMBLER Work Phone: [facility] 03-02-2022 11:05-0400 Systolic blood pressure 140 mm[Hg] Serena Cannon CHOPPER GUN OPERATOR.FUEL CELL ASSEMBLER Work Phone: [facility] Encounters Encounter Date Encounter Type Care Provider Facility Start: 02-01-2025 End: 02-01-2025 Emergency department patient visit Dr. Vern Rodarte MD Work Phone: -Emergency Department Work Phone: Start: 01-24-2025 End: 01-24-2025 Refill Farhana Freitas PA-C Work Phone: [facility] Comment on above: Refill Request Start: 01-01-2025 End: 01-02-2025 Refill Vern Rodarte MD Work Phone: [facility] Comment on above: Refill Request Start: 10-09-2024 End: 10-09-2024 Follow-up encounter Vern Rodarte MD Work Phone: [facility] Comment on above: Leukocytosis, unspec ified type (Primary Dx) Start: 10-02-2024 End: 12-02-2024 Follow-up encounter Kizzy Figeuroa PA-C Work Phone: [facility] Start: 09-28-2024 End: 09-28-2024 ambulatory VERN RODARTE Facility:[facility] Start: 09-28-2024 End: 09-28-2024 Patient encounter procedure Vern Rodarte MD Work Phone: [facility] [place] Comment on above: Well adult exam (Ana domi Dx); Hypertension, essential; Hypothyroidism, acquired; GERD without esophagitis; Encounter for screening for diabetes mellitus; Medication management; Screening for depression; Encounter for screening examination for other mental health and behavioral disorders Start: 09-28-2024 Encounter for genera l adult medical examination without abnormal findings VERN RODARTE [facility] Start: 09-28-2024 End: 09-28-2024 Patient encounter status Vern Rodarte MD Work Phone: [facility] Work Phone: Start: 09-15-2024 ambulatory VERN RODARTE Facili ty:[facility] Start: 08-29-2024 End: 08-29-2024 ambulatory VERN RODARTE Facility:[facility] Start: 08-29-2024 End: 08-29-2024 Patient encounter procedure Kizzy Figueroa PA-C Work Phone: [facility] Comment on above: Generalized abdomina l pain (Primary Dx); Diarrhea, unspecified type; Elevated fecal calprotectin Start: 08-09-2024 End: 08-14-2024 Telephone encounter Kacie Cho APRN.FUEL CELL ASSEMBLER Work Phone: [facility] [place] Comment on above: Appointment Start: 08-08-2024 End: 08-08-2024 ambulatory Farhana Freitas PA-C Work Phone: [facility] Comment on above: FMLA Start: 07-13-2024 End: 07-13-2024 Telephone encounter Vern Rodarte MD Work Phone: [facility] [place] Start: 06-29-2024 End: 06-29-2024 Refill Kacie Cho APRN.FUEL CELL ASSEMBLER Work Phone: [facility] [place] Comment on above: Refill Request Start: 03-30-2024 ambulatory Vern schwarz MD Work Phone: [facility] [place] Comment on above: Ozempic Start: 03-23-2024 Telephone encounter Rohit pelayo APRN.FUEL CELL ASSEMBLER Work Phone: [facility] [place] Comment on above: Results Start: 03-20-2024 End: 03-20-2024 Subsequent hospital visit by physician Marian [facility] [place] Work Phone: Radiology Comment on above: Acute pain of right shoulder [M25.511] Start: 03-20-2024 End: 03-20-2024 Patient encounter procedure Rohit Jay APRN.FUEL CELL ASSEMBLER Work Phone: [facility] Comment on above: Acute pain of right shoulder (Primary Dx); Injury of right shoulder, initial encounter Start: 03-20-2024 End: 03-20-2024 ambulatory VERN RODARTE Facility:[facility] Start: 03-08-2024 Refill Kacie Cho APRN.FUEL CELL ASSEMBLER Work Phone: [facility] Comment on above: Refill Request Start: 07-28-2023 ambulatory Farhana Kalka PA-C Work Phone: [facility] [place] Comment on above: FMLA Start: 07-05-2023 End: 07-05-2023 Patient encounter procedure Kacie Cho APRN.FUEL CELL ASSEMBLER Work Phone: [facility] Comment on above: Well adult exam ([facility] Dx); Hypertension, essential; Hypothyroidism, acquired; Hyperlipidemia, mixed Start: 07-05-2023 End: 07-05-2023 Patient encounter status Kacie Cho APRN.FUEL CELL ASSEMBLER Work Phone: [facility] Work Phone: Start: 06-29-2023 Refill Lise Kim on PA-C [facility] Phone: [facility] Comment on above: Refill Request Start: 06-09-2023 End: 06-09-2023 Patient encounter procedure Farhana Kalka PA-C Work Phone: [facility] [place] Comment on above: Focal active colitis (Primary Dx); Abnormal endoscopy of upper gastrointestinal tract; Hiatal hernia with GERD and esophagitis Start: 04-07-2023 Refill Farhana Kalka PA-C Work Phone: Gastroenterology Comment on above: Refill Request Start: 04-05-2023 Refill Rohit lawton APRN.FUEL CELL ASSEMBLER Work Phone: [facility] Comment on above: Refill Request Start: 11-11-2022 ambulatory Rose Hernandez APRN.FUEL CELL ASSEMBLER Work Phone: Telemedicine Comment on above: Viral URI with cough (Primary Dx) Start: 09-14-2022 Refill Vern schwarz MD Work Phone: [facility] Comment on above: Refill Request Start: 09-09-2022 End: 09-09-2022 [facility] Comment on above: Achilles tendonosis (Primary Dx); Plantar fasciitis of left foot Start: 09-07-2022 ambulatory Lise Kim on PA-C Work Phone: [facility] Comment on above: Meloxicam Start: 08-26-2022 End: 08-26-2022 Patient encounter procedure David Motley Work Phone: Podiatry Comment on above: Plantar fasciitis of left foot (Primary Dx); Achilles tendonosis Start: 08-08-2022 ambulatory Lise Kim on PA-C Work Phone: [facility] Comment on above: Antibiotics Start: 07-23-2022 Telephone encounter Lise hannon PA-C Work Phone: [facility] Comment on above: Results Start: 07-22-2022 End: 07-22-2022 Subsequent hospital visit by physician Marian Formerly [facility], [facility] [place] Work Phone: Radiology Comment on above: Heel pain, bilateral [M79.671, M79.672] Start: 07-22-2022 End: 07-22-2022 Patient encounter procedure Lise Lundberg PA-C Work Phone: [facility] Comment on above: Well adult exam (Ana domi Dx); Hypertension, essential; Heel pain, bilateral; Hypothyroidism, acquired; Encounter for screening for diabetes mellitus; Encounter for lipid screening for cardiovascular disease; OME (otitis media with effusion), bilateral Start: 07-22-2022 End: 07-22-2022 Patient encounter status Lise Lundberg PA-C Work Phone: [facility] Start: 06-16-2022 Refill Lise Kim on PA-C Work Phone: [facility] Comment on above: Refill Request Start: 04-08-2022 End: 04-08-2022 ambulatory Serena Cannon CHOPPER GUN OPERATOR.FUEL CELL ASSEMBLER Work Phone: [facility] Comment on above: Chronic diarrhea (Pr imary Dx); Heartburn; GERD without esophagitis; Generalized abdominal pain; Focal active colitis Start: 04-08-2022 End: 04-08-2022 Telemedicine consultation with patient Serena Cannon CHOPPER GUN OPERATOR.FUEL CELL ASSEMBLER Work Phone: [facility] Start: 03-27-2022 End: 03-27-2022 Subsequent hospital visit by physician Laura Ledezma MD Work Phone: Ambulatory Surgery Comment on above: Heartburn [R12] Start: 03-20-2022 ambulatory Serena Cannon CHOPPER GUN OPERATOR.FUEL CELL ASSEMBLER Work Phone: [facility] Comment on above: Colonoscopy Start: 03-13-2022 Telephone encounter Serena Cannon CHOPPER GUN OPERATOR.FUEL CELL ASSEMBLER Work Phone: [facility] Comment on above: Results Start: 03-08-2022 ambulatory Lise Kim on PA-C Work Phone: [facility] Comment on above: Medication Start: 03-05-2022 ambulatory Serena Cannon CHOPPER GUN OPERATOR.FUEL CELL ASSEMBLER Work Phone: Gastroenterology Comment on above: Prescription Start: 03-02-2022 Telephone encounter Serena Cannon CHOPPER GUN OPERATOR.FUEL CELL ASSEMBLER Work Phone: Gastroenterology Comment on above: Procedure (EGD) Start: 03-02-2022 End: 03-02-2022 Patient encounter procedure Seerna Cannon CHOPPER GUN OPERATOR.FUEL CELL ASSEMBLER Work Phone: Gastroenterology Comment on above: Heartburn (Primary D x); Chronic diarrhea; Nausea and vomiting, unspecified vomiting type Start: 01-27-2022 ambulatory Lise Kim on PA-C Work Phone: [facility] [place] Comment on above: Bowel Movements Start: 01-26-2022 ambulatory Lise Kim on PA-C Work Phone: [facility] [place] Comment on above: Fish oil Start: 12-24-2021 Telephone encounter Lise Victoria donnahoracio PA-C Work Phone: [facility] [place] Comment on above: Results Start: 11-21-2021 Refill Lise Kim on PA-C Work Phone: [facility] [place] Comment on above: Refill Request Start: 02-22-2019 Patient encounter status Lroene vladimir Lundberg PA-C Work Phone: [facility] Work Phone: Procedures Date Procedure Procedure Detail Performing Clinician Start: 09-28-2024 Adult depression screening assessment Vern Rodarte MD Work Phone: Start: 09-28-2024 Lipid 1996 panel - Serum or Plasma Sebastián Rodarte MD Work Phone: Start: 03-20-2024 Radex shoulder complete minimum 2 views Rohit Jay CHOPPER GUN OPERATOR.FUEL CELL ASSEMBLER Work Phone: Start: 07-31-2023 Lipid 1996 panel - Serum or Plasma Corey Cho CHOPPER GUN OPERATOR.FUEL CELL ASSEMBLER Work Phone: Start: 07-22-2022 Radex foot complete minimum 3 views Tosha eugenia Lundberg PA-C Work Phone: Start: 03-27-2022 Esophagogastroduodenoscopy transoral diagnostic Serena Cannon CHOPPER GUN OPERATOR.FUEL CELL ASSEMBLER Work Phone: Start: 03-27-2022 Colonoscopy flx dx w/collj spec when pfrmd Serena Cannon CHOPPER GUN OPERATOR.FUEL CELL ASSEMBLER Work Phone: Start: 03-08-2022 Lactoferrin fecal qualitative Serena Cannon CHOPPER GUN OPERATOR.FUEL CELL ASSEMBLER Work Phone: Start: 03-08-2022 Nfct agent dna/rna gastrointestinal pathogen Serena Cannon CHOPPER GUN OPERATOR.FUEL CELL ASSEMBLER Work Phone: Start: 04-18-2021 Adult depression screening assessment Lise Lundberg PA-C Work Phone: Plan of Treatment Date Care Activity Detail Author Start: 04-18-2031 Urine microalbumin profile [facility] Start: 09-28-2029 Lipid panel Lipid Screening [facility] Start: 07-31-2028 Lipid panel Lipid Screening [facility] Start: 10-10-2025 End: 10-10-2025 Patient encounter procedure [facility] Comment on above: Physical Start: 09-28-2025 Annual PCP Team Chronic Disease Visit Annual PCP Team Chronic Disease Visit [facility] Start: 09-28-2025 Anxiety Screening Anxiety Screening [facility] Start: 09-28-2025 Depression Screening Depression Screening [facility] Start: 03-20-2025 Annual PCP Team Chronic Disease Visit Annual PCP Team Chronic Disease Visit [facility] Start: 02-01-2025 [facility] Start: 02-01-2025 X-ray of ankle, three or more views Ankle min 3 Views [facility] Start: 02-01-2025 XR Ankle GE 3 Views [facility] Start: 12-07-2024 End: 12-07-2024 Patient encounter procedure 12/07/2024 2:40 PM EDT Office Visit [facility] [address] [place] [id number] Farhana Freitas PA-C [address] [facility] [place] [address] 3 month follow up office visit with Farhana Freitas, generalized abdominal pain,diarrhea,elevated fecal calpprotectin [facility] Comment on above: 3 month follow up office visit with Renan Freitas, generalized abdominal pain,diarrhea,elevated fecal calpprotectin Start: 11-06-2024 End: 02-05-2025 CBC W Auto Differential panel - Blood COMPLETE BLOOD COUNT AND DIFFERENTIAL Lab Routine Leukocytosis, unspecified type Expected: 11/06/2024, Expires: 02/05/2025 [facility] Work Phone: Comment on above: Expected: 11/06/2024, Expires: Start: 09-28-2024 End: 09-28-2024 Patient encounter procedure 09/28/2024 4:00 PM EST Office Visit [facility] [place] [address] [place] [address] Vern Rodarte MD [address] [place] [address] Physical and normal appointment [facility] Comment on above: Physical and normal appointment Start: 09-28-2024 End: 12-28-2024 Cobalamin (Vitamin B12) [Mass/volume] in Serum or Plasma [facility] Work Phone: Comment on above: Expected: 09/28/2024, Expires: Start: 09-28-2024 End: 12-28-2024 Comprehensive metabolic 2000 panel - Serum or Plasma [facility] Comment on above: Expected: 09/28/2024, Expires: Start: 09-28-2024 End: 12-28-2024 Hemoglobin A1c in Blood [facility] Comment on above: Expected: 09/28/2024, Expires: Start: 09-28-2024 End: 12-28-2024 LIPID PANEL, NONFASTING [facility] Comment on above: Expected: 09/28/2024, Expires: Start: 09-28-2024 End: 12-28-2024 Magnesium [Mass/volume] in Serum or Plasma [facility] Comment on above: Expected: 09/28/2024, Expires: Start: 09-28-2024 End: 12-28-2024 Thyrotropin [Units/volume] in Serum or Plasma [facility] Comment on above: Expected: 09/28/2024, Expires: Start: 09-15-2024 End: 09-15-2024 Patient encounter procedure Radiology Comment on above: Generalized abdominal pain [R10.84] Start: 08-21-2024 End: 08-21-2024 Patient encounter procedure 08/21/2024 6:00 PM EST [facility] [address] [place] [address] Kacie Cho, CHOPPER GUN OPERATOR.FUEL CELL ASSEMBLER [address] [facility] [place] [address] Follow up for medicine and regular visit. [facility] [place] Comment on above: Follow up for medicine and regular visit . Start: 07-05-2024 Annual PCP Team Chronic Disease Visit Annual PCP Team Chronic Disease Visit [facility] Start: 07-05-2024 Covid-19 Vaccine () Covid-19 Vaccine () [facility] Comment on above: Postponed from 04/23/2023 (Declined at t his time) Start: 04-23-2024 Covid-19 Vaccine () Covid-19 Vaccine () [facility] Start: 04-23-2024 Covid-19 Vaccine () Covid-19 Vaccine () [facility] Start: 04-23-2024 Influenza vaccination Influenza Vaccine (#1) [facility] Start: 02-20-2024 Influenza vaccination Influenza Vaccine (#1) [facility] Comment on above: Postponed from 04/23/2023 (Declined at t his time) Start: 07-22-2023 ANNUAL PCP TEAM CHRONIC DISEASE VISIT ANNUAL PCP TEAM CHRONIC DISEASE VISIT [facility] Start: 07-22-2023 COVID-19 VACCINE (3 - Booster for Pfizer series) COVID-19 VACCINE (3 - Booster for Pfizer series) [facility] Comment on above: Postponed from 07/04/2021 (Declined at t his time) Start: 07-22-2023 COVID-19 VACCINE (3 - Pfizer series) COVID-19 VACCINE (3 - Pfizer series) [facility] Comment on above: Postponed from 07/04/2021 (Declined at t his time) Start: 07-22-2023 HEPATITIS C SCREENING HEPATITIS C SCREENING [facility] Comment on above: Postponed from 2006 (Declined at t his time) Start: 07-22-2023 HIV SCREENING HIV SCREENING [facility] Comment on above: Postponed from 2006 (Declined at t his time) Start: 07-05-2023 End: 10-04-2023 CBC W Auto Differential panel - Blood CBC + DIFF Lab Routine Well adult exam Expected: 07/05/2023, Expires: 10/04/2023 [facility] Work Phone: Comment on above: Expected: 07/05/2023, Expires: 4 Start: 07-05-2023 End: 10-04-2023 Comprehensive metabolic 2000 panel - Serum or Plasma COMP METABOLIC PANEL Lab Routine Hypertension, essential Hyperlipidemia, mixed Expected: 07/05/2023, Expires: 10/04/2023 [facility] Work Phone: Comment on above: Expected: 07/05/2023, Expires: Start: 07-05-2023 End: 10-04-2023 LIPID PANEL, NONFASTING LIPID PANEL, NONFASTING Lab Routine Hyperlipidemia, mixed Expected: 07/05/2023, Expires: 10/04/2023 [facility] Work Phone: Comment on above: Expected: 07/05/2023, Expires: 4 Start: 07-05-2023 End: 10-04-2023 THYROID PEROXIDASE ANTIBODY BLOOD THYROID PEROXIDASE ANTIBODY BLOOD Lab Routine Hypothyroidism, acquired Expected: 07/05/2023, Expires: 10/04/2023 [facility] Work Phone: Comment on above: Expected: 07/05/2023, Expires: 4 Start: 07-05-2023 End: 10-04-2023 Thyrotropin [Units/volume] in Serum or Plasma TSH BLD Lab Routine Hypothyroidism, acquired Expected: 07/05/2023, Expires: 10/04/2023 [facility] Work Phone: Comment on above: Expected: 07/05/2023, Expires: 4 Start: 06-09-2023 End: 09-08-2023 CELIAC COMPREHENSIVE PANEL CELIAC COMPREHENSIVE PANEL Lab Routine Abnormal endoscopy of upper gastrointestinal tract Expected: 06/09/2023, Expires: 09/08/2023 [facility] Work Phone: Comment on above: Expected: 06/09/2023, Expires: 4 Start: 04-23-2023 Covid-19 Vaccine ( season) Covid-19 Vaccine () [facility] Start: 04-23-2023 Influenza vaccination [facility] Start: 02-19-2023 Influenza vaccination INFLUENZA (#1) [facility] Comment on above: Postponed from 04/23/2022 (Declined at t his time) Start: 12-22-2022 ANNUAL PCP TEAM CHRONIC DISEASE VISIT ANNUAL PCP TEAM CHRONIC DISEASE VISIT [facility] Start: 08-23-2022 DEPRESSION ASSESSMENT DEPRESSION ASSESSMENT [facility] Start: 07-22-2022 End: 09-21-2022 Comprehensive metabolic 2000 panel - Serum or Plasma [facility] Work Phone: Comment on above: Expected: 07/22/2022, Expires: 3 Start: 07-22-2022 End: 09-21-2022 Hemoglobin A1c in Blood [facility] Work Phone: Comment on above: Expected: 07/22/2022, Expires: 3 Start: 07-22-2022 End: 09-21-2022 LIPID PANEL, NONFASTING [facility] Work Phone: Comment on above: Expected: 07/22/2022, Expires: 3 Start: 07-22-2022 End: 09-21-2022 Thyrotropin [Units/volume] in Serum or Plasma [facility] Work Phone: Comment on above: Expected: 07/22/2022, Expires: 3 Start: 04-23-2022 Influenza vaccination [facility] Start: 04-18-2022 Adult depression screening assessment DEPRESSION SCREENING [facility] Start: 04-18-2022 ANNUAL PCP TEAM CHRONIC DISEASE VISIT ANNUAL PCP TEAM CHRONIC DISEASE VISIT [facility] Start: 04-18-2022 BP CONTROLLED (<130/80) BP CONTROLLED (<130/80) [facility] Start: 04-08-2022 End: 06-08-2022 CELIAC SCREEN WITH REFLEX CELIAC SCREEN WITH REFLEX Lab Routine Focal active colitis Expected: 04/08/2022, Expires: 06/08/2022 [facility] Work Phone: Comment on above: Expected: 04/08/2022, Expires: Start: 10-09-2021 COVID-19 VACCINE (3 - Booster for Pfizer series) COVID-19 VACCINE (3 - Booster for Pfizer series) [facility] Start: 08-23-2021 DEPRESSION ASSESSMENT DEPRESSION ASSESSMENT [facility] Start: 07-04-2021 COVID-19 VACCINE (3 - Booster for Pfizer series) COVID-19 VACCINE (3 - Booster for Pfizer series) [facility] Start: 2006 Anxiety Screening Anxiety Screening [facility] Start: 2006 BP CONTROLLED (<130/80) BP CONTROLLED (<130/80) [facility] Start: 2006 Depression Screening Depression Screening [facility] Start: 2006 HEPATITIS C SCREENING HEPATITIS C SCREENING [facility] Start: 2006 Hepatitis C screening Hepatitis C Screening [facility] Start: 2006 HIV SCREENING HIV SCREENING [facility] Start: 2006 HIV screening HIV Screening [facility] Start: 1988 HEPATITIS B (1 of 3 - 3-dose series) HEPATITIS B (1 of 3 - 3-dose series) [facility] Calprotectin [Mass/m ass] in Stool CALPROTECTIN,FECAL Lab Routine Focal active colitis Ordered: 06/09/2023 [facility] Work Phone: Comment on above: Ordered: 06/09/2023 Calprotectin [Mass/m ass] in Stool CALPROTECTIN,FECAL Lab Routine Generalized abdominal pain Diarrhea, unspecified type Elevated fecal calprotectin Ordered: 08/29/2024 [facility] Work Phone: Comment on above: Ordered: 08/29/2024 Clostridioides diffi cile toxin genes [Presence] in Stool by GHADA with probe detection C. DIFFICILE PCR Lab Routine Focal active colitis Ordered: 06/09/2023 [facility] Work Phone: Comment on above: Ordered: 06/09/2023 End: 03-13-2023 COLONOSCOPY DIAGNOSTIC COLONOSCOPY DIAGNOSTIC Endoscopy Routine Diarrhea, unspecified type 1 Occurrences starting 03/13/2022 until 03/13/2023 [facility] Work Phone: Comment on above: 1 Occurrences starting 03/13/2022 until 03/13/2023 End: 09-28-2025 CT Small bowel W contrast PO and W contrast IV CT ENTEROGRAPHY W IVCON Radiology Routine Generalized abdominal pain Diarrhea, unspecified type Elevated fecal calprotectin 1 Occurrences starting 08/29/2024 until 09/28/2025 [facility] Comment on above: 1 Occurrences starting 08/29/2024 until 09/28/2025 End: 03-02-2023 EGD DIAGNOSTIC EGD DIAGNOSTIC Endoscopy Routine Heartburn Nausea and vomiting, unspecified vomiting type 1 Occurrences starting 03/02/2022 until 03/02/2023 [facility] Work Phone: Comment on above: 1 Occurrences starting 03/02/2022 until 03/02/2023 Gastrointestinal pathogens panel - Stool by GHADA with probe detection STOOL GASTROINTESTINAL PANEL Lab Routine Focal active colitis Ordered: 06/09/2023 [facility] Work Phone: Comment on above: Ordered: 06/09/2023 End: 05-08-2023 MRI ABD ENTEROG WO/W IVCON MRI ABD ENTEROG WO/W IVCON Radiology Routine Chronic diarrhea Generalized abdominal pain Focal active colitis 1 Occurrences starting 04/08/2022 until 05/08/2023 [facility] Work Phone: Comment on above: 1 Occurrences starting 04/08/2022 until 05/08/2023 End: 05-08-2023 Mri pelvis w/o & w/contrast material MRI PEL ENTEROG WO/W IVCON Radiology Routine Generalized abdominal pain 1 Occurrences starting 04/08/2022 until 05/08/2023 [facility] Work Phone: Comment on above: 1 Occurrences starting 04/08/2022 until 05/08/2023 PANC ELASTASE, FECAL PANC ELASTA SE, FECAL Lab Routine Chronic diarrhea 03/08/2022 12:55 PM EDT [facility] Work Phone: Patient Education ED Ankle Sprain (Adult) [facility] Work Phone: Patient referral [facility] Work Phone: PT PLAN OF CARE CERTIFICATION PT PLAN OF CARE CERTIFICATION Procedures Routine Plantar fasciitis of left foot Achilles tendonosis Ordered: 09/09/2022 [facility] Comment on above: Ordered: 09/09/2022 SURGICAL PATHOLOGY [facility] Work Phone: Comment on above: Release Upon Ordering for 1 Occurrences starting 03/27/2022, 1 completed End: 04-19-2025 XR Shoulder - right 3 Views XR SHOULDER GENERAL 3V OR MORE AP/TRUE AP/OTHER RIGHT Radiology Routine Acute pain of right shoulder Injury of right shoulder, initial encounter 1 Occurrences starting 03/20/2024 until 04/19/2025 [facility] Work Phone: Comment on above: 1 Occurrences starting 03/20/2024 until 04/19/2025 XR Shoulder - right 3 Views XR SHOULDER GENERAL 3V OR MORE AP/TRUE AP/OTHER RIGHT Radiology Routine Acute pain of right shoulder Injury of right shoulder, initial encounter 03/20/2024 4:[address] [facility] Immunizations Immunization Date Immunization Notes Care Provider Nayana barry 05-09-2021 COVID-19 vaccine, ag e 12+ yr (PFIZER-BIONTECH - PURPLE TOP) Lise Lundberg PA-C Work Phone: [facility] Work Phone: 04-18-2021 COVID-19 vaccine, ag e 12+ yr (PFIZER-BIONTECH - PURPLE TOP) Lise Lundberg PA-C Work Phone: [facility] 04-18-2021 tetanus toxoid, redu ivon diphtheria toxoid, and acellular pertussis vaccine, adsorbed Lise Lundberg PA-C Work Phone: [facility] 06-15-2018 influenza virus vaccine, unspecified formulation Farhana Freitas PA-C Work Phone: [facility] Payers Date Payer Category Payer Self-pay 2024 [employer] Blue [facility] BLUE ACCE PPO [id number] 2021 Unknown [employer] ACCE PPO [id number] 2021-Present [phone] [address] [place] [address] PPO [id number] 2021 Unknown [id number] 2021 Unknown [id number] 2020 Private Health Insurance BECCA COPELAND [id number] 2020-Present [phone] [address] [place] [address] Open Access [id number] Private Health Insurance CRISTI Hernandez [id number] Unknown [id number] Social History Date Type Detail Facility Start: 05-06-2012 End: 02-01-2025 Tobacco smoking status NHIS Never smoked tobacco [facility] Start: 05-06-2012 End: 07-22-2022 Tobacco use and exposure Smokeless tobacco non-user [facility] Start: 04-18-2021 End: 03-02-2022 Alcohol intake Current non-drinker of alcohol (finding) [facility] Start: 04-18-2021 End: 07-22-2022 History SDOH Alcohol Frequency 3 [facility] Start: 04-18-2021 End: 07-22-2022 History SDOH Alcohol Std Drinks 1 [facility] Start: 04-18-2021 End: 07-22-2022 History SDOH Social Connections Phone 2 [facility] Start: 04-18-2021 End: 07-22-2022 History SDOH Physical Activity DPW 5 [facility] Start: 04-18-2021 End: 07-22-2022 History SDOH Physical Activity MPS 4 [facility] Start: 03-16-2020 Education 12 [facility] Start: 1990 Sex Assigned At Not on file [facility] Start: 12-12-2021 End: 07-22-2022 Exposure to SARS-CoV-2 (event) Not sure [facility] Start: 03-27-2022 End: 09-28-2024 Alcohol intake Current drinker of alcohol (finding) [facility] Start: 03-27-2022 History SDOH Alcohol Comment occasional [facility] Start: 07-22-2022 End: 09-15-2024 History of Social function [facility] Start: 07-22-2022 End: 09-15-2024 Social connection and isolation panel [facility] Do you belong to any clubs or organizations such as muslim groups, unions, fraternal or athletic groups, or school groups? No [facility] Are you now , , , , never or living with a partner? [facility] How often to you hav e a drink containing alcohol? 2-4 times a month [facility] How many standard dr inks containing alcohol do you have on a typical day? 1 or 2 [facility] How often do you hav e 6 or more drinks on 1 occasion? Never [facility] How hard is it for y ou to pay for the very basics like food, housing, medical care, and heating Not hard at all [facility] Do you feel stress - tense, restless, nervous, or anxious, or unable to sleep at night because your mind is troubled all the time - these days [OSQ] To some extent [facility] (I/We) worried gurdeep er (my/our) food would run out before (I/we) got money to buy more. Never true [facility] Start: 09-03-2023 Alcohol Comment 2x -3x per wee k one drink [facility] How hard is it for y ou to pay for the very basics like food, housing, medical care, and heating Not very hard [facility] Do you feel stress - tense, restless, nervous, or anxious, or unable to sleep at night because your mind is troubled all the time - these days [OSQ] Only a little [facility] Start: 08-29-2024 Alcohol Comment 1x per week one yony henrandez [facility] Start: 1990 Sex Assigned At Male [facility] Functional Status Date Assessment Result Facility 03-12-2014 Are you deaf, or do you have serious difficulty hearing No 03/12/2014 8:49 AM Alison Moreira RN No [facility] 03-12-2014 Are you blind, or do you have serious difficulty seeing, even when wearing glasses No 03/12/2014 8:49 AM Alison Moreira RN No [facility] 03-12-2014 Do you have serious difficulty walking or climbing stairs No 03/12/2014 8:49 AM Alison Moreira RN No [facility] 03-12-2014 Do you have difficul ty dressing or bathing No 03/12/2014 8:49 AM Alison Moreira RN No [facility] [facility] 03[facility]2014 Because of a physica l, mental, or emotional condition, do you have difficulty doing errands alone such as visiting a physician's office or shopping No 03/12/2014 8:49 AM Alison Moreira RN No [facility] Mental Status Date Assessment Result Facility 03-12-2014 Because of a physica l, mental, or emotional condition, do you have serious difficulty concentrating, remembering, or making decisions No 03/12/2014 8:49 AM Alison Moreira RN No [facility] Clinical Notes 11-21-2021 to 02-01-2025 Note Date & Type Note Facility 02-01-2025 Discharge summary [facility] 02-01-2025 Discharge summary Note Date/Time February 01, 2025 10:11pm [facility] Medical Records Department [address] [place] [address] Emergency Department Summary 02/01/25 MR#: [id number] Acct: [id number] Name: LENORE LEE Rep #:[id number] : 1990 34 From: Jed Edwards MD PCP: Dr. Vern Rodarte MD Status:REG ER Location: ED HPI History of Present Illness Chief Complaint: Lower Extremity Injury Detail of Chief Complaint: Injury to left ankle, plantar inversion mechanism injury Informant: patient Onset/Context/Timing Onset: Hours Context: Sudden Onset Timing: Continuous Quality: Pain Location: Lateral side of left ankle Current Severity: Mild Maximum Severity: Severe Worsened by: Weightbearing and palpation Relieved by: Nothing Associated Symptoms Associated Symptoms: None Narrative Narrative: Patient is a 34-year-old male. He was playing with his daughter. His foot wentinto a hole. He twisted his ankle. He denies prior injury. He has history ofcolitis. He has been told that he should not take NSAIDs. He denies paresthesia, anesthesia or motor weakness. He denies knee pain, toe pain or foot pain. Prior similar symptoms: No Recent Illness/Hospitalization: No PFSH PFSH Medical History no medical history Home Medications ?Medication ?Instructions ?Recorded ?Last Taken ?Type levothyroxine 88 mcg tablet 50 mcg PO DAILY 04/17/15 U nknown History metoprolol tartrate 50 mg tablet 50 mg PO DAILY Unknown History omeprazole 20 mg capsule,delayed 20 mg PO DAILY Unknown History release hydrocodone-acetaminophen 5-325mg 1 tab PO Q6H PRN PRN Pain 3 days 05/31/23 Unknown Rx 5mg-325mg #10 TABLETS ondansetron 4 mg disintegrating 8 mg (2 x 4 mg) PO Q8H PRN PRN 05/31/23 Unknown Rx tablet Nausea #20 tabs prednisone 20 mg tablet 40 mg (2 x 20 mg) PO DAILY # 10 05/31/23 Unknown Rx TABLETS hydrocodone-acetaminophen 5-325mg 1 tab PO Q6H PRN PRN Pain 3 days 02/01/25 Unknown Rx 5mg-325mg #10 TABLETS Allergy/AdvReac Type Severity Reaction Status Date / Time No Known Allergies Allergy Verified 02/01/25 21:38 Social History (Updated 02/01/25 @ 22:[address] Jed Edwards MD) household members: spouse and children Smoking Status: Never smoker ROS ROS ED Musculoskeletal Musculoskeletal: Reports other Details: Ankle swelling and pain due to trauma ; Denies arthralgias, back pain, myalgias or neck pain Integumentary Denies Abrasions or rash Neurologic Neurologic: Denies paresthesias EXAM Physical Exam Const Vital Signs: 02/01/25 21:38 Temperature 96.7 F L Temperature Source Temporal Pulse Rate 85 Respiratory Rate 18 Blood Pressure 155/108 H Blood Pressure Mean 123 Pulse Ox 98 Oxygen Delivery Method Room Air Positive well nourished and well developed Constitutional Narrative: BMI is 37.9. Blood pressure slightly elevated. This is probably due to the fact that he has pain. General Appearance ED: well developed; Negative for pallor HEENT Reports moist mucous membranes HEENT Narrative: Head is atraumatic normocephalic. Teeth are normal. Ears are normal. Eyes PERRL and EOMs intact bilaterally General Eye ED: Yes scleral icterus Resp normal respiratory effort Cardio regular rate and regular rhythm Extremity Negative for normal to inspection Extremity Narrative: There is significant swelling over the lateral malleolus. There is pain palpation over the anterior talofibular and calcaneofibular ligament on the left. There is pain palpation posteriorly as well. There is no pain palpation over the medial malleolus or deltoid ligament. There is no laxity with drawer testing. There is no pain to palpation base of the fifth metatarsal. DP pulsespalpable. Neuro oriented x3, CN's II-XII intact bilaterally and no sensory deficits noted Sensorium / Orientation: alert Psych mental status grossly normal Skin no rashes or lesions noted, no wounds and skin turgor normal General Skin Exam: elasticity normal; Negative for jaundice or pallor MDM MDM MDM Narrative Medical decision making narrative: Based on the [place] ankle rule patient will need imaging. Three-view x-ray was ordered per nurse protocol. X-ray was reviewed by me. Radiography Chest X-Ray - ED: Read by ED Physician (Three-view x-ray of the ankle was obtained. There is no fracture, subluxation dislocation. There is no widening of the mortise. There is no evidence of fracture at the base of the fifth metatarsal. There is soft tissue swelling noted laterally. This is entirely reviewed interpreted by me at 215) Discharge Plan Triage Chief Complaint: Lower Extremity Injury ED Provider: Jed Edwards Dx/Rx/DC Orders Clinical Impression: Sprain of anterior talofibular ligament of left ankle, Sprain of calcaneofibular ligament of left ankle, Elevated blood-pressure reading without diagnosis of hypertension, Adult BMI 37.0-37.9 kg/sq m Instructions: ED Ankle Sprain (Adult) Prescriptions: New hydrocodone-acetaminophen 5-325 mg tablet 1 tab PO Q6H PRN PRN (Reason: Pain) 3 Days Qty: 10 0RF No Action levothyroxine 88 MCG tablet 50 mcg PO DAILY metoprolol tartrate 50 MG tablet 50 mg PO DAILY omeprazole 20 MG capsule 20 mg PO DAILY hydrocodone-acetaminophen [hydrocodone-acetaminophen] 5-325 mg tablet 1 tab PO Q6H PRN PRN (Reason: Pain) 3 Days Qty: 10 0RF prednisone 20 mg tablet 40 mg PO DAILY Qty: 10 0RF ondansetron [ondansetron] 4 mg tablet,disintegrating 8 mg PO Q8H PRN PRN (Reason: Nausea) Qty: 20 0RF Primary Care Provider: Vern Rodarte Referrals: Vern Rodarte MD [Primary Care Provider] - Print Language: Azeri Disposition Disposition: Home, Self Care What to do if you have Problems For any increased pain, shortness of breath, bleeding, nausea or vomiting, chestpain, or any unexpected problems, contact your Primary Care Provider. Call [facility] ([phone]) or report to the closest Emergency Room. Call 911 if necessary. 02/01/25 1700 <Electronically signed by Jed Edwards MD> Cosigner Signature (if applicable): CC: Dr. Vern Rodarte MD ~ Signed [facility] Work Phone: [phone] Telephone encounter Note* Telephone Encounter - Kristina Lundberg RN - 01/24/2025 8:02 AM EDT JANUSZ 08/29/24 Patient phones requesting refills as follows: Requested Prescriptions Pending Prescriptions Disp Refills omeprazole (PRILOSEC) 20 mg capsule 180 capsule 1 Sig: TAKE 2 CAPSULES ONCE DAILY Last sent 09/09/23 Please review and advise. Kristina Lundberg RN [facility]06-04-2025 Miscellaneous Notes* Telephone Encounter - Kristina Lundberg RN - 01/24/2025 8:02 AM EDT JANUSZ 08/29/24 Patient phones requesting refills as follows: Requested Prescriptions Pending Prescriptions Disp Refills omeprazole (PRILOSEC) 20 mg capsule 180 capsule 1 Sig: TAKE 2 CAPSULES ONCE DAILY Last sent 09/09/23 Please review and advise. Kristina Lundberg RN documented in this encounterOhio[facility]05-12-2025 Telephone encounter Note * Telephone Encounter - Abeba Yarbrough RN - 01/01/2025 6:57 PM EDT The patient has been identified by name [...] Yarbrough RN January 01, 2025 6:57 PM [facility]05-12-2025 Miscellaneous Notes* Telephone Encounter - Abeba Yarbrough RN - 01/01/2025 6:57 PM EDT The patient has been identified by name [...] 01, 2025 6:57 PM documented in this encounterOhiohealth [facility]02-17-2025 Telephone encounter Note * Telephone Encounter - Abeba Yarbrough RN - 10/09/2024 3:12 PM EST Pt called and is notified of providers results and instructions. Pt voices understanding. He stateshe wasn't sick when he had labs drawn. He said his WCB runs high in blood and stools too. Pt stateshe sees Gastro and they think he has IBS or Crohn's. Abeba Yarbrough RN [facility]02-17-2025 Miscellaneous Notes* Telephone Encounter - Abeba Yarbrough RN - 10/09/2024 3:12 PM EST Pt called and is notified of providers results and instructions. Pt voices understanding. He stateshe wasn't sick when he had labs drawn. He said his WCB runs high in blood and stools too. Pt stateshe sees Gastro and they think he has IBS or Crohn's. Abeba Yarbrough RN * Telephone Encounter - Carla Tesfaye LPN - 10/09/2024 3:06 PM EST Left a message for pt to call the office and ask to speak to a nurse. Carla Tesfaye LPN * Telephone Encounter - Vern Rodarte MD - 10/09/2024 11:17 AM EST Let patient know his CBC showed a [...] and UA were ok. documented in this encounterOhiohealth [facility]02-17-2025 Telephone encounter Note * Telephone Encounter - Carla Tesfaye LPN - 10/09/2024 3:06 PM EST Left a message for pt to call the office and ask to speak to a nurse. Carla Tesfaye LPN [facility]02-17-2025 Telephone encounter Note* Telephone Encounter - Vern Rodarte MD - 10/09/2024 11:17 AM EST Let patient know his CBC showed a [...] the other labs and UA were ok. [facility]02-06-2025 Instructions* Patient Instructions* Vern Rodarte MD - 09/28/2024 4:08 PM EST After you have been taking the increased dose of lisinopril of 10 mg a day for 3 weeks start checking your blood pressure at [facility] once a day but alternate between AM, afternoon and PM and then send mike my chart message to dr. Rodarte with the readings. documented in this encounterCleveland [id number] NoteHNO ID: [id number] Author: VERN RODARTE MD Service: ? Author [...] ear lobe, removed 12/2017 Family history of TX (myocardial infarction) 06/15/2018 GERD without esophagitis 12/15/2017 [...] Father is 50 yo and had 8 TX's prior to this Patient Allergies ALLERGIES No [...] . Musculoskeletal: Muscular s (more content not included)...[facility]02-06-2025 History of Present illness Narrative* Vern Rodarte MD - 09/28/2024 3:40 PM EST Chief Complaint Patient presents with: Physical HPI [...] ear lobe, removed 12/2017 Family history of TX (myocardial infarction) 06/15/2018 GERD without esophagitis 12/15/2017 Hypertension, essential 12/15/2017 Hypothyroidism, acquired 12/15/2017 Lipoma of unspecified site 03/02/2014 Previous Surgical History PAST SURGICAL HISTORY Procedure Laterality Date COLONOSCOPY 03/27/2022 COLONOSCOPY 09/03/2023 EGD W/O [facility] SPEC VARICIES INJ 03/27/2022 LEXISCAN STRESS TEST 04/14/2019 negative MYRINGOTOMY HX TONSILLECTOMY HX Family History FAMILY HISTORY Problem Relation Age of Onset Hypertension Mother other (migraine) Mother other (migraine) Brother other (migraine) Brother Stroke Maternal Grandmother Breast Cancer Maternal Grandmother Cancer Maternal Grandmother lung Coronary Artery Disease Father is 50 yo and had 8 TX's prior to this Patient Allergies ALLERGIES No [...] in no acute distress, well-hydrated, well nourished. andObese. Skin: Skin color, texture, turgor normal, no [...] symmetric. Sensation to light touch and crainal nerves2-12 intact.. Genitalia: Normal, Penis normal. No urethral discharge. Scrotum normal to palpation. No hernia.. Health Maintenance List Depression Screening Never done Anxiety Screening Never done Hepatitis C Screening Never done HIV Screening Never done BP Controlled (<130/80) Never done Influenza Vaccine(1) due on 04/23/2024 Covid-19 Vaccine( - 2023- season) due on 04/23/2024 Annual [...] issues. Vern Rodarte MD documented in this encounterOhiohealth Pickering[facility]02-05-2025 NoteBorderline elevated. Re-evaluation in 4-6 weeks is recommended if clinically indicated.[facility] HospitalComment on above:Order Comment: Specimen Type: BLOOD SPECIMEN Ordering Facility: [facility] Address: [address] [place], [place] [id number] Comment: Interpretation: <50.0 ug/g: Normal 50.0 ug/g - 120.0 ug/g: Borderline elevated. Re-evaluation in 4-6 weeks is recommended if clinically indicated. >120.0 ug/g: ElevatedPerformed By: #### [id number], 44423-4, LIPNF, 96290-7 #### [facility] CLIA [id number] [address] [place] [address] [address]01-24-2025 NoteHNO ID: [id number] Author: WILLIAM MCFARLAND RT(R) Service: Radiology Author [...] PATIENT PRESENTS WITH AN IMPLANTABLE OR ATTACHED WATER AND GAS HELPER: No RADIOLOGY DEPARTMENT: CT; Exam(s) Completed: Abdomen/Pelvis PERIPHERAL IV DATA: Site assessment: Clean,Dry and Intact, Site disposition Discontinued SIGNED BY: RT Angel(R) September 15, 2024 4:12 PMUpper Valley Medical [id number] NoteHNO ID: [id number] Author: KIZZY FIGUEROA PA-C Service: ? 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 Hea (more content not included)...[facility]01-07-2025 History of Present illness Narrative* Kizzy Figueroa PA-C - 08/29/2024 12:49 PM EST CHIEF COMPLAINT: Patient presents with: Recheck: Colitis [...] ear lobe, removed 12/2017 Family history of TX (myocardial infarction) 06/15/2018 GERD without esophagitis 12/15/2017 [...] Father is 50 yo and had 8 TX's prior to this REVIEW OF SYSTEMS Review [...] radiology test); CT Enterography W Inject, intravenously, oncefor 1 dose.No IV access, insert saline lock prior to the beginning of sedation, infusion, injectionof imaging exam. Discontinue saline lock post exam. [...] radiology test); CT Enterography W Inject, intravenously, oncefor 1 dose.No IV access, insert saline lock prior to the beginning of sedation, infusion, injectionof imaging exam. Discontinue saline lock post exam. [...] radiology test); CT Enterography W Inject, intravenously, oncefor 1 dose.No IV access, insert saline lock prior to the beginning of sedation, infusion, injectionof imaging exam. Discontinue saline lock post exam. [...] which included preparing to see the patient, [id number] patient care, completing clinical documentation, obtaining and/or reviewing separately obtained history, performing a medically appropriate examination, counseling and educating the pat ient/family/caregiver, and ordering medications, tests, or procedures. Kizzy Figueroa PA-C August 29, 2024 1:16 PM documented in this encounterOhiohealth Pickering[facility]12-23-2024 Telephone encounter Note * Telephone Encounter - Yolanda Purvis - 08/14/2024 2:58 PM EST Waiting review by leadership. [facility]12-23-2024 Miscellaneous Notes* Telephone Encounter - Yolanda Purvis - 08/14/2024 2:58 PM EST Waiting review by leadership. * Telephone Encounter - Ricardo Bowers LPN - 08/09/2024 3:14 PM EST Pt self scheduled [facility] appt with Rajeev Cho for medication follow up. Pt has not been seen by PCP () since 2019. Please assist pt with scheduling appt with PCP. Ricardo Bowers LPN documented in this encounterOhiohealth Pickerington [facility] Hospital12-18-2024 Telephone encounter Note * Telephone Encounter - Ricardo Bowers LPN - 08/09/2024 3:14 PM EST Pt self scheduled [facility] appt with Rajeev Cho for medication follow up. Pt has not been seen by PCP () since 2019. Please assist pt with scheduling appt with PCP. Ricardo Bowers LPN [facility]11-21-2024 Telephone encounter Note* Telephone Encounter - Vern Rodarte MD - 07/13/2024 9:42 AM EST Noted. [facility]11-21-2024 Miscellaneous Notes* Telephone Encounter - Vern Rodarte MD - 07/13/2024 9:42 AM EST Noted. * Telephone Encounter - Chris Shabazz RN - 07/13/2024 9:19 AM EST Patient reports he never received the Rx's for lisinopril or levothyroxine from [facility], and has been out of medication for 1 week, and is starting not to feel well: tense, and BP is elevated. Reports [facility], shipped the order to his old address, which is not near his current address, and not in the same city (although they have his current address), and is lost in the mail. This nurse spoke to [facility], who was able to get this corrected. States [facility] states they will release the order today, it will ship tomorrow, and patient will receive it no later than Wednesday-patient will have no charge for this. [facility] recommends pcp send a 5 day supply of each medication to local [facility] pharmacy- patient may have a co-pay fee for this one, or may have to pay out of pocket for the 5 day supply. Spoke with patient and informed him of this. Pt states he does not want a short supply at this time, he will just wait for the Rx's to come on Wednesday. Pt states if he changes his mind, will call backto pcp office. documented in this encounterOhiohealth Pickerington [facility] Hospital11-21-2024 Telephone encounter Note * Telephone Encounter - Chris Shabazz, RN - 07/13/2024 9:19 AM EST Patient reports he never received the Rx's for lisinopril or levothyroxine from [facility], and has been out of medication for 1 week, and is starting not to feel well: tense, and BP is elevated. Reports [facility] [place], shipped the order to his old address, which is not near his current address, and not in the same city (although they have his current address), and is lost in the mail. This nurse spoke to [facility], who was able to get this corrected. States [facility] states they will release the order today, it will ship tomorrow, and patient will receive it no later than Wednesday-patient will have no charge for this. [facility] recommends pcp send a 5 day supply of each medication to local [facility] pharmacy- patient may have a co-pay fee for this one, or may have to pay out of pocket for the 5 day supply. Spoke with patient and informed him of this. Pt states he does not want a short supply at this time, he will just wait for the Rx's to come on Wednesday. Pt states if he changes his mind, will call backto pcp office. [facility]11-07-2024 Telephone encounter Note* Telephone Encounter - Vern Rodarte MD - 06/29/2024 3:10 PM EST Only a 90 day script was sent. [...] once daily. Authorizing Provider: VERN RODARTE MD [facility]11-07-2024 Miscellaneous Notes* Telephone Encounter - Vern Rodarte MD - 06/29/2024 3:10 PM EST Only a 90 day script was sent. [...] once daily. Authorizing Provider: VERN RODARTE MD * Telephone Encounter - Nany Dumont LPN - 06/29/2024 3:00 PM EST Left message for pt to call and [...] 29, 2024 3:03 PM documented in this encounterOhiohealth Pickerington [facility]11-07-2024 Telephone encounter Note * Telephone Encounter - Nany Dumont LPN - 06/29/2024 3:00 PM EST Left message for pt to call and [...] Dumont LPN June 29, 2024 3:03 PM [facility]08-01-2024 Telephone encounter Note* Telephone Encounter - Rohit Jay APRN.YUNIER - 03/23/2024 9:30 AM EDT Noted. [facility] Work Phone: [phone] 240-873908-01-2024 Miscellaneous Notes* Telephone Encounter - Rohit Jay APRN.CNP - 03/23/2024 9:30 AM EDT Noted. * Telephone Encounter - Laury Carl LPN - 03/23/2024 8:35 AM EDT Pt was notified of results, pt states he does not have a FU with [facility] but will call to schedule one. Laury Carl LPN * Telephone Encounter - Joanne Narvaez MA - 03/23/2024 8:21 AM EDT Left message for return call. Joanne Narvaez MA * Telephone Encounter - Rohit Jay APRN.CNP - 03/23/2024 8:17 AM EDT Please let patient know his shoulder xray shows mild degeneration but is otherwise negative. Does he have follow up with [facility]? documented in this encounterOhiohealth Pickerington [facility]08-01-2024 Telephone encounter Note * Telephone Encounter - Laury Carl LPN - 03/23/2024 8:35 AM EDT Pt was notified of results, pt states he does not have a FU with [facility] but will call to schedule one. Laury Carl LPN [facility]08-01-2024 Telephone encounter Note* Telephone Encounter - Joanne Narvaez MA - 03/23/2024 8:21 AM EDT Left message for return call. Joanne Narvaez MA [facility]08-01-2024 Telephone encounter Note* Telephone Encounter - Rohit Jay APRN.CNP - 03/23/2024 8:17 AM EDT Please let patient know his shoulder xray shows mild degeneration but is otherwise negative. Does he have follow up with [facility]? [facility]07-29-2024 History of Present illness Narrative* Krissy Miguel, RT(R) - 03/20/2024 4:40 PM EDT Radiology Service Progress Note PATIENT NAME: Lenore Lee DATE OF SERVICE: March 20, 2024 TIME: 4:51 PM PATIENT IDENTITY VERIFICATION COMPLETED USING TWO (2) IDENTIFIERS: Name and Date of confirmedby patient verbally. FALL SCREENING: Has the patient had 2 falls in the last year or 1 fall with injury or currently using an Ambulatory Assistive Device (Walker, Cane, Wheelchair, Crutches, etc.)? No PATIENT GENDER DATA: Male PATIENT RELEVANT IMPLANT DATA REVIEWED: Not Applicable PATIENT PRESENTS WITH AN IMPLANTABLE OR ATTACHED WATER AND GAS HELPER: No RADIOLOGY DEPARTMENT: General X-ray: Exam(s) Completed: Upper Extremity X- Ray(s): Shoulder, AP / TRUE AP / SUPRA OUTLET right PERIPHERAL IV DATA: Not applicable SIGNED BY: RT Shun(Lisa) March 20, 2024 4:51 PM documented in this encounterOhiohealth Pickerington [facility]07-29-2024 NoteHNO ID: [id number] Author: KRISSY MIGUEL RT(R) Service: Radiology Author Type: Technologist Type: [...] PATIENT PRESENTS WITH AN IMPLANTABLE OR ATTACHED WATER AND GAS HELPER: No RADIOLOGY DEPARTMENT: General X-ray: Exam(s) Completed: Upper Extremity X-Ray(s): Shoulder, AP / TRUE AP / SUPRA OUTLET right PERIPHERAL IV DATA: Not applicable SIGNED BY: RT Shun(Lisa) March 20, 2024 4:51 [facility]07-29-2024 NoteHNO ID: [id number] Author: ROHIT JAY APRN.FUEL CELL ASSEMBLER Service: ? Author Type: Nurse Practitioner Type: [...] ear lobe, removed 12/2017 Family history of TX (myocardial infarction) 06/15/2018 GERD without esophagitis 12/15/2017 [...] Father is 50 yo and had 8 TX's prior to this Patient Allergies ALLERGIES No [...] done BP Controlled (<130/80) Never done Covid-19 Vaccine( season) due on 07/05/2024 Influenza Vaccine(1) due [...] CT/MRI due to cost. Referred to [facility]. Rohit Jay APRN.[facility]07-29-2024 History of Present illness Narrative* Rohit Jay APRN.FUEL CELL ASSEMBLER - 03/20/2024 4:30 PM EDT Chief Complaint Patient presents with: Shoulder Injury: [...] ear lobe, removed 12/2017 Family history of TX (myocardial infarction) 06/15/2018 GERD without esophagitis 12/15/2017 [...] Father is 50 yo and had 8 TX's prior to this Patient Allergies ALLERGIES No [...] location: on right shoulder pain, swelling, painful movement,loss of ROM, and injury. Patient able to front raise arm but reports pain and pulling. Limited ROM laterally less than 90degrees. Unable to extend posteriorly without increased pain. Health Maintenance List Depression Screening Never done Anxiety Screening Never done Hepatitis C Screening Never done HIV Screening Never done BP Controlled (<130/80) Never done Covid-19 Vaccine() due on 07/05/2024 Influenza Vaccine(1) due on [...] CT/MRI due to cost. Referred to [facility]. Rohit Jay APRN.YUNIER documented in this encounterOhiohealth Pickerington [facility]07-17-2024 Telephone encounter Note * Telephone Encounter - Nany Dumont LPN - 03/08/2024 8:49 AM EDT Rx's were refilled 07/05/23 Qty: 90 with 3 refills. Should have refills left. Pt notified via . Nany Dumont LPN [facility]07-17-2024 Miscellaneous Notes* Telephone Encounter - Nany Dumont LPN - 03/08/2024 8:49 AM EDT Rx's were refilled 07/05/23 Qty: 90 with 3 refills. Should have refills left. Pt notified via . Nany Dumont LPN documented in this encounterOhiohealth [facility]ering[facility]11-13-2023 Instructions* Patient Instructions* Kacie Cho APRN.FUEL CELL ASSEMBLER - 07/05/2023 4:44 PM EST Continue the same medication. Return for fasting labwork. Health Promotion: - Eat healthy -- go to [employer] to get started - Have a yearly [...] drive - Wear sunscreen documented in this encounterOhiohealth [facility]11-13-2023 History of Present illness Narrative* Kacie Cho APRN.CNP - 07/05/2023 4:22 PM EST This is a 32 year old male [...] ear lobe, removed 12/2017 Family history of TX (myocardial infarction) 06/15/2018 GERD without esophagitis 12/15/2017 [...] Father is 50 yo and had 8 TX's prior to this Social History Tobacco Use [...] Promotion: - Eat healthy -- go to [employer] to get started - Have a yearly [...] improvement. Kacie Cho APRN.YUNIER documented in this encounterOhiohealth [facility]11-07-2023 Miscellaneous Notes* Telephone Encounter - Thais Nguyen MA - 06/29/2023 9:31 AM EST Patient has been identified by name and [...] 07/05/23 Thais Nguyen MA documented in this encounterOhiohealth [facility]10-18-2023 History of Present illness Narrative* Farhana Freitas PA-C - 06/09/2023 9:51 AM EDT CHIEF COMPLAINT: Patient presents with: Crohns: CT [...] daily for GERD with relief. Went to [place] [facility] 05/2023 due to abd pain. Labs unremarkable, CT showed noacute process. Bms are worse after eating, multiple per day, loose/rarely formed, no blood currently. Lower abd pain, improves somewhat with BM. Has had 2-3 episodes of incontinence in the past year.Trying to identify dietary triggers, limits fiber on [...] capsules by mouth three times daily as neededfor cough. glucagon (GLUCAGEN) 1 mg/mL injection Inject [...] ear lobe, removed 12/2017 Family history of TX (myocardial infarction) 06/15/2018 GERD without esophagitis 12/15/2017 [...] Father is 50 yo and had 8 TX's prior to this REVIEW OF SYSTEMS Review [...] which included preparing to see the patient, [id number] patient care, completing clinical documentation, obtaining and/or reviewing separately obtained history, performing a medically appropriate examination, counseling and educating the pat ient/family/caregiver, ordering medications, tests, or procedures, communicating with other HCPs (not separately reported), independently interpreting results (not separately reported), communicatingresults to the patient/family/caregiver, and care coordination (not separately reported). Farhana Freitas PA-C June 09, 2023 10:26 AM documented in this encounterOhiohealth [facility]08-17-2023 Miscellaneous Notes* Telephone Encounter - Robert Slade MA - 04/08/2023 7:41 AM EDT Patient phones requesting refills as follows: Appt 06/09/23 Requested Prescriptions Pending Prescriptions Disp Refills omeprazole (PRILOSEC) 20 mg capsule [Pharmacy Med Name: OMEPRAZOL RX CAP 20MG] 180 capsule 1 Sig: TAKE 2 CAPSULES ONCE DAILY Please review and advise. Robert Slade MA documented in this encounterOhiohealth [facility]08-14-2023 Miscellaneous Notes* Telephone Encounter - Bárbara Cobos Ma - 04/05/2023 9:57 AM EDT Notified via [employer]. * Telephone Encounter - Lise Lundberg PA-C - 04/05/2023 9:47 AM EDT Please advise patient to set up his PE after 07/22/2023. * Telephone Encounter - Ricardo Bowers LPN - 04/05/2023 9:41 AM EDT Patient phones requesting refills as follows: Requested Prescriptions Pending Prescriptions Disp Refills lisinopril (ZESTRIL) 5 mg tablet 90 tablet 0 Sig: Take 1 tablet by mouth once daily. levothyroxine (SYNTHROID) 50 mcg tablet 90 tablet 0 Sig: Take 1 tablet by mouth daily before breakfast. JANUSZ 07/22/22 NOV no upcoming appt Please review and advise. Ricardo Bowers LPN documented in this encounterOhiohealth [facility]08-14-2023 Miscellaneous Notes* Telephone Encounter - Ricardo Bowers LPN - 04/05/2023 9:41 AM EDT Patient phones requesting refills as follows: Requested Prescriptions Pending Prescriptions Disp Refills cyclobenzaprine (FLEXERIL) 10 mg tablet 30 tablet 0 Sig: Take 1 tablet by mouth three times daily as needed for muscle spasm. JANUSZ 07/22/22 NOV no upcoming appt Please review and advise. Ricardo Bowers LPN documented in this encounterOhiohealth [facility]03-22-2023 History of Present illness Narrative* Rose Hernandez APRN.FUEL CELL ASSEMBLER - 11/11/2022 6:20 AM EDT This is an Express Care eVisit note [...] daily as needed for cough. Rose Hernandez APRN.YUNIER Total time spent on evisit: 5 to 10 minutes documented in this encounterOhiohealth [facility]01-23-2023 Miscellaneous Notes* Telephone Encounter - Laury Carl LPN - 09/14/2022 7:19 AM EST Pt requesting refills. JANUSZ: 07/22/22 NOV: None scheduled Last Refill: 06.16.22 #90 0 refills Laruy Carl LPN documented in this encounterOhiohealth [facility]01-18-2023 History of Present illness Narrative* Freida Andres, PT - 09/09/2022 8:19 AM EST Episode Visit Count: 1 Therapist That Will [...] to: good support system/ coping skills;Prognosis may belimited due to limited tolerance to activity;chronic nature of impairments . He will benefit from skilled therapy services to meet the goals established for this plan of care as noted below. Goals for Episode of Care: created on 09/09/22 through 10/21/22 [place] in home exercise program. Patient will increase [...] stance on RLE and 30 seconds for singlelimb stance on LLE. Patient Goals: reduce pain with prolonged standing and ambulation Planned Interventions, Frequency, and Duration: Current Frequency: 2x/week Duration: 6 weeks Total Number of Visits Planned: 12 Planned Treatment Interventions: Neuromuscular re-education (57590);Manual therapy (16975);Therapeutic activities (81687);Self-shelter management (08731);Gait Training (58399);Patient/Family/Caregiver Education;Therapeutic exercise (33798) PLAN FOR NEXT VISIT: Pt. to see [...] given to the patient and he has [employer] [place] tennis shoes today. 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: [employer] / Current Exercise: barbell squatting - [...] given by DPM Education: Education Learning Preferences: Demonstration;Explanation;Performance;Printed Materials Barriers: None Learning/educational needs: Home exercise program;Gait Training;Plan of Care Education Provided: Yes, see treatment interventions for education provided Education Provided To: Patient Education Mode/Type: Demonstration;Explanation/Discussion;Literature/Printed Materials;Performance Response to Education/Teach Back: States/Identifies;Return Demonstration TREATMENT: PT Treatment Interventions: Therapeutic Exercise;Self-Senior Care Management Evaluation Therapeutic Exercise: 1: *seated arch [...] and function . Patient education as noted. Self-Senior Care Management: 1: *discussed continued use of inserts and wearing shoes at all times per DPM instruction. 2: *discussed applying ice to reduce symptoms and taking seated rest at work during breaks 3: *discussed purpose of HEP exercises in the seated position to improve AROM of the BLE ankle/footwhile avoiding increased symptom intensity 4: *pt. agrees [...] 45 Freida Andres PT documented in this encounterOhiohealth [facility]01-16-2023 Miscellaneous Notes* Telephone Encounter - Bárbara Cobos Ma - 09/07/2022 7:39 PM EST Pt advised to speak with foot doctor about medication issue to see if there is another alternative for him to use. documented in this encounterOhio[facility]01-04-2023 History of Present illness Narrative* Guera Short RN - 08/26/2022 8:[address] Testrake, Lenore was provided with a pair of full length original Power Step inserts, size 11, and instructed/educated in its application, wear, and care. All questions were answered, and patient was able to demonstrate competence with the necessary skills to utilize the above equipment. Guera Short RN * David Motley - 08/26/2022 8:27 AM EST Images from the original note [...] who presents with chief complaint:right posterior ankle pain(achilles) and left arch pain HPI Patient presents to clinic for evaluation of b/l foot. He complains of pain to the posterior right ankle/achilles tendon. This has been present for 8 months. Patient denies any injury. He states the pain is present with prolonged standing and walking. Heis not currently doing anything for the pain. [...] ear lobe, removed 12/2017 Family history of TX (myocardial infarction) 06/15/2018 GERD without esophagitis 12/15/2017 [...] Father is 50 yo and had 8 TX's prior to this Social History Tobacco Use [...] with supportive insoles. No barefoot walking. Patient alsogiven written instructions on how to correctly perform the stretching of the achilles tendon/calf st retches, and the heel spur/plantar fasciitis regimen. 3. Patient advised to seek wide, deep toe box, accomodative, comfortable, lace- up, athletic/walkingtype footwear that includes motion control characteristics for [...] fascia associated with normal daily walking. Patient advisedthat these modalities used in conjunction with stretching [...] right achilles tendon is bulbous however no ruptureis idenfitied. Will treat with inserts and referral to therapy. If pain fails to improve, could consider surgical debridement. Patient informed of risk of rupture. JANES Fuentes DPM Podiatry [address] [facility] [address] Dept: [phone] Dept * Guera Short RN - 08/26/2022 8:10 AM EST AMB ROOMING INTAKE FLOWSHEET DATA Risk Screening Do you have concerns about personal safety or safety in the home?: No Pain Pain Level: 6 (6-04/01) Pain Location: Other: See Comment (B/L heels) [...] pain, takes Tylenol PRN. documented in this encounterOhiohealth [facility]01-04-2023 Instructions* Patient Instructions* David Motley - 08/26/2022 8:36 AM EST Images from the original note were not included. Powerstep Original Full length. Can purchase at [facility] [employer] here in [place], [employer] in [place] or [place]. Also can find in [employer] in [facility]. Powersteps can also be purchased online, [...] in younger people who are on their feeta lot, such as athletes or soldiers. The plantar fascia is a strong band of connective tissue that extends from the base of the toes, along the bottom of the foot, to the bottom of the heel (calcaneous bone); it acts like a bowstring tomaintain the arch of the foot. What are heel spurs? The inflammatory reaction of the heel bone may produce spike-like projections of new bone, called heel spurs. The spurs sometimes show on X-rays. They neither cause the initial pain nor do they causethe initial problem. However, later, having to walk [...] time on their feet, such as nurses, cot assembler/waiters, andmail carriers, often experience plantar fasciitis. Athletes involved [...] Those who are overweight are prone to plantarfasciitis. This is true even for sedentary people [...] feet (rolled inward) * Sudden increase in activity* Family tendency * Poor shoe support * Worn out or poorly fitted shoes * Increasing age * Walking,standing or running for long periods of time, especially on hard surfaces. How is the Injury Treated? Rest Your Feet: Limit, or if possible, stop activities that are causing your heel pain. Try to avoid running or walking on hard surfaces, such as concrete. Use pain as your guide. If your foot is toopainful, rest it. Ice: Ice the sore area for 30 to 60 minutes, several times a day, to reduce inflammation and relieve pain. Apply a plastic bag of crushed ice (or a bag of frozen peas) over a towel. Ice the sore areafor 15 minutes after activity/exercise. Application of heat is not generally recommended, as heat ex pands the bone and connective tissue, perhaps exerting greater pressure on nerves and thereby increasing pain. If heat is used, follow it with ice. Medication: If your condition developed recently, anti-inflammatory/analgesic medication, combined with heel pads (see below) may be all that is necessary to relieve pain and to reduce inflammation. If no pain relief has occurred after 2- 3 weeks, however, your doctor may inject either [...] choose the one that fits the best. [place] with your athletic shoes to find a [...] This takes some of the tension off theplantar fascia. Weight Loss: If your weight is [...] chair, barefoot. Place the ankle of the affectedfoot on your opposite knee. Using the same [...] and local anesthesia today. This should provide reliefof symptoms for the next 8 hours or [...] joint infection may occur. Joint infection is aconcern if you experience any of the following: [...] injections of steroids can also damage joint cartilage.For these reasons, there are limits to how many times and how frequently corticosteroid injections can be used in the same area. If anything seems unusual or out of the ordinary please contact our office as soon as possible for further instruction. documented in this encounterOhiohealth [facility]12-19-2022 Miscellaneous Notes* Telephone Encounter - Nany Dumont LPN - 08/10/2022 8:17 AM EST Please see pt's message. Nany Dumont LPN documented in this [facility]12-01-2022 Miscellaneous Notes* Telephone Encounter - Kizzy Han RN - 07/23/2022 9:19 AM EST Patient notified of results and provider's instructions. Patient verbalizes understanding. Kizzy Han RN * Telephone Encounter - Nany Dumont LPN - 07/23/2022 8:52 AM EST Left message for pt to contact office. Nany Dumont LPN * Telephone Encounter - Lise Lundberg PA-C - 07/23/2022 8:26 AM EST Let patient know that his cholesterol is up compared to last year. Likely related to his weight gain and decreased activity. Watch diet. Rest of labs are all normal. Xray shows the heel spurs,but no acute changes. Continue with seeing podiatry. documented in this [facility]11-30-2022 History of Present illness Narrative* Lise Lundberg PA-C - 07/22/2022 12:05 PM EST Chief Complaint Patient presents with: Yearly Exam [...] ear lobe, removed 12/2017 Family history of TX (myocardial infarction) 06/15/2018 GERD without esophagitis 12/15/2017 [...] Father is 50 yo and had 8 TX's prior to this Patient Allergies ALLERGIES No [...] months. Lise Lundberg PA-C documented in this encounterOhiohealth [facility]10-25-2022 Miscellaneous Notes* Telephone Encounter - Dulce Maria Dumont LPN - 06/16/2022 3:00 PM EDT Appt scheduled for 07/22. Pt needed a Weds appt. First available with 40 min. Dulce Maria Dumont LPN * Telephone Encounter - Carla Tesfaye LPN - 06/16/2022 10:48 AM EDT Left a message for pt to call the office and ask to speak to a nurse. Carla Tesfaye LPN * Telephone Encounter - Vern Rodarte MD - 06/16/2022 10:10 AM EDT Advise patient he needs to set up [...] before breakfast. Authorizing Provider: VERN RODARTE MD * Telephone Encounter - Bárbara Cobos Ma - 06/16/2022 8:20 AM EDT Last office visit: 12/22/21 F/u scheduled: none Bárbara Cobos Ma documented in this encounterOhiohealth [facility]08-17-2022 History of Present illness Narrative* Serena Cannon APRN.YUNIER - 04/08/2022 4:00 PM EDT VIRTUAL VISIT FOLLOW UP I had a [...] ear lobe, removed 12/2017 Family history of TX (myocardial infarction) 06/15/2018 GERD without esophagitis 12/15/2017 [...] Father is 50 yo and had 8 TX's prior to this Social History Tobacco Use Smoking status: Never Smokeless tobacco: Never Vaping Use Vaping Use: Never used Substance Use Topics Alcohol use: Yes Comment: occasional Drug use: No Current Outpatient Medications Medication Sig Dispense Refill budesonide, enteric coated (ENTOCORT EC) 3 mg 24 hr capsule Take 3 capsules by mouth once daily for30 days, THEN 2 capsules once daily for [...] which included preparing to see the patient, [id number] patient care, completing clinical documentation, obtaining and/or reviewing separately obtained history, performing a medically appropriate examination, counseling and educating the pat ient/family/caregiver, ordering medications, tests, or procedures, communicating with other HCPs (not separately reported), independently interpreting results (not separately reported), communicatingresults to the patient/family/caregiver, and care coordination (not separately reported). Serena Cannon APRN.YUNIER documented in this encounterOhiohealth [facility]08-05-2022 Nurse Note* Fiona Bryan RN - 03/27/2022 12:55 PM EDT Pt received in PACU. Pt extremely drowsy, but arouses fairly easily. Appears comfortable. Abd soft and non distended. Fiona Bryan RN documented in this encounterOhiohealth [facility]08-05-2022 History and physical note * Laura Ledezma MD - 03/27/2022 12:45 PM EDT UPDATED PROCEDURAL SEDATION HISTORY AND PHYSICAL EXAMINATION SERVICE DATE: 03/27/2022 SERVICE TIME: 12:12 PHYSICAL EXAM MUST BE COMPLETED ON ADMISSION PROCEDURE: EGD and colonoscopy, possible biopsies Procedure Indications: heartburn and dairrhea The History and Physical (completed in the past 30 days) has been reviewed and the patient has beenexamined. The contents accurately reflect the patient's condition [...] ear lobe, removed 12/2017 Family history of TX (myocardial infarction) 06/15/2018 GERD without esophagitis 12/15/2017 [...] Father is 50 yo and had 8 TX's prior to this OCCUPATION & MARITAL STATUS [...] such as liver/spleen, perforation of the GI tract,inability to complete the procedure, complications of anesthesia, etc. - the patient understands. The patient wishes to proceed. I have answered all questions to the patient s satisfaction and the patient has no further questions. * Laura Ledezma MD - 03/27/2022 12:45 PM [...] ear lobe, removed 12/2017 Family history of TX (myocardial infarction) 06/15/2018 GERD without esophagitis 12/15/2017 [...] Father is 50 yo and had 8 TX's prior to this OCCUPATION & MARITAL STATUS [...] such as liver/spleen, perforation of the GI tract,inability to complete the procedure, complications of anesthesia, etc. - the patient understands. The patient wishes to proceed. I have answered all questions to the patient s satisfaction and the patient has no further questions. documented in this encounterOhiohealth [facility]07-28-2022 Miscellaneous Notes* Telephone Encounter - Bishnu Fam MA - 03/19/2022 9:45 AM EDT PLEASE SEE TE 03/02/22. Bishnu Fam MA * Telephone Encounter - Serena Cannon APRN.YUNIER - 03/13/2022 4:28 PM EDT Please call patient inform him positive occult and positive inflammatory markers - I have placed a order to add a colonoscopy with Jose. Please review instructions with patient and get him scheduled [facility] a [facility] at [facility] Thank Serena Cannon APRN.CNP documented in this encounterOhiohealth [facility]ering[facility]07-22-2022 Instructions* Patient Instructions* Serena Cannon APRN.CNP - 03/13/2022 4:29 PM EDT Images from the original note were not included. Bowel Preparation Instructions for: Golytely, Nulytely, Trilyte or Colyte (polyethylene glycol 3350and electrolytes) IF YOU DO NOT FOLLOW THESE [...] If you do not have a responsible racing car driver (family member or friend) with you to take you home, your exam cannot be done with sedation and will be cancelled. Please bring a list of all of your current medications, including any Over-the Counter medications with you. Medications If you take insulin, diabetic medications or blood thinners such as Coumadin (warfarin), Plavix (clopidogrel), Ticlid (ticlopidine hydrochloride), Agrylin (anagrelide), Xarelto (Rivaroxaban), Pradaxa(Dabigatran), Eliquis (Apixaban), and Effient (Prasugrel). You MUST [...] Golytely, Nulytely, Trilyte or Colyte (polyethylene glycol 3350and electrolytes) Three (3) Days Before Your Colonoscopy [...] your exam. 2 07/2019 documented in this encounterOhiohealth [facility]ering[facility]07-18-2022 Miscellaneous Notes* Telephone Encounter - Lori Jeffers LPN - 03/09/2022 12:49 PM EDT Addressed in message dated 03/05/2022 documented in this [facility]07-15-2022 Miscellaneous Notes* Telephone Encounter - Lori Jeffers LPN - 03/06/2022 8:07 AM EDT Patient would like this sent to [facility] instead of local [facility]. documented in this [facility]07-11-2022 Miscellaneous Notes* Telephone Encounter - Lroi Jeffers LPN - 03/02/2022 12:36 PM EDT Patient is scheduled at [facility] on 03/27/[address] Ledezma for EGD. DX: Heartburn [R12 (ICD-10-CM)]; Nausea and vomiting, unspecified vomiting type [R11.2 (ICD-10-CM)] Verbal and written instructions given. documented in this [facility]07-11-2022 Instructions* Patient Instructions* Serena Cannon APRN.[facility] - 03/02/2022 11:57 AM EDT Stool studies Schedule EGD Please call the senior power scheduler, at [phone], to schedule your procedure. The endoscopy staff [...] in a wedge pillow. documented in this encounterOhiohealth Pickering[facility]07-11-2022 History of Present illness Narrative* Serena Cannon APRN.CNP - 03/02/2022 11:24 AM EDT CHIEF COMPLAINT: Patient presents with: Abdominal [...] to the requesting health care provider by wayof the shared medical record for internal providers or letter via the [employer] for external providers. Lenore Lee is a [...] ear lobe, removed 12/2017 Family history of TX (myocardial infarction) 06/15/2018 GERD without esophagitis 12/15/2017 [...] Father is 50 yo and had 8 TX's prior to this Employer And Job Title: [...] which included preparing to see the patient, [id number] patient care, completing clinical documentation, obtaining and/or reviewing separately obtained history, performing a medically appropriate examination, counseling and educating the pat ient/family/caregiver, ordering medications, tests, or procedures, communicating with other HCPs (not separately reported), independently interpreting results (not separately reported), communicatingresults to the patient/family/caregiver, and care coordination (not separately reported). Serena Cannon APRN.CNP DATE: 03/02/22 TIME: 11:24 AM documented in this encounterOhiohealth [facility]ering[facility]06-06-2022 Miscellaneous Notes* Telephone Encounter - Radha Floyd Ma - 01/26/2022 8:27 AM EDT Please see pt message and advise Radha Floyd Ma documented in this encounterOhiohealth [facility]05-04-2022 Miscellaneous Notes* Telephone Encounter - Nany Dumont LPN - 12/24/2021 3:07 PM EDT Pt notified of same. Nany Dumont LPN * Telephone Encounter - Nany Dumont LPN - 12/24/2021 3:05 PM EDT ----- Message from Lise Lundberg PA-C sent at 12/24/2021 11:48 AM EDT ----- Labs are all normal. documented in this encounterOhiohealth [facility]04-01-2022 Miscellaneous Notes* Telephone Encounter - Vern Rodarte MD - 11/21/2021 5:58 PM EDT The following approved medication requests have been transmitted electronically. Signed Prescriptions Disp Refills omeprazole (PRILOSEC) 20 mg capsule 90 capsule 0 Sig: Take 1 capsule by mouth once daily. FATOUMATA: No Authorizing Provider: VERN RODARTE MD * Telephone Encounter - Radha Floyd Ma - 11/21/2021 3:26 PM EDT JANUSZ 04/18/21 NOV 12/22/21 Radha Floyd Ma documented in this encounterOhiohealth Pickering[facility] HospitalEvalutidalhealth [place] note* Diagnosis Heartburn- Primary Chronic diarrhea Diarrhea Nausea and vomiting, unspecified vomiting type [facility] Diagnosis Diarrhea, unspecified type- Primary [facility] Diagnosis Heartburn Nausea and vomiting, unspecified vomiting type Diarrhea, unspecified type [facility] Diagnosis Chronic diarrhea- Primary Diarrhea Heartburn GERD without esophagitis Esophageal reflux Generalized abdominal pain Abdominal pain, generalized Focal active colitis [facility] Diagnosis Hypertension, essential Unspecified essential hypertension Hypothyroidism, acquired Unspecified hypothyroidism documented in this [facility] Diagnosis Well adult exam- Primary Routine general medical examination at a [facility] care facility Hypertension, essential Unspecified essential hypertension Heel pain, bilateral Hypothyroidism, acquired Unspecified hypothyroidism Encounter for screening for diabetes mellitus Screening for diabetes mellitus Encounter for lipid screening for cardiovascular disease Screening for lipoid disorders OME (otitis media with effusion), bilateral [facility] Diagnosis Achilles tendonosis- Primary Plantar fasciitis of left foot Plantar fascial fibromatosis documented [facility] Diagnosis Hypertension, essential Unspecified essential hypertension Hypothyroidism, acquired Unspecified hypothyroidism documented [facility] Diagnosis Plantar fasciitis of left foot- Primary Plantar fascial fibromatosis Achilles tendonosis documented [facility] Diagnosis Viral URI with cough- Primary Acute upper respiratory infections of unspecified site [facility] Diagnosis Hypertension, essential Unspecified essential hypertension Hypothyroidism, acquired Unspecified hypothyroidism documented [facility] this [facility] Diagnosis Focal active colitis- Primary Abnormal endoscopy of upper gastrointestinal tract Hiatal hernia with GERD and esophagitis [facility] Diagnosis Hypertension, essential Unspecified essential hypertension Hypothyroidism, acquired Unspecified hypothyroidism documented [facility] this [facility] Diagnosis Well adult exam- Primary Routine general medical examination at a [facility] care facility Hypertension, essential Unspecified essential hypertension Hypothyroidism, acquired Unspecified hypothyroidism Hyperlipidemia, mixed Mixed hyperlipidemia documented [facility] this [facility] Diagnosis Hypothyroidism, acquired Unspecified hypothyroidism Hypertension, essential Unspecified essential hypertension documented [facility] Diagnosis Acute pain of right shoulder- Primary Injury of right shoulder, initial encounter documented [facility] this [facility] Diagnosis Acute pain of right shoulder Injury of right shoulder, initial encounter [facility] Diagnosis Heel pain, bilateral documented [facility] Diagnosis Hypothyroidism, acquired Unspecified hypothyroidism Hypertension, essential Unspecified essential hypertension documented in this encounter [facility] note* Diagnosis Generalized abdominal pain- Primary Abdominal pain, generalized Diarrhea, unspecified type Elevated fecal calprotectin documented in this encounter [facility] note* Diagnosis Well adult exam- Primary Routine [...] and behavioral disorders documented in this encounter [facility] note* Diagnosis Leukocytosis, unspecified type- Primary documented in this encounter [facility] note* Diagnosis Hypothyroidism, acquired Unspecified hypothyroidism documented in this encounter [facility] noteNo assessment information availableWWilson Health Work Phone: [facility] (narrative)* Outpatient Procedure (Routine) - Authorized Specialty Diagnoses / Procedures Referred By Contac kendrick Referred To Contact [facility] Diagnoses Heartburn Nausea and vomiting, unspecified vomiting type Procedures EGD DIAGNOSTIC EGD DIAGNOSTIC ESOPHAGOGASTRODUODENOSC OPY TRANSORAL DIAGNOSTIC ESOPHAGOGASTRODUODENOSC OPY TRANSORAL DIAGNOSTIC Serena Cannon APRN.CNP [address] [place] [address] [facility] [place] [address] [place] [address] Referral ID Status Reason Start Date Expiration Date Visits Requested Visits Authorized [id number] Authorized Auto-Generat ed Referral 03/02/2022 03/02/[address] [facility] for referral (narrative)* Outpatient Procedure (Routine) - Authorized Specialty Diagnoses / Procedures Referred By Contac t Referred To Contact [facility] Diagnoses Diarrhea, unspecified type Procedures COLONOSCOPY DIAGNOSTIC COLONOSCOPY FLX DX W/COLLJ SPEC WHEN PFRMD Serena Cannon APRN.CNP [address] [place] [address] [facility] [place] [address] [place] [id number] Referral ID Status Reason Start Date Expiration Date Visits Requested Visits Authorized [id number] Authorized Auto-Generat ed Referral 03/13/2022 03/13/[address] [facility] for referral (narrative)* Outpatient Procedure (Routine) - Closed Specialty Diagnoses / Procedures Referred By Contac t Referred To Contact [facility] Diagnoses Diarrhea, unspecified type Procedures COLONOSCOPY DIAGNOSTIC COLONOSCOPY DIAGNOSTIC COLONOSCOPY FLX DX W/COLLJ SPEC WHEN PFRMD COLONOSCOPY FLX DX W/COLLJ SPEC WHEN PFRMD Serena Cannon APRN.FUEL CELL ASSEMBLER [address] [place] [address] [facility] [address] [place] [id number] Referral ID Status Reason Start Date Expiration Date V isits Requested Visits Authorized [id number] Closed Auto-Generate d Referral 03/13/2022 03/13/2023 1 1 * Outpatient Procedure (Routine) - Closed Specialty Diagnoses / Procedures Referred By Contac t Referred To Contact [facility] Diagnoses Heartburn Nausea and vomiting, unspecified vomiting type Procedures EGD DIAGNOSTIC EGD DIAGNOSTIC ESOPHAGOGASTRODUODENOSC OPY TRANSORAL DIAGNOSTIC ESOPHAGOGASTRODUODENOSC OPY TRANSORAL DIAGNOSTIC Serena Cannon APRN.FUEL CELL ASSEMBLER [address] [place] [address] [facility] [place] [address] [place] [id number] Referral ID Status Reason Start Date Expiration Date V isits Requested Visits Authorized [id number] Closed Auto-Generate d Referral 03/02/2022 03/02/[address] [facility] for referral (narrative)* Diagnostic Procedure Only (Routine) - Closed Specialty Diagnoses / Procedures Referred By Contac t Referred To Contact XR IMAGING Diagnoses Heel pain, bilateral Procedures XR FOOT GENERAL 3V AP/LAT/OBL BILATERAL RADEX FOOT COMPLETE MINIMUM 3 VIEWS Lise Lundberg PA-C [address] [place] [address] [facility] Referral ID Status Reason Start Date Expiration Date V isits Requested Visits Authorized [id number] Closed Auto-Generate d Referral 07/22/2022 08/21/2023 1 1 * Consult, Test, Treat (Routine) - Authorized Specialty Diagnoses / Procedures Referred By Contac t Referred To Contact Podiatry Diagnoses Heel pain, bilateral Procedures CONSULT TO PODIATRY OFFICE/OUTPATIENT [facility] MDM 60-74 MINUTES Lise Lundberg PA-C [address] [place] [address] Referral ID Status Reason Start Date Expiration Date Visits Requested Visits Authorized [id number] Authorized PCP Requested Referral 07/22/[address] [facility] for referral (narrative)* Diagnostic Procedure Only (Routine) - Closed Specialty Diagnoses / Procedures Referred By Contac t Referred To Contact XR IMAGING Diagnoses Acute pain of right shoulder Injury of right shoulder, initial encounter Procedures XR SHOULDER GENERAL 3V OR MORE AP/TRUE AP/OTHER RIGHT RADEX SHOULDER COMPLETE MINIMUM 2 VIEWS Rohit Jay APRN.CNP [address] [place] [id number] [place] [id number] Referral ID Status Reason Start Date Expiration Date V isits Requested Visits Authorized [id number] Closed Auto-Generate d Referral 03/20/2024 04/19/[address] [facility] for referral (narrative)* Diagnostic Procedure Only (Routine) - Closed Specialty Diagnoses / Procedures Referred By Contac t Referred To Contact XR IMAGING Diagnoses Heel pain, bilateral Procedures XR FOOT GENERAL 3V AP/LAT/OBL BILATERAL RADEX FOOT COMPLETE MINIMUM 3 VIEWS Lise Lundberg PA-C [address] [place] [address] [place] [id number] Referral ID Status Reason Start Date Expiration Date V isits Requested Visits Authorized [id number] Closed Auto-Generate d Referral 07/22/2022 08/21/[address] [facility] for referral (narrative)No reason for referral information availableWWilson Health Work Phone: [facility] Narrative* Outpatient Procedure (Routine) - Closed Specialty Diagnoses / Procedures Referred By Contac t Referred To Contact [facility] Diagnoses Heartburn Nausea and vomiting, unspecified vomiting type Procedures EGD DIAGNOSTIC EGD DIAGNOSTIC ESOPHAGOGASTRODUODENOSC OPY TRANSORAL DIAGNOSTIC ESOPHAGOGASTRODUODENOSC OPY TRANSORAL DIAGNOSTIC Serena Cannon, CHOPPER GUN OPERATOR.FUEL CELL ASSEMBLER [address] [place] [address] [facility] [place] [address] [place] [address] Referral ID Status Reason Start Date Expiration Date V isits Requested Visits Authorized [id number] Closed Auto-Generate d Referral 03/02/2022 03/02/[address] [facility] for visit Narrative* Diagnostic Procedure Only (Routine) - Closed Specialty Diagnoses / Procedures Referred By Contac t Referred To Contact XR IMAGING Diagnoses Acute pain of right shoulder Injury of right shoulder, initial encounter Procedures XR SHOULDER GENERAL 3V OR MORE AP/TRUE AP/OTHER RIGHT RADEX SHOULDER COMPLETE MINIMUM 2 VIEWS Rohit Jay, CHOPPER GUN OPERATOR.FUEL CELL ASSEMBLER [address] [place] [address] [place] [id number] Referral ID Status Reason Start Date Expiration Date V isits Requested Visits Authorized [id number] Closed Auto-Generate d Referral 03/20/2024 04/19/[address] [facility] for visit Narrative* Diagnostic Procedure Only (Routine) - Closed Specialty Diagnoses / Procedures Referred By Contac t Referred To Contact XR IMAGING Diagnoses Heel pain, bilateral Procedures XR FOOT GENERAL 3V AP/LAT/OBL BILATERAL RADEX FOOT COMPLETE MINIMUM 3 VIEWS Lise Lundberg PA-C [address] [place] [address] [place] [address] Referral ID Status Reason Start Date Expiration Date V isits Requested Visits Authorized [id number] Closed Auto-Generate d Referral 07/22/2022 08/21/2023 1 1 [facility] Concerns Infection Onset Date Last Indicated Resolved Time COVID-19 Confirmed 01/20/2022 01/20/2022 Advance Directives No Advanced Directives Records FoundDocuments on File Type Date Recorded Patient Administrative Assistant Expl anation Advance Directive(s) 03/03/2022 5:09 PM Documents on File Type Date Recorded Patient Administrative Assistant Expl anation Advance Directive(s) 03/03/2022 5:09 PM Advance Directive Response Recorded Date/ Time Do you have a Healthcare Power of Scooter Mechanic? No February 01, 2025 9:41pm Medications Administered Section Inactive Administered Medications - up to 3 most recent administrations Medication Order MAR Action Action Date Dose Rate Site benzocaine 20% 1 [place] (TOPEX) 1 [place], TOPICAL, DIRECTED, Starting on Wed03/27/22 at 1230, [...] Referral Specialty Diagnoses / Procedures Referred By Contac t Referred To Contact MR IMAGING Diagnoses Generalized abdominal pain Procedures MRI PEL ENTEROG WO/W IVCON MRI PELVIS W/O & W/CONTRAST MATERIAL Serena Cannon, CHOPPER GUN OPERATOR.FUEL CELL ASSEMBLER [address] [place] [address] Mr Imaging Referral ID Status Reason Start Date Expiration Date Visits Requested Visits Authorized [id number] Pending Review Auto-Generat ed Referral 04/08/2022 05/08/2023 1 1 Specialty Diagnoses / Procedures Referred By Contac t Referred To Contact MR IMAGING Diagnoses Chronic diarrhea Generalized abdominal pain Focal active colitis Procedures MRI ABD ENTEROG WO/W IVCON MRI ABDOMEN W/O & W/CONTRAST MATERIAL MRI PELVIS W/O & W/CONTRAST MATERIAL Serena Cannon, CHOPPER GUN OPERATOR.FUEL CELL ASSEMBLER [address] [place] [phone] Mr [facility] Referral ID Status Reason Start Date Expiration Date Visits Requested Visits Authorized [id number] Pending Review Auto-Generat ed Referral 04/08/2022 05/08/2023 1 1 Specialty Diagnoses / Procedures Referred By Contac t Referred To Contact [facility] Diagnoses Plantar fasciitis of left foot Achilles tendonosis Procedures PT REHAB FOLLOW UP ORDER THERAPEUTIC EXERCISES RE, EA 15 MIN. Freida Andres, PT [facility] [place] [address] [place] [address] Referral ID Status Reason Start Date Expiration Date Visits Requested Visits Authorized [id number] Pending Review PCP Requested Referral Auto-Generate d Referral 09/09/2022 12/08/2022 1 1 Specialty Diagnoses / Procedures Referred By Contac t Referred To Contact [facility] Diagnoses Plantar fasciitis of left foot Achilles tendonosis Procedures CONSULT TO PHYSICAL THERAPY PHYSICAL THERAPY EVALUATION HIGH COMPLEX 45 MINS David Motley [address] [phone] [facility] [place] [address] [place] [address] Referral ID Status Reason Start Date Expiration Date V isits Requested Visits Authorized [id number] Closed Auto-Generate d Referral 08/26/2022 08/26/2023 1 1 Specialty Diagnoses / Procedures Referred By Contac t Referred To Contact Orthopedics Diagnoses Acute pain of right shoulder Injury of right shoulder, initial encounter Procedures CONSULT TO ORTHOPAEDICS Rohit Jay APRN.FUEL CELL ASSEMBLER [address] [phone] Dillon Roth MD [address] [place] [address] Referral ID Status Reason Start Date Expiration Date Visits Requested Visits Authorized [id number] Ref Not Required PCP Requested Referral 03/20/2024 03/20/2025 1 1 Specialty Diagnoses / Procedures Referred By Contac t Referred To Contact XR IMAGING Diagnoses Acute pain of right shoulder Injury of right shoulder, initial encounter Procedures XR SHOULDER GENERAL 3V OR MORE AP/TRUE AP/OTHER RIGHT RADEX SHOULDER COMPLETE MINIMUM 2 VIEWS Rohit Jay APRN.FUEL CELL ASSEMBLER [address] [phone] [place] [id number] Referral ID Status Reason Start Date Expiration Date V isits Requested Visits Authorized [id number] Closed Auto-Generate d Referral 03/20/2024 04/19/2025 1 1 Specialty Diagnoses / Procedures Referred By Contac t Referred To Contact CT IMAGING Diagnoses Generalized abdominal pain Diarrhea, unspecified type Elevated fecal calprotectin Procedures CT ENTEROGRAPHY W IVCON CT ABD & PELVIS W/CONTRAST Kizzy Figueroa PA-C [address] [facility] [place] [address] [place] [id number] Referral ID Status Reason Start Date Expiration Date Visits Requested Visits Authorized [id number] Authorized Auto-Generat ed Referral 08/29/2024 09/28/2025 1 1 Summary Purpose Family History No Family History Records FoundNo Family History Records FoundNo Family History Records Found Chief Complaint and Reason for Visit Chief Complaint Admit Date ankle injury February 01, 2025 9:37 pm Additional Source Comments Source Comments (unrecognize d section and content) In the event this informatio n is protected by the Federal Confidentiality of Alcohol and Drug Abuse Patient Records regulations: The Federal rules restrict any use of the information to criminally investigate or prosecute any alcohol or drug abuse patient.[facility] the event this information is protected by the Federal Confidentiality of Alcohol and Drug Abuse Patient Records regulations: The Federal rules restrict any use of the information to criminally investigate or prosecute any alcohol or drug abuse patient.[facility] the event this information is protected by the Federal Confidentiality of Alcohol and Drug Abuse Patient Records regulations: The Federal rules restrict any use of the information to criminally investigate or prosecute any alcohol or drug abuse patient.[facility] the event this information is protected by the Federal Confidentiality of Alcohol and Drug Abuse Patient Records regulations: The Federal rules restrict any use of the information to criminally investigate or prosecute any alcohol or drug abuse patient.[facility] the event this information is protected by the Federal Confidentiality of Alcohol and Drug Abuse Patient Records regulations: The Federal rules restrict any use of the information to criminally investigate or prosecute any alcohol or drug abuse patient.[facility] the event this information is protected by the Federal Confidentiality of Alcohol and Drug Abuse Patient Records regulations: The Federal rules restrict any use of the information to criminally investigate or prosecute any alcohol or drug abuse patient.[facility] the event this information is protected by the Federal Confidentiality of Alcohol and Drug Abuse Patient Records regulations: The Federal rules restrict any use of the information to criminally investigate or prosecute any alcohol or drug abuse patient.[facility] the event this information is protected by the Federal Confidentiality of Alcohol and Drug Abuse Patient Records regulations: The Federal rules restrict any use of the information to criminally investigate or prosecute any alcohol or drug abuse patient.[facility] the event this information is protected by the Federal Confidentiality of Alcohol and Drug Abuse Patient Records regulations: The Federal rules restrict any use of the information to criminally investigate or prosecute any alcohol or drug abuse patient.[facility] the event this information is protected by the Federal Confidentiality of Alcohol and Drug Abuse Patient Records regulations: The Federal rules restrict any use of the information to criminally investigate or prosecute any alcohol or drug abuse patient.[facility] the event this information is protected by the Federal Confidentiality of Alcohol and Drug Abuse Patient Records regulations: The Federal rules restrict any use of the information to criminally investigate or prosecute any alcohol or drug abuse patient.[facility] the event this information is protected by the Federal Confidentiality of Alcohol and Drug Abuse Patient Records regulations: The Federal rules restrict any use of the information to criminally investigate or prosecute any alcohol or drug abuse patient.[facility] the event this information is protected by the Federal Confidentiality of Alcohol and Drug Abuse Patient Records regulations: The Federal rules restrict any use of the information to criminally investigate or prosecute any alcohol or drug abuse patient.[facility] the event this information is protected by the Federal Confidentiality of Alcohol and Drug Abuse Patient Records regulations: The Federal rules restrict any use of the information to criminally investigate or prosecute any alcohol or drug abuse patient.[facility] Hospital[facility] the event this information is protected by the Federal Confidentiality of Alcohol and Drug Abuse Patient Records regulations: The Federal rules restrict any use of the information to criminally investigate or prosecute any alcohol or drug abuse patient.[facility] the event this information is protected by the Federal Confidentiality of Alcohol and Drug Abuse Patient Records regulations: The Federal rules restrict any use of the information to criminally investigate or prosecute any alcohol or drug abuse patient.[facility] HospitalIn the event this information is protected by the Federal Confidentiality of Alcohol and Drug Abuse Patient Records regulations: The Federal rules restrict any use of the information to criminally investigate or prosecute any alcohol or drug abuse patient.[facility] Hospital[facility] the event this information is protected by the Federal Confidentiality of Alcohol and Drug Abuse Patient Records regulations: The Federal rules restrict any use of the information to criminally investigate or prosecute any alcohol or drug abuse patient.[facility] HospitalIn the event this information is protected by the Federal Confidentiality of Alcohol and Drug Abuse Patient Records regulations: The Federal rules restrict any use of the information to criminally investigate or prosecute any alcohol or drug abuse patient.[facility] HospitalIn the event this information is protected by the Federal Confidentiality of Alcohol and Drug Abuse Patient Records regulations: The Federal rules restrict any use of the information to criminally investigate or prosecute any alcohol or drug abuse patient.[facility]In the event this information is protected by the Federal Confidentiality of Alcohol and Drug Abuse Patient Records regulations: The Federal rules restrict any use of the information to criminally investigate or prosecute any alcohol or drug abuse patient.[facility]In the event this information is protected by the Federal Confidentiality of Alcohol and Drug Abuse Patient Records regulations: The Federal rules restrict any use of the information to criminally investigate or prosecute any alcohol or drug abuse patient.[facility] the event this information is protected by the Federal Confidentiality of Alcohol and Drug Abuse Patient Records regulations: The Federal rules restrict any use of the information to criminally investigate or prosecute any alcohol or drug abuse patient.[facility] the event this information is protected by the Federal Confidentiality of Alcohol and Drug Abuse Patient Records regulations: The Federal rules restrict any use of the information to criminally investigate or prosecute any alcohol or drug abuse patient.[facility] the event this information is protected by the Federal Confidentiality of Alcohol and Drug Abuse Patient Records regulations: The Federal rules restrict any use of the information to criminally investigate or prosecute any alcohol or drug abuse patient.[facility]In the event this information is protected by the Federal Confidentiality of Alcohol and Drug Abuse Patient Records regulations: The Federal rules restrict any use of the information to criminally investigate or prosecute any alcohol or drug abuse patient.[facility] [facility] the event this information is protected by the Federal Confidentiality of Alcohol and Drug Abuse Patient Records regulations: The Federal rules restrict any use of the information to criminally investigate or prosecute any alcohol or drug abuse patient.[facility] the event this information is protected by the Federal Confidentiality of Alcohol and Drug Abuse Patient Records regulations: The Federal rules restrict any use of the information to criminally investigate or prosecute any alcohol or drug abuse patient.[facility] the event this information is protected by the Federal Confidentiality of Alcohol and Drug Abuse Patient Records regulations: The Federal rules restrict any use of the information to criminally investigate or prosecute any alcohol or drug abuse patient.[facility] the event this information is protected by the Federal Confidentiality of Alcohol and Drug Abuse Patient Records regulations: The Federal rules restrict any use of the information to criminally investigate or prosecute any alcohol or drug abuse patient.[facility]In the event this information is protected by the Federal Confidentiality of Alcohol and Drug Abuse Patient Records regulations: The Federal rules restrict any use of the information to criminally investigate or prosecute any alcohol or drug abuse patient.[facility]In the event this information is protected by the Federal Confidentiality of Alcohol and Drug Abuse Patient Records regulations: The Federal rules restrict any use of the information to criminally investigate or prosecute any alcohol or drug abuse patient.[facility] the event this information is protected by the Federal Confidentiality of Alcohol and Drug Abuse Patient Records regulations: The Federal rules restrict any use of the information to criminally investigate or prosecute any alcohol or drug abuse patient.[facility]In the event this information is protected by the Federal Confidentiality of Alcohol and Drug Abuse Patient Records regulations: The Federal rules restrict any use of the information to criminally investigate or prosecute any alcohol or drug abuse patient.[facility] HospitalIn the event this information is protected by the Federal Confidentiality of Alcohol and Drug Abuse Patient Records regulations: The Federal rules restrict any use of the information to criminally investigate or prosecute any alcohol or drug abuse patient.[facility]In the event this information is protected by the Federal Confidentiality of Alcohol and Drug Abuse Patient Records regulations: The Federal rules restrict any use of the information to criminally investigate or prosecute any alcohol or drug abuse patient.[facility] HospitalIn the event this information is protected by the Federal Confidentiality of Alcohol and Drug Abuse Patient Records regulations: The Federal rules restrict any use of the information to criminally investigate or prosecute any alcohol or drug abuse patient.[facility]In the event this information is protected by the Federal Confidentiality of Alcohol and Drug Abuse Patient Records regulations: The Federal rules restrict any use of the information to criminally investigate or prosecute any alcohol or drug abuse patient.[facility]In the event this information is protected by the Federal Confidentiality of Alcohol and Drug Abuse Patient Records regulations: The Federal rules restrict any use of the information to criminally investigate or prosecute any alcohol or drug abuse patient.[facility] HospitalIn the event this information is protected by the Federal Confidentiality of Alcohol and Drug Abuse Patient Records regulations: The Federal rules restrict any use of the information to criminally investigate or prosecute any alcohol or drug abuse patient.[facility] HospitalIn the event this information is protected by the Federal Confidentiality of Alcohol and Drug Abuse Patient Records regulations: The Federal rules restrict any use of the information to criminally investigate or prosecute any alcohol or drug abuse patient.[facility] HospitalIn the event this information is protected by the Federal Confidentiality of Alcohol and Drug Abuse Patient Records regulations: The Federal rules restrict any use of the information to criminally investigate or prosecute any alcohol or drug abuse patient.[facility] HospitalIn the event this information is protected by the Federal Confidentiality of Alcohol and Drug Abuse Patient Records regulations: The Federal rules restrict any use of the information to criminally investigate or prosecute any alcohol or drug abuse patient.[facility] HospitalIn the event this information is protected by the Federal Confidentiality of Alcohol and Drug Abuse Patient Records regulations: The Federal rules restrict any use of the information to criminally investigate or prosecute any alcohol or drug abuse patient.[facility] Reason for Visit (unrecogniz ed section and [...] vomiting Specialty Diagnoses / Procedures Referred By Luis M marks Referred To Contact Gastroenterology Diagnoses Chronic diarrhea Procedures CONSULT TO GASTROENTEROLOGY OFFICE/OUTPATIENT [facility] 60-74 MINUTES Lise Lundberg PA-C [address] [place] [address] Referral ID Status Reason Start Date Expiration Date V isits Requested Visits Authorized [id number] Closed PCP Requested Referral 12/22/2021 12/22/2022 1 [...] PT ORTH David Stephens [address] [place] [address] Freida Andres, PT Referral ID Status Reason Start Date Expiration Date V isits Requested Visits Authorized [id number] Pending Review 09/02/2022 12/01/2022 1 1 Reason Onset Date Comments Refill Request 09/14/2022 Reason Comments New Patient Pain Specialty Diagnoses / Procedures Referred By Contac t Referred To Contact Podiatry Diagnoses Heel pain, bilateral Procedures CONSULT TO PODIATRY OFFICE/OUTPATIENT NEW HIGH MDM 60-74 MINUTES Lise Lundberg PA-C [address] [place] [address] Referral ID Status Reason Start Date Expiration Date V isits Requested Visits Authorized [id number] Closed PCP Requested Referral 07/22/2022 07/22/2023 1 [...] Care Teams (unrecognized sec tion and content) Hand Marker Relationship Specialty Start Date End Date Vern Rodarte MD [address] [place] [address] PCP - General Family Practice 12/15/17 Hand Marker Relationship Specialty Start Date End Date Vern Rodarte MD [address] [place] [address] PCP - General Family Practice 12/15/17 Hand Marker Relationship Specialty Start Date End Date Vern Rodarte MD [facility] [place] [address] PCP - General Family Practice 12/15/17 Hand Marker Relationship Specialty Start Date End Date Vern Rodarte MD [address] [place] [address], [place] [address] PCP - General Family Practice 12/15/17 Hand Marker Relationship Specialty Start Date End Date Vern Rodarte MD [address] [place] [address], [place] [address] PCP - General Family Practice 12/15/17 Hand Marker Relationship Specialty Start Date End Date Vern Rodarte MD [address] [place] [address], [place] [address] PCP - General Family Practice 12/15/17 Hand Marker Relationship Specialty Start Date End Date Vern Rodarte MD [address] [place] [address], [place] [address] PCP - General Family Practice 12/15/17 Hand Marker Relationship Specialty Start Date End Date Vern Rodarte MD [address] [place] [address], [place] [address] PCP - General Family Practice 12/15/17 Hand Marker Relationship Specialty Start Date End Date Vern Rodarte MD [address] [place] [address], [place] [address] PCP - General Family Practice 12/15/17 Hand Marker Relationship Specialty Start Date End Date Vern Rodarte MD [address] [place] [address], [place] [address] PCP - General Family Practice 12/15/17 Hand Marker Relationship Specialty Start Date End Date Vern Rodarte MD [address] [place] [address] PCP - General Family Practice 12/15/17 Hand Marker Relationship Specialty Start Date End Date Vern Rodarte MD [address] [place] [address] PCP - General Family Medicine 12/15/17 Hand Marker Relationship Specialty Start Date End Date Vern Rodarte MD [address] [place] [address] PCP - General Family Medicine 12/15/17 Hand Marker Relationship Specialty Start Date End Date Vern Rodarte MD [address] [place] [address] PCP - General Family Medicine 12/15/17 Hand Marker Relationship Specialty Start Date End Date Vern Rodarte MD [facility] [place] [address] PCP - General Family Medicine 12/15/17 Hand Marker Relationship Specialty Start Date End Date Vern Rodarte MD [facility] [place] [address] PCP - General Family Medicine 12/15/17 Hand Marker Relationship Specialty Start Date End Date Vern Rodarte MD [facility] [place] [address] PCP - General Family Medicine 12/15/17 Hand Marker Relationship Specialty Start Date End Date Vern Rodarte MD [address] [place] [address] [place] [address] PCP - General Family Medicine 12/15/17 Hand Marker Relationship Specialty Start Date End Date Vern Rodarte MD [address] [place] [address] PCP - General Family Medicine 12/15/17 Hand Marker Relationship Specialty Start Date End Date Vern Rodarte MD [address] [place] [address] PCP - General Family Medicine 12/15/17 Hand Marker Relationship Specialty Start Date End Date Vern Rodarte MD [address] [place] [address] PCP - General Family Medicine 12/15/17 Hand Marker Relationship Specialty Start Date End Date Vern Rodarte MD [address] [place] [address] PCP - General Family Medicine 12/15/17 Hand Marker Relationship Specialty Start Date End Date Vern Rodarte MD [address] [place] [address] PCP - General Family Medicine 12/15/17 Hand Marker Relationship Specialty Start Date End Date Vern Rodarte MD [address] [place] [address] PCP - General Family Medicine 12/15/17 Hand Marker Relationship Specialty Start Date End Date Vern Rodarte MD [address] [place] [address] PCP - General Family Medicine 12/15/17 Hand Marker Relationship Specialty Start Date End Date Vern Rodarte MD [address] [place] [address] PCP - General Family Medicine 12/15/17 Hand Marker Relationship Specialty Start Date End Date Vern Rodarte MD [address] [place] [address] PCP - General Family Medicine 12/15/17 Hand Marker Relationship Specialty Start Date End Date Vern Rodarte MD [address] [place] [address] PCP - General Family Medicine 12/15/17 Hand Marker Relationship Specialty Start Date End Date Vern Rodarte MD [address] [place] [address] PCP - General Family Medicine 12/15/17 Hand Marker Relationship Specialty Start Date End Date Vern Rodarte MD [address] [place] [address] PCP - General Family Medicine 12/15/17 Hand Marker Relationship Specialty Start Date End Date Vern Rodarte MD [address] [place] [address] PCP - General Family Medicine 12/15/17 Hand Marker Relationship Specialty Start Date End Date Vern Rodarte MD [address] [place] [address] PCP - General Family Medicine 12/15/17 Hand Marker Relationship Specialty Start Date End Date Vern Rodarte MD [address] [place] [address] PCP - General Family Medicine 12/15/17 Hand Marker Relationship Specialty Start Date End Date Vern Rodarte MD [address] [place] [address] PCP - General Family Medicine 12/15/17 Rohit Jay, CHOPPER GUN OPERATOR.FUEL CELL ASSEMBLER [address] [place] [address] Dampener Operator Family Medicine 07/29/24 Lise Lundberg PA-C [address] [place] [address] Dampener Operator Family Medicine 07/29/24 Hand Marker Relationship Specialty Start Date End Date Vern Rodarte MD [address] [place] [address] PCP - General Family Medicine 12/15/17 Rohit Jay, CHOPPER GUN OPERATOR.FUEL CELL ASSEMBLER [address] [place] [address] Dampener Operator Family Medicine 07/29/24 Lise Lundberg PA-C [address] [place] [address] Dampener Operator Family Medicine 07/29/24 Hand Marker Relationship Specialty Start Date End Date Vern Rodarte MD [address] [place] [address] PCP - General Family Medicine 12/15/17 Rohit Jay, CHOPPER GUN OPERATOR.FUEL CELL ASSEMBLER [address] [place] [address] Dampener Operator Family Medicine 07/29/24 Lise Lundberg PA-C [address] [place] [address] Dampener Operator Family Medicine 07/29/24 Hand Marker Relationship Specialty Start Date End Date Vern Rodarte MD [address] [place] [address] PCP - General Family Medicine 12/15/17 Rohit Jay APRN.FUEL CELL ASSEMBLER [address] [place] [address] Dampener Operator Family Medicine 07/29/24 Lise Lundberg PA-C [address] [place] [address] Dampener Operator Family Medicine 07/29/24 Hand Marker Relationship Specialty Start Date End Date Vern Rodarte MD [address] [place] [address] PCP - General Family Medicine 12/15/17 Rohit Jay APRN.FUEL CELL ASSEMBLER [address] [place] [address] Dampener Operator Family Medicine 07/29/24 Lise Lundberg PA-C [address] [place] [address] Dampener Operator Family Medicine 07/29/24 Hand Marker Relationship Specialty Start Date End Date Vern Rodarte MD [address] [place] [address] PCP - General Family Medicine 12/15/17 Rohit Jay APRN.FUEL CELL ASSEMBLER [address] [place] [address] Dampener Operator Family Medicine 07/29/24 Lise Lundberg PA-C [address] [place] [address] [facility] 07/29/24 Hand Marker Relationship Specialty Start Date End Date Vern Rodarte MD [address] [place], [place] [address] PCP - General Family Medicine 12/15/17 Rohit Jay, CAMMY.FUEL CELL ASSEMBLER [address] [place], [place] [address] [facility] 07/29/24 Lise Lundberg PA-C [address] [place] [address] [facility] 07/29/24 Hand Marker Relationship Specialty Start Date End Date Vern Rodarte MD [address] [place] [address] PCP - General Family Medicine 12/15/17 Rohit Jay, CAMMY.FUEL CELL ASSEMBLER [address] [place], [place] [address] [facility] 01/22/25 Lise Lundberg PA-C [address] [place], [place] [address] [facility] 01/22/25 Team Status: Active Member Role Status Dates Dr. Vern Rodarte MD Primary Care Provider Active Team Status: Inactive Member Role Status Dates Dr. Vern Rodarte MD Primary Care Provider Active Start: February 01, 2025 End: February 01, 2025 Dr. Jed Edwards MD Referring Provider Active Sta rt: February 01, 2025 End: February 01, 2025 Dr. Jed Edwards MD Emergency Provider Active Sta rt: February 01, 2025 End: February 01, 2025 (unrecognized sect ion and content) No Status Records FoundNo Status Records FoundNo Status Records Found INFORMATION SOURCE (unrecogn ized section and content) DATE CREATED AUTHOR 09/18/2024 [facility] DATE CREATED AUTHOR AUTHOR'S ORGANIZ ATION 10/01/2024 [facility] DATE CREATED AUTHOR AUTHOR'S ORGANIZ ATION 03/16/2025 [facility] Goals (unrecognized section and content) Goals may be documented in a n alternate section FOR RECORDS PERTAINING TO PATIENTS WHO ARE [...] BE BASED ON THE PRIMARY CLINICAL RECORDS. [employer] [facility]. provides no warranty or guarantee of the accuracy or completeness of information in this document.
[2025-04-08] MEDS: DiphenhydrAMINE 50 MG/ML Syringe 25 MG IV (21:12)
[2025-04-08] MEDS: Tetracaine 0.5% Ophthalmic Bottle 1 DRP OPHTHALMIC (21:15)
[2025-04-08] MEDS: 0.9% Normal Saline (1000mL) 1,000 ML 999 ML IV (21:18)
[2025-04-08 21:43] LABS: Hematocrit 46.9 % (40-54); Hemoglobin 15.5 g/dL (13.0-16.5); Immature Granulocytes Count 0.080 X10^3/uL (0.0-0.0); Mean Corp Hgb Conc 33.0 g/dL (32-36); Mean Corpuscular Volume 87.2 fL (80-94); Mean Platelet Vol. 11.5 fl (6.2-12.0); NRBC Flagged by Analyzer 0 % (0-5); POSITIVE COUNT YES; Platelet Count 268 K/mm3 (150-450); RBC Distribution Width CV 13.8 % (11.6-14.6); RBC Distribution Width SD 44.2 fl (35.1-43.9); Red Blood Count 5.38 M/mm3 (4.6-6.2); White Blood Count 14.5 K/mm3 (4.4-11.0)
[2025-04-08 21:51] LABS: Anion Gap 11 (5-15); BUN 13 mg/dL (4-19); BUN/Creat Ratio 12.7 RATIO (10-20); Calcium,Total 9.1 mg/dL (7.6-11.0); Carbon Dioxide 24.6 mmol/L (21.0-32.0); Chloride 101 mmol/L (98-108); Estimated Creatinine Clearance 123.61 ml/min (50-250); Glucose 102 mg/dL (70-99); Potassium 4.1 mmol/L (3.3-5.1)
[2025-04-08 21:53] LABS: Differential Indicated SCAN CRITERIA MET
[2025-04-08 22:03] VITALS: BP 150/96; PULSE 79; RESP 18; O2SAT 98
[2025-04-08 22:03] LABS: Red Cell Morphology NORM C+C NORMAL (NORM C&C)
--- NOTE | 2025-04-08 22:58 | EX.ED.VIS.HA ---
HPI History of Present Illness Chief Complaint: Headache Informant: patient Onset/Context/Timing Onset: Today Context: Sudden Timing: Continuous Quality -Headache: Positive for Sharp and Other (Pressure) Location: Right eye and right side of head Worsened by: Nothing Relieved by: Nothing Associated Symptoms/Injury Associated Symptoms: Positive for Nausea and Sinus Pressure; Negative for Fever, Vomiting, Sore Throat, Numbness, Tingling, Preceding Aura, Visual Changes, Blurred Vision, Photophobia or Visual Loss Narrative Narrative: Patient presents with a headache that began today. Patient states it began rather suddenly. Patient states it started in his right eye and has spread to the right side of his head. Patient describes it as sharp and pressure. Patient states nothing makes it worse and nothing makes it better. Patient states some sinus pressure over his right frontal area. Patient also admits to some nausea but denies any vomiting. Patient denies any scotoma. Patient denies any visual changes. Patient denies any paresthesias or weakness. Patient denies any trauma or injury to his eye. noted some swelling to his right eyelids. [facility] Medical History Crohn disease Hypothyroid Hypertension Home Medications ?Medication ?Instructions ?Recorded ?Last Taken ?Type levothyroxine 88 mcg tablet 50 mcg PO DAILY 04/17/15 Unknown History metoprolol tartrate 50 mg tablet 50 mg PO DAILY 04/17/15 Unknown History omeprazole 20 mg capsule,delayed 20 mg PO DAILY 04/17/15 Unknown History release hydrocodone-acetaminophen 5-325mg 1 tab PO Q6H PRN PRN Pain 3 days 05/31/23 Unknown Rx 5mg-325mg #10 TABLETS ondansetron 4 mg disintegrating 8 mg (2 x 4 mg) PO Q8H PRN PRN 05/31/23 Unknown Rx tablet Nausea #20 tabs prednisone 20 mg tablet 40 mg (2 x 20 mg) PO DAILY #10 05/31/23 Unknown Rx TABLETS hydrocodone-acetaminophen 5-325mg 1 tab PO Q6H PRN PRN Pain 3 days 02/01/25 Unknown Rx 5mg-325mg #10 TABLETS Allergy/AdvReac Type Severity Reaction Status Date / Time No Known Allergies Allergy Verified 04/08/25 20:04 Surgical History no surgical history no surgical history Social History household members: spouse and children Smoking Status: Never smoker ROS ROS ED Constitutional Constitutional ED: Denies chills or fever(s) Eyes Eyes: Denies blurry vision or change in vision ENT ENT ED: Reports rhinorrhea; Denies sore throat Cardiovascular Cardiovascular: Denies chest pain or palpitations Respiratory/Chest Respiratory/Chest: Denies cough or dyspnea Gastrointestinal Gastrointestinal: Reports nausea; Denies vomiting Genitourinary Genitourinary ED: Denies dysuria or hematuria Musculoskeletal Musculoskeletal: Denies back pain or neck pain Integumentary Denies abscess or rash Neurologic Neurologic: Reports headache(s); Denies weakness Allergic/Immunologic Allergic/Immunologic ED: Denies mouth swelling or urticaria EXAM Physical Exam Const Vital Signs: 04/08/25 20:04 04/08/25 22:03 Temperature 96.8 F L Temperature Source Temporal Pulse Rate 62 79 Respiratory Rate 18 18 Blood Pressure 163/100 H 150/96 H Blood Pressure Mean 121 114 Pulse Ox 98 98 Oxygen Delivery Method Room Air Room Air Positive well nourished and well developed Constitutional Narrative: BMI is 37.2. General Appearance ED: well developed and NAD HEENT Reports normocephalic and moist mucous membranes atraumatic; Negative for temporal artery tenderness Eyes PERRL and EOMs intact bilaterally Eyes Narrative: Funduscopic examination was benign. Neck supple, no meningeal signs and no JVD Resp normal respiratory effort and clear to auscultation bilaterally Cardio regular rate and regular rhythm GI non-tender and non-distended Palpation: soft Extremity full ROM General Extremety ED: Negative for edema or tenderness General Extremity: Negative for edema Neuro oriented x3, CN's II-XII intact bilaterally and no sensory deficits noted Fátima Coma Scale: document GCS findings Spontaneous Obeys Commands Oriented 15 Sensorium / Orientation: awake and alert Speech: speech normal Motor Exam: strength 5/5 throughout Psych mental status grossly normal MDM MDM MDM Narrative Medical decision making narrative: Differential diagnosis includes temporal arteritis, migraine headache, intracranial bleeding, increased intraocular pressure, corneal abrasion, cluster headache, and tension headache. CT scan of the brain will be obtained to assess for intracranial bleeding. CBC will be obtained to assess for leukocytosis and anemia. Basic metabolic profile will be obtained to assess for electrolyte abnormality and renal function. Sed rate will be obtained to assess for temporal arteritis. Lab Data Attestation: I reviewed the patient's lab results. Lab results narrative: CBC was reviewed. There is a mild leukocytosis of 14.5. The remainder is within normal limits. Basic metabolic profile was reviewed and was within normal limits. Sed rate was reviewed and was normal at 4. Labs: Laboratory Results - last 24 hr 04/08/25 21:23 WBC 14.5 H RBC 5.38 Hgb 15.5 Hct 46.9 MCV 87.2 MCH 28.8 MCHC 33.0 RDW Std Deviation 44.2 H RDW Coeff of Kj 13.8 Plt Count 268 MPV 11.5 Immature Gran % (Auto) 0.600 Neut % (Auto) 71.4 H Lymph % (Auto) 18.6 L Christian % (Auto) 7.9 Eos % (Auto) 1.1 Baso % (Auto) 0.4 Absolute Neuts (auto) 10.4 H Absolute Lymphs (auto) 2.70 Nucleated RBC % 0 Platelet Estimate ADEQUATE RBC Morphology NORM C+C ESR 4 Sodium 137 Potassium 4.1 Chloride 101 Carbon Dioxide 24.6 Anion Gap 11 BUN 13 Creatinine 1.03 Estim Creat Clear Calc 123.61 Est GFR (MDRD) Non-Af 97 BUN/Creatinine Ratio 12.7 Glucose 102 H Calcium 9.1 Radiography Diagnostic Testing: Clinical Impression(s) from Imaging Studies Brain CT 04/08/25 20:56 IMPRESSION: No acute intracranial abnormality. Small amount of fluid in the maxillary sinuses can be seen with acute sinusitis. Reading Location: [facility] CT scan of the brain was obtained. There is no acute intracranial abnormality. This was interpreted by the radiologist and was also independently reviewed by myself. Treatment and Re-Evaluation Narrative: Patient was given IV fluids, Reglan, and Benadryl. Patient was feeling better on reevaluation. Patient states that he had an urgent care visit earlier and was given a prescription for antibiotic eyedrops. Patient states he was then told to come to the emergency department for further evaluation. Patient was instructed to fill the antibiotic drops and take them as prescribed. Patient was instructed to follow-up with his primary care physician in 5 to 7 days. Patient understood and was agreeable with the plan. All questions were answered. Discharge Plan Triage Chief Complaint: Headache Other Complaint: Eye Problem ED Provider: Bryan Mcmanus Dx/Rx/DC Orders Clinical Impression: Headache, Corneal abrasion, right Instructions: ED Corneal Abrasion, ED Headache Unspecified Prescriptions: No Action levothyroxine 88 MCG tablet 50 mcg PO DAILY metoprolol tartrate 50 MG tablet 50 mg PO DAILY omeprazole 20 MG capsule 20 mg PO DAILY hydrocodone-acetaminophen [hydrocodone-acetaminophen] 5-325 mg tablet 1 tab PO Q6H PRN PRN (Reason: Pain) 3 Days Qty: 10 0RF prednisone 20 mg tablet 40 mg PO DAILY Qty: 10 0RF ondansetron [ondansetron] 4 mg tablet,disintegrating 8 mg PO Q8H PRN PRN (Reason: Nausea) Qty: 20 0RF hydrocodone-acetaminophen 5-325 mg tablet 1 tab PO Q6H PRN PRN (Reason: Pain) 3 Days Qty: 10 0RF Primary Care Provider: Vern Stewart Referrals: Vern Stewart MD [Primary Care Provider] - 2 Days Print Language: Romanian Disposition Disposition: Home, Self Care
[2025-04-08 23:39] VITALS: BP 151/102; PULSE 70; RESP 16; TEMP 36.6; O2SAT 98
== END 2025-04-08 23:40 | disposition home or self-care (01) ==
PROVIDERS: Emergency Provider Emergency Medicine; PCP Family Medicine; Visit Provider Emergency Medicine
DX: R51.9 Headache, unspecified (principal); S05.01XA Injury of conjunctiva and corneal abrasion without foreign body, right eye, initial encounter; I10 Essential (primary) hypertension; E03.9 Hypothyroidism, unspecified; Z79.890 Hormone replacement therapy; Z79.899 Other long term (current) drug therapy
CPT/HCPCS: 70450; 80048; 85025; 85652; 96361; 96374; 96375; 99285; A4216